=== PATIENT | female | born 1975 | race Caucasian/White ===

== ENCOUNTER 2023-05-07 19:16 | Emergency (ER) | payer OTHER, SELFPAY ==
[2023-05-07 19:20] VITALS: BP 177/94; PULSE 94; RESP 18; TEMP 38.1; O2SAT 97; BMI 39.5
--- NOTE | 2023-05-07 19:29 | ED_ITS ---
HPI - URI/Sore Throat General Chief Complaint: Upper Respiratory Infection Stated Complaint: COUGH, SNEEZING, WEAK Time Seen by Provider: 05/07/23 19:18 Source: patient History of Present Illness HPI Narrative: 47-year-old male presents for a 24-hour history of sneezing and cough and congestion. She was also noted to have a fever at triage. She is worried because next week she is due for her once every 6 months infusion for MS. No vomiting or diarrhea or dysuria. Related Data Previous Rx's Medication Instructions Recorded oseltamivir 75 mg capsule (Tamiflu) 75 mg PO BID 5 days #10 caps 05/07/23 Allergies Allergy/AdvReac Type Severity Reaction Status Date / Time naproxen [From Naprosyn] Allergy Severe Verified 05/07/23 19:24 prednisone Allergy Severe Verified 05/07/23 19:24 Sulfa (Sulfonamide Allergy Severe Verified 05/07/23 19:24 Antibiotics) Review of Systems ROS Narrative A ten point review of systems is negative except as noted above. Exam Narrative Exam Narrative: Nurses note and vital signs reviewed and patient is not hypoxic. General: The patient appears well and in no apparent distress. Patient is re sting comfortably on cart. Skin: Warm, dry, no pallor noted. There is no rash noted. Head: Normocephalic, atraumatic Eye: Normal conjunctiva, no drainage Ears, Nose, Mouth, and Throat: oral mucosa is moist. Nares patent. No pharyngeal erythema or exudate Cardiovascular: Regular Rate and Rhythm Respiratory: Patient is in no distress, no accessory muscle use, lungs are clear to auscultation, no wheezing, rales or rhonchi Back: non-tender GI: Soft and nontender Musculoskeletal: The patient has no evidence of calf tenderness, no pitting edema, symmetrical pulses noted bilaterally Neurological: A&O, normal speech Psychiatric: Cooperative Constitutional Vital Signs, click to edit/add: Last Vital Signs Temp 100.6 F H 05/07/23 19:20 Pulse 94 H 05/07/23 19:20 Resp 18 05/07/23 19:53 BP 177/94 H 05/07/23 19:20 Pulse Ox 97 05/07/23 19:20 O2 Del Method Room Air 05/07/23 19:20 Course Vital Signs Vital signs: Vital Signs Temperature 100.6 F H 05/07/23 19:20 Pulse Rate 94 H 05/07/23 19:20 Respiratory Rate 18 05/07/23 19:20 Blood Pressure 177/94 H 05/07/23 19:20 Pulse Oximetry 97 05/07/23 19:20 Oxygen Delivery Method Room Air 05/07/23 19:20 Temperature 100.6 F H 05/07/23 19:20 Pulse Rate 94 H 05/07/23 19:20 Respiratory Rate 18 05/07/23 19:53 Blood Pressure 177/94 H 05/07/23 19:20 Pulse Oximetry 97 05/07/23 19:20 Oxygen Delivery Method Room Air 05/07/23 19:20 MDM - URI/Sore Throat MDM Narrative Medical decision making narrative: COVID is negative and influenza is positive. No further workup is indicated. She was given Tylenol for her fever. The patient has MS and is scheduled for her treatment infusion next week so I will prescribe her Tamiflu. Treatment diagnosis and follow-up were discussed with the patient. Differential Diagnosis Differential diagnosis: Likely upper respiratory infection, viral infection, influenza and other (COVID) Lab Data Attestation: I reviewed the patient's lab results. Labs: Lab Results 05/07/23 Range/Units 19:30 Influenza Type A Ag Positive A Influenza Type B Ag Negative SARS-CoV-2 Ag (CV2AG) Negative (NEGATIVE) Discharge Plan Discharge Chief Complaint: Upper Respiratory Infection Clinical Impression: Influenza Patient Disposition: Home, Self-Care Time of Disposition Decision: 20:17 Condition: Good Mode of Transportation: Private Vehicle Prescriptions / Home Meds: New oseltamivir [Tamiflu] 75 mg capsule 75 mg PO BID 5 Days Qty: 10 0RF Instructions: Influenza (ED) Stand Alone Forms: Portal Instructions Referrals: CELESTINA MARK [Primary Care Provider] - 1 week
[2023-05-07] MEDS: ACETAMINOPHEN 325 MG TABLET 650 MG PO (19:42)
[2023-05-07 19:49] LABS: Influenza Virus A Antigen Positive; Influenza Virus B Antigen Negative; Internal Control Within Normal Limits; SARS-CoV-2 Ag NEGATIVE (NEGATIVE)
[2023-05-07 19:53] VITALS: RESP 18
[2023-05-07] MEDS: OSELTAMIVIR PHOSPHATE 75 MG CAPSULE PO (20:29)
== END 2023-05-07 20:35 | disposition home or self-care (01) ==
PROVIDERS: Emergency Provider Emergency Medicine; PCP Nurse Practitioner Family
DX: J10.1 Influenza due to other identified influenza virus with other respiratory manifestations (principal); Z20.822 Contact with and (suspected) exposure to COVID-19; R50.9 Fever, unspecified
CPT/HCPCS: 87804; 87811; 99283

== ENCOUNTER 2023-05-25 10:26 | Outpatient (OUT) | payer OTHER, SELFPAY ==
--- OUTSIDE RECORDS SUMMARY | 2023-05-25 10:34 | XMS_ITS ---
Author Name Auto Generated Organization OHIP Care Team Providers Care Diversity Intern Name Role Phone DR JASIEL MONTES Consulting Unavailable JAS, MILA Attending Unavailable JAS, MILA Primary Care Unavailable JAS, MILA Admitting Unavailable JAS, MILA Consulting Unavailable GOGO EMMANUEL Attending Unavailable GOGO EMMANUEL Consulting Unavailable GOGO EMMAUNEL Admitting Unavailable JAS, MILA Primary Care Unavailable JAS, MILA Primary Care Unavailable SANIA HOWE Referring Unavailable JAS, MILA Primary Care Unavailable SANIA HOWE Referring Unavailable JAS, MILA Primary Care Unavailable WALESKA VO Attending Unavailable SANIA HOWE Referring Unavailable JAS, MILA Primary Care Unavailable REBECCA SMITH Referring Unavailable JAS, MILA Primary Care Unavailable REBECCA SMITH Attending Unavailable REBECCA SMITH Referring Unavailable JAS, MILA Primary Care Unavailable REBECCA SMITH Referring Unavailable JAS, MILA Primary Care Unavailable SANIA HOWE Attending Unavailable SANIA HOWE Referring Unavailable Jose G Santiago Attending Unavailab Jose G Mendenhall Admitting Unavailab le Jas, Mila Primary Care Unavailable PROBLEMS DATE TYPE CONDITION / CODE ATTENDING STATUS [facility] 10/02/2022 Active Multiple scleros is (HCC) / G35(ICD-10) NA Active [facility] 10/02/2022 Active Urinary incontinence, unspecified type / R32(ICD-10) NA Active [facility] 10/02/2022 Active Imbalance / R26.89(ICD-10) NA Active [facility] 10/02/2022 Active Abnormality of gait / R26.9(ICD-10) NA Active [facility] 08/20/2022 Working Diagnosis ABNORMAL LEVEL S OTHER SERUM ENZYMES / R74.8(ICD-10) MILA MARK Active [facility] 08/20/2022 Admitting Diagnosis ABNORMAL LEVELS OTHER SERUM ENZYMES / R74.8(ICD-10) MILA MARK Active [facility] 08/20/2022 Principal Diagnosis ABNORMAL LEVELS OTHER SERUM ENZYMES / R74.8(ICD-10) MILA MARK Active [facility] 08/20/2022 Secondary Diagnosis CALCU GB W/O CHOLECYST W/O OBST / K80.20(ICD-10) MILA MARK Active [facility] 08/08/2022 Working Diagnosis BIPOLAR DISORD ER UNSPECIFIED / F31.9(ICD-10) GOGO EMMANUEL Active [facility] 08/08/2022 Admitting Diagnosis BIPOLAR DISORDER UNSPECIFIED / F31.9(ICD-10) GOGO EMMANUEL Active [facility] 08/08/2022 Principal Diagnosis BIPOLAR DISORDER UNSPECIFIED / F31.9(ICD-10) GOGO EMMANUEL Active [facility] 08/08/2022 Secondary Diagnosis OTH CUSTODIAL CURRENT DRUG THERAPY / Z79.899(ICD-10) GOGO EMMANUEL Active [facility] PROCEDURES No Procedure Records Found RESULTS PROGRESS Observed: 05/20/2023 12:15 PM Status: COMPLETED Source: [facility] REPOSITORY HNO ID: [id number] Author: CIERA HART RN Service: ? Author Type: Registered Nurse Type: Progress Notes Filed: 05/20/2023 15:12 Note Text: Pt receiving Ocrelixumab infusion, increasing as directed per protocol. Pt infusion at max infusion rate of 300ml/hr at 1133. At 1215 pt reports a red blotchy spot with 2 small less than 1cm large spots around that initial spot. She was petting the therapy dog when she noticed this appear, however reports she is not allergic to dogs and has not had this happen before. Infusion stopped. Message sent to Dr. Smith. Orders for Solumedol and Pepcid IV. Medications given as ordered and will restart in 20minutes if spot is improved and no worsening of symptoms 1320: Spot on arm appears improved, no further issues, restarted infusion. 1356. No further issues with skin issues at this time. Educated pt of s/s of reaction such as scratchy throat or tightening of throat, SOB, or rash to please go to ER for further evaluation. Verbalizes understanding. Ciera Hart RN IGG SERPL-MCNC Collected: 4 9:53 AM Status: F Source: [facility] REPOSITORY Order Comment: Specimen Type : BLOOD SPECIMEN Ordering Facility: [facility] Address: [address] [place] [address] TYPE CODE TESTS RESULT OUT OF RANGE REFERENCE UNITS LAB 2465-3(LOINC) IgG SerPl-mCnc 695 Low 700-1600 mg/dL Performed By: #### 2465-3, 2 472-9 #### [facility] CLIA [id number] [address] [place], [place] [id number] [place] IGM SERPL-MCNC Collected: 4 9:53 AM Status: F Source: [facility] REPOSITORY Order Comment: Specimen Type : BLOOD SPECIMEN Ordering Facility: [facility] Address: [address] [place] [address] TYPE CODE TESTS RESULT OUT OF RANGE REFERENCE UNITS LAB 2472-9(LOINC) IgM SerPl-mCnc 17 Low 40-230 mg/dL Performed By: #### 2465-3, 2 472-9 #### [facility] CLIA [id number] [address] [place], [place] [id number] [place] CBC W AUTO DIFF BLD Collected: 05/20/2023 9:[address] atus: F Source: [facility] REPOSITORY Order Comment: Specimen Type : BLOOD SPECIMEN Ordering Facility: [facility] Address: [address] [place] [address] TYPE CODE TESTS RESULT OUT OF RANGE REFERENCE UNITS LAB 6690-2([facility]) WBC # Bld Auto 7.98 3.70-11.00 k/uL LAB 789-8([facility]) RBC # Bld Auto 5.18 3.90-5.20 m/ uL LAB 718-7([facility]) Hgb Bld-mCnc 14.5 11.5-15.5 g/dL LAB 4544-3([facility]) Hct VFr Bld Auto 44.0 36.0-46.0 % LAB 787-2([facility]) MCV RBC Auto 84.9 80.0-100.0 fL LAB 785-6([facility]) MCH RBC Qn Auto 28.0 26.0-34.0 p g LAB 786-4([facility]) MCHC RBC Auto-mCnc 33.0 30.5-36.0 g/dL LAB 37387-2([facility]) RDW RBC-Rto 12.8 11.5-15.0 % LAB 777-3([facility]) Platelet # Bld Auto 192 150-400 k/uL LAB 96782-0([facility]) PMV Bld Auto 10.8 9.0-12.7 fL LAB 770-8([facility]) Neutrophils/leuk NFr Bld Auto 71.9 % LAB 751-8([facility]) Neutrophils # Bld Auto 5.74 1.45-7.50 k/uL LAB 736-9([facility]) Lymphocytes/leuk NFr Bld Auto 17.5 % LAB 731-0([facility]) Lymphocytes # Bld Auto 1.40 1.00-4.00 k/uL LAB 5905-5([facility]) Monocytes/leuk NFr Bld Auto 8.3 % LAB 742-7([facility]) Monocytes # Bld Auto 0.66 <0.87 k/uL LAB 713-8([facility]) Eosinophil/leuk NFr Bld Auto 1.4 % LAB 711-2([facility]) Eosinophil # Bld Auto 0.11 <0.46 k/uL LAB 706-2([facility]) Basophils/leuk NFr Bld Auto 0.3 % LAB 704-7([facility]) Basophils # Bld Auto <0.03 <0.11 k/uL LAB 96065-6(LOINC) Imm Granulocytes/isra k NFr Bld Auto 0.6 % LAB 54960-5([facility]) Imm Granulocytes # Bld Auto 0.05 <0.10 k/uL LAB 72996-3([facility]) nRBC/100 WBC Bld-Rto 0.0 /100 WBC LAB 771-6([facility]) nRBC # Bld Auto <0.01 <0.01 k/u L LAB 66117-8([facility]) Differential method Bld Auto Performed By: #### 16024-4 # ### [facility] CLIA [id number] [address] [place] [address] COMP METAB 2000 PNL SERPL Collected: 9:32 AM Status: F Source: [facility] REPOSITORY Order Comment: Specimen Type : BLOOD SPECIMEN Ordering Facility: [facility] Address: [address] [place] [address] TYPE CODE TESTS RESULT OUT OF RANGE REFERENCE UNITS LAB 2885-2([facility]) Prot SerPl-mCnc 6.2 Low 6.3-8.0 g/dL LAB 1751-7(INC) Albumin SerPl-mCnc 4.0 3.9-4.9 g/dL LAB 44272-3(LOINC) Calcium SerPl-mCnc 9.6 8.5-10.2 mg/dL LAB 1975-2([facility]) Bilirub SerPl-mCnc 0.9 0.2-1.3 mg/dL LAB 6768-6([facility]) ALP SerPl-cCnc 93 34-123 U/L LAB 1920-8(INC) AST SerPl-cCnc 28 13-35 U/L LAB 1742-6(LOINC) ALT SerPl-cCnc 25 7-38 U/L LAB 2345-7([facility]) Glucose SerPl-mCnc 147 High 74-99 mg/dL Result Comment: The [place] [employer] Association (ADA) provides guidance for cutoff values for fasting glucose and random glucose. The ADA defines fasting as no caloric intake for at least 8 hours. Fasting plasma glucose results between 100 to 125 mg/dL indicate increased risk for diabetes (prediabetes). Fasting plasma glucose results greater than or equal to 126 mg/dL meet the criteria for diagnosis of diabetes. In the absence of unequivocal hyperglycemia, results should be confirmed by repeat testing. In a patient with classic symptoms of hyperglycemia or hyperglycemic crisis, random plasma glucose results greater than or equal to 200 mg/dL meet the criteria for diagnosis of diabetes. Reference: Standards of Medical Care in Diabetes 2016, [place] [employer] Association. Diabetes Care. 2016.39(Suppl 1). LAB 3094-0(LOINC) BUN SerPl-mCnc 11 7-21 mg/ dL LAB 2160-0(LOINC) Creat SerPl-mCnc 1.18 High 0.58-0.96 mg/dL LAB 2951-2(LOINC) Sodium SerPl-sCnc 139 136-144 mmol/L LAB 2823-3(LOINC) Potassium SerPl-sCnc 3.8 3.7-5.1 mmol/L LAB 2075-0(LOINC) Chloride SerPl-sCnc 103 97-105 mmol/L LAB 2028-9(LOINC) CO2 SerPl-sCnc 25 22-30 mmo l/L LAB 72302-4(LOINC) Anion Gap SerPl-sCnc 11 9-18 mmol/L LAB 89081-4(LOINC) Creatinine + eGFR Pnl SerPlBld 58 Low >=60 mL/min/1 .73m??? Result Comment: Estimated Gl omerular Filtration Rate (eGFR) is calculated using the 2020 CKD-EPI creatinine equation. This equation utilizes serum creatinine, sex, and age as parameters. The creatinine assay has traceable calibration to isotope dilution-mass spectrometry. Refer to KDIGO guidelines for clinical interpretation. In patients with unstable renal function, e.g. those with acute kidney injury, the eGFR may not accurately reflect actual GFR. Performed By: #### 07690-5 # ### [facility] CLIA [id number] [address] [place], [place] [id number] IMMUNOGLOBULINS UMESH Collected: 05/20/19 24 9:32 AM Status: F Source: [facility] REPOSITORY Order Comment: Specimen Type : BLOOD SPECIMEN Ordering Facility: [facility] Address: [address] [place] [address] TYPE CODE TESTS RESULT OUT OF RANGE REFERENCE UNITS LAB 2465-3(LOINC) IgG SerPl-mCnc 858 119-8169 mg/dL LAB 2458-8(LOINC) IgA SerPl-mCnc 149 70-400 mg/dL LAB 2472-9(LOINC) IgM SerPl-mCnc 19 Low 40-230 mg/dL Performed By: #### LOBO ## ## [facility] CLIA [id number] [address] [place] [address] [place] CN[place] Observed: 05/07/2023 10:00 AM Status: COMPLETED Source: [facility] REPOSITORY Office Visit ([facility]EM[facility]) MACKENZIE CONCEPCION ([id number]) 1975 F Date Time Provider Department 05/07/23 10:00 AM REBECCA SMITH During your visit today, we recorded the following information about you: Pulse Blood pressure Weight Height 93/minute 105/53 110.6 kg 1.676 m Rebecca Smith DO 05/07/2023 12:43 PM [facility], [place], operated by [facility] FOLLOWUP/ESTABLISHED PATIENT VISIT [facility] DIAGNOSIS: Multiple Sclerosis MS DISEASE HISTORY: Date of onset: 1998 Date of diagnosis: 2002 Disease course from Onset: Exacerbating/Remitting Disease course last year: Exacerbating/Remitting Current Medications for MS: Ocrevus 04/2017 Medications for MS Used in the Past: IV Steroids, Rebif and avonex, Tysabri, Tecfidera,Aubagio (03/2016) ETHAN positive 2011 (was negative in 2010) JCV Ab status: Positive, 10/10/2014, index=0.46 Most recent brain MRI: 10/02/2022 Most recent cervical MRI: 10/02/2022 Most recent thoracic MRI: 10/06/2021 CHIEF COMPLAINT: Follow-up on MS disease modifying therapy INTERVAL HISTORY: Usual treating team: No specialty comments available. The patient is accompanied by sister. The patient was last seen 10/02/22, currently taking Ocrevus. Since the patient's last visit the patient reports overall feeling stable. Issues with current therapy: Tolerating medication without side effects. She had 2 falls. Once in her bedroom and one up the stairs. She does feel her walking is slowing down slowly over time. She walks typically with no assistive device. She does have a cane that she uses occasionally, but not often. In the summer she will go to [place] to walk, but needs to sit frequently. Neuro-QoL Functions (higher=better functioning) Flowsheet Row Office Visit from 05/07/[address] [facility] from 04/02/2022 in [facility] Social Work from 10/30/2021 in [facility] Upper Extremity Domain T Score 35 34 35 Lower Extremity Domain T Score 38 27 32 Cognitive Function Domain T Score 44 36 39 Positive Affect Well Being T Score -- -- -- Ability To Participate In Social Roles T Score 38 38 46 Satisfaction With Social Roles T Score 39 36 41 Neuro-QoL Symptoms (higher=worse symptoms) Flowsheet Row Office Visit from 05/07/[address] 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 She has no past medical history of Atrial fibrillation ([facility]), Cancer ([facility]), Chronic obstructive pulmonary disease (COPD) ([facility]), Chronic renal insufficiency, Congestive heart failure ([facility]), Coronary artery disease, Diabetes ([facility]), Epilepsy ([facility]), Hypertension, Obstructive sleep apnea, Steroid long-term use, Stroke ([facility]), or Substance abuse ([facility]). has a current medication list which includes the following prescription(s): baclofen, albuterol hfa, vraylar, docusate sodium, cholecalciferol (vitamin d3), gabapentin, divalproex er, bupropion xl, lactase, oxybutynin, citalopram hydrobromide, ocrelizumab, acetaminophen, and iv contrast. EXAM: BP 105/53 Pulse 93 Ht 167.6 cm (5' 6 ) Wt 110.6 kg (243 lb 14.4 oz) LMP 08/31/2011 BMI 39.37 kg/m? Multiple Sclerosis Performance Test Flowsheet Row Office Visit from 05/07/2023 in [facility] Office Visit from 02/20/2019 in [facility] Processing Speed Total Number Correct 29 55 Low-contrast letter acuity test-2.5 percent opacity -- 21 Low-contrast letter acuity test-100 percent opacity -- 59 Dominant hand -- -- MDT Left Hand Time 44.09 24.96 MDT Right Hand Time 39.13 28.28 Walking Speed Test (25 feet) 9.57 7.92 General Appearance: well appearing, in no acute distress Mental status evaluation during the interview and examination showed normal level of consciousness, orientation, language, does rely on sister and significant other for recallling events. Affect: Normal Extraocular movements: full, without CAMPBELL Facial sensation: Intact bilaterally Facial movements: Intact bilaterally Speech: normal Muscle tone: Right arm spasticity: None Right leg spasticity: None Left arm spasticity: None Left leg spasticity: None Muscle strength (#/5): Right Left Upper Extremity: Deltoids 5 5 Biceps 5 5 Triceps 5 5 Thermostat Repairer 5 5 Dorsal interossei 5 5 Lower extremity: Iliopsoas 5 5 Quadriceps 5 5 Hamstrings 5 5 Tibialis anterior 5 5 Gastrocnemius 5 5 Standard gait: wide-based. Assistive device: independent RESULTS: CBC + Diff Component Value Date WBC 6.19 11/11/2022 HB 14.1 11/11/2022 HCT 41.9 11/11/2022 PLT 197 11/11/2022 ABSLYMPH 1.62 11/11/2022 Vitamin D Component Value Date VITD25 73.1 05/13/2021 CMP Component Value Date AST 26 11/11/2022 GLUC 111 (H) 11/11/2022 BUN 11 11/11/2022 CREAT 1.04 (H) 11/11/2022 NA 140 11/11/2022 K 3.6 (L) 11/11/2022 CHLOR 105 11/11/2022 ALT 32 11/11/2022 No results found for: JCTIMBOD JCHALIB MRI Results: Discrete MRI Results Component Value Date Brain New T2 Lesions None Site 10/02/2022 Brain New T2 Lesions None Site 10/02/2022 Brain Enhancing Lesions None 10/02/2022 Brain Enhancing Lesions None 10/02/2022 Cervical Spine New T2 Lesions None 10/02/2022 Cervical Spine New T2 Lesions None 10/02/2022 Cervical spine enhancing lesions None 10/02/2022 Cervical spine enhancing lesions None 10/02/2022 ASSESSMENT/PLAN: Mackenzie Concepcion is a 46 year old female with 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 No new neurological symptoms. Balance fluctuates, L>R hemiparesis and occasional falls. She has a slowing of her walking, which is also evident on T2FW testing. She would benefit from PT assessment for exercise and assistive device recommendations. PLAN: -Continue Ocrevus -CBC, CMP, Immunoglobulins -PT -Brain MRI in 6 months -Follow up in 6 months with [facility] via virtual or in person visit No orders found for this visit on 05/07/23. The chart was reviewed for possible participation in the following studies:None Patient Health Education Discussed at Visit: Aerobic exercise and Stretching Follow-up: In 6 months at [facility] I spent a total of 30 minutes on the date of the service which included preparing to see the patient, [id number] patient care, completing clinical documentation, obtaining and/or reviewing separately obtained history, performing a medically appropriate examination, counseling and educating the patient/family/caregiver, ordering medications, tests, or procedures, communicating with other HCPs (not separately reported), independently interpreting results (not separately reported), communicating results to the patient/family/caregiver, and care coordination (not separately reported). Rebecca Smith DO [facility] Referring Provider: REBECCA SMITH [[id number]] Allergies As of Date: 05/07/2023 Noted Allergy Reaction NAPROSYN (NAPROXEN) 01/21/2005 11 - Vomiting PREDNISONE 10/04/2012 14 - Other: See Comments Comments: Became bradycardic with shortness of breath SULFA (SULFONAMIDE ANTIBIOTICS) 01/21/2005 11 - Vomiting Comments: hair loss MOTRIN (IBUPROFEN) 05/20/2009 14 - Other: See Comments Comments: Pt states she has UTI's when on Motrin. Date Reviewed: 05/07/2023 Reviewed by: Carrington Loaiza OCCA - Fully Assessed Primary Visit Diagnosis:Multiple sclerosis (HCC) [G35] Order(s):MRI BRAIN WO/W IVCON [[id number]] Order #: [id number] FUTURE iv contrast (will be provided with radiology test)MRI Brain Inject, intravenously, once for 1 dose.No IV access, insert saline lock prior to beginning of sedation, infusion, injection of imaging exam.Discontinue saline lock post exam. If Pt. has a central line or IVAD, may access for administration according to line specific nursing protocol.Once exam is complete flush line and de-access according to line specific nursing protocol in the MR contrast administration guidelines linkDisp: 1 EachRfl: 0 CONSULT TO PHYSICAL THERAPY [9032] Order #: [id number]: 1 FUTURE CBC + DIFF [SQCBCDIF] Order #: [id number] FUTURE COMP METABOLIC PANEL [SQCMP] Order #: [id number] FUTURE IMMUNOGLOBULINS UMESH [SQSERIMM] Order #: [id number] FUTURE Prescriptions as of 05/07/2023 - iv contrast (will be provided with radiology test) MRI Brain Inject, intravenously, once for 1 dose.No IV access, insert saline lock prior to beginning of sedation, infusion, injection of imaging exam.Discontinue saline lock post exam. If Pt. has a central line or IVAD, may access for administration according to line specific nursing protocol.Once exam is complete flush line and de-access according to line specific nursing protocol in the MR contrast administration guidelines link - baclofen 10 mg tablet TAKE ONE TABLET BY MOUTH 3 TIMES DAILY DIRECTED - albuterol HFA (PROVENTIL HFA, VENTOLIN HFA) 90 mcg/actuation inhaler Inhale as instructed q 4 HR. - VRAYLAR 6 mg capsule Take 10 mg by mouth once daily. - docusate sodium (COLACE) 100 mg capsule TAKE ONE CAPSULE BY MOUTH ONCE DAILY NEEDED - Cholecalciferol, Vitamin D3, 125 mcg (5,000 unit) cap TAKE ONE CAPSULE BY MOUTH ONCE DAILY - gabapentin (NEURONTIN) 300 mg capsule TAKE ONE CAPSULE 3 TIMES DAILY (BREAKFAST, LUNCH AND DINNER) AND TAKE 2 CAPSULES AT BEDTIME - iv contrast (will be provided with radiology test) MRI Brain Inject, intravenously, once for 1 dose.No IV access, insert saline lock prior to beginning of sedation, infusion, injection of imaging exam.Discontinue saline lock post exam. If Pt. has a central line or IVAD, may access for administration according to line specific nursing protocol.Once exam is complete flush line and de-access according to line specific nursing protocol in the MR contrast administration guidelines link - divalproex ER (DEPAKOTE ER) 250 mg 24 hr tablet TAKE FOUR TABLETS BY MOUTH IN THE EVENING - buPROPion XL (WELLBUTRIN XL) 300 mg 24 hr tablet Take 300 mg by mouth once daily. - lactase (LACTAID) 3,000 unit tablet Take by mouth q 24 HR. - oxybutynin (DITROPAN) 5 mg tablet TAKE ONE TABLET BY MOUTH IN THE MORNING, AFTERNOON, AND AT BEDTIME - citalopram hydrobromide (CELEXA) 10 mg tablet Take 10 mg by mouth once daily. - ocrelizumab (OCREVUS) 30 mg/mL soln injection Inject intravenously once every 6 months. - TYLENOL ARTHRITIS ORAL Take 1 Dose by mouth as needed. 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 If Pt. has a central line or IVAD, may access for administration according to line specific nursing protocol.Once exam is complete flush line and de-access according to line specific nursing protocol in the MR contrast administration guidelines link Follow-up and Disposition History for Encounter Date Provider Department Center 05/07/2023 [id number] SMITH [facility] Encounter Status:Closed by REBECCA SMITH on 05/07/23 PROGRESS Observed: 05/07/2023 9:23 AM Status: COMPLETED Source: [facility] REPOSITORY O ID: [id number] Author: REBECCA SMITH DO Service: ? Author Type: Physician Type: Progress Notes Filed: 05/07/2023 12:43 Note Text: [facility] FOLLOWUP/ESTABLISHED PATIENT VISIT [facility] DIAGNOSIS: Multiple Sclerosis MS DISEASE HISTORY: Date of onset: 1998 Date of diagnosis: 2002 Disease course from Onset: Exacerbating/Remitting Disease course last year: Exacerbating/Remitting Current Medications for MS: Ocrevus 04/2017 Medications for MS Used in the Past: IV Steroids, Rebif and avonex, Tysabri, Tecfidera,Aubagio (03/2016) ETHAN positive 2011 (was negative in 2010) JCV Ab status: Positive, 10/10/2014, index=0.46 Most recent brain MRI: 10/02/2022 Most recent cervical MRI: 10/02/2022 Most recent thoracic MRI: 10/06/2021 CHIEF COMPLAINT: Follow-up on MS disease modifying therapy INTERVAL HISTORY: Usual treating team: No specialty comments available. The patient is accompanied by sister. The patient was last seen 10/02/22, currently taking Ocrevus. Since the patient's last visit the patient reports overall feeling stable. Issues with current therapy: Tolerating medication without side effects. She had 2 falls. Once in her bedroom and one up the stairs. She does feel her walking is slowing down slowly over time. She walks typically with no assistive device. She does have a cane that she uses occasionally, but not often. In the summer she will go to [place] to walk, but needs to sit frequently. Neuro-QoL Functions (higher=better functioning) Flowsheet Row Office Visit from 05/07/[address] [facility] from 04/02/2022 in [facility] Social Work from 10/30/2021 in [facility] Upper Extremity Domain T Score 35 34 35 Lower Extremity Domain T Score 38 27 32 Cognitive Function Domain T Score 44 36 39 Positive Affect Well Being T Score -- -- -- Ability To Participate In Social Roles T Score 38 38 46 Satisfaction With Social Roles T Score 39 36 41 Neuro-QoL Symptoms (higher=worse symptoms) Flowsheet Row Office Visit from 05/07/[address] 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 She has no past medical history of Atrial fibrillation ([facility]), Cancer ([facility]), Chronic obstructive pulmonary disease (COPD) ([facility]), Chronic renal insufficiency, Congestive heart failure ([facility]), Coronary artery disease, Diabetes ([facility]), Epilepsy ([facility]), Hypertension, Obstructive sleep apnea, Steroid long-term use, Stroke ([facility]), or Substance abuse ([facility]). has a current medication list which includes the following prescription(s): baclofen, albuterol hfa, vraylar, docusate sodium, cholecalciferol (vitamin d3), gabapentin, divalproex er, bupropion xl, lactase, oxybutynin, citalopram hydrobromide, ocrelizumab, acetaminophen, and iv contrast. EXAM: BP 105/53 Pulse 93 Ht 167.6 cm (5' 6 ) Wt 110.6 kg (243 lb 14.4 oz) LMP 08/31/2011 BMI 39.37 kg/m? Multiple Sclerosis Performance Test Flowsheet Row Office Visit from 05/07/2023 in [facility] Office Visit from 02/20/2019 in [facility] Processing Speed Total Number Correct 29 55 Low-contrast letter acuity test-2.5 percent opacity -- 21 Low-contrast letter acuity test-100 percent opacity -- 59 Dominant hand -- -- MDT Left Hand Time 44.09 24.96 MDT Right Hand Time 39.13 28.28 Walking Speed Test (25 feet) 9.57 7.92 General Appearance: well appearing, in no acute distress Mental status evaluation during the interview and examination showed normal level of consciousness, orientation, language, does rely on sister and significant other for recallling events. Affect: Normal Extraocular movements: full, without CAMPBELL Facial sensation: Intact bilaterally Facial movements: Intact bilaterally Speech: normal Muscle tone: Right arm spasticity: None Right leg spasticity: None Left arm spasticity: None Left leg spasticity: None Muscle strength (#/5): Right Left Upper Extremity: Deltoids 5 5 Biceps 5 5 Triceps 5 5 Thermostat Repairer 5 5 Dorsal interossei 5 5 Lower extremity: Iliopsoas 5 5 Quadriceps 5 5 Hamstrings 5 5 Tibialis anterior 5 5 Gastrocnemius 5 5 Standard gait: wide-based. Assistive device: independent RESULTS: CBC + Diff Component Value Date WBC 6.19 11/11/2022 HB 14.1 11/11/2022 HCT 41.9 11/11/2022 PLT 197 11/11/2022 ABSLYMPH 1.62 11/11/2022 Vitamin D Component Value Date VITD25 73.1 05/13/2021 CMP Component Value Date AST 26 11/11/2022 GLUC 111 (H) 11/11/2022 BUN 11 11/11/2022 CREAT 1.04 (H) 11/11/2022 NA 140 11/11/2022 K 3.6 (L) 11/11/2022 CHLOR 105 11/11/2022 ALT 32 11/11/2022 No results found for: JCVIND , JCVAB MRI Results: Discrete MRI Results Component Value Date Brain New T2 Lesions None Site 10/02/2022 Brain New T2 Lesions None Site 10/02/2022 Brain Enhancing Lesions None 10/02/2022 Brain Enhancing Lesions None 10/02/2022 Cervical Spine New T2 Lesions None 10/02/2022 Cervical Spine New T2 Lesions None 10/02/2022 Cervical spine enhancing lesions None 10/02/2022 Cervical spine enhancing lesions None 10/02/2022 ASSESSMENT/PLAN: Mackenzie Concepcion is a 46 year old female with 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 No new neurological symptoms. Balance fluctuates, L>R hemiparesis and occasional falls. She has a slowing of her walking, which is also evident on T2FW testing. She would benefit from PT assessment for exercise and assistive device recommendations. PLAN: -Continue Ocrevus -CBC, CMP, Immunoglobulins -PT -Brain MRI in 6 months -Follow up in 6 months with [facility] via virtual or in person visit No orders found for this visit on 05/07/23. The chart was reviewed for possible participation in the following studies:None Patient Health Education Discussed at Visit: Aerobic exercise and Stretching Follow-up: In 6 months at [facility] I spent a total of 30 minutes on the date of the service which included preparing to see the patient, [id number] patient care, completing clinical documentation, obtaining and/or reviewing separately obtained history, performing a medically appropriate examination, counseling and educating the patient/family/caregiver, ordering medications, tests, or procedures, communicating with other HCPs (not separately reported), independently interpreting results (not separately reported), communicating results to the patient/family/caregiver, and care coordination (not separately reported). Rebecca Smith DO [facility] Multiple Sclerosis CBC W AUTO DIFF BLD Collected: 11/11/2022 9:[address] atus: F Source: [facility] REPOSITORY Order Comment: Specimen Type : BLOOD SPECIMEN Ordering Facility: [facility] Address: [address] [place] [id number] TYPE CODE TESTS RESULT OUT OF RANGE REFERENCE UNITS LAB 6690-2(LOINC) WBC # Bld Auto 6.19 3.70-11.00 k/uL LAB 789-8(LOINC) RBC # Bld Auto 4.79 3.90-5.20 m/ uL LAB 718-7(LOINC) Hgb Bld-mCnc 14.1 11.5-15.5 g/dL LAB 4544-3([facility]) Hct VFr Bld Auto 41.9 36.0-46.0 % LAB 787-2([facility]) MCV RBC Auto 87.5 80.0-100.0 fL LAB 785-6([facility]) MCH RBC Qn Auto 29.4 26.0-34.0 p g LAB 786-4([facility]) MCHC RBC Auto-mCnc 33.7 30.5-36.0 g/dL LAB 64925-1([facility]) RDW RBC-Rto 12.2 11.5-15.0 % LAB 777-3([facility]) Platelet # Bld Auto 197 150-400 k/uL LAB 50139-9([facility]) PMV Bld Auto 10.2 9.0-12.7 fL LAB 770-8([facility]) Neutrophils/leuk NFr Bld Auto 62.6 % LAB 751-8([facility]) Neutrophils # Bld Auto 3.87 1.45-7.50 k/uL LAB 736-9([facility]) Lymphocytes/leuk NFr Bld Auto 26.2 % LAB 731-0([facility]) Lymphocytes # Bld Auto 1.62 1.00-4.00 k/uL LAB 5905-5([facility]) Monocytes/leuk NFr Bld Auto 7.6 % LAB 742-7([facility]) Monocytes # Bld Auto 0.47 <0.87 k/uL LAB 713-8([facility]) Eosinophil/leuk NFr Bld Auto 2.4 % LAB 711-2([facility]) Eosinophil # Bld Auto 0.15 <0.46 k/uL LAB 706-2([facility]) Basophils/leuk NFr Bld Auto 0.6 % LAB 704-7([facility]) Basophils # Bld Auto 0.04 <0.11 k/uL LAB 51432-9([facility]) Imm Granulocytes/isra k NFr Bld Auto 0.6 % LAB 50787-5([facility]) Imm Granulocytes # Bld Auto 0.04 <0.10 k/uL LAB 94374-5([facility]) nRBC/100 WBC Bld-Rto 0.0 /100 WBC LAB 771-6([facility]) nRBC # Bld Auto <0.01 <0.01 k/u L LAB 75415-7(LOINC) Differential method Bld Auto Performed By: #### 92453-5 # ### [facility] CLIA [id number] [address] [place] [address] COMP METAB 2000 PNL SERPL Collected: 9:26 AM Status: F Source: [facility] REPOSITORY Order Comment: Specimen Type : BLOOD SPECIMEN Ordering Facility: [facility] Address: [address] [place] [address] [place] [address] TYPE CODE TESTS RESULT OUT OF RANGE REFERENCE UNITS LAB 2885-2(LOINC) Prot SerPl-mCnc 6.1 Low 6.3-8.0 g/dL LAB 1751-7(LOINC) Albumin SerPl-mCnc 4.1 3.9-4.9 g/dL LAB 98749-8(LOINC) Calcium SerPl-mCnc 8.9 8.5-10.2 mg/dL LAB 1975-2(LOINC) Bilirub SerPl-mCnc 0.4 0.2-1.3 mg/dL LAB 6768-6(LOINC) ALP SerPl-cCnc 86 34-123 U/L LAB 1920-8(LOINC) AST SerPl-cCnc 26 13-35 U/L LAB 1742-6(LOINC) ALT SerPl-cCnc 32 7-38 U/L LAB 2345-7(LOINC) Glucose SerPl-mCnc 111 High 74-99 mg/dL Result Comment: The [place] Diabetes Association (ADA) provides guidance for cutoff values for fasting glucose and random glucose. The ADA defines fasting as no caloric intake for at least 8 hours. Fasting plasma glucose results between 100 to 125 mg/dL indicate increased risk for diabetes (prediabetes). Fasting plasma glucose results greater than or equal to 126 mg/dL meet the criteria for diagnosis of diabetes. In the absence of unequivocal hyperglycemia, results should be confirmed by repeat testing. In a patient with classic symptoms of hyperglycemia or hyperglycemic crisis, random plasma glucose results greater than or equal to 200 mg/dL meet the criteria for diagnosis of diabetes. Reference: Standards of Medical Care in Diabetes 2016, [place] [employer] Association. Diabetes Care. 2016.39(Suppl 1). LAB 3094-0(LOINC) BUN SerPl-mCnc 11 7-21 mg/ dL LAB 2160-0(LOINC) Creat SerPl-mCnc 1.04 High 0.58-0.96 mg/dL LAB 2951-2(LOINC) Sodium SerPl-sCnc 140 136-144 mmol/L LAB 2823-3(LOINC) Potassium SerPl-sCnc 3.6 Low 3.7-5.1 mmol/L LAB 2075-0(LOINC) Chloride SerPl-sCnc 105 97-105 mmol/L LAB 2028-9(LOINC) CO2 SerPl-sCnc 24 22-30 mmo l/L LAB 36125-5(LOINC) Anion Gap SerPl-sCnc 11 9-18 mmol/L LAB GFRALL ESTIMATED GLOMERULAR FILTRATION RATE 67 >=60 mL/min/1 .73m??? Result Comment: Estimated Gl omerular Filtration Rate (eGFR) is calculated using the 2020 CKD-EPI creatinine equation. This equation utilizes serum creatinine, sex, and age as parameters. The creatinine assay has traceable calibration to isotope dilution-mass spectrometry. Refer to KDIGO guidelines for clinical interpretation. In patients with unstable renal function, e.g. those with acute kidney injury, the eGFR may not accurately reflect actual GFR. Performed By: #### 97661-3 # ### [facility] CLIA [id number] [address] [place] [address] IGG SERPL-MCNC Collected: 3 9:26 AM Status: F Source: [facility] REPOSITORY Order Comment: Specimen Type : BLOOD SPECIMEN Ordering Facility: [facility] Address: [address] [place], [place] [id number] TYPE CODE TESTS RESULT OUT OF RANGE REFERENCE UNITS LAB 2465-3([facility]) IgG SerPl-mCnc 550 157-6784 mg/dL Performed By: #### 2465-3, 2 472-9 #### [facility] CLIA [id number] [address] [facility] [address] [place] IGM SERPL-MCNC Collected: 3 9:26 AM Status: F Source: [facility] REPOSITORY Order Comment: Specimen Type : BLOOD SPECIMEN Ordering Facility: [facility] Address: [address] [place] [address] TYPE CODE TESTS RESULT OUT OF RANGE REFERENCE UNITS LAB 2472-9(LOINC) IgM SerPl-mCnc 19 Low 40-230 mg/dL Performed By: #### 2465-3, 2 472-9 #### [facility] CLIA [id number] [address] [facility] [id number] [id number] [place] IMMUNODEFICIENCY PNL BLD FC Collected: 11/11/2022 9:26 AM Status: F Source: [facility] REPOSITORY Order Comment: Specimen Type : BLOOD SPECIMEN Ordering Facility: [facility] Address: [address] [place] [address] TYPE CODE TESTS RESULT OUT OF RANGE REFERENCE UNITS LAB 8124-0(LOINC) CD3 Cells NFr Bld 87 60-89 % LAB 8122-4(LOINC) CD3 Cells # Bld 0738 154-8779 cells/uL LAB 8123-2(LOINC) CD3+CD4+ Cells NFr Bld 73 High 34-61 % LAB 99553-2(LOINC) CD3+CD4+ Cells # Bld 6235 099-9584 cells/uL LAB 8101-8(LOINC) CD3+CD8+ Cells NFr Bld 14 10-41 % LAB 05128-9(LOINC) CD3+CD8+ Cells # Bld 211 175-958 cells/uL LAB 05150-9(LOINC) CD3-CD19+ Cells NFr Bld 0 Low 5-22 % LAB 05720-7(LOINC) CD3-CD19+ Cells # Bld 0 Low 75-660 cells/uL LAB 8112-5(LOINC) CD3-CD16+CD 56+ Cells NFr Bld 13 5-25 % LAB 9728-7(LOINC) CD3-CD16+CD 56+ Cells # Bld 200 102-565 cells/uL LAB 48751-7(LOINC) CD3+CD4+ Cells/CD3+C D8+ Cells Bld 5.34 High 1.10-3.25 Performed By: #### 98458-8 # ### [facility] CLIA [id number] [address] [address] [place] CNPN Observed: 11/11/2022 12:00 AM Status: COMPLETED Source: [facility] REPOSITORY Telephone (NEMSMN) CONCEPCIONMACKENZIE A ([id number]) 1975 F Date Time Provider Department 11/11/22 SANIA HOWE During your visit today, we recorded the following information about you: Mila Borrego 11/11/2022 10:34 AM Signed [place] Call Name of caller : Mackenzie Relationship to patient: Self Return call phone number : [phone] Reason for call : Pt is getting her infusion done today and wants to know how long does she have to wait to have her tooth pulled, appt is next week Ara Ocampo APRN.POLO 11/11/2022 4:28 PM Signed OK for tooth extraction from our perspective. She should check with her dentist/oral surgeon about timing as well. Ara Ocampo APRN.Agatha Irvin RN 11/12/2022 9:29 AM Signed Called patient Identified by name and date of Reviewed recommendations Patient verbalized understanding and agrees with plan No further concerns Allergies As of Date: 11/11/2022 Noted Allergy Reaction NAPROSYN (NAPROXEN) 01/21/2005 11 - Vomiting PREDNISONE 10/04/2012 14 - Other: See Comments Comments: Became bradycardic with shortness of breath SULFA (SULFONAMIDE ANTIBIOTICS) 01/21/2005 11 - Vomiting Comments: hair loss MOTRIN (IBUPROFEN) 05/20/2009 14 - Other: See Comments Comments: Pt states she has UTI's when on Motrin. Date Reviewed: 11/11/2022 Reviewed by: Ciera Hart RN - Fully Assessed Reason for Visit: Patient Question [7392] Cmt: Pt is getting her infusion done today and wants to know how long does she have to wait to have her tooth pulled, appt is next week Prescriptions as of 11/12/2022 - albuterol HFA (PROVENTIL HFA, VENTOLIN HFA) 90 mcg/actuation inhaler Inhale as instructed q 4 HR. - VRAYLAR 6 mg capsule TAKE ONE CAPSULE BY MOUTH AROUND THE SAME TIME DAILY - docusate sodium (COLACE) 100 mg capsule TAKE ONE CAPSULE BY MOUTH ONCE DAILY NEEDED - Cholecalciferol, Vitamin D3, 125 mcg (5,000 unit) cap TAKE ONE CAPSULE BY MOUTH ONCE DAILY - gabapentin (NEURONTIN) 300 mg capsule TAKE ONE CAPSULE 3 TIMES DAILY (BREAKFAST, LUNCH AND DINNER) AND TAKE 2 CAPSULES AT BEDTIME - iv contrast (will be provided with radiology test) MRI Brain Inject, intravenously, once for 1 dose.No IV access, insert saline lock prior to beginning of sedation, infusion, injection of imaging exam.Discontinue saline lock post exam. If Pt. has a central line or IVAD, may access for administration according to line specific nursing protocol.Once exam is complete flush line and de-access according to line specific nursing protocol in the MR contrast administration guidelines link - baclofen (LIORESAL) 10 mg tablet TAKE ONE TABLET BY MOUTH 3 TIMES DAILY DIRECTED - divalproex ER (DEPAKOTE ER) 250 mg 24 hr tablet TAKE FOUR TABLETS BY MOUTH IN THE EVENING - buPROPion XL (WELLBUTRIN XL) 300 mg 24 hr tablet Take 300 mg by mouth once daily. - lactase (LACTAID) 3,000 unit tablet Take by mouth q 24 HR. - oxybutynin (DITROPAN) 5 mg tablet TAKE ONE TABLET BY MOUTH IN THE MORNING, AFTERNOON, AND AT BEDTIME - citalopram hydrobromide (CELEXA) 10 mg tablet Take 10 mg by mouth once daily. - ocrelizumab (OCREVUS) 30 mg/mL soln injection Inject intravenously once every 6 months. - TYLENOL ARTHRITIS ORAL Take 1 Dose by mouth as needed. 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 Author Type: Physician [place]ling [employer] Manager Type: Progress Notes Filed: 10/02/2022 2:24 PM Note Text: [facility] FOLLOWUP/ESTABLISHED PATIENT VISIT PRINCIPAL NEUROLOGIC DIAGNOSIS: Multiple Sclerosis MS DISEASE HISTORY: Date of onset: 1998 Date of diagnosis: 2002 Disease course from Onset: Exacerbating/Remitting Disease course last year: Exacerbating/Remitting Current Medications for MS: Ocrevus 04/2017 Medications for MS Used in the Past: IV Steroids, Rebif and avonex, Tysabri, Tecfidera,Aubagio (03/2016) ETHAN positive 2011 (was negative in 2010) JCV Ab status: Positive, 10/10/2014, index=0.46 Most recent brain MRI: 10/06/2021 Most recent cervical MRI: 10/06/2021 Most recent thoracic MRI: 10/06/2021 CHIEF COMPLAINT: Follow-up on MS disease modifying therapy INTERVAL HISTORY: Usual treating team: Rolf/Shyam The patient is accompanied by sister and significant other. The patient was last seen 04/02/2022, currently taking Ocrevus. Most recent infusion received 05/13/22. Since the patient's last visit the patient reports overall feeling stable. Issues with current therapy: Tolerating medication without side effects. Receives infusions at [facility]. No new neurological symptoms. Ambulates with a cane occasionally. Completes ADLs independently. Did have 1 fall walking up the stairs. No injury, did scuff R knee and went to urgent care who obtained xrays. She did see ortho for arthritic knee pain, injections did help, she never tried the pill they gave her. PT was helpful minimally. Recently found to have gallstones, plan is to have gallbladder removed. ROS: Mood: Good/bright Follows with psychiatry, on celexa, wellbutrin and vraylar Bladder: no recent UTIs, on oxybutynin, following with urology locally Bowel: See HPI Fatigue: Moderate, Worse, takes naps Sleep: interrupted Neuro-QoL Functions (higher=better functioning) Flowsheet Row [facility] from 04/02/2022 in [facility] [employer] Work from 10/30/2021 in [facility] [employer] Work from 09/30/2021 in [facility] Upper Extremity Domain T Score 34 35 31 Lower Extremity Domain T Score 27 32 34 Cognitive Function Domain T Score 36 39 29 Positive Affect Well Being T Score -- -- -- Ability To Participate In Social Roles T Score 38 46 40 Satisfaction With Social Roles T Score 36 41 41 Neuro-QoL Symptoms (higher=worse symptoms) Flowsheet Row [facility] from 04/02/2022 in [facility] Social Work from 10/30/2021 in [facility] Social Work from 09/30/2021 in [facility] Sleep Domain T Score 59 53 60 Fatigue Domain T Score 58 48 52 Anxiety Domain T Score 63 62 59 Depression Domain T Score 57 50 57 Stigma Domain T Score 64 60 62 Emotional Behavior Dyscontrol T Score -- -- -- has a past medical history of Anxiety, Cataract, Depression, 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 She has no past medical history of Atrial fibrillation ([facility]), Cancer ([facility]), Chronic obstructive pulmonary disease (COPD) ([facility]), Chronic renal insufficiency, Congestive heart failure ([facility]), Coronary artery disease, Diabetes ([facility]), Epilepsy ([facility]), Hypertension, Obstructive sleep apnea, Steroid long-term use, Stroke ([facility]), or Substance abuse ([facility]). has a current medication list which includes the following prescription(s): albuterol hfa, vraylar, docusate sodium, cholecalciferol (vitamin d3), gabapentin, iv contrast, baclofen, divalproex er, bupropion xl, lactase, oxybutynin, citalopram hydrobromide, ocrelizumab, and acetaminophen, and the following Facility-Administered Medications: tropicamide, phenylephrine, fluorescein-benoxinate, and proparacaine. EXAM: [facility] 08/31/2011 Multiple Sclerosis Performance Test Flowsheet Row Office Visit from 02/20/2019 in [facility] Office Visit from 08/25/2018 in [facility] Processing Speed Total Number Correct 55 50 Low-contrast letter acuity test-2.5 percent opacity 21 36 Low-contrast letter acuity test-100 percent opacity 59 59 Dominant hand -- -- MDT Left Hand Time 24.96 25.78 MDT Right Hand Time 28.28 25.67 Walking Speed Test (25 feet) 7.92 6.96 General Appearance: well appearing, in no acute distress Mental status evaluation during the interview and examination showed poor historian Reported difficulties: memory word finding concentration / attention Affect: Normal Facial movements: Intact bilaterally Speech: normal Standing balance: Impaired Standard gait: paretic, unsteady. Assistive device: independent RESULTS: CBC + Diff Component Value Date WBC 5.79 05/13/2022 HB 13.7 05/13/2022 HCT 40.9 05/13/2022 PLT 160 05/13/2022 ABSLYMPH 1.39 05/13/2022 CMP Component Value Date AST 48 (H) 05/13/2021 GLUC 138 (H) 11/08/2020 BUN 9 11/08/2020 CREAT 0.91 11/08/2020 NA 142 11/08/2020 K 3.5 (L) 11/08/2020 CHLOR 103 11/08/2020 ALT 48 (H) 05/13/2021 MRI Results: Discrete MRI Results Component Value Date Brain New T2 Lesions None 10/06/2021 Brain New T2 Lesions None 10/06/2021 Brain Enhancing Lesions None 10/06/2021 Brain Enhancing Lesions None 10/06/2021 Cervical Spine New T2 Lesions None 10/06/2021 Cervical Spine New T2 Lesions None 10/06/2021 Cervical spine enhancing lesions None 10/06/2021 Cervical spine enhancing lesions None 10/06/2021 ASSESSMENT: Mackenzie Concepcion is a 46 year old female with 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 No new neurological symptoms. Balance fluctuates, L>R hemiparesis and occasional falls. Today's brain AND CS MRIs reviewed and appear stable, formal reports still pending. Recent labs reviewed, IGG AND IGM within acceptable range, denies increased infections. Rx for cooling vest provided. PLAN: -Continue Ocrevus -Brain MRI annually -Rx for cooling vest provided -Follow up in 6 months with [facility] via virtual or in person visit I spent a total of 40 minutes on the date of the service which included preparing to see the patient, [id number] patient care, completing clinical documentation, counseling and educating the patient/family/caregiver, ordering medications, tests, or procedures, and communicating results to the patient/family/caregiver. Sania Howe PA-C [facility] MRI CERVICAL SPINE WO/W IVCON Observed: 10/02/2022 11:22 AM Status: F Source: [facility] REPOSITORY * * *Final Report* * * DATE OF EXAM: Oct 02 2022 11:22AM [facility] 0298 - MRI CERVICAL SPINE WO/W IVCON / PROCEDURE REASON: multiple diagnoses * * * * Physician Interpretation * * * * EXAMINATION: MRI BRAIN WO/W IVCON, MRI CERVICAL SPINE WO/W IVCON HISTORY: Multiple sclerosis. Routine follow-up TECHNIQUE: Brain MRI with demyelinating disease protocol with and without gadolinium. Routine cervical and thoracic spine protocol with and without gadolinium. MQ: [id number]_3 Contrast: 20 mL Dotarem IV COMPARISON: MRI brain and cervical spine 10/06/2021 RESULT: MR BRAIN: Parenchymal Findings: There are multiple foci of hyperintensity on FLAIR and T2 within the white matter, compatible with the clinical diagnosis of multiple sclerosis. New T2 Lesions: None Site(s) of New/Larger T2 Lesion(s): Not applicable Interval Improvement: None. New Enhancing Lesions: None T2 [place] of Disease: Moderate. Parenchymal Volume Loss: Moderate. Other Significant Findings: None. MR CERVICAL: Counting reference: Craniocervical junction. Anatomic Variants: None. Alignment: Alignment is anatomic Craniocervical Junction: Craniocervical junction is normal. Cord Findings: The visualized cord is within normal limits of signal intensity and morphology within the constraints of motion degraded images. Cord T2 Plaque [place]: None New T2 Lesions: None Interval Cord Improvement: None New Cord Enhancing Lesions: None Cord Volume Loss: Normal morphology for age Bone marrow signal/fracture: No evidence of pathologic marrow infiltration. No evidence of prior fracture. Soft tissues: The paraspinal soft tissues are within normal limits. Canal and foramina: No significant canal or foraminal stenosis in the visualized spine. IMPRESSION: Multiple intracranial white matter lesions compatible with multiple sclerosis. No new T2 lesions and no new enhancing lesions. Moderate parenchymal volume loss. Other Significant Intracranial Findings: None No evidence of demyelinating disease in the spinal cord. No new T2 intramedullary lesions and no new enhancing intramedullary lesions. No significant volume loss in the spinal cord for age. Other Significant Spine Findings: No significant spinal canal or foraminal stenosis. Cervical Anatomic Variant: None. Assume 7 cervical vertebrae with counting from the craniocervical junction. *Note: The definition of new T2 Lesions includes both new and enlarging plaques on T2-weighted FLAIR images (new lesions greater than or equal to 5mm3 or an increase in diameter of an existing lesion by greater than or equal to 2mm). Netbackup Admin: PSCB Transcribe Date/Time: Oct 02 2022 11:31A Dictated by : LUKE KHAN MD This examination was interpreted and the report reviewed and electronically signed by: GEOVANNA YEBOAH MD on Oct 02 2022 12:17PM EST [id number] MRI BRAIN WO/W IVCON Observed: 3 11:22 AM Status: F Source: [facility] REPOSITORY * * *Final Report* * * DATE OF EXAM: Oct 02 2022 11:22AM [facility] 0295 - MRI BRAIN WO/W IVCON / PROCEDURE REASON: Multiple sclerosis (HCC) * * * * Physician Interpretation * * * * EXAMINATION: MRI BRAIN WO/W IVCON, MRI CERVICAL SPINE WO/W IVCON HISTORY: Multiple sclerosis. Routine follow-up TECHNIQUE: Brain MRI with demyelinating disease protocol with and without gadolinium. Routine cervical and thoracic spine protocol with and without gadolinium. MQ: [id number]_3 Contrast: 20 mL Dotarem IV COMPARISON: MRI brain and cervical spine 10/06/2021 RESULT: MR BRAIN: Parenchymal Findings: There are multiple foci of hyperintensity on FLAIR and T2 within the white matter, compatible with the clinical diagnosis of multiple sclerosis. New T2 Lesions: None Site(s) of New/Larger T2 Lesion(s): Not applicable Interval Improvement: None. New Enhancing Lesions: None T2 [place] of Disease: Moderate. Parenchymal Volume Loss: Moderate. Other Significant Findings: None. MR CERVICAL: Counting reference: Craniocervical junction. Anatomic Variants: None. Alignment: Alignment is anatomic Craniocervical Junction: Craniocervical junction is normal. Cord Findings: The visualized cord is within normal limits of signal intensity and morphology within the constraints of motion degraded images. Cord T2 Plaque [place]: None New T2 Lesions: None Interval Cord Improvement: None New Cord Enhancing Lesions: None Cord Volume Loss: Normal morphology for age Bone marrow signal/fracture: No evidence of pathologic marrow infiltration. No evidence of prior fracture. Soft tissues: The paraspinal soft tissues are within normal limits. Canal and foramina: No significant canal or foraminal stenosis in the visualized spine. IMPRESSION: Multiple intracranial white matter lesions compatible with multiple sclerosis. No new T2 lesions and no new enhancing lesions. Moderate parenchymal volume loss. Other Significant Intracranial Findings: None No evidence of demyelinating disease in the spinal cord. No new T2 intramedullary lesions and no new enhancing intramedullary lesions. No significant volume loss in the spinal cord for age. Other Significant Spine Findings: No significant spinal canal or foraminal stenosis. Cervical Anatomic Variant: None. Assume 7 cervical vertebrae with counting from the craniocervical junction. *Note: The definition of new T2 Lesions includes both new and enlarging plaques on T2-weighted FLAIR images (new lesions greater than or equal to 5mm3 or an increase in diameter of an existing lesion by greater than or equal to 2mm). Netbackup Admin: PSCB Transcribe Date/Time: Oct 02 2022 11:31A Dictated by : LUKE KHAN MD This examination was interpreted and the report reviewed and electronically signed by: GEOVANNA YEBOAH MD on Oct 02 2022 12:17PM EST [id number] Observed: 10/02/2022 11:15 AM Status: COMPLETED Source: [facility] REPOSITORY [facility] MACKENZIE CONCEPCION ([id number]) 1975 F Date Time Provider Department 10/02/22 11:15 AM SANIA HOWE During your visit today, we recorded the following information about you: Sania Howe PA-C 10/02/2022 2:24 PM [facility], [place], operated by [facility] FOLLOWUP/ESTABLISHED PATIENT VISIT PRINCIPAL NEUROLOGIC DIAGNOSIS: Multiple Sclerosis MS DISEASE HISTORY: Date of onset: 1998 Date of diagnosis: 2002 Disease course from Onset: Exacerbating/Remitting Disease course last year: Exacerbating/Remitting Current Medications for MS: Ocrevus 04/2017 Medications for MS Used in the Past: IV Steroids, Rebif and avonex, Tysabri, Tecfidera,Aubagio (03/2016) ETHAN positive 2011 (was negative in 2010) JCV Ab status: Positive, 10/10/2014, index=0.46 Most recent brain MRI: 10/06/2021 Most recent cervical MRI: 10/06/2021 Most recent thoracic MRI: 10/06/2021 CHIEF COMPLAINT: Follow-up on MS disease modifying therapy INTERVAL HISTORY: Usual treating team: Rolf/Shyam The patient is accompanied by sister and significant other. The patient was last seen 04/02/2022, currently taking Ocrevus. Most recent infusion received 05/13/22. Since the patient's last visit the patient reports overall feeling stable. Issues with current therapy: Tolerating medication without side effects. Receives infusions at [facility]. No new neurological symptoms. Ambulates with a cane occasionally. Completes ADLs independently. Did have 1 fall walking up the stairs. No injury, did scuff R knee and went to urgent care who obtained xrays. She did see ortho for arthritic knee pain, injections did help, she never tried the pill they gave her. PT was helpful minimally. Recently found to have gallstones, plan is to have gallbladder removed. ROS: Mood: Good/bright Follows with psychiatry, on celexa, wellbutrin and vraylar Bladder: no recent UTIs, on oxybutynin, following with urology locally Bowel: See HPI Fatigue: Moderate, Worse, takes naps Sleep: interrupted Neuro-QoL Functions (higher=better functioning) Flowsheet Row [facility] from 04/02/2022 in [facility] Social Work from 10/30/2021 in [facility] Social Work from 09/30/2021 in [facility] Upper Extremity Domain T Score 34 35 31 Lower Extremity Domain T Score 27 32 34 Cognitive Function Domain T Score 36 39 29 Positive Affect Well Being T Score -- -- -- Ability To Participate In Social Roles T Score 38 46 40 Satisfaction With Social Roles T Score 36 41 41 Neuro-QoL Symptoms (higher=worse symptoms) Flowsheet Row [facility] from 04/02/2022 in [facility] Social Work from 10/30/2021 in [facility] Social Work from 09/30/2021 in [facility] Sleep Domain T Score 59 53 60 Fatigue Domain T Score 58 48 52 Anxiety Domain T Score 63 62 59 Depression Domain T Score 57 50 57 Stigma Domain T Score 64 60 62 Emotional Behavior Dyscontrol T Score -- -- -- has a past medical history of Anxiety, Cataract, Depression, 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 She has no past medical history of Atrial fibrillation ([facility]), Cancer ([facility]), Chronic obstructive pulmonary disease (COPD) ([facility]), Chronic renal insufficiency, Congestive heart failure ([facility]), Coronary artery disease, Diabetes ([facility]), Epilepsy ([facility]), Hypertension, Obstructive sleep apnea, Steroid long-term use, Stroke ([facility]), or Substance abuse ([facility]). has a current medication list which includes the following prescription(s): albuterol hfa, vraylar, docusate sodium, cholecalciferol (vitamin d3), gabapentin, iv contrast, baclofen, divalproex er, bupropion xl, lactase, oxybutynin, citalopram hydrobromide, ocrelizumab, and acetaminophen, and the following Facility-Administered Medications: tropicamide, phenylephrine, fluorescein-benoxinate, and proparacaine. EXAM: [facility] 08/31/2011 Multiple Sclerosis Performance Test Flowsheet Row Office Visit from 02/20/2019 in [facility] Office Visit from 08/25/2018 in [facility] Processing Speed Total Number Correct 55 50 Low-contrast letter acuity test-2.5 percent opacity 21 36 Low-contrast letter acuity test-100 percent opacity 59 59 Dominant hand -- -- MDT Left Hand Time 24.96 25.78 MDT Right Hand Time 28.28 25.67 Walking Speed Test (25 feet) 7.92 6.96 General Appearance: well appearing, in no acute distress Mental status evaluation during the interview and examination showed poor historian Reported difficulties: memory word finding concentration / attention Affect: Normal Facial movements: Intact bilaterally Speech: normal Standing balance: Impaired Standard gait: paretic, unsteady. Assistive device: independent RESULTS: CBC + Diff Component Value Date WBC 5.79 05/13/2022 HB 13.7 05/13/2022 HCT 40.9 05/13/2022 PLT 160 05/13/2022 ABSLYMPH 1.39 05/13/2022 CMP Component Value Date AST 48 (H) 05/13/2021 GLUC 138 (H) 11/08/2020 BUN 9 11/08/2020 CREAT 0.91 11/08/2020 NA 142 11/08/2020 K 3.5 (L) 11/08/2020 CHLOR 103 11/08/2020 ALT 48 (H) 05/13/2021 MRI Results: Discrete MRI Results Component Value Date Brain New T2 Lesions None 10/06/2021 Brain New T2 Lesions None 10/06/2021 Brain Enhancing Lesions None 10/06/2021 Brain Enhancing Lesions None 10/06/2021 Cervical Spine New T2 Lesions None 10/06/2021 Cervical Spine New T2 Lesions None 10/06/2021 Cervical spine enhancing lesions None 10/06/2021 Cervical spine enhancing lesions None 10/06/2021 ASSESSMENT: Mackenzie Concepcion is a 46 year old female with 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 No new neurological symptoms. Balance fluctuates, L>R hemiparesis and occasional falls. Today's brain AND CS MRIs reviewed and appear stable, formal reports still pending. Recent labs reviewed, IGG AND IGM within acceptable range, denies increased infections. Rx for cooling vest provided. PLAN: -Continue Ocrevus -Brain MRI annually -Rx for cooling vest provided -Follow up in 6 months with Sra[facility] via virtual or in person visit I spent a total of 40 minutes on the date of the service which included preparing to see the patient, [id number] patient care, completing clinical documentation, counseling and educating the patient/family/caregiver, ordering medications, tests, or procedures, and communicating results to the patient/family/caregiver. Sania Howe PA-C [facility] Multiple Sclerosis Referring Provider: SANIA HOWE [[id number]] Allergies As of Date: 10/02/2022 Noted Allergy Reaction NAPROSYN (NAPROXEN) 01/21/2005 11 - Vomiting PREDNISONE 10/04/2012 14 - Other: See Comments Comments: Became bradycardic with shortness of breath SULFA (SULFONAMIDE ANTIBIOTICS) 01/21/2005 11 - Vomiting Comments: hair loss MOTRIN (IBUPROFEN) 05/20/2009 14 - Other: See Comments Comments: Pt states she has UTI's when on Motrin. Date Reviewed: 10/02/2022 Reviewed by: Sania Howe PA-C - Fully Assessed Primary Visit Diagnosis:Multiple sclerosis (HCC) [G35] Prescriptions as of 10/02/2022 - albuterol HFA (PROVENTIL HFA, VENTOLIN HFA) 90 mcg/actuation inhaler Inhale as instructed q 4 HR. - VRAYLAR 6 mg capsule TAKE ONE CAPSULE BY MOUTH AROUND THE SAME TIME DAILY - docusate sodium (COLACE) 100 mg capsule TAKE ONE CAPSULE BY MOUTH ONCE DAILY NEEDED - Cholecalciferol, Vitamin D3, 125 mcg (5,000 unit) cap TAKE ONE CAPSULE BY MOUTH ONCE DAILY - gabapentin (NEURONTIN) 300 mg capsule TAKE ONE CAPSULE 3 TIMES DAILY (BREAKFAST, LUNCH AND DINNER) AND TAKE 2 CAPSULES AT BEDTIME - iv contrast (will be provided with radiology test) MRI Brain Inject, intravenously, once for 1 dose.No IV access, insert saline lock prior to beginning of sedation, infusion, injection of imaging exam.Discontinue saline lock post exam. If Pt. has a central line or IVAD, may access for administration according to line specific nursing protocol.Once exam is complete flush line and de-access according to line specific nursing protocol in the MR contrast administration guidelines link - baclofen (LIORESAL) 10 mg tablet TAKE ONE TABLET BY MOUTH 3 TIMES DAILY DIRECTED - divalproex ER (DEPAKOTE ER) 250 mg 24 hr tablet TAKE FOUR TABLETS BY MOUTH IN THE EVENING - buPROPion XL (WELLBUTRIN XL) 300 mg 24 hr tablet Take 300 mg by mouth once daily. - lactase (LACTAID) 3,000 unit tablet Take by mouth q 24 HR. - oxybutynin (DITROPAN) 5 mg tablet TAKE ONE TABLET BY MOUTH IN THE MORNING, AFTERNOON, AND AT BEDTIME - citalopram hydrobromide (CELEXA) 10 mg tablet Take 10 mg by mouth once daily. - ocrelizumab (OCREVUS) 30 mg/mL soln injection Inject intravenously once every 6 months. - TYLENOL ARTHRITIS ORAL Take 1 Dose by mouth as needed. 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 Follow-up and Disposition History for Encounter Date Provider Department Center 10/02/2022 [id number]-YBTRASANIA HOWE [facility] Encounter Status:Closed by SANIA HOWE on 10/02/22 PROGRESS Observed: 10/02/2022 8:34 AM Status: COMPLETED Source: [facility] REPOSITORY HNO ID: [id number] Author: Waleska Vo MD Service: ? Author Type: Physician Type: Progress Notes Filed: 10/02/2022 9:20 AM Note Text: Reviewed Epic, chart, labs, imaging studies. 1. 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 No evidence of ocular inflammation on exam today Ocrevus (q6 month dosing, infusions in [place]) MRI scheduled later today 2. Dry eye. Continue PFAT 3. Dislocated sulcal IOL Right eye stable. 4. Refractive error. Rx given today. First bifocal I have confirmed and edited as necessary the relevant ophthalmic history, ROS, and the neuro exam findings as obtained by others. I have seen and examined Mackenzie Concepcion. I have discussed the case and the management of this patient's care with the Resident/Fellow, if applicable. I also have reviewed and agree with the assessment and plan as stated above and agree with all of its relevant components.The nature of the patient's eye disease, its relationship to systemic health, and its prognosis have been explained to the patient/family. The treatment options/risks/benefits have been discussed. Questions answered. Waleska Vo MD SINGLE QUAD RT UPPER Observed: 2022 11:04 AM Status: F Source: [facility] REPOSITORY EXAMINATION: US SINGLE QUAD RT UPPER HISTORY: High enzyme level in serum ; abnormal lab values COMPARISON: CT abdomen pelvis 07/01/2021, 07/21/2017 TECHNIQUE: Transabdominal evaluation of the right upper quadrant. FINDINGS: LIVER: Normal size and echotexture. Color Doppler demonstrates patent hepatic veins. PORTAL VEIN: Duplex Doppler demonstrates normal hepatopetal flow pattern with flow velocity averaging 29 cm/s. GALLBLADDER: Small amount of fine granular stones layering within the gallbladder versus sludge. No gallbladder wall thickening or free fluid. Negative sonographic Zuniga's sign. BILIARY: No abnormal dilation or stones. Common bile duct diameter is within normal limits. PANCREASE: No visible mass, abnormal atrophy, or duct dilation. KIDNEY: No hydronephrosis. Stable mild cortical tissue prominence within lateral mid body of kidney. No visible mass or stones. Size: 9.3 x 5.2 x 4.3 cm IMPRESSION: 1. No significant abnormalities of the liver; at most there is mild fatty infiltration. 2. Cholelithiasis; suspect finding granular stones layering within the gallbladder. No acute findings. Electronically authenticated by: JASIEL MONTES Date: 2022-08-19 12:29 PROGRESS Observed: 08/17/2022 5:07 PM Status: COMPLETED Source: [facility] REPOSITORY HNO ID: [id number] Author: Duran De Jesus Service: ? Author Type: ? Type: Progress Notes Filed: 08/17/2022 5:13 PM Note Text: Retroactive MS SmartForm Completion -Duran De Jesus CBC AUTO DIFF Collected: 10:19 AM Status: F Source: [facility] REPOSITORY TYPE CODE TESTS RESULT OUT OF RANGE REFERENCE UNITS LAB WBC(LOINC) WBC 6.6 4.0-11.0 103/ul LAB RBC(LOINC) RBC 4.53 4.20-5.40 106/ul LAB HGB(LOINC) HGB 13.7 12.0-16.0 g/dl LAB HCT(LOINC) HCT 40.1 36.0-48.0 % LAB MCV(LOINC) MCV 88.5 81.0-99.0 fL LAB MCH(LOINC) MCH 30.2 26.7-34.0 pg LAB MCHC(LOINC) MCHC 34.2 29.9-35.2 g/dl LAB RDW(LOINC) RDW 11.6 11.0-15.0 % LAB PLT(LOINC) PLT 165 150-450 103/ul LAB MPV(LOINC) MPV 10.3 9.5-13.5 fL LAB NEUT%(LOINC) NEUT % 68.4 43.0-75.0 % LAB LYMPH%(LOINC) LYMPH % 20.1 Low Alert 20.5-60.0 % LAB MONO%(LOINC) MONO % 8.5 1.7-12.0 % LAB EO%(LOINC) EO % 2.0 0.9-7.0 % LAB BASO%(LOINC) BASO % 0.5 0.2-2.0 % LAB IG%(LOINC) IG % 0.5 0.0-0.5 % LAB NEUT#(LOINC) NEUT # 4.5 1.4-6.5 103/ul LAB LYMPH#(LOINC) LYMPH # 1.3 1.2-3.8 103/ul LAB MONO#(LOINC) MONO # 0.6 0.3-0.8 103/ul LAB EO#(LOINC) EO # 0.1 0.0-0.7 103/ul LAB BASO#(LOINC) BASO # 0.0 0.0-0.1 103/ul LAB IG#(LOINC) IG # 0.03 0.00-0.03 10e3/ul LAB MDR([facility]) MANUAL DIFF REQ NO Performed By: #### CBC #### [facility] [address] [place] [address] Dr. Eduardo Bonilla LIPID PROFILE Collected: 3 10:19 AM Status: F Source: [facility] REPOSITORY TYPE CODE TESTS RESULT OUT OF RANGE REFERENCE UNITS LAB 305(INC) CHOL 167 <=200 mg/dL LAB 304(INC) TRIG 75 <=150 mg/dL LAB 356(INC) HDL 41 40-60 mg/dL LAB HDLH([facility]) HDL NORMAL > or = 60 mg/dl - LOW CARDIOVASCULAR RISK <40 mg/dl - HIGH CARDIOVASCULAR RISK LAB 916(INC) LDL CALC 111.0 mg/dL LAB LDLCH([facility]) LDL CALC NORMAL SEE BELOW Result Comment: <100 mg/dl O PTIMAL 100 - 129 mg/dl NEAR OR ABOVE OPTIMAL 130 - 159 mg/dl BORDERLINE HIGH 160 - 189 mg/dl HIGH >190 mg/dl VERY HIGH LAB 917(LOINC) CHOL/HDL RATIO 4.1 LAB CH_HDL_H(INC) CHOL-HDL RATIO NORM SEE BELOW Result Comment: 3.3 - 4.4 LO W RISK 4.4 - 7.1 AVERAGE RISK 7.1 - 11.0 MODERATE RISK >11.0 HIGH RISK LAB 912(LOINC) VLDL CALC 15.0 mg/dL Performed By: #### LIPID, VA LP, LIVER, GLUC #### [facility] [address] [place] [address] Dr. Eduardo Bonilla DEPAKENE/ VALPROIC ACID Collected: 11/2022 10:19 AM Status: F Source: [facility] REPOSITORY TYPE CODE TESTS RESULT OUT OF RANGE REFERENCE UNITS LAB 511(LOINC) DEPAKENE 78.2 50.0-100.0 ug/ml Performed By: #### LIPID, VA LP, LIVER, GLUC #### [facility] [address] [address] [address] Eduardo Bonilla LIVER PROFILE Collected: 08/04/2022 10:19 AM Status: F Source: [facility] TYPE CODE TESTS RESULT OUT OF RANGE REFERENCE UNITS LAB 320(LOINC) AST 55 High Alert 15-37 U/L LAB 322(LOINC) ALT 74 High Alert 14-59 U/L LAB 321(LOINC) ALP 78 46-116 U/L LAB 319(LOINC) TBIL 0.4 0.2-1.0 mg/dL LAB 327(LOINC) BILI, CONJUGATED 0.2 0.0-0.2 mg/dL LAB 301(LOINC) TP 6.1 Low Alert 6.4-8.2 g/dL LAB 303(LOINC) ALB 3.0 Low Alert 3.4-5.0 g/dL LAB 910(LOINC) GLOBULIN 3.1 g/dL LAB 903(LOINC) A/G RATIO 1.0 Performed By: #### LIPID, VA LP, LIVER, GLUC #### [facility] [address] [address] [address] Eduardo Bonilla GLUCOSE BLOOD Collected: 10:19 AM Status: F Source: [facility] TYPE CODE TESTS RESULT OUT OF RANGE REFERENCE UNITS LAB 300(LOINC) GLUC 91 74-106 mg/dL Performed By: #### LIPID, VA LP, LIVER, GLUC #### [facility] [address] [place] [address] Dr. Eduardo Bonilla ALLERGIES DATE TYPE / CODE NAME / CODE REACTION SEVERITY SOURCE 05/01/2022 Drug Allergy/4160 74037(SNOMED CT) sulfur/[id number]( RXNORM) hives/hair loss/vomiting Unknown [facility] 05/01/2022 Drug Allergy/4160 66576(SNOMED CT) sulfacetamide/F006 554233(RXNORM) hives/hair loss/vomiting Unknown [facility] 05/13/2013 Drug Allergy/4160 69136(SNOMED CT) Sulfa(Sulfonamide Antibiotics)/491(R XNORM) Itching Mild [facility] 05/13/2013 Drug Allergy/4160 07224(SNOMED CT) Naprosyn/1689(RXNO RM) Side Effect - Nausea / Upset Stomach Mild [facility] 05/13/2013 Drug Allergy/4160 23453(SNOMED CT) Motrin/4293(RXNORM ) Side Effect - Intolerance Mild [facility] 05/13/2013 Drug Allergy/4160 68615(SNOMED CT) prednisone/2164(RX NORM) Side Effect - Intolerance Mild [facility] 10/04/2012 DRUG INGREDI/4195 34685(SNOMED CT) PREDNISONE OTHER: SEE C [facility] 05/20/2009 DRUG INGREDI/4195 34625(SNOMED CT) IBUPROFEN OTHER: SEE C [facility] 01/21/2005 DRUG INGREDI/4195 97410(SNOMED CT) NAPROXEN [facility] 01/21/2005 Drug Class/027501 003(SNOMED CT) SULFA (SULFONAMIDE ANTIBIOTICS) [facility] ENCOUNTERS ADMIT/DISCHARGE ACCOUNT NUMBER ADMITTING ENCOUNTER CLASS LOCATION SOURCE 05/20/2023/05/20/19 [facility] [id number] [facility] 05/07/2023/05/07/19 24 [id number] [facility] 02/23/2023 [id number] [facility] G Santiago [facility] 11/11/2022/11/13/19 23 [id number] [facility] [facility] 10/02/2022/10/03/19 23 [id number] [facility] HospitalBuil ding:NEMS [facility] 10/02/2022/10/03/19 23 [id number] Ambulatory [facility] HospitalBuil ding:MMRU [facility] 10/02/2022/10/03/19 23 [id number] Ambulatory [facility] HospitalBuil ding:MMRU [facility] 10/02/2022/10/03/19 23 [id number] Ambulatory [facility] HospitalBuil ding:OPHT [facility] 08/19/2022/08/20/19 23 [id number] MILA MARK Ambulatory [id number]:Jane KEITA [facility] 08/04/2022/08/05/19 [id number] GOGO EMMANUEL Ambulatory [id number]:Jane [facility] PAYERS ENCOUNTER GUARANTOR PAYER SUBSCRIBER SOURCE 05/20/2023 [facility] MEDICA[facility]Policy Number: [id number] Date:8347-53-60Nfsx Name:Erica Garcia NURY: [id number] [facility] [place] [address] [facility] 05/07/2023 Primary Insurance:[facility] MEDICAIDPolicy Number: [id number] Date:8076-21-75Lzzt Name:Erica Garcia NURY: [id number] [facility] [place] [address] [facility] 02/23/2023 Mackenzie Mcclain [facility] [place] [address]Qmg: () Primary Insurance:Self PayPolicy Number: Effective Date:2022-07-14 [facility] MEDICAIDPolicy Number: [id number] Date:8945-79-10Lyqt Name:Erica Garcia NURY: [id number] [facility] [place] [address] [facility] 10/02/2022 Primary Insurance:[employer] MEDICAIDPolicy Number: [id number] Date:1711-15-86Cnau Name:Erica ARRINGTON: [id number] Oly [facility] [place] [id number] [facility] 10/02/2022 Primary Insurance:[facility] MEDICAIDPolicy Number: [id number] Date:4379-15-82Slhl Name:Erica ZENDEJASB: [id number] Oly [facility] [place] [id number] [facility] 10/02/2022 Primary [facility] MEDICAIDPolicy Number: [id number] Date:6315-63-38Iavm Name:Erica ARRINGTON: [id number] Oly [facility] [address] [facility] 10/02/2022 Primary Insurance:[facility] MEDICAIDPolicy Number: [id number] Date:8059-70-73Zokc Name:Erica ZENDEJASB: [id number] [place] [id number] [facility] 08/19/2022 MACKENZIE ZENDEJASB: [place], [place] [address]Ofl: (HP) Primary Insurance:CARESOURCEPo licy Number: [id number] Date:[id number] [place] [id number]: MACKENZIE CONCEPCIONDOB: [id number] [place], [place] [id number] [place] [address] 08/04/2022 MACKENZIE ZENDEJASB: [place], [place] [address]Jio: (HP) Primary Insurance:CARESOURCEPo licy Number: [id number] Date:[id number] [place] [address] [place] [id number]: MACKENZIE ARRINGTON: [id number] [place] [address] [facility]
[2023-05-25 10:53] LABS: Basophils Percent Auto 0.5 % (0.2-2.0); Eosinophils Absolute Auto 0.1 10^3/uL (0.0-0.7); Eosinophils Percent Auto 1.2 % (0.9-7.0); Immature Granulocytes Abs Auto 0.05 10^3/uL (0.00-0.03); Immature Granulocytes Pct Auto 0.8 % (0.0-0.5); Lymphocytes Absolute Auto 2.1 10^3/uL (1.2-3.8); Lymphocytes Percent Auto 31.5 % (20.5-60.0); Mean Corpuscular HGB Conc 31.7 g/dL (29.9-35.2); Mean Corpuscular Volume 88.2 fL (81.0-99.0); Mean Platelet Volume 10.1 fL (9.5-13.5); Monocytes Absolute Auto 0.4 10^3/uL (0.3-0.8); Monocytes Percent Auto 6.1 % (1.7-12.0); Neutrophils Absolute Auto 3.9 10^3/uL (1.4-6.5); Neutrophils Percent Auto 59.9 % (43.0-75.0); Platelet Count 163 10^3/uL (150-450); Red Blood Count 4.65 10^6/uL (4.20-5.40); Red Cell Distribution Width 12.6 % (11.0-15.0); White Blood Count 6.5 10^3/uL (4.0-11.0)
[2023-05-25 11:17] LABS: Alanine Aminotransferase 46 U/L (14-59); Alkaline Phosphatase 77 U/L (46-116); Aspartate Amino Transferase 34 U/L (15-37); Bilirubin Direct 0.3 mg/dL (0.0-0.2); Bilirubin Total 0.6 mg/dL (0.2-1.0); Chol HDL Ratio 2.8; Cholesterol 141 mg/dL (<=200); Globulin 3.1 g/dL; Glucose 81 mg/dL (74-106); HDL Cholesterol 51 mg/dL (40-60); LDL Cholesterol Calculated 72.4 mg/dL; Total Protein 6.1 g/dL (6.4-8.2); Triglycerides 88 mg/dL (<=150); VLDL CHOLESTEROL 17.6 mg/dL
[2023-05-25 11:28] LABS: Valproic Acid 99.4 ug/mL (50.0-100.0)
== END 2023-05-25 10:27 | disposition home or self-care (01) ==
LOC: LAB 10:27
PROVIDERS: PCP Nurse Practitioner Family; Visit Provider Psychiatry & Neurology Psychiatry
DX: Z79.899 Other long term (current) drug therapy (principal); F31.9 Bipolar disorder, unspecified
CPT/HCPCS: 36415; 80061; 80076; 80164; 82947; 85025

== ENCOUNTER 2023-12-14 09:58 | Outpatient (RCR) | payer OTHER, SELFPAY | END 2024-01-26 15:51 | disposition home or self-care (01) | LOC: PT 09:58 | PROVIDERS: PCP Nurse Practitioner Family | DX: G35 Multiple sclerosis (principal); M62.81 Muscle weakness (generalized) | CPT/HCPCS: 97113; 97161 ==

== ENCOUNTER 2024-01-11 10:15 | Outpatient (OUT) | payer OTHER, SELFPAY ==
--- OUTSIDE RECORDS SUMMARY | 2024-01-11 10:27 | XMS_ITS | CCD ---
Author Organization [facility] Care Team Providers Care Emission Technician Name Role Phone ISIS ANDERSEN Unavailable Unavailable JASPER PINZON Unavailable Unavailable HAILEY GIMENEZ Unavailable Unavailable Mila Gomez CNP Primary Care Provider Kait Kwon Unavailable Mila Gomez Unavailable Mila Gomze CNP Primary Care Provider SKYLER Gomez Primary Care Provider SKYLER Gomez Attending Provider [phone] Mila Gomez CNP Primary Care Provider Mila Gomez CNP Primary Care Provider MILA GOMEZ Primary Care Unavailable GOGO RASCON Consulting Unavailable GOGO RASCON Attending Unavailable GOGO RASCON Admitting Unavailable LIEN, GOGO Admitting Unavailable LIEN, GOGO Consulting Unavailable GOGO RASCON Attending Unavailable MILA GOMEZ Primary Care Unavailable SKYLER Gomez Primary Care Provider U MD Jose G Valle Attending Provider Elen PLASCENCIA Primary Care Physician Mila Gomez CNP Primary Care Provider MILA GOMEZ Primary Care Unavailable SANIA NICHOLAS Attending Unavailable ROLF, REBECCA Referring Unavailable MILA GOMEZ Primary Care Unavailable REBECCA BANSAL Referring Unavailable REBECCA BANSAL Attending Unavailable MILA GOMEZ Primary Care Unavailable DAMEON BANSALSA Referring Unavailable PATRICIA, MILA Primary Care Unavailable ROLF, REBECCA Referring Unavailable PATRICIA, MILA Primary Care Unavailable ROLF, REBECCA Referring Unavailable ROLF, REBECCA Attending Unavailable PATRICIA, MILA Primary Care Unavailable PATRICIA, MILA Attending Unavailable PATRICIA, MILA Admitting Unavailable PATRICIA, MILA Attending Unavailable PATRICIA, MILA Admitting Unavailable KERRIE CASTRO JR Attending Unavailable PATRICIA, MILA Referring Unavailable PATRICIA, MILA Primary Care Unavailable PATRICIA, MILA Attending Unavailable PATRICIA, MILA Admitting Unavailable Jose G Santiago Attending Unavailab le Pamela, Jose G Admitting Unavailab le Patricia, Mila Primary Care Unavailable Allergies Allergy Classification Reported Allergen(s) Allergy Type Date of Onset Reaction(s) Facility (20 sources) ibuprofen; Translations: [IBUPROFEN] Drug Allergy 05-20-19 10 Other: See Comments [facility] (20 sources) naproxen; Translations: [NAPROXEN] Drug Allergy 01-22-20 05 Vomiting [facility] (20 sources) predniSONE; Translations: [PREDNISONE] Drug Allergy 10-05-19 13 Other: See Comments [facility] (20 sources) Sulfonamides (Antibiotic); Translations: [SULFA (SULFONAMIDE ANTIBIOTICS)] Propensity to adverse reactions to drug (disorder) 01-22-20 05 Vomiting [facility] (12 sources) Sulfacetamide / Sulfur Drug Allergy hives/hair loss/vomiting [employer] Other (1 source) Ibuprofen Drug Allergy 05-13-19 14 [facility] Rep[facility] (1 source) Naproxen Drug Allergy 05-13-19 14 [facility] (1 source) Sulfonamides (Antibiotic) Drug allergy (disorder) 05-13-19 14 [facility] (2 sources) Sulfacetamide; Translations: [sulfacetamide] Drug Allergy 08-13-19 24 hives/hair loss/vomiting [facility] (2 sources) Sulfur; Translations: [sulfur] Drug Allergy 08-13-19 24 hives/hair loss/vomiting [facility] Medications Current Medications Medication Drug Class(es) Dates Sig (Normalized) Sig (Original) [id number] 200 actuat albuterol 0.09 mg/actuat metered dose inhaler (20 sources) beta2-Adrenergic Agonist Start: 07-08-2021 albuterol HFA (PROVENTIL HFA, VENTOLIN HFA) 90 mcg/actuation inhaler Inhale as instructed q 4 HR. 07/08/2021 Active Start: 07-08-2021 take 2 puff(s) by in halation every four hours as needed Albuterol Sulfate HFA 108 (90 Base) MCG/ACT 2 puffs as needed Inhalation every 4 hrs Mar, Active Start: 07-08-2021 take 2 puff(s) by in halation every four hours as needed Albuterol Sulfate HFA 108 (90 Base) MCG/ACT 2 puffs as needed Inhalation every 4 hrs Jun, Active Comment on above: Inhale as instructed q 4 HR. amitriptyline hydrochloride 10 mg oral tablet (6 sources) Tricyclic Antidepressant Start: 11-19-19 24 End: 02-17-20 24 take 1 tablet by mouth once daily at bedtime amitriptyline (ELAVIL) 10 mg tablet take one tablet by mouth once daily at bedtime 30 tablet 5 12/29/2023 Active amoxicillin 875 mg oral tablet (4 sources) Penicillin-class Antibacterial Start: 10-31-19 take 1 tablet by mouth every eight hours Amoxicillin 875 MG 1 tablet Orally every 8 hrs for 10 day(s) Oct, Active azithromycin 250 mg oral tablet (1 source) Macrolide Antimicrobial Start: 08-13-19 24 take 250 mg by mouth once daily Azithromycin Active 250 MG PO Daily August 13, 2023 12:00am baclofen 10 mg oral tablet (20 sources) gamma-Aminobutyric Acid-ergic Agonist Start: 01-02-20 End: 12-03-19 24 take 1 tablet by mouth three times daily baclofen 10 mg tablet TAKE ONE TABLET BY MOUTH THREE TIMES A DAY DIRECTED 84 tablet 11 12/03/2023 Active Start: 03-04-2021 End: 01-30-2022 take 1 tablet by mouth three times daily baclofen (LIORESAL) 10 mg tablet TAKE ONE TABLET BY MOUTH 3 TIMES DAILY DIRECTED 84 tablet 11 01/30/2022 Active take 1 tablet by sharon th twice daily at mealtime Baclofen 10 MG 1 tablet with food or milk Oral twice daily for 90 days Active Comment on above: TAKE ONE TABLET BY M OUT 3 TIMES DAILY DIRECTED benoxinate hydrochloride 4 mg/ml / fluorescein sodium 2.5 mg/ml ophthalmic solution (1 source) Diagnostic Dye Start: 3 End: 3 fluorescein-benoxi abdi 0.25-0.4 % 1 Drop (FLURESS) Benzocaine (9 sources) Standardized Chemical Allergen Start: 2 Cepacol 15-2.3 MG use 1 lozenge orally qid for 5 day(s) Jun, Active benzocaine 15 mg / menthol 2.3 mg oral lozenge (1 source) Standardized Chemical Allergen Start: 2 Cepacol 15-2.3 MG use 1 lozenge orally qid for 5 day(s) Jun, Active 24 hr buPROPion hydrochloride 300 mg extended release oral tablet (20 sources) Aminoketone Start: 2 take 1 tablet by mouth once daily buPROPion XL (WELLBUTRIN XL) 300 mg 24 hr tablet Take 300 mg by mouth once daily. 09/16/2021 Active take 1 tablet by sharon th every twenty-four hours buPROPion HCl ER (SR) 100 MG 1 tablet in the morning Oral Once a day for 30 day(s) Not-Taking End: 10-06-2021 take 1 tablet by mouth once daily bupropion HCl (WELLB UTRIN ORAL) Take 1 tablet by mouth once daily. 0 10/06/2021 Discontinued take 1 tablet by mouth once deborah y bupropion HCl (WELLBUTRIN ORAL) Take 1 tablet by mouth once daily. 0 Active take 1 tablet by sharon th once daily in the morning buPROPion HCl ER (SR) 100 MG 1 tablet in the morning Oral Once a day for 30 day(s) Not-Taking Comment on above: Take 1 tablet by sharon th once daily. Take 300 mg by mouth once daily. cariprazine 6 mg oral capsule (20 sources) Atypical Antipsychotic Start: 4 take 1 capsule by mouth once daily Cariprazine (Vraylar) 6 mg capsule Active 6 MG PO Daily August 13, 2023 12:00am Start: 09-14-2022 take 10 mg by mouth once daily VRAYLAR 6 mg capsule Take 10 mg by mouth once daily. 09/14/2022 Active Start: 09-14-2022 take 1 capsule by mo uth once daily VRAYLAR 6 mg capsule TAKE ONE CAPSULE BY MOUTH AROUND THE SAME TIME DAILY 0 09/14/2022 Active Vraylar Active Comment on above: TAKE ONE CAPSULE BY MOUTH AROUND THE SAME TIME DAILY Take 10 mg by mouth once daily. cetirizine hydrochloride 10 mg oral tablet (8 sources) Histamine-1 Receptor Antagonist Start: take 10 mg by mouth once daily Cetirizine Active 10 MG PO Daily August 13, 2023 12:00am Start: 09-16-2021 take 1 tablet by sharon th every twenty-four hours Cetirizine HCl 10 MG 1 tablet Orally Once a day for 30 day(s) Aug, Active cholecalciferol 0.125 mg oral capsule (20 sources) Vitamin D Start: 08-13-2023 take 125 ug by mouth once daily Cholecalciferol (Vitamin D3) Active 125 MCG PO Daily August 13, 2023 12:00am Start: 08-15-2021 End: 06-16-2023 take 1 capsule by mouth once daily Cholecalciferol, Vitamin D3, 125 mcg (5,000 unit) cap take one capsule by mouth once daily 28 capsule 11 06/16/2023 Active Start: 03-13-2021 End: 08-15-2021 take 5 capsules by mouth once daily Cholecalciferol, Vitamin D3, (VITAMIN D) 25 mcg (1,000 unit) cap Take 5 capsules by mouth once daily. 150 capsule 5 03/13/2021 08/15/2021 Discontinued Comment on above: TAKE ONE CAPSULE BY MOUTH ONCE DAILY Take 5 capsules by m out once daily. citalopram 20 mg oral tablet (20 sources) Serotonin Reuptake Inhibitor Start: 08-13-2023 take 20 mg by mouth once daily Citalopram Active 20 MG PO Daily August 13, 2023 12:00am Start: 01-25-2019 take 1 tablet by sharon th once daily CeleXA 10 mg Tab 10 mg = 1 tab(s), Oral, Daily, # 30 tab(s), Refills(s) 0, Pharmacy: [facility]/pharmacy #[id number] Start Date: 01/25/19 Status: Ordered Comment on above: Take 10 mg by mouth once daily. codeine phosphate 2 mg/ml / guaiFENesin 20 mg/ml oral solution (1 source) Opioid Agonist Start: 024 take 1 mL by mouth every six hours Codeine-Guaifenesin Active 5 ML PO Every 6 hours August 13, 2023 12:00am cyclobenzaprine hydrochloride 10 mg oral tablet (12 sources) Muscle Relaxant Start: 021 take 1 tablet by mouth every eight hours Cyclobenzaprine HCl 10 MG 1 tablet as needed Orally Three times a day for 10 days July, Active dexamethasone 4 mg oral tablet (5 sources) Corticosteroid Start: 023 take 1 tablet by mouth every twenty-four hours Dexamethasone 4 MG 1 tablet Orally Once a day for 5 day(s) Mar, Active Start: 01-12-2022 take 1 tablet by sharon th every twenty-four hours Dexamethasone 6 MG 1 tablet Orally Once a day for 5 day(s) Dec, Active Start: 07-08-2021 take 1 tablet by sharon th every twenty-four hours Dexamethasone 6 MG 1 tablet Orally Once a day for 5 day(s) Jun, Active dicyclomine hydrochloride 20 mg oral tablet (15 sources) Anticholinergic Start: 07-21-2019 take 1 tablet by mouth every eight hours Dicyclomine HCl 20 MG 1 tablet Orally Three times a day for 90 days Jun, Active End: 10-06-2021 take 1 capsule by mouth at bedtime dicyclomine (BENTYL) 10 mg capsule Take 10 mg by mouth before meals and at bedtime. 0 10/06/2021 Discontinued (Patient chooses alternative therapy) Comment on above: Take 10 mg by mouth before meals and at bedtime. Docusate (20 sources) Start: 08-13-2023 Docusate Sodium Active MG PO August 13, 2023 12:00am Start: 06-08-2022 take 1 capsule by mo ut once daily as needed docusate sodium (COLACE) 100 mg capsule TAKE ONE CAPSULE BY MOUTH ONCE DAILY NEEDED 06/08/2022 Active Start: 03-12-2022 take 1 capsule by mo [facility] every twenty-four hours Colace 100 MG 1 capsule as needed Orally Once a day for 30 day(s) Feb, Active Comment on above: TAKE ONE CAPSULE BY MOUTH ONCE DAILY NEEDED fluticasone propionate 0.05 mg/actuat metered dose nasal spray (20 sources) Corticosteroid Start: take 1 spray(s) nasal route once daily Fluticasone Propionate 50 MCG/ACT 1 spray in each nostril Nasally Once a day for 30 day(s) Jun, Active Flonase Active gabapentin 300 mg oral capsule (20 sources) Anti-epileptic Agent Start: 06-25-2022 End: 05-21-2024 gabapentin (NEURONTIN) 300 mg capsule TAKE ONE CAPSULE 3 TIMES DAILY (BREAKFAST, LUNCH AND DINNER) AND TAKE 2 CAPSULES AT BEDTIME 150 capsule 11 05/21/2023 05/21/2024 Active Start: 08-19-2020 End: 03-23-2022 gabapentin (NEURONTIN) 300 m g capsule TAKE ONE CAPSULE 3 TIMES DAILY (BREAKFAST, LUNCH AND DINNER) AND TAKE 2 CAPSULES AT BEDTIME 140 capsule 11 07/22/2021 Active Comment on above: TAKE ONE CAPSULE 3 T IMES DAILY (BREAKFAST, LUNCH AND DINNER) AND TAKE 2 CAPSULES AT BEDTIME hydrOXYzine pamoate 50 mg oral capsule (1 source) Antihistamine Start: Vistaril 50 mg Cap See Instructions, 1 TID prn anxiety, Refills(s) 0 Start Date: 12/21/18 Status: Ordered iv contrast (will be provided with radiology test) (20 sources) Start: End: inject 1 dose intravenously once iv contrast (will be provided with radiology test) Indications: Multiple sclerosis (HCC) MRI Brain Inject, intravenously, once for 1 [...] in the MR contrast administration guidelines link 1 Each 0 05/07/2023 05/08/2023 Active Start: 04-02-2022 End: 11-19-2023 inject 1 dose intravenously once iv contrast (will be provided with radiology test) Indications: Multiple sclerosis (HCC) MRI Brain Inject, intravenously, once for 1 [...] in the MR contrast administration guidelines link 1 Each 04/02/2022 11/19/2023 Discontinued Start: 04-02-2022 End: 04-03-2022 iv contrast (will be provide d with radiology test) Indications: Multiple sclerosis (HCC) , Urinary incontinence, unspecified type , Imbalance , Abnormality of gait MRI CSP Inject, intravenously, once for 1 dose. No IV access, insert saline lock prior to the beginning of sedation, infusion, injection of imaging exam. Discontinue saline lock post exam. If Pt. has a central line or IVAD, may access for administration according to line specific nursing protocol. Once exam is complete flush line and de-access according to line specific nursing protocol in the MR contrast administration guidelines link. 1 Each 0 04/02/2022 04/03/2022 Active Start: 04-02-2022 inject 1 dose intravenously on ce iv contrast (will be provided with radiology test) Indications: Multiple sclerosis (HCC) MRI Brain Inject, intravenously, once for 1 [...] in the MR contrast administration guidelines link 1 Each 0 04/02/2022 Active Comment on above: MRI CSP Inject, intr avenously, once for 1 dose. No IV access, insert saline lock prior to the beginning of sedation, infusion, injection of imaging exam. Discontinue saline lock post exam. If Pt. has a central line or IVAD, may access for administration according to line specific nursing protocol. Once exam is complete flush line and de-access according to line specific nursing protocol in the MR contrast administration guidelines link. MRI Brain Inject, in travenously, once for 1 dose.No IV access, insert saline lock prior to beginning of sedation, infusion, injection of imaging exam.Discontinue saline lock post exam. If Pt. has a central line or IVAD, may access for administration according to line specific nursing protocol.Once exam is complete flush line and de-access according to line specific nursing protocol in the MR contrast administration guidelines link lactase 3000 unt oral tablet (20 sources) Start: 07-14-2021 take 1 tablet by mouth every twenty-four hours lactase (LACTAID) 3,000 unit tablet Take by mouth q 24 HR. 07/14/2021 Active Start: 07-14-2021 take 1 tablet by sharon th once daily Lactaid 3000 UNIT 1 tablet with first bite of dairy - containing food Orally Once a day for 30 day(s) Jun, Active Comment on above: Take by mouth q 24 H R. levocetirizine dihydrochloride 5 mg oral tablet (8 sources) Histamine-1 Receptor Antagonist Start: take 1 tablet by mouth every twenty-four hours Levocetirizine Dihydrochloride 5 MG 1 tablet in the evening Orally Once a day for 30 day(s) Aug, Active lurasidone hydrochloride 20 mg oral tablet (1 source) Atypical Antipsychotic Start: take 1 tablet by mouth once daily Latuda 20 mg oral tablet 20 mg = 1 tab(s), Oral, Daily, # 30 tab(s), Refills(s) 0 Start Date: 12/21/18 Status: Ordered meloxicam 7.5 mg oral tablet (12 sources) Nonsteroidal Anti-inflammatory Drug Start: take 1 tablet by mouth every twenty-four hours Meloxicam 7.5 MG 1 tablet Orally Once a day for 30 day(s) Jan, Active 24 hr metFORMIN hydrochloride 750 mg extended release oral tablet (1 source) Biguanide Start: take 750 mg by mouth once daily Metformin Active 750 MG PO Daily August 13, 2023 12:00am mupirocin 0.02 mg/mg topical ointment (20 sources) RNA Synthetase Inhibitor Antibacterial Start: Mupirocin 2 % 1 application to affected area Externally once per day for 7 days Jan, Active Start: 02-23-2020 Mupirocin 2 % 1 application to affected area Externally 2 times a day for 7 days Jan, Not-Taking Start: 02-23-2020 End: 10-06-2021 mupirocin (BACTROBAN) 2 % oi ntment nystatin [id number] unt/ml oral suspension (7 sources) Polyene Antifungal Start: 07-21-2021 take 5 mL by mouth four times daily Nystatin [id number] UNIT/ML 5 ml Mouth/Throat Four times a day for 10 day(s) Jun, Active 10 ml ocrelizumab 30 mg/ml injection (20 sources) ocrelizumab (OCREVUS) 30 mg/mL soln injection Inject intravenously once every 6 months. Active Comment on above: Inject intravenously once every 6 months. Ocrevus (12 sources) Ocrevus Active oxybutynin chloride 5 mg oral tablet (20 sources) Cholinergic Muscarinic Antagonist Start: 08-13-2023 take 10 mg by mouth three times daily Oxybutynin Chloride Active 10 MG PO Three times daily August 13, 2023 12:00am Start: 03-04-2021 End: 11-09-2023 take 1 tablet by mouth at bedtime oxybutynin (DITROPAN) 5 mg tablet TAKE ONE TABLET BY MOUTH IN THE MORNING, AFTERNOON, AND AT BEDTIME 90 tablet 5 11/10/2023 Active Ditropan Active Comment on above: TAKE ONE TABLET BY M OUTH IN THE MORNING, AFTERNOON, AND AT BEDTIME phenylephrine hydrochloride 25 mg/ml ophthalmic solution (1 source) alpha-1 Adrenergic Agonist Start: End: PHENYLephrine 2.5 % 1 Drop (AK-DILATE, COMFORT-SYNEPHRINE) polyethylene glycol 3350 68331 mg powder for oral solution (1 source) Osmotic Laxative Start: take 17 g by mouth once daily Polyethylene Glycol 3350 Active 17 GM PO Daily August 13, 2023 12:00am proparacaine hydrochloride 5 mg/ml ophthalmic solution (1 source) Local Anesthetic Start: End: proparacaine 0.5 % 1 Drop (ALCAINE) traZODone hydrochloride 50 mg oral tablet (1 source) Serotonin Reuptake Inhibitor Start: take 50 mg by mouth once daily at bedtime Trazodone Active 50 MG PO Daily at bedtime August 13, 2023 12:00am tropicamide 10 mg/ml ophthalmic solution (1 source) Anticholinergic Start: End: tropicamide 1 % 1 Drop (MYDRIACYL) TYLENOL ARTHRITIS ORAL (20 sources) Start: TYLENOL ARTHRITIS ORAL Take 1 Dose by mouth as needed. 07/28/2019 Active Start: 07-28-2019 TYLENOL ARTHRI TIS ORAL Take 1 Dose by mouth as needed. 0 07/28/2019 Active Comment on above: Take 1 Dose by mouth as needed. 24 hr divalproex sodium 250 mg extended release oral tablet (20 sources) Mood Stabilizer, Anti-epileptic Agent Start: 08-13-2023 Divalproex Active MG PO August 13, 2023 12:00am Start: 09-16-2021 take 4 tablets by mo uth every twenty-four hours in the evening divalproex ER (DEPAKOTE ER) 250 mg 24 hr tablet TAKE FOUR TABLETS BY MOUTH IN THE EVENING 09/16/2021 Active Start: 02-17-2019 Depakote ER 25 0 MG tablet Orally 1 in the morning and 4 at bedtime for 30 day(s) Jan, Active Start: 01-16-[address] 25 0 mg Tab-EC See Instructions, 1 tab daily am and 4 daily hs, # 150 tab(s), Refills(s) 0, Pharmacy: [facility]/pharmacy #[id number] Start Date: 01/16/19 Status: Ordered Start: 08-24-2017 End: 10-06-2021 take 2 tablets by mouth once daily at bedtime divalproex ER (DEPAKOTE ER) 500 mg 24 hr tablet Take 2 tablets by mouth daily at bedtime. 60 tablet 1 08/24/2017 10/06/2021 Discontinued Comment on above: Take 2 tablets by mo uth daily at bedtime. TAKE FOUR TABLETS BY MOUTH IN THE EVENING Vitamin D 50 MCG (1999 UT) (12 sources) take 1 capsule by mouth once daily Vitamin D 50 MCG (1999 UT) 1 capsule Orally Once a day Active Completed/Discontinued Medications Medication Drug Class(es) Dates Sig (Normalized) Sig (Original) acetaminophen 500 mg oral tablet (1 source) Start: 11-18-2023 End: 11-18-2023 take 1 dose by mouth once, then take 4000 mg by mouth once daily 1,000 mg, ORAL, ONCE, 1 dose, On [facility] 11/18/23 at 1000, No more than 4000 mg of acetaminophen should be given per day (FROM ALL SOURCES) Start: 11-18-2023 End: 11-18-2023 take 1 dose by mouth once, then take 4000 mg by mouth once daily 1,000 mg, ORAL, ONCE, 1 dose, On [facility] 11/18/23 at 1000, No more than 4000 mg of acetaminophen should be given per day (FROM ALL SOURCES) diclofenac sodium 0.01 mg/mg topical gel (12 sources) Nonsteroidal Anti-inflammatory Drug Start: 12-24-2019 Diclofenac Sodium 1 % as directed Transdermal Twice a day for 30 day(s) Nov, Not-Taking diphenhydrAMINE hydrochloride 25 mg oral capsule (1 source) Histamine-1 Receptor Antagonist Start: 11-18-2023 End: 11-18-2023 take 1 dose by mouth once 50 mg, ORAL, ONCE, 1 dose, On [facility] 11/18/23 at 1000 Start: 11-18-2023 End: 11-18-2023 take 1 dose by mouth once 50 mg, ORAL, ONCE, 1 dose, O n [facility] 11/18/23 at 1000 famotidine 40 mg oral tablet (15 sources) Histamine-2 Receptor Antagonist Start: 01-23-2020 End: 10-06-2021 take 1 tablet by mouth once daily famotidine (PEPCID) 40 mg tablet Take 1 tablet by mouth once daily. 0 01/23/2020 10/06/2021 Discontinued Start: 02-27-2019 take 1 tablet by [facility] every twenty-four hours Famotidine 20 MG 1 tablet at bedtime as needed Orally Once a day for 90 days Feb, Active Comment on above: Take 1 tablet by sharon once daily. hydrocortisone 10 mg/ml / neomycin 3.5 mg/ml / polymyxin b [id number] unt/ml otic solution (12 sources) Aminoglycoside Antibacterial, Polymyxin-class Antibacterial, Corticosteroid Start: 10-10-2020 Neomycin-Polymyxin -HC [id number] 4 drops into affected ear Otic Three times a day for 7 days Sep, Not-Taking Ketorolac (11 sources) Nonsteroidal Anti-inflammatory Drug, Cyclooxygenase Inhibitor Start: 11-25-2020 Toradol per 15 mg 30 Oct, 2020 30 mg methylPREDNISolone 125 mg injection (1 source) Corticosteroid Start: 11-18-2023 End: 11-18-2023 100 mg, INTRAVENOUS, ONCE, 1 dose, On Wed11/18/23 at 1000 Start: 11-18-2023 End: 11-18-2023 100 mg, INTRAVENOUS, ONCE, 1 dose, On Wed11/18/23 at 1000 ocrelizumab 600 mg in NaCl 0.9% 500 mL (OCREVUS) (1 source) Start: 11-18-2023 End: 11-18-2023 600 mg, INTRAVENOUS, ONCE, 1 dose, On Wed11/18/23 at 1000, APPROX TOTAL VOLUME: 560 mL -Subsequent infusion: Subsequent infusion. Start infusion at 100 mL/hour for 15 minutes, then increase to 200 mL/hour for 15 minutes, then increase to 250 mL/hour for 30 minutes, then increase to 300 mL/hour for remainder of infusion. Maximum rate = 300mL/hour. EXP: 11/18/2023 1735 RT Administer with 0.2 micron filter. Refrigerate - EXP: (24 HR) ondansetron 8 mg oral tablet (13 sources) Serotonin-3 Receptor Antagonist Start: 11-18-2023 End: 11-18-2023 8 mg, ORAL, NOW, 1 dose, On Wed11/18/23 at 1000 Start: 07-11-2019 take 1 tablet by [facility] every eight hours as needed Zofran ODT 4 MG 1 tablet on the tongue and allow to dissolve Orally every 8 hrs as needed for 4 days Jun, Active microencapsulated potassium chloride 20 meq extended release oral tablet (1 source) Start: 11-18-2023 End: 11-18-2023 take 1 tablet by mouth once 20 mEq, ORAL, ONCE, 1 dose, On Wed11/18/23 at 1000, Swallow whole; DO NOT crush or chew. If patient unable to swallow whole tablet; dissolve whole tablet (do not crush) in 120 mL of water prior to administration (may take up to 2 minutes to dissolve). Start: 11-18-2023 End: 11-18-2023 take 1 tablet by mouth once 20 mEq, ORAL, ONCE, 1 dose , On [facility] 11/18/23 at 1000, Swallow whole; DO NOT crush or chew. If patient unable to swallow whole tablet; dissolve whole tablet (do not crush) in 120 mL of water prior to administration (may take up to 2 minutes to dissolve). Toradol 30 mg/ml (11 sources) Start: 02-03-2021 Toradol 30 mg/ ml Jan, 60 mg triamcinolone acetonide 5 mg/ml topical cream (12 sources) Corticosteroid Start: 12-24-2019 Triamcinolone Acetonide 0.5 % 1 application to affected area Externally Twice a day for 7 days Nov, Not-Taking Wrist Brace - (12 sources) Start: 12-24-2019 Wrist Brace - as directed Nov, Not-Taking Problems Active Problems Problem Classification Problem Date Documented Date Episodic/Chronic Anxiety disorders (20 sources) Anxiety; Translations: [Anxiety disorder, unspecified] 08-13-2023 Chronic Blindness and vision defects (1 source) Disorder of refraction; Translations: [Unspecified disorder of refraction] Episodic Cataract (20 sources) Posterior subcapsular polar senile cataract of left eye; Translations: [Posterior subcapsular polar age-related cataract, left eye] Onset: 08-15-2010 Resolved: 12-23-2023 02-20-2019 Chronic Esophageal disorders (14 sources) Gastroesophageal reflux disease; Translations: [Gastro-esophageal reflux disease without esophagitis] Onset: 07-14-2021 Resolved: 07-14-2021 Chronic Genitourinary symptoms and ill-defined conditions (3 sources) Urinary incontinence; Translations: [Unspecified urinary incontinence] Onset: 08-08-2021 Chronic Headache; including migraine (14 sources) Migraine without aura, not refractory ; Translations: [Migraine without aura, not intractable, without status migrainosus] 08-13-2023 Chronic Inflammation; infection of eye (except that caused by tuberculosis or sexually transmitteddisease) (20 sources) Bilateral panuveitis of eyes; 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, bilateral] Onset: 10-16-2009 Resolved: 08-18-2017 02-20-2019 Chronic Mood disorders (20 sources) Bipolar disorder, current episode manic without psychotic features, severe; Translations: [Bipolar disorder] Onset: 08-18-2017 08-18-2017 Chronic Multiple sclerosis (20 sources) Multiple sclerosis; Translations: [Multiple sclerosis] Onset: 10-16-2009 10-16-2009 Chronic Nutritional deficiencies (20 sources) Moderate protein-calorie malnutrition; Translations: [Malnutrition (calorie)] Onset: 08-18-2017 08-18-2017 Chronic Other aftercare (1 source) Patient encounter status; Translations: [Encounter for therapeutic drug level monitoring] Episodic Other aftercare (1 source) Encounter for follow-up examination after completed treatment for conditions other than malignant neoplasm Episodic Other aftercare (5 sources) Other halfway (current) drug therapy; Translations: [OTH [facility] CURRENT DRUG THERAPY] Onset: 12-15-2021 Episodic Other connective tissue disease (1 source) Weakness of left leg; Translations: [Other symptoms and signs involving the musculoskeletal system] Episodic Other connective tissue disease (1 source) Weakness of hand; Translations: [Other symptoms and signs involving the musculoskeletal system] Episodic Other connective tissue disease (1 source) Bilateral hand weakness; Translations: [Other symptoms and signs involving the musculoskeletal system] Episodic Other diseases of bladder and urethra (20 sources) Disorder of bladder; Translations: [Overactive bladder] Onset: 02-14-2010 02-14-2010 Chronic Other diseases of bladder and urethra (1 source) Overactive bladder; Translations: [Overactive bladder] 08-13-2023 Chronic Other ear and sense organ disorders (7 sources) Hearing problem; Translations: [Unspecified hearing loss, bilateral] 08-13-2023 Chronic Other ear and sense organ disorders (1 source) Unspecified hearing loss, bilateral Onset: 10-30-2021 Resolved: 10-30-2021 Chronic Other eye disorders (20 sources) Postinflammatory optic atrophy; 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, unspecified eye] Onset: 08-15-2010 08-15-2010 Chronic Other eye disorders (1 source) Disorder of optic nerve; Translations: [Other disorders of optic nerve, not elsewhere classified, bilateral] 12-23-2023 Chronic Other eye disorders (1 source) Tear film insufficiency of bilateral eyes; Translations: [Dry eye syndrome of bilateral lacrimal glands] 12-23-2023 Episodic Other injuries and conditions due to external causes (2 sources) Closed injury of head; Translations: [Unspecified injury of head, initial encounter] 03-19-2020 Episodic Other injuries and conditions due to external causes (1 source) Unspecified injury of left shoulder and upper arm, initial encounter Episodic Other lower respiratory disease (1 source) Wheezing Episodic Other nervous system disorders (2 sources) Impairment of balance; Translations: [Other abnormalities of gait and mobility] Episodic Other nervous system disorders (2 sources) Abnormal gait; Translations: [Unspecified abnormalities of gait and mobility] Episodic Other non-traumatic joint disorders (1 source) Pain in right knee Episodic Other non-traumatic joint disorders (2 sources) Pain in left knee Episodic Other screening for suspected conditions (not mental disorders or infectious disease) (1 source) Abnormal findings on diagnostic imaging of other specified body structures Onset: 09-15-2021 Resolved: 09-15-2021 Chronic Other upper respiratory disease (5 sources) Seasonal allergic rhinitis; Translations: [Other seasonal allergic rhinitis] 08-13-2023 Chronic Other upper respiratory disease (1 source) Other seasonal allergic rhinitis Chronic Other upper respiratory infections (9 sources) Sore throat symptom; Translations: [Acute pharyngitis, unspecified] Episodic Spondylosis; intervertebral disc disorders; other back problems (14 sources) Sciatica; Translations: [Sciatica, left side] Episodic Superficial injury; contusion (2 sources) Abrasion, right knee, initial encounter; Translations: [Abrasion, left knee, initial encounter] Episodic Past or Other Problems Problem Classification Problem Date Documented Da te Episodic/Chronic Calculus of urinary tract (1 source) Calculus of kidney; Translations: [Calculus of kidney] Onset: 10-03-2021 Episodic Chronic obstructive pulmonary disease and bronchiectasis (1 source) Bronchitis, not specified as acute or chronic Onset: 07-08-2021 Resolved: 07-08-2021 Episodic Genitourinary symptoms and ill-defined conditions (1 source) Disorder of urinary system, unspecified; Translations: [Disorder of urinary system, unspecified] Onset: 03-06-2022 Episodic Immunizations and screening for infectious disease (1 source) Contact with and (suspected) exposure to other viral communicable diseases Onset: 04-11-2021 Resolved: 04-11-2021 Episodic Other eye disorders (20 sources) Posterior synechiae; Translations: [Posterior synechiae (iris), unspecified eye] Onset: 08-15-2010 08-15-2010 Episodic Otitis media and related conditions (1 source) Otitis media, unspecified, bilateral Onset: 10-30-2021 Resolved: 10-30-2021 Episodic Viral infection (1 source) COVID-19 Onset: 04-11-2021 Resolved: 04-11-2021 Results Test Name Value Interpretation Reference Range Facility OCT OPTIC NERVE CIRRUS OU (B OTH EYES)on 12-23-2023 [facility] Radiology Study observation (narrative) [facility] PACHYMETRY USING OCT DEVICE OU (BOTH EYES)on 12-23-2023 [facility] Radiology Study observation (narrative) [facility] CBC w/ Auto Diffon 4 Basophils/100 WBC (Bld) 0.7 % Normal 0.0-2.0 [facility] Comment on above: Performed By: #### 2 [id number] #### [facility] [address] [place] [address] Basophils/Leukocyt es Auto (Bld) [Pure # fraction] 0.0 E9/L Normal 0.0-0.2 [facility] Comment on above: Performed By: #### 2 [id number] #### [facility] [address] [place] [address] Eosinophils (Bld) [#/Vol] 0.1 E9/L Normal 0.0-0.5 [facility] Comment on above: Performed By: #### 2 [id number] #### [facility] [address] [place] [address] Eosinophils/100 WBC (Bld) 2.3 % Normal 0.0-8.0 [facility] Comment on above: Performed By: #### 2 909106 #### [facility] [address] [place] [address] Erythrocyte distribution width (RBC) [Ratio] 13.7 % Normal 10.9-14.2 [facility] Comment on above: Performed By: #### 2 526329 #### [facility] [address] [place] [address] Hematocrit (Bld) [Volume fraction] 40.2 % Normal 34.0-46.0 [facility] Comment on above: Performed By: #### 2 804694 #### [facility] [address] [place] [address] Hemoglobin (Bld) [Mass/Vol] 13.9 g/dL Normal 12.0-16.0 [facility] Comment on above: Performed By: #### 2 331122 #### [facility] [address] [place] [address] Lymphocytes (Bld) [#/Vol] 1.4 E9/L Normal 1.0-4.0 [facility] Comment on above: Performed By: #### 2 346510 #### [facility] [address] [place] [address] Lymphocytes/100 WBC (Bld) 22.8 % Normal 14.0-50.0 [facility] Comment on above: Performed By: #### 2 251741 #### [facility] [address] [place] [address] MCH (RBC) [Entitic mass] 30.1 pg Normal 27.0-34.0 [facility] Comment on above: Performed By: #### 2 497517 #### [facility] [address] [place] [address] MCHC (RBC) [Mass/Vol] 34.5 g/dL Normal 31.4-36.0 [facility] Comment on above: Performed By: #### 2 637945 #### [facility] [address] [place] [address] MCV (RBC) [Entitic vol] 87.3 fL Normal 80.0-100.0 [facility] Comment on above: Performed By: #### 2 836163 #### [facility] [address] [place] [address] Monocytes (Bld) [#/Vol] 0.5 E9/L Normal 0.2-1.0 [facility] Comment on above: Performed By: #### 2 365025 #### [facility] [address] [place] [address] Neutrophils (Bld) [#/Vol] 4.1 E9/L Normal 2.0-7.5 [facility] Comment on above: Performed By: #### 2 030891 #### [facility] [address] [place] [address] Neutrophils/100 WBC (Bld) 65.5 % Normal 36.0-75.0 [facility] Comment on above: Performed By: #### 2 908351 #### [facility] [address] [place] [address] Platelet 196.0 E9/L Normal 150.0-500. 0 [facility] Comment on above: Performed By: #### 2 732252 #### [facility] [address] [place] [address] Platelet mean volume (Bld) [Entitic vol] 8.8 fL Normal 6.4-10.8 [facility] Comment on above: Performed By: #### 2 057091 #### [facility] [address] [place] [address] RBC (Bld) [#/Vol] 4.6 E12/L Normal 4.3-5.9 [facility] Comment on above: Performed By: #### 2 033596 #### [facility] [address] [place] [address] WBC corrected for nucl RBC Auto (Bld) [#/Vol] 6.3 E9/L Normal 4.0-11.0 [facility] Comment on above: Result Comment: Shea pheral smear review performed. Performed By: #### 2 513994 #### [facility] [address] [place] [address] CMPon 12-08-2023 Albumin [Mass/Vol] 3.9 g/dL Normal 3.3-5.0 [facility] Comment on above: Performed By: #### 2 547553 #### [facility] [address] [place] [address] Albumin/Globulin (S) [Mass conc ratio] 1.9 Normal 1.1-2.2 [facility] Comment on above: Performed By: #### 2 335267 #### [facility] [address] [place] [address] ALP [Catalytic activity/Vol] 77 Int._Unit/L Normal 21-98 [facility] Comment on above: Performed By: #### 2 848528 #### [facility] [address] [place] [address] ALT No additional P-5'-P [Catalytic activity/Vol] 21 Int._Unit/L Normal 6-46 [facility] Comment on above: Performed By: #### 2 610802 #### [facility] [address] [place] [address] Anion gap [Moles/Vol] 12 mmol/L Normal 6-16 [facility] Comment on above: Performed By: #### 2 403608 #### [facility] [address] [place] [address] AST [Catalytic activity/Vol] 22 Int._Unit/L Normal 5-43 [facility] Comment on above: Performed By: #### 2 352901 #### [facility] [address] [place] [address] Bilirubin [Mass/Vol] 0.7 mg/dL Normal 0.0-1.1 [facility] Comment on above: Performed By: #### 2 442599 #### [facility] [address] [place] [address] Calcium [Mass/Vol] 8.7 mg/dL Low 8.9-11.1 [facility] Comment on above: Performed By: #### 2 487814 #### [facility] [address] [place] [address] Chloride [Moles/Vol] 105 mmol/L Normal 101-111 [facility] Comment on above: Performed By: #### 2 755089 #### [facility] [address] [place] [address] CO2 [Moles/Vol] 27 mmol/L Normal 21-31 [facility] Comment on above: Performed By: #### 2 419400 #### [facility] [address] [place] [address] Creatinine [Mass/Vol] 1.1 mg/dL Normal 0.5-1.3 [facility] Comment on above: Performed By: #### 2 897579 #### [facility] [address] [place] [address] Globulin (S) [Mass/Vol] 2.1 g/dL Normal 1.4-4.0 [facility] Comment on above: Performed By: #### 2 866419 #### [facility] [address] [place] [address] Glucose [Mass/Vol] 106 mg/dL Normal 55-199 [facility] Comment on above: Performed By: #### 2 691919 #### [facility] [address] [place] [address] Potassium [Moles/Vol] 3.7 mmol/L Normal 3.5-5.3 [facility] Comment on above: Performed By: #### 2 926789 #### [facility] [address] [place] [address] Protein [Mass/Vol] 6.0 g/dL Normal 6.0-7.8 [facility] Comment on above: Performed By: #### 2 550305 #### [facility] [address] [place] [address] Sodium [Moles/Vol] 140 mmol/L Normal 135-145 [facility] Comment on above: Performed By: #### 2 701075 #### [facility] [address] [place] [address] Urea nitrogen [Mass/Vol] 10 mg/dL Normal 5-21 [facility] Comment on above: Performed By: #### 2 503898 #### [facility] [address] [place] [address] Urea nitrogen/Creatinin e [Mass ratio] 9 No Units Low 10-20 [facility] Comment on above: Performed By: #### 2 024967 #### [facility] [address] [place] [address] BcpA4pme 12-08-2023 HbA1c (Bld) [Mass fraction] 5.5 % Normal <=5.9 [facility] Comment on above: Performed By: #### 7 [id number] #### [facility] [address] [place] [address] eGFRon 12-08-2023 eGFR 62 mL/min/1.73 m2 Normal >=59 [facility] Comment on above: Order Comment: Order added by Discern Expert. Performed By: #### 1 [id number] #### [facility] [address] [place] [address] CMV IgM Qnon 11-19-2023 CMV IgM, Qual Negative Negative [facility] Comment on above: No serological evide nce of recent exposure to Cytomegalovirus. Interpretation and review of laboratory results Normal [facility] IMMUNOGLOBULIN [place] IgG [Mass/Vol] 745 mg/dL 700 - 1600 mg/dL [facility] IgG [Mass/Vol]on 11-19-2023 Interpretation and review of laboratory results Normal [facility] Immunodeficiency panel FC (B ld)on 11-19-2023 CD3 cells (Bld) [#/Vol] 1775 /uL [facility] CD3 cells/100 cells (Bld) 86 % 60 - 89 % [facility] CD3+CD4+ (T4 helper) cells (Bld) [#/Vol] 1500 [facility] CD3+CD4+ (T4 helper) cells/100 cells (Bld) 73 % High 34 - 61 % [facility] CD3+CD4+ (T4 helper) cells/CD3+CD8+ (T8 suppressor cells) cells (Bld) [# ratio] 5.48 % High 1.10 - 3.25 [facility] CD3+CD8+ (T8 suppressor cells) cells (Bld) [#/Vol] 274 /uL [facility] CD3+CD8+ (T8 suppressor cells) cells/100 cells (Bld) 13 % 10 - 41 % [facility] CD3-CD16+CD56+ (Natural killer) cells (Bld) [#/Vol] 279 [facility] CD3-CD16+CD56+ (Natural killer) cells/100 cells (Bld) 14 % 5 - 25 % [facility] CD3-CD19+ cells (Bld) [#/Vol] 0 Low [facility] CD3-CD19+ cells/100 cells (Bld) 0 % Low 5 - 22 % [facility] Interpretation and review of laboratory results Abnormal [facility] Clinical interpretat ion of lymphocyte subsets must be made with caution. Relative and absolute values may be profoundly affected by immunosuppressive or cytotoxic therapy, and be abnormal in a wide variety of infectious, inflammatory, autoimmune and neoplastic disorders. The following number of cluster designated antibodies were used for the definition of the above reported populations: CD3, CD4, CD8, CD19, and CD16&56 (CD45 used for gating.) This test was developed and its performance characteristics determined by [facility]'s [facility] Pathology [facility] [place] [facility] It has not been cleared or approved by the FDA. [facility] is regulated under CLIA as qualified to perform high-complexity testing. This test is used for clinical purposes. It should not be regarded as investigational or for research. [facility] CBC W Auto Differential pane l (Bld)on 11-18-2023 Basophils (Bld) [#/Vol] 0.03 10*3/uL [facility] Basophils/100 WBC (Bld) 0.5 % [facility] Differential cell count method Nom (Bld) Auto [facility] Eosinophils (Bld) [#/Vol] 0.11 10*3/uL [facility] Eosinophils/100 WBC (Bld) 1.7 % [facility] Erythrocyte distribution width (RBC) [Ratio] 12.6 % 11.5 - 15.0 % [facility] Hematocrit (Bld) [Volume fraction] 40.2 % 36.0 - 46.0 % [facility] Hemoglobin (Bld) [Mass/Vol] 13.5 g/dL 11.5 - 15.5 g/dL [facility] Immature granulocytes (Bld) [#/Vol] 0.03 10*3/uL [facility] Immature granulocytes/100 WBC (Bld) 0.5 % [facility] Lymphocytes (Bld) [#/Vol] 1.72 10*3/uL [facility] Lymphocytes/100 WBC (Bld) 27.3 % [facility] MCH (RBC) [Entitic mass] 29.3 pg 26.0 - 34.0 pg [facility] MCHC (RBC) [Mass/Vol] 33.6 g/dL 30.5 - 36.0 g/dL [facility] MCV (RBC) [Entitic vol] 87.2 fL 80.0 - 100.0 fL [facility] Monocytes (Bld) [#/Vol] 0.38 10*3/uL [facility] Monocytes/100 WBC (Bld) 6.0 % [facility] Neutrophils (Bld) [#/Vol] 4.02 10*3/uL [facility] Neutrophils/100 WBC (Bld) 64.0 % [facility] Nucleated RBC (Bld) [#/Vol] NINF [facility] Nucleated RBC/100 WBC (Bld) [Ratio] 0.0 % /100 WBC [facility] Platelet mean volume (Bld) [Entitic vol] 10.8 fL 9.0 - 12.7 fL [facility] Platelets (Bld) [#/Vol] 151 10*3/uL [facility] RBC (Bld) [#/Vol] 4.61 10*6/uL 3.90 - 5.20 m/uL [facility] WBC (Bld) [#/Vol] 6.29 10*3/uL [facility] Basophils (Bld) [#/Vol] 0.03 10*3/uL Normal <0.11 [facility] Comment on above: Order Comment: Speci men Type: BLOOD SPECIMENOrdering Facility: [facility] Address: [address] [place] [address] Performed By: #### 5 7021-8 ####[facility] [id number] [place] [address] Basophils/100 WBC (Bld) 0.5 % Normal [facility] Comment on above: Order Comment: Speci men Type: BLOOD SPECIMENOrdering Facility: [facility] Address: [address] [place] [address] Performed By: #### 5 7021-8 ####[facility] [id number] [place] [address] Differential cell count method Nom (Bld) Auto Normal [facility] Comment on above: Order Comment: Speci men Type: BLOOD SPECIMENOrdering Facility: [facility] Address: [address] [place] [address] Performed By: #### 5 7021-8 ####[facility] [id number] [place] [address] Eosinophils (Bld) [#/Vol] 0.11 10*3/uL Normal <0.46 [facility] Comment on above: Order Comment: Speci men Type: BLOOD SPECIMENOrdering Facility: [facility] Address: [address] [place] [address] Performed By: #### 5 7021-8 ####[facility] [id number] [place] [address] Eosinophils/100 WBC (Bld) 1.7 % Normal [facility] Comment on above: Order Comment: Speci men Type: BLOOD SPECIMENOrdering Facility: [facility] Address: [address] [place] [address] Performed By: #### 5 7021-8 ####[facility] [id number] [place] [address] Erythrocyte distribution width (RBC) [Ratio] 12.6 % Normal 11.5-15.0 [facility] Comment on above: Order Comment: Speci men Type: BLOOD SPECIMENOrdering Facility: [facility] Address: [address] [place] [address] Performed By: #### 5 7021-8 ####[facility] [id number] [place] [address] Hematocrit (Bld) [Volume fraction] 40.2 % Normal 36.0-46.0 [facility] Comment on above: Order Comment: Speci men Type: BLOOD SPECIMENOrdering Facility: [facility] Address: [address] [place] [address] Performed By: #### 5 7021-8 ####[facility] [id number] [place] [address] Hemoglobin (Bld) [Mass/Vol] 13.5 g/dL Normal 11.5-15.5 [facility] Comment on above: Order Comment: Speci men Type: BLOOD SPECIMENOrdering Facility: [facility] Address: [address] [place] [address] Performed By: #### 5 7021-8 ####[facility] [id number] [place] [address] Immature granulocytes (Bld) [#/Vol] 0.03 10*3/uL Normal <0.10 [facility] Comment on above: Order Comment: Speci men Type: BLOOD SPECIMENOrdering Facility: [facility] Address: [address] [place] [address] Performed By: #### 5 7021-8 ####[facility] [id number] [place] [address] Immature granulocytes/100 WBC (Bld) 0.5 % Normal [facility] Comment on above: Order Comment: Speci men Type: BLOOD SPECIMENOrdering Facility: [facility] Address: [address] [place] [address] Performed By: #### 5 7021-8 ####[facility] [id number] [place] [address] Lymphocytes (Bld) [#/Vol] 1.72 10*3/uL Normal 1.00-4.00 [facility] Comment on above: Order Comment: Speci men Type: BLOOD SPECIMENOrdering Facility: [facility] Address: [address] [place] [address] Performed By: #### 5 7021-8 ####[facility] [id number] [place] [address] Lymphocytes/100 WBC (Bld) 27.3 % Normal [facility] Comment on above: Order Comment: Speci men Type: BLOOD SPECIMENOrdering Facility: [facility] Address: [address] [place] [address] Performed By: #### 5 7021-8 ####[facility] [id number] [place] [address] MCH (RBC) [Entitic mass] 29.3 pg Normal 26.0-34.0 [facility] Comment on above: Order Comment: Speci men Type: BLOOD SPECIMENOrdering Facility: [facility] Address: [address] [place] [address] Performed By: #### 5 7021-8 ####[facility] [id number] [place] [address] MCHC (RBC) [Mass/Vol] 33.6 g/dL Normal 30.5-36.0 [facility] Comment on above: Order Comment: Speci men Type: BLOOD SPECIMENOrdering Facility: [facility] Address: [address] [place] [address] Performed By: #### 5 7021-8 ####[facility] [id number] [place] [address] MCV (RBC) [Entitic vol] 87.2 fL Normal 80.0-100.0 [facility] Comment on above: Order Comment: Speci men Type: BLOOD SPECIMENOrdering Facility: [facility] Address: [address] [place] [address] Performed By: #### 5 7021-8 ####[facility] [id number] [place] [address] Monocytes (Bld) [#/Vol] 0.38 10*3/uL Normal <0.87 [facility] Comment on above: Order Comment: Speci men Type: BLOOD SPECIMENOrdering Facility: [facility] Address: [address] [place] [address] Performed By: #### 5 7021-8 ####[facility]CL[facility] [id number] [place] [address] Monocytes/100 WBC (Bld) 6.0 % Normal [facility] Comment on above: Order Comment: Speci men Type: BLOOD SPECIMENOrdering Facility: [facility] Address: [address] [place] [address] Performed By: #### 5 7021-8 ####[facility] [id number] [place] [address] Neutrophils (Bld) [#/Vol] 4.02 10*3/uL Normal 1.45-7.50 [facility] Comment on above: Order Comment: Speci men Type: BLOOD SPECIMENOrdering Facility: [facility] Address: [address] [place] [address] Performed By: #### 5 7021-8 ####[facility] [id number] [place] [address] Neutrophils/100 WBC (Bld) 64.0 % Normal [facility] System Comment on above: Order Comment: Speci men Type: BLOOD SPECIMENOrdering Facility: [facility] Address: [address] [place] [address] Performed By: #### 5 7021-8 ####[facility] LABCLIA [id number] [place] [address] Nucleated RBC (Bld) [#/Vol] 10*3/uL Normal <0.01 [facility] Comment on above: Order Comment: Speci men Type: BLOOD SPECIMENOrdering Facility: [facility] Address: [address] [place] [address] Performed By: #### 5 7021-8 ####[facility] LABCLIA [id number] [place] [address] Nucleated RBC/100 WBC (Bld) [Ratio] 0.0 /100 WBC Normal [facility] Comment on above: Order Comment: Speci men Type: BLOOD SPECIMENOrdering Facility: [facility] Address: [address] [place] [address] Performed By: #### 5 7021-8 ####[facility] LABCLIA [id number] [place] [address] Platelet mean volume (Bld) [Entitic vol] 10.8 fL Normal 9.0-12.7 [facility] Comment on above: Order Comment: Speci men Type: BLOOD SPECIMENOrdering Facility: [facility] Address: [address] [place] [address] Performed By: #### 5 7021-8 ####[facility]CLIA [id number] [place] [address] Platelets (Bld) [#/Vol] 151 10*3/uL Normal 150-400 [facility] Comment on above: Order Comment: Speci men Type: BLOOD SPECIMENOrdering Facility: [facility] Address: [address] [place] [address] Performed By: #### 5 7021-8 ####[facility] LABIA [id number] [place] [address] RBC (Bld) [#/Vol] 4.61 10*6/uL Normal 3.90-5.20 [facility] Comment on above: Order Comment: Speci men Type: BLOOD SPECIMENOrdering Facility: [facility] Address: [address] [place] [address] Performed By: #### 5 7021-8 ####[facility]CLIA [id number] [place] [address] WBC (Bld) [#/Vol] 6.29 10*3/uL Normal 3.70-11.00 [facility] Comment on above: Order Comment: Speci men Type: BLOOD SPECIMENOrdering Facility: [facility] Address: [address] [place] [address] Performed By: #### 5 7021-8 ####[facility]CLIA [id number] [place] [address] CMV IgM Qnon 08-22-2024 CMV IGM, QUAL Negative Normal Negative [facility] Comment on above: Order Comment: Speci men Type: BLOOD SPECIMEN [facility] Address: [address] [place] [address] Result Comment: No s erological evidence of recent exposure to Cytomegalovirus. Performed By: #### 7 853-5 #### [facility] CLIA [id number] [address] [place] [address] [id number] [place] [address] [place] Comprehensive metabolic 2000 panelOrdered By: Millie Long on 11-18-2023 Albumin [Mass/Vol] 4.0 g/dL 3.9 - 4.9 g/dL [facility] ALP [Catalytic activity/Vol] 87 U/L 34 - 123 U/L [facility] ALT [Catalytic activity/Vol] 26 U/L 7 - 38 U/L [facility] Anion gap [Moles/Vol] 8 mmol/L 8 - 15 mmol/L [facility] AST [Catalytic activity/Vol] 26 U/L 13 - 35 U/L [facility] Bilirubin [Mass/Vol] 0.4 mg/dL 0.2 - 1.3 mg/dL [facility] Calcium [Mass/Vol] 9.0 mg/dL 8.5 - 10. 2 mg/dL [facility] Chloride [Moles/Vol] 105 mmol/L 98 - 107 mmol/L [facility] CO2 [Moles/Vol] 24 mmol/L 22 - 30 mmol/L [facility] Creatinine [Mass/Vol] 1.11 mg/dL High 0.58 - 0.96 mg/dL [facility] GFR/1.73 sq M.predicted among non-blacks MDRD (S/P/Bld) [Vol rate/Area] 62 mL/min/{1.73_m2} - PINF [facility] Comment on above: Estimated Glomerular Filtration Rate (eGFR) is calculated using the 2020 CKD-EPI creatinine equation. This equation utilizes serum creatinine, sex, and age as parameters. The creatinine assay has traceable calibration to isotope dilution-mass spectrometry. Refer to KDIGO guidelines for clinical interpretation. In patients with unstable renal function, e.g. those with acute kidney injury, the eGFR may not accurately reflect actual GFR. Glucose [Mass/Vol] 142 mg/dL High 74 - 99 mg/dL [facility] Comment on above: The [place] Diab[employer] Association (ADA) provides guidance for cutoff values [...] Standards of Medical Care in Diabetes 2016, [place] [employer]. Diabetes Care. 2016.39(Suppl 1). Interpretation and review of laboratory results Abnormal [facility] Potassium [Moles/Vol] 4.3 mmol/L 3.7 - 5.1 mmol/L [facility] Protein [Mass/Vol] 5.9 g/dL Low 6.3 - 8.0 g/dL [facility] Sodium [Moles/Vol] 137 mmol/L 136 - 144 mmol/L [facility] Urea nitrogen [Mass/Vol] 12 mg/dL 7 - 21 mg/dL [facility] Comprehensive metabolic 2000 panelon 11-18-2023 Albumin [Mass/Vol] 4.0 g/dL Normal 3.9-4.9 [facility] Comment on above: Order Comment: Speci men Type: BLOOD SPECIMENOrdering Facility: [facility] Address: [address] [place] [address] Performed By: #### 2 4323-8 ####[facility]CLIA [id number] [place] [address] ALP [Catalytic activity/Vol] 87 U/L Normal 34-123 [facility] Comment on above: Order Comment: Speci men Type: BLOOD SPECIMENOrdering Facility: [facility] Address: [address] [place] [address] Performed By: #### 2 4323-8 ####[facility]CLIA [id number] [place] [address] ALT [Catalytic activity/Vol] 26 U/L Normal 7-38 [facility] Comment on above: Order Comment: Speci men Type: BLOOD SPECIMENOrdering Facility: [facility] Address: [address] [place] [address] Performed By: #### 2 4323-8 ####[facility]CLIA [id number] [place] [address] Anion gap [Moles/Vol] 8 mmol/L Normal 8-15 [facility] Comment on above: Order Comment: Speci men Type: BLOOD SPECIMENOrdering Facility: [facility] Address: [address] [place] [address] Performed By: #### 2 4323-8 ####[facility]CLIA [id number] [place] [address] AST [Catalytic activity/Vol] 26 U/L Normal 13-35 [facility] Comment on above: Order Comment: Speci men Type: BLOOD SPECIMENOrdering Facility: [facility] Address: [address] [place] [address] Performed By: #### 2 4323-8 ####[facility]CLIA [id number] [place] [address] Bilirubin [Mass/Vol] 0.4 mg/dL Normal 0.2-1.3 [facility] Comment on above: Order Comment: Speci men Type: BLOOD SPECIMENOrdering Facility: [facility] Address: [address] [place] [address] Performed By: #### 2 4323-8 ####[facility]CLIA [id number] [place] [address] Calcium [Mass/Vol] 9.0 mg/dL Normal 8.5-10.2 [facility] Comment on above: Order Comment: Speci men Type: BLOOD SPECIMENOrdering Facility: [facility] Address: [address] [place] [address] Performed By: #### 2 4323-8 ####[facility]CLIA [id number] [place] [address] Chloride [Moles/Vol] 105 mmol/L Normal 98-107 [facility] Comment on above: Order Comment: Speci men Type: BLOOD SPECIMENOrdering Facility: [facility] Address: [address] [place] [address] Performed By: #### 2 4323-8 ####[facility]CLIA [id number] [place] [address] CO2 [Moles/Vol] 24 mmol/L Normal 22-30 [facility] Comment on above: Order Comment: Speci men Type: BLOOD SPECIMENOrdering Facility: [facility] Address: [address] [place] [address] Performed By: #### 2 4323-8 ####[facility] LABCLIA [id number] [place] [address] Creatinine [Mass/Vol] 1.11 mg/dL High 0.58-0.96 [facility] Comment on above: Order Comment: Speci men Type: BLOOD SPECIMENOrdering Facility: [facility] Address: [address] [place] [address] Performed By: #### 2 4323-8 ####[facility] LABCLIA [id number] [place] [address] Creatinine and Glomerular filtration rate.predicted panel (S/P/Bld) 62 mL/min/1.73m??? Normal >=60 [facility] Comment on above: Order Comment: Speci men Type: BLOOD SPECIMENOrdering Facility: [facility] Address: [address] [place] [address] Result Comment: Sommer mated Glomerular Filtration Rate (eGFR) is calculated using the 2020 CKD-EPI creatinine equation. This equation utilizes serum creatinine, sex, and age as parameters. The creatinine assay has traceable calibration to isotope dilution-mass spectrometry. Refer to KDIGO guidelines for clinical interpretation. In patients with unstable renal function, e.g. those with acute kidney injury, the eGFR may not accurately reflect actual GFR. Performed By: #### 2 4323-8 ####[facility] LABCLIA [id number] [place] [address] Glucose [Mass/Vol] 142 mg/dL High 74-99 [facility] Comment on above: Order Comment: Speci men Type: BLOOD SPECIMENOrdering Facility: [facility] Address: [address] [place] [address] Result Comment: The [place] Diabetes Association (ADA) provides guidance for cutoff [...] Standards of Medical Care in Diabetes 2016, [place] [employer]. Diabetes Care. 2016.39(Suppl 1). Performed By: #### 2 4323-8 ####[facility] LABCLIA [id number] [place] [address] Potassium [Moles/Vol] 4.3 mmol/L Normal 3.7-5.1 [facility] Comment on above: Order Comment: Speci men Type: BLOOD SPECIMENOrdering Facility: [facility] Address: [address] [place] [address] Performed By: #### 2 4323-8 ####[facility]CLIA [id number] [place] [address] Protein [Mass/Vol] 5.9 g/dL Low 6.3-8.0 [facility] Comment on above: Order Comment: Speci men Type: BLOOD SPECIMENOrdering Facility: [facility] Address: [address] [place], [place] [address] Performed By: #### 2 4323-8 ####[facility] LABCLIA [id number] [place] [address] Sodium [Moles/Vol] 137 mmol/L Normal 136-144 [facility] Comment on above: Order Comment: Speci men Type: BLOOD SPECIMENOrdering Facility: [facility] Address: [address] [place] [address] Performed By: #### 2 4323-8 ####[facility] LABCLIA [id number] [place] [address] Urea nitrogen [Mass/Vol] 12 mg/dL Normal 7-21 [facility] Comment on above: Order Comment: Speci men Type: BLOOD SPECIMENOrdering Facility: [facility] Address: [address] [place] [address] Performed By: #### 2 4323-8 ####[facility] LABCLIA [id number] [place] [address] IgG SerPl-mCncon 11-18-2023 IgG [Mass/Vol] 745 mg/dL Normal 700-1600 [facility] Comment on above: Order Comment: Speci men Type: BLOOD SPECIMENOrdering Facility: [facility] Address: [address] [place] [address] Performed By: #### 2 465-3 ####[facility] LABCLIA [id number] [place] [address] [place] Immunodeficiency panel FC (B ld)on 11-18-2023 CD3 cells (Bld) [#/Vol] 1775 cells/uL Normal 958-2388 [facility] Comment on above: Order Comment: Speci men Type: BLOOD SPECIMENOrdering Facility: [facility] Address: [address] [place] [address] Performed By: #### 4 5268-0 ####[facility] LABCLIA [id number] [place] [address] [place] CD3 cells/100 cells (Bld) 86 % Normal 60-89 [facility] Comment on above: Order Comment: Speci men Type: BLOOD SPECIMENOrdering Facility: [facility] Address: [address] [place] [address] Performed By: #### 4 5268-0 ####[facility] LABIA [id number] [place] [address] [place] CD3+CD4+ (T4 helper) cells (Bld) [#/Vol] 1500 cells/uL Normal 533-1674 [facility] Comment on above: Order Comment: Speci men Type: BLOOD SPECIMENOrdering Facility: [facility] Address: [address] [place] [address] Performed By: #### 4 5268-0 ####[facility] [id number] [place] [address] [place] CD3+CD4+ (T4 helper) cells/100 cells (Bld) 73 % High 34-61 [facility] Comment on above: Order Comment: Speci men Type: BLOOD SPECIMENOrdering Facility: [facility] Address: [address] [place] [address] Performed By: #### 4 5268-0 ####[facility] [id number] [place] [address] [place] CD3+CD4+ (T4 helper) cells/CD3+CD8+ (T8 suppressor cells) cells (Bld) [# ratio] 5.48 % High 1.10-3.25 [facility] Comment on above: Order Comment: Speci men Type: BLOOD SPECIMENOrdering Facility: [facility] Address: [address] [place] [address] Performed By: #### 4 5268-0 ####[facility] [id number] [place] [address] [place] CD3+CD8+ (T8 suppressor cells) cells (Bld) [#/Vol] 274 cells/uL Normal 175-958 [facility] Comment on above: Order Comment: Speci men Type: BLOOD SPECIMENOrdering Facility: [facility] Address: [address] [place] [address] Performed By: #### 4 5268-0 ####[facility]CLIA [id number] [place] [address] [place] CD3+CD8+ (T8 suppressor cells) cells/100 cells (Bld) 13 % Normal 10-41 [facility] Comment on above: Order Comment: Speci men Type: BLOOD SPECIMENOrdering Facility: [facility] Address: [address] [place] [address] Performed By: #### 4 5268-0 ####[facility]CLIA [id number] [place] [address] [place] CD3-CD16+CD56+ (Natural killer) cells (Bld) [#/Vol] 279 cells/uL Normal 102-565 [facility] Comment on above: Order Comment: Speci men Type: BLOOD SPECIMENOrdering Facility: [facility] Address: [address] [place] [address] Performed By: #### 4 5268-0 ####[facility] LABIA [id number] [place] [address] [place] CD3-CD16+CD56+ (Natural killer) cells/100 cells (Bld) 14 % Normal 5-25 [facility] Comment on above: Order Comment: Speci men Type: BLOOD SPECIMENOrdering Facility: [facility] Address: [address] [place] [address] Performed By: #### 4 5268-0 ####[facility]CL[facility] [id number] [place] [address] [place] CD3-CD19+ cells (Bld) [#/Vol] 0 cells/uL Low 75-660 [facility] Comment on above: Order Comment: Speci men Type: BLOOD SPECIMENOrdering Facility: [facility] Address: [address] [place] [address] Performed By: #### 4 5268-0 ####[facility]CL[facility] [id number] [address] [place] CD3-CD19+ cells/100 cells (Bld) 0 % Low 5- [facility] Comment on above: Order Comment: Speci men Type: BLOOD SPECIMENOrdering Facility: [facility] Address: [address] [place] [address] Performed By: #### 4 5268-0 ####[facility]CLIA [id number] [address] [place] CNPNon 10-18-2023 CNPN Telephone (OPHTMN) MACKENZIE CONCEPCION ([id number]) 1975 F Date Time Provider Department 10/18/23 TERRI CARTAGENA OPHOly During your visit today, we recorded the following information about you: Ferdinand Redmond 10/18/2023 9:11 AM Signed Called patient and it went to voicemail. Called to explain that her appointment with Dr. Cartagena is cancelled and per Dr. Vo's last office visit her neuro-ophthalmic concern was stable and can establish care with marine radio installer and servicer. They will be able to give her routine eye care to manage and follow her ophthalmic eye concerns, which are dislocated lens, cataract in other eye, obtaining prescriptions for glasses from her etc. Allergies As of Date: 10/18/2023 Noted Allergy Reaction NAPROSYN (NAPROXEN) 01/21/2005 11 - Vomiting PREDNISONE 10/04/2012 14 - Other: See Comments Comments: Became bradycardic with shortness of breath SULFA (SULFONAMIDE ANTIBIOTICS) 01/21/2005 11 - Vomiting Comments: hair loss MOTRIN (IBUPROFEN) 05/20/2009 14 - Other: See Comments Comments: Pt states she has UTI's when on Motrin. Date Reviewed: 10/15/2023 Reviewed by: Zuhair, Chanavya, OCCA - Fully Assessed Prescriptions as of 10/18/2023 - Cholecalciferol, Vitamin D3, 125 mcg (5,000 unit) cap take one capsule by mouth once daily - gabapentin (NEURONTIN) 300 mg capsule TAKE ONE CAPSULE 3 TIMES DAILY (BREAKFAST, LUNCH AND DINNER) AND TAKE 2 CAPSULES AT BEDTIME - baclofen 10 mg tablet TAKE ONE TABLET BY MOUTH 3 TIMES DAILY DIRECTED - albuterol HFA (PROVENTIL HFA, VENTOLIN HFA) 90 mcg/actuation inhaler Inhale as instructed q 4 HR. - VRAYLAR 6 mg capsule Take 10 mg by mouth once daily. - docusate sodium (COLACE) 100 mg capsule TAKE ONE CAPSULE BY MOUTH ONCE DAILY NEEDED - iv contrast (will be provided with [...] as needed. 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/15/2010 Bipolar affective (HCC) [F31.9] 08/18/2017 Malnutrition of moderate degree (HCC) [E44.0] 08/18/2017 Encounter Status:Closed by FERDINAND REDMOND on 10/18/23 [facility] CNOVon 10-15-2023 CNOV Office Visit (NEMSMN ) MACKENZIE CONCEPCION ([id number]) 1975 F Date Time Provider Department 10/15/23 10:00 AM REBECCA BANSAL During your visit today, we recorded the following information about you: Pulse Blood pressure Weight Height 71/minute 115/77 106.6 kg 1.707 m Rebecca Bansal DO 10/19/2023 8:58 PM [facility] FOLLOWUP/ESTABLISHED PATIENT VISIT PRINCIPAL NEUROLOGIC DIAGNOSIS: Multiple [...] Usual treating team: No specialty comments available. She has had falls in the past. Her last fall was last weekend. She fell into her sister's house. Foot got stuck under something because she can't lift her leg up too much. Got a bruise and cut on on her arm. Fell when at [place] in July. She has never done PT because she is looking for a MS-specialist physical therapist closer to home. Today she asks if aquatic therapy would be helpful for her mobility. Walks with a cane sometimes. Does not use her cane in the house. She has had to use her cane more. Left side is always weak but it has been acting up recently. Twitches and cramping/spasms in the left > right legs. Left hand is a little numb. Maybe a small difference in her leg cramping with baclofen. She does feel a little sleepy sometimes. No new neurological symptoms. No side effects. Got a rash (hives on one arm) during her last ocrevus infusion, but this has never happened to her before. No other symptoms. Infusion was paused and then restarted without any further issues. The patient is accompanied by sister. The patient was last seen 05/07/23, currently taking Ocrevus. Since the patient's last visit the patient reports overall feeling stable. Issues with current therapy: Tolerating medication without side effects. Neuro-QoL Functions (higher=better functioning) Flowsheet Row Office Visit from 05/07/2023 in [facility] from 04/02/2022 in [facility] Social Work from 10/30/2021 in [facility] Upper Extremity Domain T Score 35 [...] Flowsheet Row Office Visit from 05/07/2023 in [facility] from 04/02/2022 in [facility] Social Work from 10/30/2021 in [facility] Sleep Domain T Score 65 59 53 Fatigue Domain T Score 58 58 48 Anxiety Domain T Score 61 63 62 Depression Domain T Score 52 57 50 Stigma Domain T Score 55 64 60 Emotional Behavior Dyscontrol T Score -- -- -- has a past medical history of Anxiety, Cataract, Depression, 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 She has no past medical history of Atrial fibrillation ([facility]), Cancer (HCC), Chronic obstructive pulmonary disease (COPD) ([facility]), Chronic renal insufficiency, Congestive heart failure (HCC), Coronary artery disease, Diabetes (HCC), Epilepsy (HCC), Hypertension, Obstructive sleep apnea, Steroid long-term use, Stroke (HCC), or Substance abuse ([facility]). has a current medication list which includes the following prescription(s): cholecalciferol (vitamin d3), gabapentin, baclofen, albuterol hfa, vraylar, docusate sodium, iv contrast, divalproex er, bupropion xl, lactase, oxybutynin, citalopram hydrobromide, ocrelizumab, and acetaminophen. EXAM: BP 115/77 Pulse 71 Ht 170.7 cm (5' 7.2 ) Wt 106.6 kg (235 lb) LMP 08/31/2011 BMI 36.59 kg/m? MSPT Results Flowsheet [facility] Office Visit from 05/07/2023 in [facility] Office Visit from 02/20/2019 in [facility] Office Visit from 08/25/2018 in [facility] Processing Speed Total Number Correct 29 55 50 Processing Speed Z score -- -- -- Dominant hand -- -- -- MDT Left Hand Time 44.09 24.96 25.78 MDT Right Hand Time 39.13 28.28 25.67 Walking Speed Test (25 feet) 9.57 7.92 6.96 General Appearance: well appe (more content not included)... Normal [facility] MR Brain WO and W contrast I Von 10-15-2023 IMPRESSION: Multiple intracranial white matter lesions compatible with multiple sclerosis. No new T2 lesions and no new enhancing lesions. Moderate parenchymal volume loss. Other Significant Intracranial Findings: None Food Counter Attendant: CHRISTIANO Transcribe Date/Time: Oct 15 2023 8:44A Dictated by : MANAS DELUNA MD This examination was interpreted and the report reviewed and electronically signed by: MANAS DELUNA MD on Oct 15 2023 8:49AM [facility] DIVISION OF RADIOLOGY * * *Final Report* * * DATE OF EXAM: Oct 15 2023 8:34AM [facility] 0295 - MRI BRAIN WO/W IVCON / PROCEDURE REASON: Multiple sclerosis (HCC) * * * * Physician Interpretation * * * * EXAMINATION: MRI BRAIN WO/W IVCON HISTORY: Multiple sclerosis. Routine follow-up TECHNIQUE: Brain MRI with demyelinating disease protocol with and without IV gadolinium. MQ: [id number] Contrast: 20 mL Dotarem IV COMPARISON: MRI brain 10/02/2022 RESULT: Limitations: Evaluation limited secondary to motion artifact. Parenchymal Findings: There are multiple foci of hyperintensity on FLAIR and T2 within the white matter, compatible with the clinical diagnosis of multiple sclerosis. New T2 Lesions: None Interval Improvement: None. New Enhancing Lesions: None T2 [place] of Disease: Moderate. Parenchymal Volume Loss: Moderate. Other Significant Findings/Site(s) of New T2 Lesion(s): None. *Note: New T2 Lesions includes both new and enlarging plaques on T2-weighted FLAIR images (new lesions greater than or equal to 5mm3 or an increase in diameter of an existing lesion by greater than or equal to 2mm). DIVISION OF RADIOLOGY Provider, [facility] - 10/15/2023 * * *Final Report* * * DATE OF EXAM: Oct 15 2023 8:34AM [facility] 0295 - MRI BRAIN WO/W IVCON / PROCEDURE REASON: Multiple sclerosis (HCC) * * * * Physician Interpretation * * * * EXAMINATION: MRI BRAIN WO/W IVCON HISTORY: Multiple sclerosis. Routine follow-up TECHNIQUE: Brain MRI with demyelinating disease protocol with and without IV gadolinium. MQ: MRBMSWOW_2 Contrast: 20 mL Dotarem IV COMPARISON: MRI brain 10/02/2022 RESULT: Limitations: Evaluation limited secondary to motion artifact. Parenchymal Findings: There are multiple foci of hyperintensity on FLAIR and T2 within the white matter, compatible with the clinical diagnosis of multiple sclerosis. New T2 Lesions: None Interval Improvement: None. New Enhancing Lesions: None T2 [place] of Disease: Moderate. Parenchymal Volume Loss: Moderate. Other Significant Findings/Site(s) of New T2 Lesion(s): None. *Note: New T2 Lesions includes both new and enlarging plaques on T2-weighted FLAIR images (new lesions greater than or equal to 5mm3 or an increase in diameter of an existing lesion by greater than or equal to 2mm). IMPRESSION IMPRESSION: Multiple intracranial white matter lesions compatible with multiple sclerosis. No new T2 lesions and no new enhancing lesions. Moderate parenchymal volume loss. Other Significant Intracranial Findings: None Food Counter Attendant: CHRISTIANO Transcribe Date/Time: Oct 15 2023 8:44A Dictated by : MANAS DELUNA MD This examination was interpreted and the report reviewed and electronically signed by: MANAS DELUNA MD on Oct 15 2023 8:49AM EST [facility] Radiology Study observation (narrative) [facility] MR Brain WO and W contrast I VOrdered By: Ccf Provider on 10-15-2023 [facility] MRI BRAIN WO/W IVCONon 10-14 MRI BRAIN WO/W IVCON * * *Final Report* * * DATE OF EXAM: Oct 15 2023 8:34AM [facility] 0295 - MRI BRAIN WO/W IVCON / PROCEDURE REASON: Multiple sclerosis (HCC) * * * * Physician Interpretation * * * * EXAMINATION: MRI BRAIN WO/W IVCON HISTORY: Multiple sclerosis. Routine follow-up TECHNIQUE: Brain MRI with demyelinating disease protocol with and without IV gadolinium. MQ: MRBMSWOW_2 Contrast: 20 mL Dotarem IV COMPARISON: MRI brain 10/02/2022 RESULT: Limitations: Evaluation limited secondary to motion artifact. Parenchymal Findings: There are multiple foci of hyperintensity on FLAIR and T2 within the white matter, compatible with the clinical diagnosis of multiple sclerosis. New T2 Lesions: None Interval Improvement: None. New Enhancing Lesions: None T2 [place] of Disease: Moderate. Parenchymal Volume Loss: Moderate. Other Significant Findings/Site(s) of New T2 Lesion(s): None. *Note: New T2 Lesions includes both new and enlarging plaques on T2-weighted FLAIR images (new lesions greater than or equal to 5mm3 or an increase in diameter of an existing lesion by greater than or equal to 2mm). IMPRESSION: Multiple intracranial white matter lesions compatible with multiple sclerosis. No new T2 lesions and no new enhancing lesions. Moderate parenchymal volume loss. Other Significant Intracranial Findings: None Food Counter Attendant: CHRISTIANO Transcribe Date/Time: Oct 15 2023 8:44A Dictated by : MANAS DELUNA MD This examination was interpreted and the report reviewed and electronically signed by: MANAS DELUNA MD on Oct 15 2023 8:49AM EST [id number] Normal [facility] CHEMISTRYOrdered By: SYSTEM SYSTEM on 09-06-2023 25-hydroxyvitamin D3 [Mass/Vol] ng/mL High 30.0 - 100.0 ng/mL Rem[facility] Chem Albumin [Mass/Vol] 4.0 g/dL Normal 3.3 - 5.0 gm/dL [facility] Albumin/Globulin [Mass ratio] 1.8 {ratio} Normal 1.1 - 2.2 [facility] ALP [Catalytic activity/Vol] 70 [iU]/d Normal 21 - 98 Int._Unit/ L [facility] ALT No additional P-5'-P [Catalytic activity/Vol] 19 [iU]/d Normal 6 - 46 Int._Unit/ L [facility] Anion gap [Moles/Vol] 13 mmol/L Normal 6 - 16 mEq/L [facility] AST [Catalytic activity/Vol] 24 [iU]/d Normal 5 - 43 Int._Unit/ L [facility] Bilirubin [Mass/Vol] 0.7 mg/dL Normal 0.0 - 1.1 mg/dL [facility] Calcium [Mass/Vol] 9.2 mg/dL Normal 8.9 - 11. 1 mg/dL [facility] Chloride [Moles/Vol] 101 mmol/L Normal 101 - 111 mmol/L [facility] Cholesterol [Mass/Vol] 183 mg/dL Normal 120 - 200 mg/dL [facility] Cholesterol in HDL [Mass/Vol] 44 mg/dL Invalid Interpretation Code Remisol Chem Comment on above: Result Comment: '>= 60 LOW RISK' '<= 40 HIGH RISK' Cholesterol in LDL [Mass/Vol] 121 mg/dL Normal <=129mg/dL [facility] Cholesterol in VLDL [Mass/Vol] 25 mg/dL Normal 7 - 40 mg/dL [facility] CO2 [Moles/Vol] 28 mmol/L Normal 21 - 31 mmol/L [facility] Cobalamin (Vitamin B12) [Mass/Vol] 518 pg/mL Normal 50 - 1500 pg/mL [facility] Creatinine [Mass/Vol] 1.2 mg/dL Normal 0.5 - 1.3 mg/dL [facility] eGFR 56 mL/min/1.73 m2 Low >=59mL/min /1.73 m2 [facility] Globulin (S) [Mass/Vol] 2.2 g/dL Normal 1.4 - 4.0 gm/dL [facility] Glucose [Mass/Vol] 98 mg/dL Normal 55 - 199 mg/dL [facility] Potassium [Moles/Vol] 4.0 mmol/L Normal 3.5 - 5.3 mmol/L [facility] Chem Protein [Mass/Vol] 6.2 g/dL Normal 6.0 - 7.8 gm/dL [facility] Sodium [Moles/Vol] 138 mmol/L Normal 135 - 145 mmol/L [facility] Triglyceride [Mass/Vol] 123 mg/dL Normal <=149mg/dL [facility] Urea nitrogen [Mass/Vol] 17 mg/dL Normal 5 - 21 mg/dL [facility] Urea nitrogen/Creatinin e [Mass ratio] 14 mg/mg Normal 10 - 20 [facility] CHEMISTRYOrdered By: Leander ortiz on 09-06-2023 HbA1c (Bld) [Mass fraction] 5.0 % Normal <=5.9% [facility] ChemAutoSS HEMATOLOGYOrdered By: SYSTEM SYSTEM on 09-06-2023 Basophils/100 WBC (Bld) 0.6 % Normal 0.0 - 2.0 % Rem[facility] Heme Basophils/Leukocyt es Auto (Bld) [Pure # fraction] 0.0 E9/L Normal 0.0 - 0.2 E9/L [facility]e Eosinophils (Bld) [#/Vol] 0.1 E9/L Normal 0.0 - 0.5 E9/L [facility]e Eosinophils/100 WBC (Bld) 2.0 % Normal 0.0 - 8.0 % [facility]e Erythrocyte distribution width (RBC) [Ratio] 14.5 % High 10.9 - 14.2 % [facility] Hematocrit (Bld) [Volume fraction] 43.3 % Normal 34.0 - 46.0 % [facility]e Hemoglobin (Bld) [Mass/Vol] 14.2 g/dL Normal 12.0 - 16.0 gm/dL [facility]e Lymphocytes (Bld) [#/Vol] 2.1 E9/L Normal 1.0 - 4.0 E9/L [facility]e Lymphocytes/100 WBC (Bld) 32.4 % Normal 14.0 - 50.0 % [facility]e MCH (RBC) [Entitic mass] 29.1 pg Normal 27.0 - 34.0 pg [facility]e MCHC (RBC) [Mass/Vol] 32.9 g/dL Normal 31.4 - 36.0 gm/dL [facility]e MCV (RBC) [Entitic vol] 88.3 fL Normal 80.0 - 100.0 fL [facility]e Monocytes (Bld) [#/Vol] 0.6 E9/L Normal 0.2 - 1.0 E9/L [facility]e Monocytes/100 WBC (Bld) 9.1 % Normal 4.0 - 14.0 % [facility] Neutrophils (Bld) [#/Vol] 3.6 E9/L Normal 2.0 - 7.5 E9/L [facility]e Neutrophils/100 WBC (Bld) 55.9 % Normal 36.0 - 75.0 % [facility] Platelet mean volume (Bld) [Entitic vol] 8.8 fL Normal 6.4 - 10.8 fL [facility] Platelets (Bld) [#/Vol] 162.0 E9/L Normal 150.0 - 500.0 E9/L [facility]e RBC (Bld) [#/Vol] 4.9 E12/L Normal 4.3 - 5.9 E12/L [facility] WBC corrected for nucl RBC Auto (Bld) [#/Vol] 6.5 E9/L Normal 4.0 - 11.0 E9/L [facility]e IibY1sms 09-06-2023 HbA1c (Bld) [Mass fraction] 5.0 % Normal <=5.9 [facility] Comment on above: Performed By: #### [id number] #### [facility] [address] [place] [address] CBC W Auto Differential pane l (Bld)on 05-20-2023 Basophils (Bld) [#/Vol] <0.11 k/uL [facility] Basophils/100 WBC (Bld) 0.3 % [facility] Differential cell count method Nom (Bld) Auto [facility] Eosinophils (Bld) [#/Vol] 0.11 10*3/uL <0.46 k/uL [facility] Eosinophils/100 WBC (Bld) 1.4 % [facility] Erythrocyte distribution width (RBC) [Ratio] 12.8 % 11.5 - 15.0 % [facility] Hematocrit (Bld) [Volume fraction] 44.0 % 36.0 - 46.0 % [facility] Hemoglobin (Bld) [Mass/Vol] 14.5 g/dL 11.5 - 15.5 g/dL [facility] Immature granulocytes (Bld) [#/Vol] 0.05 10*3/uL <0.10 k/uL [facility] Immature granulocytes/100 WBC (Bld) 0.6 % [facility] Lymphocytes (Bld) [#/Vol] 1.40 10*3/uL 1.00 - 4.00 k/uL [facility] Lymphocytes/100 WBC (Bld) 17.5 % [facility] MCH (RBC) [Entitic mass] 28.0 pg 26.0 - 34.0 pg [facility] MCHC (RBC) [Mass/Vol] 33.0 g/dL 30.5 - 36.0 g/dL [facility] MCV (RBC) [Entitic vol] 84.9 fL 80.0 - 100.0 fL [facility] Monocytes (Bld) [#/Vol] 0.66 10*3/uL <0.87 k/uL [facility] Monocytes/100 WBC (Bld) 8.3 % [facility] Neutrophils (Bld) [#/Vol] 5.74 10*3/uL 1.45 - 7.50 k/uL [facility] Neutrophils/100 WBC (Bld) 71.9 % [facility] Nucleated RBC (Bld) [#/Vol] <0.01 k/uL [facility] Nucleated RBC/100 WBC (Bld) [Ratio] 0.0 /100 WBC [facility] Platelet mean volume (Bld) [Entitic vol] 10.8 fL 9.0 - 12.7 fL [facility] Platelets (Bld) [#/Vol] 192 10*3/uL 150 - 400 k/uL [facility] RBC (Bld) [#/Vol] 5.18 10*6/uL 3.90 - 5.20 m/uL [facility] WBC (Bld) [#/Vol] 7.98 10*3/uL 3.70 - 11.00 k/uL [facility] Basophils (Bld) [#/Vol] 10*3/uL Normal <0.11 [facility] Comment on above: Order Comment: Speci men Type: BLOOD SPECIMENOrdering Facility: [facility] Address: [address] [place] [address] Performed By: #### 5 7021-8 ####[facility] LABCL[facility] [id number] [place] [address] Basophils/100 WBC (Bld) 0.3 % Normal [facility] Comment on above: Order Comment: Speci men Type: BLOOD SPECIMENOrdering Facility: [facility] Address: [address] [place] [address] Performed By: #### 5 7021-8 ####[facility]CL[facility] [id number] [place] [address] Differential cell count method Nom (Bld) Auto Normal [facility] Comment on above: Order Comment: Speci men Type: BLOOD SPECIMENOrdering Facility: [facility] Address: [address] [place] [address] Performed By: #### 5 7021-8 ####[facility]CL[facility] [id number] [place] [address] Eosinophils (Bld) [#/Vol] 0.11 10*3/uL Normal <0.46 [facility] Comment on above: Order Comment: Speci men Type: BLOOD SPECIMENOrdering Facility: [facility] Address: [address] [place] [address] Performed By: #### 5 7021-8 ####[facility]CL[facility] [id number] [place] [address] Eosinophils/100 WBC (Bld) 1.4 % Normal [facility] Comment on above: Order Comment: Speci men Type: BLOOD SPECIMENOrdering Facility: [facility] Address: [address] [place] [address] Performed By: #### 5 7021-8 ####[facility]CL[facility] [id number] [place] [address] Erythrocyte distribution width (RBC) [Ratio] 12.8 % Normal 11.5-15.0 [facility] Comment on above: Order Comment: Speci men Type: BLOOD SPECIMENOrdering Facility: [facility] Address: [address] [place] [address] Performed By: #### 5 7021-8 ####[facility]CL[facility] [id number] [place] [address] Hematocrit (Bld) [Volume fraction] 44.0 % Normal 36.0-46.0 [facility] Comment on above: Order Comment: Speci men Type: BLOOD SPECIMENOrdering Facility: [facility] Address: [address] [place] [address] Performed By: #### 5 7021-8 ####[facility] LABIA [id number] [place] [address] Hemoglobin (Bld) [Mass/Vol] 14.5 g/dL Normal 11.5-15.5 [facility] Comment on above: Order Comment: Speci men Type: BLOOD SPECIMENOrdering Facility: [facility] Address: [address] [place] [address] Performed By: #### 5 7021-8 ####[facility]CLIA [id number] [place] [address] Immature granulocytes (Bld) [#/Vol] 0.05 10*3/uL Normal <0.10 [facility] Comment on above: Order Comment: Speci men Type: BLOOD SPECIMENOrdering Facility: [facility] Address: [address] [place] [address] Performed By: #### 5 7021-8 ####[facility]CL[facility] [id number] [place] [address] Immature granulocytes/100 WBC (Bld) 0.6 % Normal [facility] Comment on above: Order Comment: Speci men Type: BLOOD SPECIMENOrdering Facility: [facility] Address: [address] [place] [address] Performed By: #### 5 7021-8 ####[facility] LABCLIA [id number] [place] [address] Lymphocytes (Bld) [#/Vol] 1.40 10*3/uL Normal 1.00-4.00 [facility] Comment on above: Order Comment: Speci men Type: BLOOD SPECIMENOrdering Facility: [facility] Address: [address] [place] [address] Performed By: #### 5 7021-8 ####[facility]CL[facility] [id number] [place] [address] Lymphocytes/100 WBC (Bld) 17.5 % Normal [facility] Comment on above: Order Comment: Speci men Type: BLOOD SPECIMENOrdering Facility: [facility] Address: [address] [place] [address] Performed By: #### 5 7021-8 ####[facility]CL[facility] [id number] [place] [address] MCH (RBC) [Entitic mass] 28.0 pg Normal 26.0-34.0 [facility] Comment on above: Order Comment: Speci men Type: BLOOD SPECIMENOrdering Facility: [facility] Address: [address] [place] [address] Performed By: #### 5 7021-8 ####[facility]CLIA [id number] [place] [address] MCHC (RBC) [Mass/Vol] 33.0 g/dL Normal 30.5-36.0 [facility] Comment on above: Order Comment: Speci men Type: BLOOD SPECIMENOrdering Facility: [facility] Address: [address] [place] [address] Performed By: #### 5 7021-8 ####[facility] LABCLIA [id number] [place] [address] MCV (RBC) [Entitic vol] 84.9 fL Normal 80.0-100.0 [facility] Comment on above: Order Comment: Speci men Type: BLOOD SPECIMENOrdering Facility: [facility] Address: [address] [place] [address] Performed By: #### 5 7021-8 ####[facility] LABCLIA [id number] [place] [address] Monocytes (Bld) [#/Vol] 0.66 10*3/uL Normal <0.87 [facility] Comment on above: Order Comment: Speci men Type: BLOOD SPECIMENOrdering Facility: [facility] Address: [address] [place] [address] Performed By: #### 5 7021-8 ####[facility]CL[facility] [id number] [place] [address] Monocytes/100 WBC (Bld) 8.3 % Normal [facility] Comment on above: Order Comment: Speci men Type: BLOOD SPECIMENOrdering Facility: [facility] Address: [address] [place] [address] Performed By: #### 5 7021-8 ####[facility]CLIA [id number] [place] [address] Neutrophils (Bld) [#/Vol] 5.74 10*3/uL Normal 1.45-7.50 [facility] Comment on above: Order Comment: Speci men Type: BLOOD SPECIMENOrdering Facility: [facility] Address: [address] [place] [address] Performed By: #### 5 7021-8 ####[facility]CL[facility] [id number] [place] [address] Neutrophils/100 WBC (Bld) 71.9 % Normal [facility] Comment on above: Order Comment: Speci men Type: BLOOD SPECIMENOrdering Facility: [facility] Address: [address] [place] [address] Performed By: #### 5 7021-8 ####[facility] LABCLIA [id number] [place] [address] Nucleated RBC (Bld) [#/Vol] 10*3/uL Normal <0.01 [facility] Comment on above: Order Comment: Speci men Type: BLOOD SPECIMENOrdering Facility: [facility] Address: [address] [place] [address] Performed By: #### 5 7021-8 ####[facility]CLIA [id number] [place] [address] Nucleated RBC/100 WBC (Bld) [Ratio] 0.0 /100 WBC Normal [facility] Comment on above: Order Comment: Speci men Type: BLOOD SPECIMENOrdering Facility: [facility] Address: [address] [place] [address] Performed By: #### 5 7021-8 ####[facility]CLIA [id number] [place] [address] Platelet mean volume (Bld) [Entitic vol] 10.8 fL Normal 9.0-12.7 [facility] Comment on above: Order Comment: Speci men Type: BLOOD SPECIMENOrdering Facility: [facility] Address: [address] [place] [address] Performed By: #### 5 7021-8 ####[facility] LABCLIA [id number] [place] [address] Platelets (Bld) [#/Vol] 192 10*3/uL Normal 150-400 [facility] Comment on above: Order Comment: Speci men Type: BLOOD SPECIMENOrdering Facility: [facility] Address: [address] [place] [address] Performed By: #### 5 7021-8 ####[facility]CLIA [id number] [place] [address] RBC (Bld) [#/Vol] 5.18 10*6/uL Normal 3.90-5.20 [facility] Comment on above: Order Comment: Speci men Type: BLOOD SPECIMENOrdering Facility: [facility] Address: [address] [place] [address] Performed By: #### 5 7021-8 ####[facility] LABCLIA [id number] [place] [address] WBC (Bld) [#/Vol] 7.98 10*3/uL Normal 3.70-11.00 [facility] Comment on above: Order Comment: Speci men Type: BLOOD SPECIMENOrdering Facility: [facility] Address: [address] [place] [address] Performed By: #### 5 7021-8 ####[facility] LABCLIA [id number] [place] [address] Comprehensive metabolic 2000 panelon 05-20-2023 Albumin [Mass/Vol] 4.0 g/dL 3.9 - 4.9 g/dL [facility] ALP [Catalytic activity/Vol] 93 U/L 34 - 123 U/L [facility] ALT [Catalytic activity/Vol] 25 U/L 7 - 38 U/L [facility] Anion gap [Moles/Vol] 11 mmol/L 9 - 18 mmol/L [facility] AST [Catalytic activity/Vol] 28 U/L 13 - 35 U/L [facility] Bilirubin [Mass/Vol] 0.9 mg/dL 0.2 - 1.3 mg/dL [facility] Calcium [Mass/Vol] 9.6 mg/dL 8.5 - 10. 2 mg/dL [facility] Chloride [Moles/Vol] 103 mmol/L 97 - 105 mmol/L [facility] CO2 [Moles/Vol] 25 mmol/L 22 - 30 mmol/L [facility] Creatinine [Mass/Vol] 1.18 mg/dL High 0.58 - 0.96 mg/dL [facility] Estimated Glomerular Filtration Rate 58 mL/min/1.73m Low >=60 mL/min/1.7 3m [facility] Glucose [Mass/Vol] 147 mg/dL High 74 - 99 mg/dL [facility] Potassium [Moles/Vol] 3.8 mmol/L 3.7 - 5.1 mmol/L [facility] Protein [Mass/Vol] 6.2 g/dL Low 6.3 - 8.0 g/dL [facility] Sodium [Moles/Vol] 139 mmol/L 136 - 144 mmol/L [facility] Urea nitrogen [Mass/Vol] 11 mg/dL 7 - 21 mg/dL [facility] Albumin [Mass/Vol] 4.0 g/dL Normal 3.9-4.9 [facility] Comment on above: Order Comment: Speci men Type: BLOOD SPECIMENOrdering Facility: [facility] Address: [address] [place] [address] Performed By: #### 2 4323-8 ####[facility] LABCLIA [id number] [place] [address] ALP [Catalytic activity/Vol] 93 U/L Normal 34-123 [facility] Comment on above: Order Comment: Speci men Type: BLOOD SPECIMENOrdering Facility: [facility] Address: [address] [place] [address] Performed By: #### 2 4323-8 ####[facility] LABCLIA [id number] [place] [address] ALT [Catalytic activity/Vol] 25 U/L Normal 7-38 [facility] Comment on above: Order Comment: Speci men Type: BLOOD SPECIMENOrdering Facility: [facility] Address: [address] [place] [address] Performed By: #### 2 4323-8 ####[facility]CL[facility] [id number] [place] [address] Anion gap [Moles/Vol] 11 mmol/L Normal 9-18 [facility] Comment on above: Order Comment: Speci men Type: BLOOD SPECIMENOrdering Facility: [facility] Address: [address] [place] [address] Performed By: #### 2 4323-8 ####[facility] LABCLIA [id number] [place] [address] AST [Catalytic activity/Vol] 28 U/L Normal 13-35 [facility] Comment on above: Order Comment: Speci men Type: BLOOD SPECIMENOrdering Facility: [facility] Address: [address] [place] [address] Performed By: #### 2 4323-8 ####[facility]CL[facility] [id number] [place] [address] Bilirubin [Mass/Vol] 0.9 mg/dL Normal 0.2-1.3 [facility] Comment on above: Order Comment: Speci men Type: BLOOD SPECIMENOrdering Facility: [facility] Address: [address] [place] [address] Performed By: #### 2 4323-8 ####[facility] LABCLIA [id number] [place] [address] Calcium [Mass/Vol] 9.6 mg/dL Normal 8.5-10.2 [facility] Comment on above: Order Comment: Speci men Type: BLOOD SPECIMENOrdering Facility: [facility] Address: [address] [place] [address] Performed By: #### 2 4323-8 ####[facility]CLIA [id number] [place] [address] Chloride [Moles/Vol] 103 mmol/L Normal 97-105 [facility] Comment on above: Order Comment: Speci men Type: BLOOD SPECIMENOrdering Facility: [facility] Address: [address] [place] [address] Performed By: #### 2 4323-8 ####[facility] LABCLIA [id number] [place] [address] CO2 [Moles/Vol] 25 mmol/L Normal 22-30 [facility] Comment on above: Order Comment: Speci men Type: BLOOD SPECIMENOrdering Facility: [facility] Address: [address] [place] [address] [place] [address] Performed By: #### 2 4323-8 ####[facility] LABCLIA [id number] [place] [address] Creatinine [Mass/Vol] 1.18 mg/dL High 0.58-0.96 [facility] Comment on above: Order Comment: Speci men Type: BLOOD SPECIMENOrdering Facility: [facility] Address: [address] [place] [address] Performed By: #### 2 4323-8 ####[facility] LABCLIA [id number] [place] [address] Creatinine and Glomerular filtration rate.predicted panel (S/P/Bld) 58 mL/min/1.73m??? Low >=60 [facility] Comment on above: Order Comment: Speci men Type: BLOOD SPECIMENOrdering Facility: [facility] Address: [address] [place] [address] Result Comment: Sommer mated Glomerular Filtration Rate (eGFR) is calculated using the 2020 CKD-EPI creatinine equation. This equation utilizes serum creatinine, sex, and age as parameters. The creatinine assay has traceable calibration to isotope dilution-mass spectrometry. Refer to KDIGO guidelines for clinical interpretation. In patients with unstable renal function, e.g. those with acute kidney injury, the eGFR may not accurately reflect actual GFR. Performed By: #### 2 4323-8 ####[facility] LABCLIA [id number] [place] [address] Glucose [Mass/Vol] 147 mg/dL High 74-99 [facility] Comment on above: Order Comment: Speci men Type: BLOOD SPECIMENOrdering Facility: [facility] Address: [address] [id number] Result Comment: The [place] [employer] (ADA) provides guidance for cutoff [...] Standards of Medical Care in Diabetes 2016, [place] [employer]. Diabetes Care. 2016.39(Suppl 1). Performed By: #### 2 4323-8 ####[facility] LABCLIA [id number] [place] [address] Potassium [Moles/Vol] 3.8 mmol/L Normal 3.7-5.1 [facility] Comment on above: Order Comment: Speci men Type: BLOOD SPECIMENOrdering Facility: [facility] Address: [address] [place] [address] Performed By: #### 2 4323-8 ####[facility] LABCLIA [id number] [place] [address] Protein [Mass/Vol] 6.2 g/dL Low 6.3-8.0 [facility] Comment on above: Order Comment: Speci men Type: BLOOD SPECIMENOrdering Facility: [facility] Address: [address] [place] [address] Performed By: #### 2 4323-8 ####[facility] LABCLIA [id number] [place] [address] Sodium [Moles/Vol] 139 mmol/L Normal 136-144 [facility] Comment on above: Order Comment: Speci men Type: BLOOD SPECIMENOrdering Facility: [facility] Address: [address] [place] [address] Performed By: #### 2 4323-8 ####[facility] LABCLIA [id number] [place] [address] Urea nitrogen [Mass/Vol] 11 mg/dL Normal 7-21 [facility] Comment on above: Order Comment: Speci men Type: BLOOD SPECIMENOrdering Facility: [facility] Address: [address] [place] [address] Performed By: #### 2 4323-8 ####[facility] LABCLIA [id number] [place] [address] IGGon 05-20-2023 IgG [Mass/Vol] 695 mg/dL Low 700 - 1,600 mg/dL [facility] IGMon 05-20-2023 IgM [Mass/Vol] 17 mg/dL Low 40 - 230 mg/dL [facility] IMMUNOGLOBULINS GAMon 2023 IgA [Mass/Vol] 149 mg/dL 70 - 400 mg/dL [facility] IgG [Mass/Vol] 717 mg/dL 700 - 1,600 mg/dL [facility] IgM [Mass/Vol] 19 mg/dL Low 40 - 230 mg/dL [facility] IgA [Mass/Vol] 149 mg/dL Normal 70-400 [facility] Comment on above: Order Comment: Speci men Type: BLOOD SPECIMENOrdering Facility: [facility] Address: [address] [place] [address] Performed By: #### S ERIMM ####[facility] LABCLIA [id number] [place] [address] [place] IgG [Mass/Vol] 717 mg/dL Normal 700-1600 [facility] Comment on above: Order Comment: Speci men Type: BLOOD SPECIMENOrdering Facility: [facility] Address: [address] [place] [address] Performed By: #### S ERIMM ####[facility] LABCLIA [id number] [place] [address] [place] IgM [Mass/Vol] 19 mg/dL Low 40-230 [facility] Comment on above: Order Comment: Speci men Type: BLOOD SPECIMENOrdering Facility: [facility] Address: [address] [place] [address] Performed By: #### S ERIMM ####[facility] LABCLIA [id number] [place] [address] [place] IgG SerPl-mCncon 05-20-2023 IgG [Mass/Vol] 695 mg/dL Low 700-1600 [facility] Comment on above: Order Comment: Speci men Type: BLOOD SPECIMENOrdering Facility: [facility] Address: [address] [place] [address] Performed By: #### 2 465-3, 2471-11 ####[facility] LABCLIA [id number] [place] [address] [place] IgM SerPl-mCncon 05-20-2023 IgM [Mass/Vol] 17 mg/dL Low 40-230 [facility] Comment on above: Order Comment: Speci men Type: BLOOD SPECIMENOrdering Facility: [facility] Address: [address] [place] [address] Performed By: #### 2 465-3, 2471-11 ####[facility] LABCLIA [id number] [address] [place] CNOVon 05-07-2023 CNOV Office Visit (NEMN ) MACKENZIE CONCEPCION ([id number]) 1975 F Date Time Provider Department 05/07/23 10:00 AM REBECCA BANSAL During your visit today, we recorded the following information about you: Pulse Blood pressure Weight Height 93/minute 105/53 110.6 kg 1.676 m Rebecca Bansal DO 05/07/2023 12:43 PM [facility] FOLLOWUP/ESTABLISHED PATIENT VISIT PRINCIPAL NEUROLOGIC DIAGNOSIS: Multiple [...] In the summer she will go to [place] to walk, but needs to sit frequently. Neuro-QoL Functions (higher=better functioning) Flowsheet Row Office Visit from 05/07/2023 in [facility] from 04/02/2022 in [facility] Social Work from 10/30/2021 in [facility] Upper Extremity Domain T Score 35 [...] Flowsheet Row Office Visit from 05/07/2023 in [facility] from 04/02/2022 in [facility] Social Work from 10/30/2021 in [facility] Sleep Domain T Score 65 59 53 Fatigue Domain T Score 58 58 48 Anxiety Domain T Score 61 63 62 Depression Domain T Score 52 57 50 Stigma Domain T Score 55 64 60 Emotional Behavior Dyscontrol T Score -- -- -- has a past medical history of Anxiety, Cataract, Depression, 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 She has no past medical history of Atrial fibrillation ([facility]), Cancer ([facility]), Chronic obstructive pulmonary disease (COPD) ([facility]), Chronic renal insufficiency, Congestive heart failure ([facility]), Coronary artery disease, Diabetes ([facility]), Epilepsy ([facility]), Hypertension, Obstructive sleep apnea, Steroid long-term use, Stroke ([facility]), or Substance abuse ([facility]). 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 Normal [facility] CBC W Auto Differential pane l (Bld)on 11-11-2022 Basophils (Bld) [#/Vol] 0.04 10*3/uL <0.11 k/uL [facility] Basophils/100 WBC (Bld) 0.6 % [facility] Differential cell count method Nom (Bld) Auto [facility] Eosinophils (Bld) [#/Vol] 0.15 10*3/uL <0.46 k/uL [facility] Eosinophils/100 WBC (Bld) 2.4 % [facility] Erythrocyte distribution width (RBC) [Ratio] 12.2 % 11.5 - 15.0 % [facility] Hematocrit (Bld) [Volume fraction] 41.9 % 36.0 - 46.0 % [facility] Hemoglobin (Bld) [Mass/Vol] 14.1 g/dL 11.5 - 15.5 g/dL [facility] Immature granulocytes (Bld) [#/Vol] 0.04 10*3/uL <0.10 k/uL [facility] Immature granulocytes/100 WBC (Bld) 0.6 % [facility] Lymphocytes (Bld) [#/Vol] 1.62 10*3/uL 1.00 - 4.00 k/uL [facility] Lymphocytes/100 WBC (Bld) 26.2 % [facility] MCH (RBC) [Entitic mass] 29.4 pg 26.0 - 34.0 pg [facility] MCHC (RBC) [Mass/Vol] 33.7 g/dL 30.5 - 36.0 g/dL [facility] MCV (RBC) [Entitic vol] 87.5 fL 80.0 - 100.0 fL [facility] Monocytes (Bld) [#/Vol] 0.47 10*3/uL <0.87 k/uL [facility] Monocytes/100 WBC (Bld) 7.6 % [facility] Neutrophils (Bld) [#/Vol] 3.87 10*3/uL 1.45 - 7.50 k/uL [facility] Neutrophils/100 WBC (Bld) 62.6 % [facility] Nucleated RBC (Bld) [#/Vol] <0.01 k/uL [facility] Nucleated RBC/100 WBC (Bld) [Ratio] 0.0 /100 WBC [facility] Platelet mean volume (Bld) [Entitic vol] 10.2 fL 9.0 - 12.7 fL [facility] Platelets (Bld) [#/Vol] 197 10*3/uL 150 - 400 k/uL [facility] RBC (Bld) [#/Vol] 4.79 10*6/uL 3.90 - 5.20 m/uL [facility] WBC (Bld) [#/Vol] 6.19 10*3/uL 3.70 - 11.00 k/uL [facility] Comprehensive metabolic 2000 panelon 11-11-2022 Albumin [Mass/Vol] 4.1 g/dL 3.9 - 4.9 g/dL [facility] ALP [Catalytic activity/Vol] 86 U/L 34 - 123 U/L [facility] ALT [Catalytic activity/Vol] 32 U/L 7 - 38 U/L [facility] Anion gap [Moles/Vol] 11 mmol/L 9 - 18 mmol/L [facility] AST [Catalytic activity/Vol] 26 U/L 13 - 35 U/L [facility] Bilirubin [Mass/Vol] 0.4 mg/dL 0.2 - 1.3 mg/dL [facility] Calcium [Mass/Vol] 8.9 mg/dL 8.5 - 10. 2 mg/dL [facility] Chloride [Moles/Vol] 105 mmol/L 97 - 105 mmol/L [facility] CO2 [Moles/Vol] 24 mmol/L 22 - 30 mmol/L [facility] Creatinine [Mass/Vol] 1.04 mg/dL High 0.58 - 0.96 mg/dL [facility] Estimated Glomerular Filtration Rate 67 mL/min/1.73m >=60 mL/min/1.7 3m [facility] Glucose [Mass/Vol] 111 mg/dL High 74 - 99 mg/dL [facility] Potassium [Moles/Vol] 3.6 mmol/L Low 3.7 - 5.1 mmol/L [facility] Protein [Mass/Vol] 6.1 g/dL Low 6.3 - 8.0 g/dL [facility] Sodium [Moles/Vol] 140 mmol/L 136 - 144 mmol/L [facility] Urea nitrogen [Mass/Vol] 11 mg/dL 7 - 21 mg/dL [facility] IGGon 11-11-2022 IgG [Mass/Vol] 707 mg/dL 700 - 1,600 mg/dL [facility] IGMon 11-11-2022 IgM [Mass/Vol] 19 mg/dL Low 40 - 230 mg/dL [facility] No Panel Informationon 10-02 [facility] CBC AUTO DIFFon 08-04-2022 BASO # 0.0 103/ul Normal 0.0-0.1 [facility] Comment on above: Performed By: #### C BC #### [facility] [address] [address] [address] Eduardo Bonilla Basophils/100 WBC (Bld) 0.5 % Normal 0.2-2.0 [facility] Comment on above: Performed By: #### C BC #### [facility] [address] [address] [address] Eduardo Bonilla EO # 0.1 103/ul Normal 0.0-0.7 [facility] Comment on above: Performed By: #### C BC #### [facility] [address] [address] [address] Eduardo Bonilla Eosinophils/100 WBC (Bld) 2.0 % Normal 0.9-7.0 [facility] Comment on above: Performed By: #### C BC #### [facility] [address] [address] [address] Eduardo Bonilla Erythrocyte distribution width (RBC) [Ratio] 11.6 % Normal 11.0-15.0 [facility] Comment on above: Performed By: #### C BC #### [facility] [address] [address] [address] Eduardo Bonilla Hematocrit (Bld) [Volume fraction] 40.1 % Normal 36.0-48.0 [facility] Comment on above: Performed By: #### C BC #### [facility] [address] [address] [address] Eduardo Bonilla Hemoglobin (Bld) [Mass/Vol] 13.7 g/dL Normal 12.0-16.0 [facility] Comment on above: Performed By: #### C BC #### [facility] [address] [place] [address] Dr. Eduardo Bonilla IG # 0.03 10e3/ul Normal 0.00-0.03 [facility] Comment on above: Performed By: #### C BC #### [facility] [address] [place] [address] Dr. Eduardo Bonilla IG % 0.5 % Normal 0.0-0.5 [facility] Comment on above: Performed By: #### C BC #### [facility] [address] [place] [address] Dr. Eduardo Bonilla LYMPH # 1.3 103/ul Normal 1.2-3.8 [facility] Comment on above: Performed By: #### C BC #### [facility] [address] [place] [address] Dr. Eduardo Bonilla Lymphocytes/100 WBC (Bld) 20.1 % Critically low 20.5-60.0 [facility] Comment on above: Performed By: #### C BC #### [facility] [address] [place] [address] Dr. Eduardo Bonilla MANUAL DIFF REQ NO Normal [facility] Comment on above: Performed By: #### C BC #### [facility] [address] [place] [address] Dr. Eduardo Bonilla MCH (RBC) [Entitic mass] 30.2 pg Normal 26.7-34.0 [facility] Comment on above: Performed By: #### C BC #### [facility] [address] [place] [address] Dr. Eduardo Bonilla MCHC (RBC) [Mass/Vol] 34.2 g/dL Normal 29.9-35.2 [facility] Comment on above: Performed By: #### C BC #### [facility] [address] [place] [address] Dr. Eduardo Bonilla MCV (RBC) [Entitic vol] 88.5 fL Normal 81.0-99.0 [facility] Comment on above: Performed By: #### C BC #### [facility] [address] [place] [address] Dr. Eduardo Bonilla MONO # 0.6 103/ul Normal 0.3-0.8 [facility] Comment on above: Performed By: #### C BC #### [facility] [address] [place] [address] Dr. Eduardo Bonilla Monocytes/100 WBC (Bld) 8.5 % Normal 1.7-12.0 [facility] Comment on above: Performed By: #### C BC #### [facility] [address] [place] [address] Dr. Eduardo Bonilla NEUT # 4.5 103/ul Normal 1.4-6.5 [facility] Comment on above: Performed By: #### C BC #### [facility] [address] [place] [address] Dr. Eduardo Bonilla Neutrophils/100 WBC (Bld) 68.4 % Normal 43.0-75.0 [facility] Comment on above: Performed By: #### C BC #### [facility] [address] [place] [address] Dr. Eduardo Bonilla Platelet mean volume (Bld) [Entitic vol] 10.3 fL Normal 9.5-13.5 [facility] Comment on above: Performed By: #### C BC #### [facility] [address] [place] [address] Dr. Eduardo Bonilla PLT 165 103/ul Normal 150-450 [facility] Comment on above: Performed By: #### C BC #### [facility] [address] [place] [address] Dr. Eduardo Bonilla RBC 4.53 106/ul Normal 4.20-5.40 [facility] Comment on above: Performed By: #### C BC #### [facility] [address] [place] [address] Dr. Eduardo Bonilla WBC 6.6 103/ul Normal 4.0-11.0 [facility] Comment on above: Performed By: #### C BC #### [facility] [address] [place] [address] Dr. Eduardo Bonilla DEPAKENE/ VALPROIC ACIDon DEPAKENE 78.2 ug/ml Normal 50.0-100.0 [facility] Comment on above: Performed By: #### L IPID, GLUC, VALP, LIVER #### [facility] [address] [address] [address] Eduardo Bonilla GLUCOSE BLOODon 08-04-2022 Glucose [Mass/Vol] 91 mg/dL Normal 74-106 [facility] Comment on above: Performed By: #### L IPID, GLUC, VALP, LIVER #### [facility] [address] [address] [address] Eduardo Bonilla LIPID PROFILEon 08-04-2022 CHOL-HDL RATIO NORM SEE BELOW Normal [facility] Comment on above: Result Comment: 3.3 - 4.4 LOW RISK 4.4 - 7.1 AVERAGE RISK 7.1 - 11.0 MODERATE RISK >11.0 HIGH RISK Performed By: #### L IPID, GLUC, VALP, LIVER #### [facility] [address] [address] [address] Eduardo Bonilla Cholesterol [Mass/Vol] 167 mg/dL Normal <=200 [facility] Comment on above: Performed By: #### L IPID, GLUC, VALP, LIVER #### [facility] [address] [address] [address] Eduardo Bonilla Cholesterol in HDL [Mass/Vol] 41 mg/dL Normal 40-60 [facility] Comment on above: Performed By: #### L IPID, GLUC, VALP, LIVER #### [facility] [address] [address] [address] Eduardo Bonilla Cholesterol in LDL [Mass/Vol] 111.0 mg/dL Normal [facility] Comment on above: Performed By: #### L IPID, GLUC, VALP, LIVER #### [facility] [address] [address] [address] Eduardo Bonilla Cholesterol.total/ Cholesterol in HDL [Mass ratio] 4.1 {ratio} Normal [facility] Comment on above: Performed By: #### L IPID, GLUC, VALP, LIVER #### [facility] [address] [address] [address] Eduardo Bonilla HDL NORMAL > or = 60 mg/dl - LO W CARDIOVASCULAR RISK <40 mg/dl - HIGH CARDIOVASCULAR RISK Normal [facility] Comment on above: Performed By: #### L IPID, GLUC, VALP, LIVER #### [facility] [address] [address] [address] Eduardo Bonilla LDL CALC NORMAL SEE BELOW Normal [facility] Comment on above: Result Comment: <100 mg/dl OPTIMAL 100 - 129 mg/dl NEAR OR ABOVE OPTIMAL 130 - 159 mg/dl BORDERLINE HIGH 160 - 189 mg/dl HIGH >190 mg/dl VERY HIGH Performed By: #### L IPID, GLUC, VALP, LIVER #### [facility] [address] [address] [address] Eduardo Bonilla Triglyceride [Mass/Vol] 75 mg/dL Normal <=150 [facility] Comment on above: Performed By: #### L IPID, GLUC, VALP, LIVER #### [facility] [address] [address] [address] Eduardo Bonilla VLDL CALC 15.0 mg/dL Normal [facility] Comment on above: Performed By: #### L IPID, GLUC, VALP, LIVER #### [facility] [address] [address] [address] Eduardo Bonilla LIVER PROFILEon 08-04-2022 Albumin [Mass/Vol] 3.0 g/dL Critically low 3.4-5.0 Th e [facility] Comment on above: Performed By: #### L IPID, GLUC, VALP, LIVER #### [facility] [address] [address] [address] Eduardo Bonilla Albumin/Globulin [Mass ratio] 1.0 {ratio} Normal [facility] Comment on above: Performed By: #### L IPID, GLUC, VALP, LIVER #### [facility] [address] [address] [address] Eduardo Bonilla ALP [Catalytic activity/Vol] 78 U/L Normal 46-116 [facility] Comment on above: Performed By: #### L IPID, GLUC, VALP, LIVER #### [facility] [address] [address] [address] Eduardo Bonilla ALT [Catalytic activity/Vol] 74 U/L Critically high 14-59 [facility] Comment on above: Performed By: #### L IPID, GLUC, VALP, LIVER #### [facility] [address] [place] [address] Dr. Eduardo Bonilla AST [Catalytic activity/Vol] 55 U/L Critically high 15-37 [facility] Comment on above: Performed By: #### L IPID, GLUC, VALP, LIVER #### [facility] [address] [place] [address] Dr. Eduardo Bonilla BILI, CONJUGATED 0.2 mg/dL Normal 0.0-0.2 [facility] Comment on above: Performed By: #### L IPID, GLUC, VALP, LIVER #### [facility] [address] [place] [address] Dr. Eduardo Bonilla Bilirubin [Mass/Vol] 0.4 mg/dL Normal 0.2-1.0 [facility] Comment on above: Performed By: #### L IPID, GLUC, VALP, LIVER #### [facility] [address] [place] [address] Dr. Eduardo Bonilla Globulin (S) [Mass/Vol] 3.1 g/dL Normal [facility] Comment on above: Performed By: #### L IPID, GLUC, VALP, LIVER #### [facility] [address] [place] [address] Dr. Eduardo Bonilla Protein [Mass/Vol] 6.1 g/dL Critically low 6.4-8.2 Th [facility] Comment on above: Performed By: #### L IPID, GLUC, VALP, LIVER #### [facility] [address] [place] [address] Dr. Eduardo Bonilla CBC W Auto Differential pane l (Bld)on 05-13-2022 Basophils (Bld) [#/Vol] <0.11 k/uL [facility] Basophils/100 WBC (Bld) 0.3 % [facility] Differential cell count method Nom (Bld) Auto [facility] Eosinophils (Bld) [#/Vol] 0.14 10*3/uL <0.46 k/uL [facility] Eosinophils/100 WBC (Bld) 2.4 % [facility] Erythrocyte distribution width (RBC) [Ratio] 12.4 % 11.5 - 15.0 % [facility] Hematocrit (Bld) [Volume fraction] 40.9 % 36.0 - 46.0 % [facility] Hemoglobin (Bld) [Mass/Vol] 13.7 g/dL 11.5 - 15.5 g/dL [facility] Immature granulocytes (Bld) [#/Vol] 0.03 10*3/uL <0.10 k/uL [facility] Immature granulocytes/100 WBC (Bld) 0.5 % [facility] Lymphocytes (Bld) [#/Vol] 1.39 10*3/uL 1.00 - 4.00 k/uL [facility] Lymphocytes/100 WBC (Bld) 24.0 % [facility] MCH (RBC) [Entitic mass] 30.1 pg 26.0 - 34.0 pg [facility] MCHC (RBC) [Mass/Vol] 33.5 g/dL 30.5 - 36.0 g/dL [facility] MCV (RBC) [Entitic vol] 89.9 fL 80.0 - 100.0 fL [facility] Monocytes (Bld) [#/Vol] 0.47 10*3/uL <0.87 k/uL [facility] Monocytes/100 WBC (Bld) 8.1 % [facility] Neutrophils (Bld) [#/Vol] 3.74 10*3/uL 1.45 - 7.50 k/uL [facility] Neutrophils/100 WBC (Bld) 64.7 % [facility] Nucleated RBC (Bld) [#/Vol] <0.01 k/uL [facility] Nucleated RBC/100 WBC (Bld) [Ratio] 0.0 /100 WBC [facility] Platelet mean volume (Bld) [Entitic vol] 10.3 fL 9.0 - 12.7 fL [facility] Platelets (Bld) [#/Vol] 160 10*3/uL 150 - 400 k/uL [facility] RBC (Bld) [#/Vol] 4.55 10*6/uL 3.90 - 5.20 m/uL [facility] WBC (Bld) [#/Vol] 5.79 10*3/uL 3.70 - 11.00 k/uL [facility] IGGon 05-13-2022 IgG [Mass/Vol] 634 mg/dL Low 700 - 1,600 mg/dL [facility] IGMon 05-13-2022 IgM [Mass/Vol] 17 mg/dL Low 40 - 230 mg/dL [facility] XR shoulder LT min 2V*on XR shoulder LT min 2V* [facility] [employer] Other XR shoulder LT min 2V* [facility] [employer]. Other XR shoulder LT min 2V* [address] [place] [address] [employer]. Other XR shoulder LT min 2V* [place] [address] [employer] Other XR shoulder LT min 2V* XRay Report [employer] Other XR shoulder LT min 2V* Signed [employer] Other XR shoulder LT min 2V* Patient: Mackenzie Concepcion MR#: [id number] [employer] Other XR shoulder LT min 2V* 653 [employer] Other XR shoulder LT min 2V* : 1975 Acct:[id number] [employer] Other XR shoulder LT min 2V* Age/Sex: 46 / F ADM Date: 04/24/22 [employer] Other XR shoulder LT min 2V* Loc: XDUCLY Room: Type: [facility] [employer] Other XR shoulder LT min 2V* Attending Dr: Mila Gomez [employer] Other XR shoulder LT min 2V* Copies to: MILA [employer] LA[employer] INSERTERSnappCloudNita [employer] Other XR shoulder LT min 2V* Ordering Provider: MILA [facility]OMEZ [facility] [employer] [employer] Other XR shoulder LT min 2V* Date of Service: 04/24/22 [employer] Other XR shoulder LT min 2V* XR/XR shoulder LT min 2V*: Injury of left shoulder, initial encounter [employer] Other XR shoulder LT min 2V* LEFT SHOULDER - - 4 views [employer] Other XR shoulder LT min 2V* CLINICAL HISTORY: Left shoulder pain for one week. [employer] Other XR shoulder LT min 2V* COMPARISON: None [employer] Other XR shoulder LT min 2V* FINDINGS: [employer] Other XR shoulder LT min 2V* No acute bony process. No significant degenerative change. [employer] Other XR shoulder LT min 2V* XR/XR shoulder LT min 2V* [employer] Other XR shoulder LT min 2V* IMPRESSION: [employer] Other XR shoulder LT min 2V* No acute bony process. [employer] Other XR shoulder LT min 2V* Impression dictated by: Jasper Pina Jr., D.O.04/24/2022 11:55 AM [employer] Other XR shoulder LT min 2V* Dictation Location: [place] [address] [employer] Other XR shoulder LT min 2V* Transcribed By: ALEX 04/24/22 [facility] [employer] Other XR shoulder LT min 2V* Dictated By: Jasper Pina Jr, DO 04/24/22 [facility] [employer] Other XR shoulder LT min 2V* Signed By: [employer] Other XR shoulder LT min 2V* 04/24/22 1155 [employer] Other XR knee BI 4Von 01-27-2022 XR knee BI 4V [facility] [employer] Other XR knee BI 4V [facility] [employer] Other XR knee BI 4V [address] [place] [address] [employer] Other XR knee BI 4V [address] [employer] Other XR knee BI 4V XRay Report [facility] [employer] Other XR knee BI 4V Signed [employer] Other XR knee BI 4V Patient: Samir Concepcion MR#: [id number] [place] [employer] Other XR knee BI 4V 653 [employer] Other XR knee BI 4V : 1975 Acct:[id number] [employer] Other XR knee BI 4V Age/Sex: 46 / F ADM Date: 01/27/22 [employer] Other XR knee BI 4V Loc: XDUCLY Room: pe: REG CLI [employer] Other XR knee BI 4V Attending Dr: Quan Gomez [facility] [employer]. Other XR knee BI 4V Copies to: Roc [employer]app[employer] Other XR knee BI 4V Ordering Provider: MILA GOMEZ [facility] [employer] Other XR knee BI 4V Date of Service: 01/27/22 [employer] Other XR knee BI 4V [id number]) XR/XR knee BI 4V: Pain in right knee;Pain in left knee [employer] Other XR knee BI 4V BILATERAL KNEES - 4 views each [employer] Other XR knee BI 4V CLINICAL HISTORY: Bi lateral knee pain status post fall 3 days ago. [employer] Other XR knee BI 4V COMPARISON: None [employer] Other XR knee BI 4V FINDINGS: No acute b manolo process. No knee joint effusion. Joint spaces of the knees appear [employer] Other XR knee BI 4V maintained. [employer] Other XR knee BI 4V X R/XR knee BI 4V [employer] Other XR knee BI 4V IMPRESSION: [employer] Other XR knee BI 4V NO ACUTE BONY FINDINGS. [employer] Other XR knee BI 4V Impression dictated by: Jasper Pina Jr., D.O.01/27/2022 2:26 PM [employer] Other XR knee BI 4V Dictation Location: [place] [address] [employer] Other XR knee BI 4V Transcribed By: PWS 01/27/22 [facility] [employer] Other XR knee BI 4V Dictated By: Jasper Pina Jr, DO 01/27/22 [facility] [employer] Other XR knee BI 4V Signed By: [employer] Other XR knee BI 4V 01/27/22 [facility] [employer] Other CBC AUTO DIFFon 12-15-2021 BASO # 0.0 103/ul Normal 0.0-0.1 [facility] Comment on above: Performed By: #### C #### [facility] [address] [place] [address] [address] Eduardo Bonilal Basophils/100 WBC (Bld) 0.7 % Normal 0.2-2.0 [facility] Comment on above: Performed By: #### C BC #### [facility] [address] [address] [address] Eduardo Bonilla EO # 0.1 103/ul Normal 0.0-0.7 [facility] Comment on above: Performed By: #### C BC #### [facility] [address] [address] [address] Eduardo Bonilla Eosinophils/100 WBC (Bld) 2.4 % Normal 0.9-7.0 [facility] Comment on above: Performed By: #### C BC #### [facility] [address] [place] [address] Dr. Eduardo Bonilla Erythrocyte distribution width (RBC) [Ratio] 11.9 % Normal 11.0-15.0 [facility] Comment on above: Performed By: #### C BC #### [facility] [address] [place] [address] Dr. Eduardo Bonilla Hematocrit (Bld) [Volume fraction] 39.2 % Normal 36.0-48.0 [facility] Comment on above: Performed By: #### C BC #### [facility] [address] [place] [address] Dr. Eduardo Bonilla Hemoglobin (Bld) [Mass/Vol] 12.9 g/dL Normal 12.0-16.0 [facility] Comment on above: Performed By: #### C BC #### [facility] [address] [place] [address] Dr. Eduardo Bonilla IG # 0.03 10e3/ul Normal 0.00-0.03 [facility] Comment on above: Performed By: #### C BC #### [facility] [address] [place] [address] Dr. Eduardo Bonilla IG % 0.6 % Critically high 0.0-0.5 [facility] Comment on above: Performed By: #### C BC #### [facility] [address] [place] [address] [address] Eduardo Bonilla LYMPH # 1.6 103/ul Normal 1.2-3.8 [facility] Comment on above: Performed By: #### C BC #### [facility] [address] [place] [address] Dr. Eduardo Bonilla Lymphocytes/100 WBC (Bld) 29.0 % Normal 20.5-60.0 [facility] Comment on above: Performed By: #### C BC #### [facility] [address] [place] [address] Dr. Eduardo Bonilla MANUAL DIFF REQ NO Normal [facility] Comment on above: Performed By: #### C BC #### [facility] [address] [place] [address] Dr. Eduardo Bonilla MCH (RBC) [Entitic mass] 29.7 pg Normal 26.7-34.0 [facility] Comment on above: Performed By: #### C BC #### [facility] [address] [place] [address] Dr. Eduardo Bonilla MCHC (RBC) [Mass/Vol] 32.9 g/dL Normal 29.9-35.2 [facility] Comment on above: Performed By: #### C BC #### [facility] [address] [place] [address] Dr. Eduardo Bonilla MCV (RBC) [Entitic vol] 90.1 fL Normal 81.0-99.0 [facility] Comment on above: Performed By: #### C BC #### [facility] [address] [place] [address] Dr. Eduardo Bonilla MONO # 0.6 103/ul Normal 0.3-0.8 [facility] Comment on above: Performed By: #### C BC #### [facility] [address] [place] [address] Dr. Eduardo Bonilla Monocytes/100 WBC (Bld) 10.6 % Normal 1.7-12.0 [facility] Comment on above: Performed By: #### C BC #### [facility] [address] [place], [place] [id number] Dr. Eduardo Bonilla NEUT # 3.1 103/ul Normal 1.4-6.5 [facility] Comment on above: Performed By: #### C BC #### [facility] [address] [place] [address] Dr. Eduardo Bonilla Neutrophils/100 WBC (Bld) 56.7 % Normal 43.0-75.0 [facility] Comment on above: Performed By: #### C BC #### [facility] [address] [place] [address] Dr. Eduardo Bonilla Platelet mean volume (Bld) [Entitic vol] 10.0 fL Normal 9.5-13.5 [facility] Comment on above: Performed By: #### C BC #### [facility] [address] [place] [address] Dr. Eduardo Bonilla PLT 175 103/ul Normal 150-450 [facility] Comment on above: Performed By: #### C BC #### [facility] [address] [place] [address] Dr. Eduardo Bonilla RBC 4.35 106/ul Normal 4.20-5.40 [facility] Comment on above: Performed By: #### C BC #### [facility] [address] [place] [address] Dr. Eduardo Bonilla WBC 5.4 103/ul Normal 4.0-11.0 [facility] Comment on above: Performed By: #### C BC #### [facility] [address] [place] [address] Dr. Eduardo Bonilla DEPAKENE/VALPROICon 12-16-19 DEPAKENE 96.8 ug/ml Normal 50.0-100.0 [facility] Comment on above: Performed By: #### V ALP, LIVER, GLUC, LIPID #### [facility] [address] [place] [address] Dr. Eduardo oBnilla GLUCOSE BLOODon 12-15-2021 Glucose [Mass/Vol] 90 mg/dL Normal 74-106 [facility] Comment on above: Performed By: #### V ALP, LIVER, GLUC, LIPID #### [facility] [address] [place] [address] [address] Eduardo Bonilla LIPID PROFILEon 12-15-2021 CHOL-HDL RATIO NORM SEE BELOW Normal [facility] Comment on above: Result Comment: 3.3 - 4.4 LOW RISK 4.4 - 7.1 AVERAGE RISK 7.1 - 11.0 MODERATE RISK >11.0 HIGH RISK Performed By: #### V ALP, LIVER, GLUC, LIPID #### [facility] [address] [place] [address] [address] Eduardo Bonilla Cholesterol [Mass/Vol] 182 mg/dL Normal <=200 [facility] Comment on above: Performed By: #### V ALP, LIVER, GLUC, LIPID #### [facility] [address] [place] [address] [address] Eduardo Bonilla Cholesterol in HDL [Mass/Vol] 44 mg/dL Normal 40-60 [facility] Comment on above: Performed By: #### V ALP, LIVER, GLUC, LIPID #### [facility] [address] [address] [address] Eduardo Bonilla Cholesterol in LDL [Mass/Vol] 118.6 mg/dL Normal [facility] Comment on above: Performed By: #### V ALP, LIVER, GLUC, LIPID #### [facility] [address] [address] [address] Eduardo Bonilla Cholesterol.total/ Cholesterol in HDL [Mass ratio] 4.1 {ratio} Normal [facility] Comment on above: Performed By: #### V ALP, LIVER, GLUC, LIPID #### [facility] [address] [place] [address] [address] Eduardo Bonilla HDL NORMAL > or = 60 mg/dl - LO W CARDIOVASCULAR RISK <40 mg/dl - HIGH CARDIOVASCULAR RISK Normal [facility] Comment on above: Performed By: #### V ALP, LIVER, GLUC, LIPID #### [facility] [address] [place] [address] Dr. Eduardo Bonilla LDL CALC NORMAL SEE BELOW Normal [facility] Comment on above: Result Comment: <100 mg/dl OPTIMAL 100 - 129 mg/dl NEAR OR ABOVE OPTIMAL 130 - 159 mg/dl BORDERLINE HIGH 160 - 189 mg/dl HIGH >190 mg/dl VERY HIGH Performed By: #### V ALP, LIVER, GLUC, LIPID #### [facility] [address] [place] [address] [address] Eduardo Bonilla Triglyceride [Mass/Vol] 97 mg/dL Normal <=150 [facility] Comment on above: Performed By: #### V ALP, LIVER, GLUC, LIPID #### [facility] [address] [place] [address] [address] Eduardo Bonilla VLDL CALC 19.4 mg/dL Normal [facility] Comment on above: Performed By: #### V ALP, LIVER, GLUC, LIPID #### [facility] [address] [address] [address] Eduardo Bonilla LIVER PROFILEon 12-15-2021 Albumin [Mass/Vol] 3.2 g/dL Critically low 3.4-5.0 [facility] Comment on above: Performed By: #### V ALP, LIVER, GLUC, LIPID #### [facility] [address] [address] [address] Eduardo Bonilla Albumin/Globulin [Mass ratio] 1.1 {ratio} Normal [facility] Comment on above: Performed By: #### V ALP, LIVER, GLUC, LIPID #### [facility] [address] [address] [address] Eduardo Bonilla ALP [Catalytic activity/Vol] 71 U/L Normal 46-116 [facility] Comment on above: Performed By: #### V ALP, LIVER, GLUC, LIPID #### [facility] [address] [address] [address] Eduardo Bonilla ALT [Catalytic activity/Vol] 50 U/L Normal 14-59 [facility] Comment on above: Performed By: #### V ALP, LIVER, GLUC, LIPID #### [facility] [address] [address] [address] Eduardo Bonilla AST [Catalytic activity/Vol] 37 U/L Normal 15-37 [facility] Comment on above: Performed By: #### V ALP, LIVER, GLUC, LIPID #### [facility] [address] [address] [address] Eduardo Bonilla BILI, CONJUGATED 0.2 mg/dL Normal 0.0-0.2 [facility] Comment on above: Performed By: #### V ALP, LIVER, GLUC, LIPID #### [facility] [address] [address] [address] Eduardo Bonilla Bilirubin [Mass/Vol] 0.5 mg/dL Normal 0.2-1.0 [facility] Comment on above: Performed By: #### V ALP, LIVER, GLUC, LIPID #### [facility] [address] [place] [address] [address] Eduardo Bonilla Globulin (S) [Mass/Vol] 3.0 g/dL Normal [facility] Comment on above: Performed By: #### V ALP, LIVER, GLUC, LIPID #### [facility] [address] [address] [address] Eduardo Bonilla Protein [Mass/Vol] 6.2 g/dL Critically low 6.4-8.2 [facility] Comment on above: Performed By: #### V ALP, LIVER, GLUC, LIPID #### [facility] [address] [address] [address] Eduardo Bonilla No Panel Informationon 10-06 Brain Enhancing Lesions None [facility] Brain Interval Improvement None [facility] Brain New T2 Lesions None [facility] Brain Other Significant MRI Findings None. [facility] Brain Parenchymal Volume Loss Moderate [facility] Brain T2 [place] of Disease Moderate [facility] Cervical spine enhancing lesions None [facility] Cervical Spine New T2 Lesions None [facility] Cervical Spine T2 [place] of Disease None [facility] XR chest 2V*on 09-15-2021 XR chest 2V* [facility] [employer] Other XR chest 2V* [facility] [employer] Other XR chest 2V* [address] [facility] [employer] Other XR chest 2V* [place] [address] [facility] [employer] Other XR chest 2V* XRay [facility] [employer] Other XR chest 2V* Signed [employer] Other XR chest 2V* Patient: Samir Concepcion MR#: [id number] [employer] Other XR chest 2V* 653 [employer] Other XR chest 2V* : 1975 Acct:[id number] [employer] Other XR chest 2V* Age/Sex: 45 / F ADM Date: 09/15/21 [employer] Other XR chest 2V* [facility] e: [facility] [employer] Other XR chest 2V* Attending Dr: Quan Gomez [facility] [employer] Other XR chest 2V* Copies to: Roc GOMEZ [facility] [employer] Other XR chest 2V* Ordering Provider: MILA GOMEZ [facility] [employer] Other XR chest 2V* Date of Service: 09/15/21 [employer] Other XR chest 2V* [id number]) XR/XR chest 2V*: Opacity noted on imaging study [employer] Other XR chest 2V* PA AND LATERAL CHEST: N [facility] [employer] Other XR chest 2V* CLINICAL HISTORY: Hi story of the recent outside CT of the abdomen showing abnormality at the lower [employer] Other XR chest 2V* lungs [employer] Other XR chest 2V* COMPARISON: Chest x- ray 08/06/2017. The recent chest CT is not available [employer] Other XR chest 2V* A pericardial fat pa d is seen on the left. There is no focal parenchymal consolidation, effusion or [employer] Other XR chest 2V* pneumothorax. The ca rdiac, hilar and mediastinal silhouettes are within normal limits. There is [employer] Other XR chest 2V* no vascular congesti on. The visualized bony thorax is intact. Minor endplate spurring is noted. [employer] Other XR chest 2V* X R/XR chest 2V* [employer] Other XR chest 2V* IMPRESSION: [employer] Other XR chest 2V* NO ACUTE CARDIOPULMO NARY ABNORMALITY. [employer] Other XR chest 2V* Impression dictated by: Jessica Macias M.D.09/15/2021 2:20 PM [employer] Other XR chest 2V* Dictation Location: RADIO-PC-13 [employer] Other XR chest 2V* Transcribed By: ALEX 09/15/21 [facility] [employer] Other XR chest 2V* Dictated By: Jessica Macias MD 09/15/21 [facility] [employer] Other XR chest 2V* Signed By: [employer] Other XR chest 2V* 09/15/21 [facility] [employer] [facility] [employer] Other COVID Quick Testingon 2021 Result Positive [employer] 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) DanielatonService: Spiritual CareAuthor Type: ChaplainType: Allied HealthFiled: 08/24/2017 1:45 PMNote Text:GROUP PROGRESS NOTESERVICE DATE: 08/24/2017SERVICE TIME: 11:00 amLength (minutes): 60Attendance: Attended 3/4 to Full and Preparing for DischargeParticipation Level: ActiveParticipation Quality: Appropriate, Attentive and SharingGROUP PARTICIPATION:Group Topics:Spirituality: Finding meaning in lifePATIENT PRESENTATION AND RESPONSE:Affect: AppropriateMood: CalmCognition: DisorganizedProgress: Initial interaction with patientPt shared she receives peace form her kishor but has drifted away from God. Pt expressed a desire to reconnect. Pt shared that There are reasonsfor everything happening. Pt interacted well with her peers and wasactive in discussion.SIGNATURE: Chaplain Lenore PATIENT NAME: Mackenzie ConcepcionDATE: August 24, 2017 : 1:43 PM [facility] ALLIED HEALTH HNO ID: [id number] thor: Tomeka Lubin, TherapistService: Art TherapyAuthor Type: Art TherapistType: Allied HealthFiled: 08/24/2017 11:45 AMNote Text:GROUP PROGRESS NOTESERVICE DATE: 08/24/2017SERVICE TIME: 0930Length (minutes): 60Attendance: Full AttendanceParticipation Level: ActiveParticipation Quality: Disruptive or Behavioral, Impulsive, Intrusive,Spontaneous and SupportiveGROUP PARTICIPATION:Group Topics:Art Therapy: Directive - Body OutlineMedia - 2DPurpose - Emotional Expression, Regulation, and Identification and Insightand Awareness BuildingCommunity Meeting: Reflective Quotes and Treatment ProgressPATIENT PRESENTATION AND RESPONSE:Affect: Appropriate and AnimatedMood: Hypomanic and future oriented, hopefulCognition: distracted by peer sitting next to her, able to complete artdirective with intention.Progress: Improving and Appeared to successfully internalize the purposeof interventionSomewhat elevated, but group appropriate and redirectable. Hopeful forher future; verbalized good feelings towards her admission. Pt processedhow she hides her physical and emotional pain from living with MS to tryto appear strong. Pt shared that she is concerned for her peer who iscontinuing to struggle with ongoing life stressors after the group ended.SIGNATURE: Tomeka LubinCOMMONWEALTH [facility] PATIENT NAME: Mackenzie ConcepcionDATE: August 24, 2017 : 11:39 AM [facility] CASE MANAGEMon 08-24-2017 CASE MANAGEM HNO ID: [id number] thor: Racquel Handy (Sw)e: Social WorkAuthor Type: Social WorkerType: Care Mgt Progress NoteFiled: 08/24/2017 10:49 AMNote Text:BEHAVIORAL HEALTH SOCIAL WORK DISCHARGE NOTESERVICE DATE: 08/24/2017SERVICE TIME: 9:15amPATIENT'S DISCHARGE PLAN:Discharge Disposition Discharge Disposition: HomePsychiatry Follow-Up Appointment Psychiatrist Name: Dr. Gogo Mata Name: [facility] (Address: [address] [place] [address] )Apppointment Date: 09/23/17Appointment Time: 9:15amAdditonal Instructions: Nxecjcu Follow-Up AppointmentCounselor Referral Information Counselor Name: Intake appointment - Rossy Name: [facility] Address and Phone#: (Address: [address] [place] [address])Appointment Date: 09/01/17Appointment Time: 2:30pmAdditonal Instructions: Please bring ID, Insurance card and proof ofincome. Karssdwjkj Counselor Follow-Up Referral: YesCounselor Name: Dr. Danna CarpenterphAddress: [address], Zip: [place] [address]Phone Number: Fax: Appointment Date: 08/31/17Appointment Time: 10:00amAdditional Discharge Information Additional Discharge Resources: In caseof a mental health emergency please contact the crisis line [phone].Patient/Repres entative Agreeable With Discharge Plan: YesFREEDOM OF CHOICE EXPLAINED?Yes. A list of appropriate referrals presented to/discussed with Patienton 08/24/2017 at 9:15am[facility]-owned/affiliated facilities and agencies have been identifiedPatient/Representat shi Given/Explained Medicare Discharge Notice (IMletter):Not ApplicableTRANSPORTATION ARRANGEMENTS:Car w/ sisterPRESCRIPTIONS FILLED PRIOR TO DISCHARGE:Yes, faxed to outside pharmacy: trazodone sent to [facility] [place] and No,patient/ict sales representative given paper scripts. Pt reports she uses anotherpharmacy that utilizes pill organizers, but couldn't remember the name ofthe pharmacy. She will forward her paper scripts to them when she getshome.ADDITIONAL NOTES: Pt to be d/c'd home today with sister. Continues toappear somewhat elevated, but remains appropriate and re-directable. Ptreports she feels ready to go home today and is looking forward to see hernew counselor. Pt requested copies of her STD tests to take home with her.I advised her to discuss this with her RN. Pt was agreeable. Pt agreeablewith plan as outlined above. She denied any additional needs at time ofd/c.SIGNATURE: SHARONA Sy PATIENT NAME: Mackenzie ConcepcionDATE: August 24, 2017 : 10:26 AM [facility] 08-24-2017 [facility] HNO ID: [id number] thor: Jasper Sarkarervice: PsychiatryAuthor Type: PhysicianType: Discharge SummariesFiled: 08/24/2017 8:07 AMNote Text:DISCHARGE SUMMARY BEHAVIORAL HEALTHPATIENT NAME: Mackenzie Concepcion ADMISSION DATE: 08/18/2017MRN: [id number] DISCHARGE DATE: 08/24/2017ATTENDING PHYSICIAN: Jasper Cheney FOR HOSPITALIZATION: Acute psychosis and Behavior that created agrave and imminent risk to the rights of others or the personDISCHARGE DIAGNOSIS:1. PRIMARY: Bipolar ManicGAF: 55 -60-51 Moderate symptoms or moderate difficulty in social,occupational or school functioning.OPERATIONS DURING HOSPITALIZATION: NonePROCEDURES DURING HOSPITALIZATION: No procedures performedHOSPITAL COURSE:Active Problems: Bipolar affective (HCC) POA: Yes Assessment AND Plan: Hospitalized in a manic state. We reviewed r/b/richard valproic acid. 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 No untoward events while here.To transition to [facility].LABS AND PROCEDURES PENDING AT DISCHARGE: No pending results.CONSULTING TEAMS DURING HOSPITALIZATION: Internal Medicine: RoutinePATIENT CONDITION AT DISCHARGE: StableDISCHARGE DISPOSITION: Home/Self CareCOMPLICATIONS: NoneAt this time the patient has maximized her benefit from hospitalization.The patient denies suicidal or homicidal ideation, intent or plan and issafe for discharge.The patient voices a readiness to transition back to her home setting andhas agreed to our follow-up recommendations including medicationcompliance. Family is protective.SUBJECTIVE:Feeling good. Had a good weekend. Future oriented. In good behavioralcontrol. Much improved in her insight and judgment since admission.OBJECTIVE:Any PRN's required for agitation or anxiety since last encounter: NoNew problems on the unit since the last encounter: NoAny new medication reactions since the last encounter: NoBP 121/67 Pulse 69 Temp (Src) 97.2 (Temporal Artery) Resp 18 Ht 5'4 (1.63m) Wt 198 lb 6.4 oz (90.0kg) SpO2 94% LMP 08/31/2011 BMI34.04 kg/(m2). No tremors/asterixisMENTAL STATUS EXAM AT DISCHARGE:Appearance: Well dressed, well groomedBehavior: AppropriateOrientation: Person, Place, Time and SituationSpeech/Language: The patient demonstrates appropriate tone, prosody,catherine, phonetics, and syntaxMood/Affect: Appropriate, Bright and HopefulThought/Form: CoherentThought Content: CoherentSuicidal Ideations: No suicidal ideation, intent or plan.Homicidal Ideations: No homicidal ideation, intent or plan.Insight: AppropriateJudgment: AppropriateMemory/Cognition: IntactPsychomotor: Psychomotor activity was normalGENERAL: Alert, no distress, cooperative.NEUROLOGIC: No gross abnormal findings including cranial nerves 2-12.MUSCULOSKELETAL: Normal muscle strength, Normal muscle tone and Noinvoluntary movements.GAIT: Normal.LABORATORY DATA:The laboratory/imaging results have been reviewed.Pertinent findings since the last assessment: NoTREATMENT PLAN:1. Biological Management: Continue medications as outpatient2. Psychological Management Recommendations: Max3. Social Intervention Recommendations: NAMIINFORMED CONSENT: Yes, completed with the Patient. Discussed the risks,benefits and alternatives to the medication(s) recommended. Consent wasgiven.DISCHARGE MEDICATION: Current Discharge Medication ListSTART taking these medicationsdivalproex ER (DEPAKOTE ER) 1,000 mgTake 1,000 mg by mouth daily at bedtime.Qty: 60 tablet Refills: 1traZODone (DESYREL) 50 mgTake 50 mg by mouth at bedtime as needed.Qty: 30 tablet Refills: 1CONTINUE these medications which have CHANGEDcitalopram (CeleXA) 20 mgTake 20 mg by mouth once daily.CONTINUE these medications which have NOT CHANGEDclonazePAM (KlonoPIN) 0.5 mgTake 0.5 mg by mouth twice daily as needed for Anxiety.Qty: 60 tablet Refills: 1Associated Diagnoses:Autoimmune disorder (HCC); Vitamin deficiency;Malaise and fatigue; Multiple sclerosis (HCC)LEVOCETIRIZINE DIHYDROCHLORIDE (XYZAL ORAL)Take by mouth daily at bedtime.baclofen (LIORESAL) 10 mg tabletTAKE 1 TABLET 3 TIMES A DAY DIRECTEDQty: 270 tablet Refills: 3gabapentin (NEURONTIN) 300 mg capsuleTAKE 1 CAPSULE EVERY MORNING AND BEDTIMEQty: 180 capsule Refills: 3buPROPion SR (WELLBUTRIN SR) 100 mg 12 hr tabletTAKE (1) TABLET EVERY MORNINGQty: 90 tablet Refills: 3oxybutynin (DITROPAN) 5 mg tabletTAKE 1 TABLET IN THE MORNING, AFTERNOOON, AND AT BEDTIMEQty: 270 tablet Refills: 3TYLENOL ARTHRITIS ORAL2 times a daymethylPREDNISolone sodium succinate (SOLU-MEDROL) 1,000 mg [id number] MG IV IN 100 CC 0.9% NACL DAILY OVER 30-60 MINUTES x 3 daysQty: 1000 mg Refills: 2famotidine (PEPCID) 20 mgTake 20 mg by mouth daily at bedtime. While on IV steroidsQty: 15 tablet Refills: 0potassium chloride (KLOR-CON) 20 mEqTake 20 mEq by mouth twice daily. While on IV steroidsQty: 10 Packet Refills: 0teriflunomide 14 tabletsTake 14 tablets by mouth once daily.Qty: 30 tablet Refills: 11STOP taking these medicationsocrelizumab (OCREVUS INTRAVENOUS)Comments:Reason for Stopping:Is Patient Discharged on Two Active Antipsychotics? NoDischarge Information Row Name Admission (Current) from 08/18/2017 in [facility] 3C Psychiatry Follow-Up Appointment Psychiatrist Name Dr. Gogo Rascon Agency ? Agency Name [facility] ServicesAddress: [place] [address] Apppointment Date 09/23/17 Appointment Time 9:15am Additonal Instructions Counselor Follow-Up Appointment Counselor Name Intake appointment - [facility] ? Agency Name [facility] Address and Phone# ?Address: [place] [address] Appointment Date 09/01/17 Appointment Time 2:30pm Additonal Instructions Please bring ID, Insurance card and proof ofincome. Additional Counselor Follow-Up Referral Yes Counselor Follow-Up Appointment Counselor Name Dr. Danna Ramachandran Address [address] [place] [phone] Fax: Appointment Date 08/31/17 Appointment Time 10:00am Discharge Disposition Discharge Disposition Home Additional Discharge Information Additional Discharge Resources In case of a mental health emergencyplease contact the crisis line at [phone].TIME OF CARE: Discharge Management: I personally spent less than 30minutes involved in the discharge management of this patient.SIGNATURE: Jasper Pinzon MD PATIENT NAME: Mackenzie ConcepcionDATE: August 24, 2017 : 8:03 AM PAGER/CONTACT #: [facility] NURSING PROGon 08-24-2017 NURSING PROG HNO ID: [id number] thor: Manas (Rn) WOODY Payneervice: (none)Author Type: Registered NurseType: Nursing Progress NoteFiled: 08/24/2017 11:35 AMNote Text: Nursing Progress NotePatient Name: Mackenzie ConcepcionMRN: [id number] [id number]-01 Daily Note: Pt out for breakfast, ate well. Pt cooperative with meds.Attended groups and participated. Pt has had a bright affect throughoutthe shift, seen smiling and joking with peers. Pt states she is ready andsafe to be discharged today. Pt met with dr and is scheduled for dischargetoday.IDTP Pt states she has low depression and anxiety and denies suiideations. Pt participating in groups.This note was completed by: Manas Payne RN [facility] NURSING PROG HNO ID: [id number] thor: Jt (Rn) Chayo, WOODYervice: NursingAuthor Type: Registered NurseType: Nursing Progress NoteFiled: 08/24/2017 6:44 AMNote Text: Nursing Progress NotePatient Name: Mackenzie ConcepcionMRN: [id number] Location: [place] [address] Daily Note:2300-0730At beginning of shift: Pt was observed in day area watching TV and thenshortly after retired to bed, appears to be asleep, respirations eupneicand no s/s distress. Continue Q15 minute safety rounding and monitoringfor high fall risk safety precautions.At 0600: Pt has slept 7 hours and continues to sleep. Safety monitoringmaintained.This note was completed by: Jt Domingo RN [facility] ALLIED HEALTHon 08-23-2017 ALLIED HEALTH HNO ID: [id number] thor: Lissa (Therapist) Kvnge: Art TherapyAuthor Type: TherapistType: Allied HealthFiled: 08/23/2017 1:29 PMNote Text:GROUP PROGRESS NOTESERVICE DATE: 08/23/2017SERVICE TIME: 10:45Length (minutes): 60Attendance: Full AttendanceParticipation Level: ActiveParticipation Quality: Appropriate, Attentive and SpontaneousGROUP PARTICIPATION:Group Topics:Art Therapy: Media - MixedPurpose - MindfulnessAlcohol InksPATIENT PRESENTATION AND RESPONSE:Affect: FullMood: EuthymicCognition: AlertDistractedProgress: ImprovingPt was more in control and appropriate, did require minimal redirection attimes. Pt shared that she sometimes gets sad that she cannot make art likeshe used to due to MS. 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 design and color and missed those aspects of her old life.SIGNATURE: Lissa Eugene LPC PATIENT NAME: Mackenzie BundyTE: August 23, 2017 : 1:28 PM [facility] ALLIED HEALTH HNO ID: [id number] thor: Lissa (Therapist) JabierService: Art TherapyAuthor Type: TherapistType: Allied HealthFiled: 08/23/2017 1:00 PMNote Text:GROUP PROGRESS NOTESERVICE DATE: 08/23/2017SERVICE TIME: 9:00Length (minutes): 75Attendance: Full AttendanceParticipation Level: ActiveParticipation Quality: Restless, Sharing and SpontaneousGROUP PARTICIPATION:Group Topics:Community Meeting: Symptom AND Mood Check-In and Treatment ProgressRelaxation: MindfulnessDBT House and 5 Senses GroundingPATIENT PRESENTATION AND RESPONSE:Affect: FullMood: Anxious and ElevatedCognition: AlertDistractedPoor ConcentrationProgress: Initial interaction with patientPt was hyperverbal at times in the group, required frequent redirectionfrom therapist. Pt reported having difficulty focusing on prompts due toher headache, did state she asked nurse for tylenol. Pt was inappropriateat times, mentioned drug and alcohol use when out of context and was notalways open to redirection from therapist. Pt did share she is a sexaddict, lamented that she does see it as a coping skill although thedoctors and others in her life diversional therapist's assistant and do not think it is good forher. Pt made statements such as today is a good day to but whenasked directly stated she does not have SI. Pt had poor concentrationthroughout, with encouragement was able to identify that routine andstaying active are good coping strategies.SIGNATURE: Lissa Eugene LPC PATIENT NAME: Mackenzie Tovar: August 23, 2017 : 12:48 PM [facility] NURSING PROGon 08-23-2017 NURSING PROG HNO ID: [id number] thor: Quinton BustosRn) Luis William: (none)Author Type: Registered NurseType: Nursing Progress NoteFiled: 08/23/2017 9:55 PMNote Text: Nursing Progress NotePatient Name: Mackenzie ConcepcionMRN: [id number] Location: [address] Daily Note:Pt seen in the day area at the start of shift. Pt seen interacting withpeers, laughing, watching television. Pt reports 5/10 pain after previousshift RN gave Tylenol, reports anxiety as being low, but depression 7/10.Pt denies auditory/visual hallucinations, denies suicidal/homicidalideations. After talking to RN, pt returned to talking to peers. Ptremained in the day area most of the evening interacting with peers,watching television.This note was completed by: Quinton William RN [facility] NURSING PROG HNO ID: [id number] thor: Manas BustosRn) Luis Payne: (none)Author Type: Registered NurseType: Nursing Progress NoteFiled: 08/23/2017 2:47 PMNote Text: Nursing Progress NotePatient Name: Mackenzie ConcepcionMRN: [id number] Location: [address] Daily Note: Pt out for breakfast and lunch, ate well. Pt cooperative withmeds. Pt asked for and received tylenol for generalized pain and reportedsome relief. Attended groups and participated. Occasionally inappropriateboth in groups and in the milieu, stating comments about drinking,mariajuana and sex. Affect remains hypomanic, but less so today. Pt askedabout enid and was given some education. Pleasant and social in themilieu.IDTP Pt states she has 7/10 depression, denies sheila ideations. Pt claims5/10 anxiety. Participating in groups.This note was completed by: Manas Payne RN [facility] NURSING PROG HNO ID: [id number] thor: Porsche BustosRn) Kenisha Magallanesice: NursingAuthor Type: Registered NurseType: Nursing Progress NoteFiled: 08/23/2017 6:53 AMNote Text: Nursing Progress NotePatient Name: Mackenzie ConcepcionMRN: [id number] Location: [address] Daily Note:Patient was seen watching TV with a peer at the start of shift. Nocomplaints voiced. She was seen sleeping in her bed at 0000. Breathingeven and unlabored. Will continue to monitor for safety.0600 Patient slept 6 hours.This note was completed by: Porsche Magallanes RN [facility] Ammoniaon 08-22-2017 Ammonia 36 umol/L Normal [facility] Comment on above: Performed By: #### N H3, VPA ####[facility] [phone] NURSING PROGon 08-22-2017 NURSING PROG HNO ID: [id number] thor: Deann BustosRn) Luis Braun: (none)Author Type: Registered NurseType: Nursing Progress NoteFiled: 08/22/2017 11:29 PMNote Text: Nursing Progress NotePatient Name: Mackenzie ConcepcionMRN: [id number] Location: [address]- Daily Note: Patient in group at the start of the shift. Patient appearswell groomed, has average eye contact, and is friendly upon approach.Patient rates her anxiety and depression both 6/10. She denies SI, HI,AVH. Patient has spent most of her time in the day area working on artprojects and interacting with peers. Patient requested and receivedTylenol at 2210 for complaints of a headache. Patient requested andreceived Trazodone at 2325.IDTP: Patient rates her depression and anxiety 6/10. She denies SI, HI,AVH.This note was completed by: Deann Braun RN [facility] NURSING PROG HNO ID: [id number] thor: Toño BustosRnKenisha Maldonadoice: NursingAuthor Type: Registered NurseType: Nursing Progress NoteFiled: 08/22/2017 3:24 PMNote Text: Nursing Progress NotePatient Name: Mackenzie ConcepcionMRN: [id number] Location: [place] [address] Daily Note:0700-1500Assumed care of patient and patient sleeping in her room at the start ofshiftOut in day area ate breakfast and lunch appetite good social with peersTylenol 650 mg given per request c/o generalized body ache all precautionsmaintainedIDTP denies s/I and h/I reports depression 6/0 and anxiety 6 is note was completed by: Toño Angulo RN [facility] NURSING PROG HNO ID: [id number] thor: Porsche BustosRnKenisha Hightowerice: NursingAuthor Type: Registered NurseType: Nursing Progress NoteFiled: 08/22/2017 7:04 AMNote Text: Nursing Progress NotePatient Name: Mackenzie ConcepcionMRN: [id number] Location[place] [facility]/FV-[id number]-131P- Daily Note:Patient was seen watching TV at the start of shift. No complaints voiced.She was seen sleeping in her bed at 2340. Breathing even and unlabored.Will continue to monitor for safety.0550 Patient requested and received tylenol for 10/05 aching generalizedpain. She was then seen sleeping in her bed.0600 Patient slept 6 hours.This note was completed by: Porsche Magallanes RN [facility] PROGRESSon 08-22-2017 PROGRESS HNO ID: [id number] thor: Kieran Martin) SHAILA Paceervice: PsychiatryAuthor Type: PhysicianType: Progress NotesFiled: 08/22/2017 12:51 PMNote Text:PROGRESS NOTE BEHAVIORAL HEALTHSERVICE DATE: 08/22/2017SERVICE TIME: 12:47 PMThe Interdisciplinary team met and reviewed treatment goals and dischargeplanning.SubjectiveP atient states I am okay, nobody seems to listen anything here . Patientspoke about family, minor kids who were supposed to visit, then jumped topatients and then spoke about her interest without prompts. States I feelemotional and can get upset quickly . States that she feels that herthoughts are going fast but better than before. Denies any AVH ordelusions. No acute issues expressed by nursing. Slept better. No PRNmedications needed.ObjectivePHYSICAL EXAM: BP 111/74 Pulse 68 Temp 36.2 ?C (97.2 ?F) (TemporalArtery) Resp 18 Ht 162.6 cm (5' 4 ) Wt 90 kg (198 lb 6.4 oz) LMP 08/31/2011 SpO2 96% BMI 34.06 kg/m?MENTAL STATUS EXAMINATION:Appearance:?Well dressed, well groomedBehavior: Appropriate and cooperativeOrientation: Person, Place, Time and SituationSpeech/Language: Mildly pressured, can be interruptedMood/Affect: Mildly euphoricThought Form: Derailment in thinking appreciatedThought Content: ??CoherentSuicidal Ideations: No suicidal ideation, intent or plan.Homicidal Ideations: No homicidal ideation, intent or plan.Insight: FairJudgment: FairMemory/Cognition: IntactPsychomotor: Psychomotor activity was normal??NEW PROBLEMS ON UNIT SINCE LAST ENCOUNTER: NoneCurrent hospital medications:divalproex ER 1,000 mg tab(s) (DEPAKOTE ER) 1,000 mg ORAL AT BEDTIMEnicotine polacrilex 2 mg gum (NICORETTE) 2 mg ORAL q 2 H PRNLORazepam 2 mg (ATIVAN) 2 mg ORAL q 4 H PRNLORazepam 2 mg injection (ATIVAN) 2 mg INTRAMUSCULAR q 4 H PRNhaloperidol 5 mg tab(s) (HALDOL) 5 mg ORAL q 4 H PRNhaloperidol lactate 5 mg injection (HALDOL) 5 mg INTRAMUSCULAR q 4 H PRNhydrOXYzine HCl 50 mg tab(s) (ATARAX) 50 mg ORAL q 4 H PRNtraZODone 50 mg tab(s) (DESYREL) 50 mg ORAL HS PRNacetaminophen 650 mg tab(s) (TYLENOL) 650 mg ORAL q 6 H PRNaluminum-magnesium hydroxide-simethicone 200-200-20 mg/5 mL 30 mL(MAALOX,MYLANTA,MAG-AL PLUS) 30 mL ORAL q 4 H PRNbenztropine 2 mg injection (COGENTIN) 2 mg INTRAMUSCULAR q 30 MIN PRNdiphenhydrAMINE 50 mg injection (BENADRYL) 50 mg INTRAMUSCULAR q 30 MINPRNbaclofen 10 mg tab(s) (LIORESAL) 10 mg ORAL TIDgabapentin 300 mg cap(s) (NEURONTIN) 300 mg ORAL q 12 Hoxybutynin XL 5 mg tab(s) (DITROPAN XL) 5 mg ORAL AT BEDTIMEcitalopram 40 mg tab(s) (CeleXA) 40 mg ORAL DAILYbuPROPion SR 100 mg tab(s) (WELLBUTRIN SR) 100 mg ORAL DAILYDATA:Diagnostic tests reviewed for today's visit:Most recent labsComponent Latest Ref Rng AND Units 08/22/2017Valproic Acid 50 - 100 ug/mL 58.9Ammonia 11 - 51 umol/L 36Assessment/PlanDIAGNOSIS:1. PRIMARY: Bipolar disorder, current episode manic without psychoticfeatures?RISK ASSESSMENT:Suicide: lowHomicide:?lowDeliberate Self-Harm:?lowAggression:?low Imminent Physical Self Impairment: moderate?INFORMED CONSENT:?Yes, completed with the Patient. ?Discussed the risks,benefits and alternatives to the medication(s) recommended. Consent wasgiven.?INTERVENTION:?Biolo gical:??- Continue Depakote ER 1000 mg at bedtime. VPA and ammonia levels WNL- Chlamydia and GC negative- Celexa 40 mg once daily with bupropion SR 100 mg daily. Considerlowering Celexa if enid is protracted?Psychological:??-E ncouraged Group Participation-Supportive Therapy-Psychoeducation?Socia l:??-Encouraged to engage support structure-Milieu Therapy?DISCHARGE PLANNING: As per primary treatment teamSIGNATURE: Kieran Pace MD PATIENT NAME: Mackenzie ConcepcionDATE: August 22, 2017 : 12:47 PM PAGER/CONTACT#: [facility] Valproic Acidon 08-22-2017 Valproic Acid 58.9 ug/mL Normal 50-100 [facility] Comment on above: Result Comment: Refe rence ranges and high/low indicator flags are provided as general guidelines only. The treating physician must determine appropriate target levels/dosing based on the specific clinical situation. Performed By: #### N H3, VPA ####[facility] [phone] NURSING PROGon 08-21-2017 NURSING PROG HNO ID: [id number] thor: Deann (Rn) Kade, RNService: (none)Author Type: Registered NurseType: Nursing Progress NoteFiled: 08/21/2017 10:25 PMNote Text: Nursing Progress NotePatient Name: Mackenzie ConcepcionMRN: [id number] Location: [address]/[place] [address] Daily Note: Patient awake in day area at the start of the shift. Patient'sson and sister came for a visit, the visit appeared to go well. Patienthas spent most of the shift in the day area watching TV and interactingwith peers. Patient appears disheveled, has average eye contact, rapidspeech and is friendly upon approach. Patient complaining of generalizedbody aches, requested and received 650mg of Tylenol at 1540 with somerelief. Patient upset that her has not come to visit her. Patientrequested and received Tylenol at 2203 for generalized body aches. Patientate well for dinner.IDTP: Patient rates her depression 10/05 and anxiety 10/05. She denies SI,HI, and AVH.This note was completed by: Deann Braun RN [facility] NURSING PROG HNO ID: [id number] thor: Toño (Rn) Kev, RNService: NursingAuthor Type: Registered NurseType: Nursing Progress NoteFiled: 08/21/2017 2:37 PMNote Text: Nursing Progress NotePatient Name: Mackenzie ConcepcionMRN: [id number] Location: [address]- Daily Note:0700-1500Assumed care of patient ans patient awake at the start of shiftPatient very needy seeking nurse frequently patient out in day areaappetite good, med compliantTylenol 650 mg given per request for c/o generalized body ache allprecautions maintainedIDTP denies s/I and h/I a/v command hallucinations anxiety 10/05 depressionis note was completed by: Toño Angulo RN [facility] NURSING PROG HNO ID: [id number] thor: Jt Galvez) Kenisha Domingoice: NursingAuthor Type: Registered NurseType: Nursing Progress NoteFiled: 08/21/2017 7:04 AMNote Text: Nursing Progress NotePatient Name: Mackenzie ConcepcionMRN: [id number] Location: [address]- Daily Note:2300-0730At beginning of shift: Pt was observed in bed, appears to be asleep,respirations eupneic and no s/s distress. Continue Q15 minute safetyrounding and monitoring for high fall risk safety precautions.At 0600: Pt has slept 7 hours and continues to sleep. Safety monitoringmaintained.This note was completed by: Jt Domingo RN [facility] NURSING PROG HNO ID: [id number] thor: Quinton Galvez) Kenisha Williamice: (none)Author Type: Registered NurseType: Nursing Progress NoteFiled: 08/20/2017 10:20 PMNote Text: Nursing Progress NotePatient Name: Mackenzie ConcepcionMRN: [id number] Location: [address]- Daily Note:1930-0Pt seen interacting with peers, affect bright, seen laughing. Pt reportedhaving a headache, was given Tylenol with her evening medication. Pt thenseen playing Janga with peers followed by doing a puzzle. Pt complained ofredness on the sides of her mouth, was seen touching the corners, wasadvised to reduce her touching of the mouth.This note was completed by: Quinton William RN [facility] PROGRESSon 08-21-2017 PROGRESS HNO ID: [id number] thor: Kieran Martin) SHAILA Paceervice: PsychiatryAuthor Type: PhysicianType: Progress NotesFiled: 08/21/2017 3:00 PMNote Text:PROGRESS NOTE BEHAVIORAL HEALTHSERVICE DATE: 08/21/2017SERVICE TIME: 2:01 PMThe Interdisciplinary team met and reviewed treatment goals and dischargeplanning.SubjectiveP atient states that nothing seems to be happening here and no one listens.Patient states that she has been feeling well. Could not tell why she critical access hospital, states that her mother thinks she is a sex addict. Answerssimple questions in coherent fashion but when asked to elaborate thoughtsstart to tumble with diminished reasoning.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 Mila Petersault Other [employer] Other 03-05-2022 15:00-0500 Body height 165.1 cm Mila Petersault Other [employer] Other 03-05-2022 15:00-0500 Body mass index (BMI) [Ratio] 36.77 kg/m2 Mila Petersault Other [employer] Other 03-05-2022 15:00-0500 Body temperature 96.9 [degF] Mila Petersault Other [employer] Other 03-05-2022 15:00-0500 Body weight 100.25 kg Mila Petersault Other [employer] Other 03-05-2022 15:00-0500 Diastolic blood pressure 69 mm[Hg] Mila Petersault Other [employer] Other 03-05-2022 15:00-0500 Respiratory rate 18 /min Mila Gomez Other [employer] Other 03-05-2022 15:00-0500 SaO2% (BldA) [Mass fraction] 97 % Mila Gomez Other [employer] Other 03-05-2022 15:00-0500 Systolic blood pressure 108 mm[Hg] Mila Gomez Other [employer] Other 01-27-2022 13:45-0400 Body height 165.1 cm Mila Gomez Other [employer] Other 01-27-2022 13:45-0400 Body mass index (BMI) [Ratio] 36.77 kg/m2 Mila Gomez Other [employer] Other 01-27-2022 13:45-0400 Body temperature 97.8 [degF] Mila Gomez Other [employer] Other 01-27-2022 13:45-0400 Body weight 100.25 kg Mila Gomez Other [employer] Other 01-27-2022 13:45-0400 Diastolic blood pressure 62 mm[Hg] Mila Gomez Other [employer] Other 01-27-2022 13:45-0400 Respiratory rate 18 /min Mila Gomez Other [employer] Other 01-27-2022 13:45-0400 SaO2% (BldA) [Mass fraction] 97 % Mila Gomez Other [employer] Other 01-27-2022 13:45-0400 Systolic blood pressure 114 mm[Hg] Mila Gomez Other [employer] Other 01-12-2022 12:30-0400 Body height 165.1 cm Mila Gomez Other [employer] Other 01-12-2022 12:30-0400 Body mass index (BMI) [Ratio] 36.11 kg/m2 Mila Gomez Other [employer] Other 01-12-2022 12:30-0400 Body temperature 98 [degF] Mila Petersault Other [employer] Other 01-12-2022 12:30-0400 Body weight 98.43 kg Mila Gomez Other [employer] Other 01-12-2022 12:30-0400 Diastolic blood pressure 59 mm[Hg] Mila Gomez Other [employer] Other 01-12-2022 12:30-0400 Respiratory rate 18 /min Mila Gomez Other [employer] Other 01-12-2022 12:30-0400 SaO2% (BldA) [Mass fraction] 97 % Mila Gomez Other [employer] Other 01-12-2022 12:30-0400 Systolic blood pressure 106 mm[Hg] Mila Petersault Other [employer] Other 11-11-2021 11:31-0400 Body temperature 97.7 [degF] Chair [employer] Work Phone: [facility] 11-11-2021 11:31-0400 Diastolic blood pressure 62 mm[Hg] Chair Samir Work Phone: [facility] 11-11-2021 11:31-0400 Heart rate 66 /min Chair [place] Work Phone: [facility] 11-11-2021 11:31-0400 Respiratory rate 18 /min Chair [place] Work Phone: [facility] 11-11-2021 11:31-0400 SaO2% (BldA) [Mass fraction] 95 % Chair [place] Work Phone: [facility] 11-11-2021 11:31-0400 Systolic blood pressure 118 mm[Hg] Chair Samir Work Phone: [facility] 10-30-2021 12:30-0400 Body height 165.1 cm Mila Gomez Other [employer] Other 10-30-2021 12:30-0400 Body mass index (BMI) [Ratio] 36.44 kg/m2 Mila Patricia Other [employer] Other 10-30-2021 12:30-0400 Body temperature 98.4 [degF] Mila Patricia Other [employer] Other 10-30-2021 12:30-0400 Body weight 99.34 kg Mila Patricia Other [employer] Other 10-30-2021 12:30-0400 Diastolic blood pressure 68 mm[Hg] Mila Gomez Other [employer] Other 10-30-2021 12:30-0400 Respiratory rate 18 /min Mila Gomez Other [employer] Other 10-30-2021 12:30-0400 SaO2% (BldA) [Mass fraction] 100 % Mila Gomez Other [employer] Other 10-30-2021 12:30-0400 Systolic blood pressure 90 mm[Hg] Mila Gomez Other [employer] Other 09-15-2021 14:30-0400 Body height 165.1 cm Mila Gomez Other [employer] Other 09-15-2021 14:30-0400 Body mass index (BMI) [Ratio] 35.94 kg/m2 Mila Gomez Other [employer] Other 09-15-2021 14:30-0400 Body temperature 98.6 [degF] Mila Gomez Other [employer] Other 09-15-2021 14:30-0400 Body weight 97.98 kg Mila Gomez Other [employer] Other 09-15-2021 14:30-0400 Diastolic blood pressure 69 mm[Hg] Mila Petersault Other [employer] Other 09-15-2021 14:30-0400 Respiratory rate 18 /min Mila Gomez Other [employer] Other 09-15-2021 14:30-0400 SaO2% (BldA) [Mass fraction] 97 % Mila Petersault Other [employer] Other 09-15-2021 14:30-0400 Systolic blood pressure 113 mm[Hg] Mila Gomez Other [employer] Other 07-08-2021 12:30-0400 Body height 165.1 cm Mila Gomez Other [employer] Other 07-08-2021 12:30-0400 Body mass index (BMI) [Ratio] 36.44 kg/m2 Mila Gomez Other [employer] Other 07-08-2021 12:30-0400 Body temperature 96.8 [degF] Mila Gomez Other [employer] Other 07-08-2021 12:30-0400 Body weight 99.34 kg Mila Gomez Other [employer] Other 07-08-2021 12:30-0400 Diastolic blood pressure 74 mm[Hg] Mila Gomez Other [employer] Other 07-08-2021 12:30-0400 Respiratory rate 18 /min Mila Gomez Other [employer] Other 07-08-2021 12:30-0400 SaO2% (BldA) [Mass fraction] 98 % Mila Gomez Other [employer] Other 07-08-2021 12:30-0400 Systolic blood pressure 116 mm[Hg] Mila Gomez Other [employer] Other 04-11-2021 16:15-0500 Body height 165.1 cm Kait Kwon Other [employer] Other 04-11-2021 16:15-0500 Body mass index (BMI) [Ratio] 39.27 kg/m2 Kait Ginty Other [employer] Other 04-11-2021 16:15-0500 Body temperature 96.3 [degF] Kait Ginty Other [employer] Other 04-11-2021 16:15-0500 Body weight 107.05 kg Kait Ginty Other [employer] Other 04-11-2021 16:15-0500 SaO2% (BldA) [Mass fraction] 96 % Kait Ginty Other [employer] Other Encounters Encounter Date Encounter Type Care Provider Facility Start: 12-28-2023 End: 12-29-2023 Refill Sania Nicholas PA-C Work Phone: [facility] Comment on above: Refill Request Start: 12-27-2023 ambulatory Jose G Andersen acility:[facility] Start: 12-23-2023 End: 12-23-2023 Patient encounter procedure Sergio Luong OD Work Phone: Ophthalmology Comment on above: Tear film insufficie ncy, bilateral (Primary Dx); 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; Optic nerve asymmetry, bilateral; MS (multiple sclerosis) ([facility]) Start: 12-10-2023 End: 12-10-2023 ambulatory KERRIE CASTRO [facility] Start: 12-07-2023 End: 12-07-2023 Chart abstracting Sania Nicholas PA-C Work Phone: [facility] Comment on above: Order (PT-Aquatic Th erapy-mailed) Start: 12-07-2023 End: 12-07-2023 ambulatory MILA GOMEZ Facility:[facility] Start: 12-03-2023 End: 12-03-2023 Refill Sania Nicholas PA-C Work Phone: [facility] Comment on above: Refill Request Start: 11-19-2023 End: 11-19-2023 ambulatory Sania Lara Shyam SCHRADER Work Phone: [facility] Comment on above: Multiple sclerosis ( HCC) (Primary Dx); Tension headache Start: 11-19-2023 End: 11-19-2023 Telemedicine consultation with patient Sania M Shyam SCHRADER Work Phone: [facility] Start: 11-18-2023 End: 11-19-2023 ambulatory Chair 2 Samir Work Phone: Hematology/Oncology Comment on above: Multiple sclerosis ( HCC) (Primary Dx); MS (multiple sclerosis) (HCC) Start: 11-09-2023 Refill Sania Nicholas PA-C Work Phone: [facility] Comment on above: Refill Request Start: 10-18-2023 Telephone encounter Terri rojo MD Work Phone: Ophthalmology Start: 10-15-2023 End: 10-15-2023 Patient encounter procedure Rebecca Bansal DO Work Phone: [facility] Comment on above: Multiple sclerosis ( HCC) (Primary Dx) Start: 10-15-2023 End: 10-15-2023 ambulatory REBECCA BANSAL Facility:[facility] Start: 10-15-2023 End: 10-15-2023 Subsequent hospital visit by physician Isamar Will (I-Stat/3t) Work Phone: Radiology Comment on above: Multiple sclerosis ( HCC) [G35] Start: 09-06-2023 End: 09-06-2023 Lab Drop off MILA GOMEZ [facility] Start: 09-06-2023 End: 09-06-2023 ambulatory MILA GOMEZ Facility:[facility] Start: 08-13-2023 End: 08-13-2023 ambulatory LAST INSERTER-C Mila Gomez [facility] Work Phone: Start: 08-13-2023 End: 08-13-2023 Patient encounter procedure LAST INSERTER-C Mila Gomez [facility] Work Phone: Start: 06-22-2023 Registered Recurring LAST INSERTER-C Sergio hill Patricia [facility] Start: 06-14-2023 Refill Sania Nicholas PA-C Work Phone: [facility] Comment on above: Refill Request Start: 05-20-2023 Refill Sania Nicholas PA-C Work Phone: [facility] Comment on above: Refill Request Start: 05-20-2023 End: 05-20-2023 ambulatory Chair 2 Samir Work Phone: Hematology/Oncology Comment on above: Multiple sclerosis ( HCC) (Primary Dx); MS (multiple sclerosis) (HCC) Start: 05-07-2023 End: 05-07-2023 ambulatory REBECCA ROLF Facility:[facility] Start: 05-07-2023 End: 05-07-2023 Patient encounter procedure Rebecca Rolf DO Work Phone: [facility] Comment on above: Multiple sclerosis ( HCC) (Primary Dx) Start: 11-11-2022 End: 11-11-2022 ambulatory Chair 2 Samir Work Phone: Hematology/Oncology Comment on above: MS (multiple scleros is) (HCC) (Primary Dx) Start: 10-02-2022 End: 10-02-2022 Subsequent hospital visit by physician Mri Skyra (I-Stat/3t) Work Phone: Radiology Comment on above: No Show Start: 10-02-2022 End: 10-02-2022 Patient encounter procedure Sania Nicholas PA-C Work Phone: [facility] Comment on above: Multiple sclerosis ( HCC) (Primary Dx) Start: 10-02-2022 End: 10-02-2022 Subsequent hospital visit by physician Mri Skyra (I-Stat/3t) Work Phone: Radiology Comment on above: Multiple sclerosis ( HCC) [G35] Start: 10-02-2022 End: 10-02-2022 Patient encounter procedure Waleska Vo MD Work Phone: Ophthalmology Comment on above: Posterior subcapsula r polar age-related cataract of left eye (Primary Dx); Postinflammatory optic atrophy of right eye; MS (multiple sclerosis) (HCC); Refraction error Start: 08-04-2022 End: 08-05-2022 ambulatory MILA GOMEZ Facility:[facility] Start: 07-16-2022 Refill Sania ANNE-C Work Phone: [facility] Comment on above: Refill Request Start: 05-13-2022 Telephone encounter Amy Mohan RN Hematology/Oncology Comment on above: hemolyzed labs Start: 05-13-2022 End: 05-13-2022 ambulatory Chair 2 Samir Work Phone: Hematology/Oncology Comment on above: MS (multiple scleros is) (HCC) (Primary Dx) Start: 04-24-2022 End: 04-24-2022 ambulatory Mila Patricia Other [employer] Other Start: 04-24-2022 Office outpatient vi sit 15 minutes Mila Gomez [facility] Start: 04-03-2022 Chart abstracting Sania ANNE-C Work Phone: [facility] Comment on above: Orders (PT and Image orders) Start: 04-02-2022 End: 04-02-2022 ambulatory Sania Nicholas PA-C Work Phone: [facility] Comment on above: Multiple sclerosis ( HCC) (Primary Dx); Urinary incontinence, unspecified type; Imbalance; Abnormality of gait Start: 04-02-2022 End: 04-02-2022 Telemedicine consultation with patient Sania Nicholas PA-C Work Phone: [facility] Start: 03-05-2022 End: 03-05-2022 ambulatory Mila Gomez Other [employer] Other Start: 03-05-2022 Office outpatient vi sit 15 minutes Mila Patricia [facility] Start: 01-29-2022 Refill Sania Nicholas PA-C Work Phone: [facility] Comment on above: Refill Request Start: 01-27-2022 Office outpatient vi sit 15 minutes Mila Patricia [facility] Start: 01-27-2022 End: 01-27-2022 ambulatory LAST INSERTER-C Mila Patricia Work Phone: [facility] Work Phone: Start: 01-27-2022 End: 01-27-2022 Patient encounter procedure LAST INSERTER-C Mila Petersault Work Phone: [facility] Start: 01-12-2022 End: 01-12-2022 ambulatory Mila Petersault Other [employer] Other Start: 01-12-2022 Office outpatient vi sit 25 minutes Mila Patricia [facility] Start: 01-07-2022 End: 01-07-2022 ambulatory Mila Petersault Other [employer] Other Start: 01-07-2022 Telephone encounter Mila Osborne t [facility] Start: 12-15-2021 End: 12-16-2021 ambulatory GOGO PEREZJorge Facility: Start: 11-11-2021 End: 11-11-2021 Infusion Center Chair 2 Samir Work Phone: Hematology/Oncology Comment on above: Bipolar 1 disorder, mixed, severe (HCC) (Primary Dx); MS (multiple sclerosis) (HCC) Start: 10-30-2021 Office outpatient vi sit 15 minutes Mila Patricia [facility] Start: 10-30-2021 End: 10-30-2021 ambulatory Ashia Moralez [employer] Other Phone: [employer] Other Comment on above: Multiple sclerosis ( HCC) (Primary Dx) Start: 10-07-2021 End: 10-07-2021 ambulatory Sania Nicholas PA-C Work Phone: [facility] Comment on above: Multiple sclerosis ( HCC) (Primary Dx); Weakness of both hands Start: 10-07-2021 End: 10-07-2021 Telemedicine consultation with patient Sania Nicholas PA-C Work Phone: [facility] Start: 10-06-2021 End: 10-06-2021 Subsequent hospital visit by physician Isamar Will (I-Stat/3t) Work Phone: Radiology Comment on above: Multiple sclerosis ( HCC) [G35] Start: 09-30-2021 End: 09-30-2021 Social Work Ashia Moralez [employer] Other Phone: [facility] Comment on above: Multiple sclerosis ( HCC) (Primary Dx) Start: 09-15-2021 End: 09-15-2021 ambulatory Milareji Gomez Other [employer] Other Start: 09-15-2021 Office outpatient vi sit 15 minutes Mila Gomez [facility] Start: 09-15-2021 Telephone encounter Milareji Osborne t [facility] Start: 08-22-2021 End: 08-22-2021 ambulatory Milareji Gomez Other [employer] Other Start: 08-22-2021 Telephone encounter Milareji Osborne t [facility] Start: 08-15-2021 Refill Sania Nicholas PA-C Work Phone: [facility] Comment on above: Refill Request Start: 07-21-2021 Refill Sania Nicholas PA-C Work Phone: [facility] Comment on above: Refill Request Start: 07-14-2021 End: 07-14-2021 ambulatory Mila Gomez Other [employer] Other Start: 07-14-2021 Telephone encounter Mila Peterssavannah rich [facility] Start: 07-08-2021 End: 07-08-2021 ambulatory Mila Gomez Other [employer] Other Start: 07-08-2021 Office outpatient vi sit 15 minutes Mila Gomez [facility] Start: 04-11-2021 End: 04-11-2021 ambulatory Kait Ginty Other [employer] Other Start: 04-11-2021 Office outpatient vi sit 15 minutes Kait Ginty [facility] Start: 08-18-2017 End: 08-24-2017 Evaluation and management of inpatient [facility] Procedures Date Procedure Procedure Detail Performing Clinician Start: 12-23-2023 Ophthalmic us dx cor piedad pachymetry uni/bi Sergio Luong OD Work Phone: Start: 12-23-2023 Computerized ophthal caroline imaging optic nerve Sergio Luong OD Work Phone: Start: 12-10-2023 Follow-up visit Follow-up EKRRIE CASTRO JR Start: 11-18-2023 Antibody cytomegalov irus cmv igm Rebecca Bansal DO Work Phone: Start: 11-18-2023 Blood count complete auto&auto difrntl wbc Rebecca Bansal DO Work Phone: Start: 10-15-2023 Mri brain brain stem w/o w/contrast material Rebecca Bansal DO Work Phone: Start: 05-20-2023 End: 05-20-2023 Blood count complete auto&auto difrntl wbc Rebecca Bansal DO Work Phone: Start: 11-11-2022 End: 11-11-2022 Blood count complete auto&auto difrntl wbc Sania Nicholas PA-C Work Phone: Start: 10-02-2022 Mri spinal canal cer vical w/o & w/contr matrl Sania Nicholas PA-C Work Phone: Start: 05-13-2022 Blood count complete auto&auto difrntl wbc Sania Nicholas PA-C Work Phone: Start: 01-27-2022 X-ray of both knees LAST INSERTER -C Mila Gomez Work Phone: Start: 10-29-2021 Adult depression scr eening assessment Chair [place] Work Phone: Start: 10-06-2021 BRAIN & CERVICAL SPI NE MRI DISCRETE DATA [facility] Provider Start: 10-06-2021 Mri brain brain stem w/o w/contrast material Sania Nicholas PA-C Work Phone: Start: 09-29-2021 Adult depression scr eening assessment Mri (I-Stat/3t) Work Phone: Start: 02-20-2019 Adult depression scr eening assessment Sania Nicholas PA-C Work Phone: Plan of Treatment Date Care Activity Detail Author Start: 11-17-2026 Diabetes Screening Diabetes Screening [facility] Start: 09-20-2026 Screening for malignant neoplasm of colon [facility] Start: 05-20-2026 Diabetes Screening Diabetes Screening [facility] Start: 05-18-2024 End: 05-18-2024 ambulatory 05/18/2024 9:00 AM [facility] Hematology/Oncology [address] [place] [address] [facility] Comment on above: [facility] Start: 04-21-2024 End: 04-21-2024 Follow-up encounter 04/21/2024 3:00 PM [facility] [address] [address] Rebecca Bansal DO [address] [place] [address] follow up [facility] Comment on above: follow up Start: 04-19-2024 End: 04-19-2024 Patient encounter procedure 04/19/2024 1:30 PM EST Office Visit [facility] [address] [address] Rebecca Bansal DO [address] [place] [address] follow up [facility] Comment on above: follow up Start: 04-03-2024 End: 04-03-2024 Patient encounter procedure 04/03/2024 9:00 AM EST Office Visit [facility] [address] [address] Brandon Baeza MD [address] [place] [address] 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 Start: 12-23-2023 End: 12-23-2023 Patient encounter procedure 12/23/2023 1:15 PM EDT Office Visit [facility] [address] [place], [place] [id number] Sergio Luong, OD [address] [place], [place] [id number] bilateral eye pain Ophthalmology Comment on above: bilateral eye pain Start: 12-23-2023 End: 12-23-2023 Patient encounter procedure 12/23/2023 8:30 AM EDT Office Visit [facility] [address] [place], [place] [id number] Sergio Luong, OD [address] [place], [place] [id number] bilateral eye pain Ophthalmology Comment on above: bilateral eye pain Start: 11-28-2023 Covid-19 Vaccine () Covid-19 Vaccine () [facility] Start: 11-28-2023 Covid-19 Vaccine ( season) Covid-19 Vaccine ( season) [facility] Start: 11-28-2023 Influenza vaccination Influenza Vaccine (#1) [facility] Start: 11-18-2023 End: 11-18-2023 ambulatory 11/18/2023 9:00 AM EDT [facility] Hematology/Oncology [address] [place] [address] [place] [address] [facility] Comment on above: [facility] Start: 10-20-2023 End: 10-20-2023 Patient encounter procedure 10/20/2023 10:00 AM EDT Office Visit [facility] [address] [id number] Terri Cartagena MD [address] [place], [place] [id number] follow up for MS/ headaches. Patient would like to be contacted if Dr Vo has a cancellation for earlier today (former Dr. Vo Patient) Ophthalmology Comment on above: follow up for MS/ headaches. Patient wou ld like to be contacted if Dr Vo has a cancellation for earlier today (former Dr. Vo Patient) Start: 10-03-2023 Glaucoma screening Dilated Retinal Exam [facility] Start: 10-03-2023 Hepatitis C antibody, confirmatory test DILATED RETINAL EXAM [facility] Start: 05-20-2023 End: 08-19-2023 Immunodeficiency panel - Blood by Flow cytometry (FC) [facility] Work Phone: Comment on above: Expected: 05/20/2023, Expires: Start: 05-07-2023 End: 08-06-2023 CBC W Auto Differential panel - Blood CBC + DIFF Lab Routine Multiple sclerosis (HCC) Expected: 05/07/2023, Expires: 08/06/2023 [facility] Work Phone: Comment on above: Expected: 05/07/2023, Expires: Start: 05-07-2023 End: 08-06-2023 Comprehensive metabolic 2000 panel - Serum or Plasma COMP METABOLIC PANEL Lab Routine Multiple sclerosis (HCC) Expected: 05/07/2023, Expires: 08/06/2023 [facility] Work Phone: Comment on above: Expected: 05/07/2023, Expires: 4 Start: 05-07-2023 End: 08-06-2023 IMMUNOGLOBULINS UMESH IMMUNOGLOBULINS UMESH Lab Routine Multiple sclerosis (HCC) Expected: 05/07/2023, Expires: 08/06/2023 [facility] Work Phone: Comment on above: Expected: 05/07/2023, Expires: 4 Start: 03-29-2023 Behavioral Health Screening Behavioral Health Screening [facility] Start: 03-29-2023 Depression Assessment Depression Assessment [facility] Start: 11-27-2022 Covid-19 Vaccine () Covid-19 Vaccine () [facility] Start: 11-27-2022 Influenza vaccination [facility] Start: 11-11-2022 End: 01-11-2023 Immunodeficiency panel - Blood by Flow cytometry (FC) [facility] Work Phone: Comment on above: Expected: 11/11/2022, Expires: 3 Start: 10-29-2022 Adult depression screening assessment DEPRESSION SCREENING [facility] Start: 10-06-2022 Hepatitis C antibody, confirmatory test DILATED RETINAL EXAM [facility] Start: 09-29-2022 Adult depression screening assessment DEPRESSION SCREENING [facility] Start: 05-13-2022 End: 07-13-2022 Immunodeficiency panel - Blood by Flow cytometry (FC) [facility] Work Phone: Comment on above: Expected: 05/13/2022, Expires: 3 Start: 03-29-2022 DEPRESSION ASSESSMENT DEPRESSION ASSESSMENT [facility] Start: 11-27-2021 Influenza vaccination [facility] Start: 11-11-2021 End: 01-11-2022 CBC W Auto Differential panel - Blood CBC + DIFF Lab Routine MS (multiple sclerosis) (HCC) Bipolar 1 disorder, mixed, severe (HCC) Expected: 11/11/2021, Expires: 01/11/2022 [facility] Work Phone: Comment on above: Expected: 11/11/2021, Expires: 2 Start: 11-11-2021 End: 01-11-2022 Fasting glucose [Mass/volume] in Serum or Plasma GLUCOSE FASTING BLD Lab Routine MS (multiple sclerosis) (HCC) Bipolar 1 disorder, mixed, severe (HCC) Expected: 11/11/2021, Expires: 01/11/2022 [facility] Work Phone: Comment on above: Expected: 11/11/2021, Expires: 2 Start: 11-11-2021 End: 01-11-2022 Hepatic function 2000 panel - Serum or Plasma HEPATIC FUNCTION PNL Lab Routine MS (multiple sclerosis) (HCC) Bipolar 1 disorder, mixed, severe (HCC) Expected: 11/11/2021, Expires: 01/11/2022 [facility] Work Phone: Comment on above: Expected: 11/11/2021, Expires: 2 Start: 11-11-2021 End: 01-11-2022 Lipid 1996 panel - Serum or Plasma LIPID PANEL BASIC Lab Routine MS (multiple sclerosis) (HCC) Bipolar 1 disorder, mixed, severe (HCC) Expected: 11/11/2021, Expires: 01/11/2022 [facility] Work Phone: Comment on above: Expected: 11/11/2021, Expires: 2 Start: 11-11-2021 End: 01-11-2022 Valproate [Mass/volume] in Serum or Plasma VALPROIC A/DEPAKENE Lab Routine MS (multiple sclerosis) (HCC) Bipolar 1 disorder, mixed, severe (HCC) Expected: 11/11/2021, Expires: 01/11/2022 [facility] Work Phone: Comment on above: Expected: 11/11/2021, Expires: 2 Start: 2021 COLOGUARD (FIT-DNA) COLOGUARD (FIT-DNA) [facility] Start: 2021 Colonoscopy COLONOSCOPY [facility] Start: 2021 COLORECTAL CANCER SCREENING COLORECTAL CANCER SCREENING [facility] Start: [address] COLONOGRAPHY [facility] Start: 2021 FECAL OCCULT BLOOD FECAL OCCULT BLOOD [facility] Start: 2021 Lipid panel Lipid Screening [facility] Start: 2021 Screening for malignant neoplasm of colon [facility] Start: 2021 SIGMOIDOSCOPY SIGMOIDOSCOPY [facility] Start: 05-13-2021 COVID-19 VACCINE (4 - Booster for Pfizer series) COVID-19 VACCINE (4 - Booster for Pfizer series) [facility] Start: 05-13-2021 COVID-19 VACCINE (4 - Pfizer series) COVID-19 VACCINE (4 - Pfizer series) [facility] Start: 03-29-2021 DEPRESSION ASSESSMENT DEPRESSION ASSESSMENT [facility] Start: 03-01-2021 Hepatitis C antibody, confirmatory test DILATED RETINAL EXAM [facility] Start: 02-21-2020 Adult depression screening assessment DEPRESSION SCREENING [facility] Start: 2018 PAP TESTING PAP TESTING [facility] Start: 2016 Mammography MAMMOGRAM [facility] Start: 2016 Screening for malignant neoplasm of breast Mammogram Screening [facility] Start: 2006 HPV TESTING HPV TESTING [facility] Start: 2006 Screening for malignant neoplasm of cervix HPV Testing [facility] Start: 1997 PAP TESTING PAP TESTING [facility] Start: 1997 Screening for malignant neoplasm of cervix [facility] Start: 11-02-1995 HEPATITIS B (1 of 3 - Risk 3-dose series) HEPATITIS B (1 of 3 - Risk 3-dose series) [facility] Start: 11-02-1995 Hepatitis B Vaccine (1 of 3 - 19+ 3-dose series) Hepatitis B Vaccine (1 of 3 - 19+ 3-dose series) [facility] Start: 11-02-1995 Urine microalbumin profile [facility] Start: 1994 ANNUAL PCP TEAM CHRONIC DISEASE VISIT ANNUAL PCP TEAM CHRONIC DISEASE VISIT [facility] Start: 1994 Anxiety Screening Anxiety Screening [facility] Start: 1994 Depression Screening Depression Screening [facility] Start: 1994 Hepatitis B surface antibody level LDL CHOLESTEROL [facility] Start: 1994 HIV SCREENING HIV SCREENING [facility] Start: 1994 HIV screening HIV Screening [facility] Start: 1992 ONE PNEUMOVAX PRIOR TO AGE 65 ONE PNEUMOVAX PRIOR TO AGE 66 [facility] Start: 1986 3 comp foot exam completed DIABETIC FOOT EXAM [facility] Start: 1986 Diabetic foot examination Diabetic Foot Exam [facility] Start: 1986 Hepatitis B screening URINE ALBUMIN:CREATININE RATIO [facility] Start: 1982 PNEUMOCOCCAL (1 - PCV) PNEUMOCOCCAL (1 - PCV) [facility] Start: 1981 Hemoglobin A1c measurement HbA1C [facility] Start: 1981 Hemoglobin A1c/Hemoglobin.total in Blood HBA1C [facility] Start: 1976 HEPATITIS B (1 of 3 - 3-dose series) HEPATITIS B (1 of 3 - 3-dose series) [facility] Start: 1976 Hepatitis B Vaccine (1 of 3 - 3-dose series) Hepatitis B Vaccine (1 of 3 - 3-dose series) [facility] Immunodeficiency lennon el - Blood by Flow cytometry (FC) IMMUNODEFICIENCY CDC Lab Routine MS (multiple sclerosis) ([facility]) 11/11/2021 1:32 PM EDT [facility] Work Phone: End: 06-05-2024 MR Brain WO and W contrast IV MRI BRAIN WO/W IVCON Radiology Routine Multiple sclerosis (HCC) 1 Occurrences starting 05/07/2023 until 06/05/2024 [facility] Work Phone: Comment on above: 1 Occurrences starting 05/07/2023 until 06/05/2024 End: 05-02-2023 Mri brain brain stem w/o w/contrast material MRI BRAIN WO/W IVCON Radiology Routine Multiple sclerosis ([facility]) 1 Occurrences starting 04/02/2022 until 05/02/2023 [facility] Work Phone: Comment on above: 1 Occurrences starting 04/02/2022 until 05/02/2023 End: 05-02-2023 Mri spinal canal cervical w/o & w/contr matrl MRI CERVICAL SPINE WO/W IVCON Radiology Routine Multiple sclerosis ([facility]) Urinary incontinence, unspecified type Imbalance Abnormality of gait 1 Occurrences starting 04/02/2022 until 05/02/2023 [facility] Work Phone: Comment on above: 1 Occurrences starting 04/02/2022 until 05/02/2023 [facility] Immunizations Immunization Date Immunization Notes Care Provider Fa cility 03-18-2021 COVID-19 vaccine, ag e 12+ yr (PFIZER-BIONTECH - PURPLE TOP) Mri (I-Stat/3t) Work Phone: [facility] Work Phone: 08-30-2020 COVID-19 Vaccine Pfi zer - Documentation Purposes Only Kait Ekaterinanty Other [facility] Work Phone: 08-10-2020 COVID-19 Vaccine Pfi zer - Documentation Purposes Only Kait Ginty Other [facility] 08-09-2020 COVID-19 vaccine, ag e 12+ yr (PFIZER-BIONTECH - PURPLE TOP) Mri (I-Stat/3t) Work Phone: [facility] Work Phone: Payers Date Payer Category Payer Self-pay [id number] 2016 Medicaid [employer] [place] [employer] [id number] 2016-Present [phone] [address] [place] [address] Medicaid [id number] 2016 Medicaid [id number] 1976 Unknown [id number] 1976 Unknown [id number] 1976 Unknown [id number] 1976 Unknown [id number] 1959 Medicaid [id number] 1959 Unknown [id number] Unknown [id number] Unknown [id number] Social History Date Type Detail Facility Start: 07-10-2011 End: 10-02-2022 Tobacco smoking status NHIS Never smoked tobacco [facility] Start: 09-18-2020 End: 12-23-2023 Alcohol intake Current drinker of alcohol (finding) [facility] Start: 1975 Sex Assigned At Not on file C [facility] Start: 10-02-2022 End: 11-18-2023 Sex Assigned At [facility] Start: 09-26-2021 End: 11-11-2021 Exposure to SARS-CoV-2 (event) Not sure [facility] Start: 07-10-2011 End: 10-02-2022 Tobacco use and exposure Smokeless tobacco non-user [facility] Start: 1975 Sex Assigned At Female F [facility] Start: 10-02-2022 End: 11-18-2023 History of Social function [facility] Adult Depression Screening Assessment 5 [facility] Tobacco smoking status No Smokin g Status Entered [facility] Medical Equipment Procedure Code Equipment Code Equipment Origin al Text Equipment Identifier Dates Lens Iol +17.5 D iop - [id number] Start: 11-06-2010 Clinical Notes 10-16-2009 to 12-28-2023 Telephone Encounter - Yissel Whitney - 12/28/2023 4:40 PM EDTTelephone Encounter - Yissel Whitney - 12/28/2023 4:40 PM EDTPatient InstructionsSergio Luong, OD - 12/23/2023 2:21 PM EDT Note Date & Type Note Facility 12-28-2023 Telephone encounter Note Source : electronic from pharmacy requesting refill. Delivery : e-script Requested Prescriptions Pending Prescriptions Disp Refills amitriptyline (ELAVIL) 10 mg tablet [Pharmacy Med Name: AMITRIPTYLINE HYDROCHLORIDE 10MG TABLET] 30 tablet 5 Sig: take one tablet by mouth once daily at bedtime DX : Patient last seen 11/19/2023 Next Appointment : 04/21/2024 Yissel Whitney [facility] 12-28-2023 Miscellaneous Notes Source : electronic from pharmacy requesting refill. Delivery : e-script Requested Prescriptions Pending Prescriptions Disp Refills amitriptyline (ELAVIL) 10 mg tablet [Pharmacy Med Name: AMITRIPTYLINE HYDROCHLORIDE 10MG TABLET] 30 tablet 5 Sig: take one tablet by mouth once daily at bedtime DX : Patient last seen 11/19/2023 Next Appointment : 04/21/2024 Yissel Whitney documented in this encounter [facility] 12-23-2023 Note Date of Procedure 12/23/2023. 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 Quality Right Eye Good. Left Eye Good. NFL Interpretation Right Eye Superior loss. Left Eye Superior loss. Ganglion Cell Layer Thickness Right Eye Diffuse loss. Left Eye Diffuse loss. Interval Change Right Eye Initial. Left Eye Initial. ZEISS 12-23-2023 Note Table formatting fro m the original result was not included. Date of Procedure 12/23/2023. Pachymetry Interpretation Right Eye Normal - Corneal thickness within normal range. Glaucoma risk assessment not influenced by corneal thickness. Left Eye Normal - Corneal thickness within normal range. Glaucoma risk assessment not influenced by corneal thickness. Notes Ophthalmology Exam Pachymetry (12/23/2023) Right Left Thickness [id number] Edited by: Sergio Luong, OD [facility] 12-23-2023 Instructions Sergio Luong, OD - 12/23/2023 2:27 PM EDT Artificial Tears Use preserved artificial tears (bottles) 4-6 times/day and before bed in both eyes. If used more frequently, use the preservative-free form (single dose droperettes). Avoid drops that get the red out like visine, clear eyes, etc. Artificial Tears (in bottles or single-use droperettes): Systane Ultra, Systane Balance, Systane Complete, Systane Gel Drops* Refresh Optive, Refresh Digital, Refresh Optive Advanced, Refresh Liquigel or Celluvisc* Theratears Soothe, Soothe XP Genteal (mild, moderate, severe*) ? Ointments* (in tubes): Systane Nighttime Ointment Refresh PM Ointment Soothe Night Time Ointment Genteal PM Ointment ? *Thicker drops, ointments, and gels last longer but may blur vision more than thinner options Warm Compresses & Lid Scrubs Frequency: two times per day; warm compresses followed by lid scrubs Warm Compresses: Pour 1 cup of uncooked white rice into a clean tube sock; microwave for 30 seconds. Test heat on arm or back of hand to ensure it's not too hot. Apply to closed eyes for 5-10 minutes or until heat has dissipated. Therapearl Eye Mask ([employer]) and Charlotte Mask are also commercially available. Lid Scrubs: Dip the corner of a clean washcloth in a solution of diluted baby shampoo. Gently rub upper and lower eyelid margins, where the eyelashes meet the lid margin to remove debris and oil. Be careful not to apply too much pressure. Rinse eyes gently with warm water. Commercially prepared lid scrubs in the form of a moistened towelette or foam are also available as OcuSoft, Systane Lid Wipes, and SteriLid. Signs and symptoms of inflammation can include the following: - Increased pain - Increased redness - Increased light sensitivity - A sudden decrease in vision Please immediately call our office at if these symptoms occur. These are possible signs of infection or retinal detachment and may require immediate medical attention. Signs and symptoms of retinal detachment can include the following: - Increasing floaters (may be spider-web like) - Continuous or very bright flashes (like lightning in the distance, strobe lights, or camera flashes) - Curtain or veil across the vision - Decline in vision Please immediately call our office at if these symptoms occur. These are possible signs of retinal detachment and may require immediate medical attention. documented in this encounter [facility] 12-23-2023 History of Presen t illness Narrative ASSESSMENT/PLAN: (H04.123) Tear film insufficiency, bilateral (primary encounter diagnosis) (H25.042) 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 (H47.093) Optic nerve asymmetry, bilateral (G35) MS (multiple sclerosis) ([facility]) Educated patient on findings. Healthy anterior examination both eyes with mild dry eye syndrome both eyes. Recommended warm compresses/lid scrubs and artificial tears; no eye rubbing. Signs and symptoms reviewed; call/return promptly with changes. Monitor posterior subcapsular cataract left eye. Signs and symptoms reviewed; call/return promptly with changes. Optic nerve asymmetry with significant superior sloping right eye. Minimal pallor right eye. Baseline nerve fiber layer OCT captured today. Progressive ganglion cell layer analysis suggests thinning versus 2016 right eye > left eye. Given history of optic neuritis in right eye, recommended see Dr. Brandon Baeza to confirm no glaucoma component. Signs and symptoms of optic neuritis reviewed; call/return promptly with changes. Patient was instructed to return promptly for any change in floaters, new or additional flashes or any change in peripheral vision. Patient instructed to check each eye separately and daily. Recommended strict blood pressure, blood sugar, and cholesterol control. Recommended continue care with primary care physician as directed. I have confirmed and edited as necessary the relevant HPI, ophthalmic history, ROS, and the neuro exam findings as obtained by others. I have seen and examined Mackenzie Concepcion. I have discussed the case and the management of this patient's care with the Resident/Fellow, if applicable. I also have reviewed and agree with the assessment and plan as stated above and agree with all of its relevant components. documented in this encounter [facility] 12-07-2023 Note HNO ID: [id number] Author: ?, ?, ? Service: ? Author Type: ? Type: Progress Notes Filed: 12/07/2023 09:29 Note Text: Mailed order to patient; per patient's request MACKENZIE CONCEPCION [address] [facility] [id number] 12/07/2023 [facility] 12-07-2023 History of Presen t illness Narrative Mailed order to patient; per patient's request MACKENZIE CONCEPCION [address] [facility] [address] 12/07/2023 documented in this encounter [facility] 12-03-2023 Telephone encounter Note Source : electronic from pharmacy requesting refill. Delivery : e-script Requested Prescriptions Pending Prescriptions Disp Refills baclofen 10 mg tablet [Pharmacy Med Name: BACLOFEN 10MG TABLET] 84 tablet 11 Sig: TAKE ONE TABLET BY MOUTH THREE TIMES A DAY DIRECTED DX : Patient last seen 11/19/2023 Next Appointment : 04/21/2024 Yissel Whitney [facility] 12-03-2023 Miscellaneous Notes Source : electronic from pharmacy requesting refill. Delivery : e-script Requested Prescriptions Pending Prescriptions Disp Refills baclofen 10 mg tablet [Pharmacy Med Name: BACLOFEN 10MG TABLET] 84 tablet 11 Sig: TAKE ONE TABLET BY MOUTH THREE TIMES A DAY DIRECTED DX : Patient last seen 11/19/2023 Next Appointment : 04/21/2024 Yissel Whitney documented in this encounter [facility] 11-19-2023 Note HNO ID: [id number] Author: SANIA NICHOLAS PA-C Service: ? Author Type: Physician Scaling Machine Operator Type: Progress Notes Filed: 11/19/2023 08:38 Note Text: [facility] FO[facility]/ESTABLISHED PATIENT VIRTUAL VISIT PRINCIPAL NEUROLOGIC DIAGNOSIS: Multiple Sclerosis MS DISEASE HISTORY: Date of onset: 1998 Date of diagnosis: 2002 Disease course from Onset: Exacerbating/Remitting Disease course last year: Exacerbating/Remitting Current Medications for MS: Ocrevus (04/2017-current) Medications for MS Used in the Past: IV Steroids, Rebif and avonex, Tysabri, Tecfidera,Aubagio (03/2016) ETHAN positive 2011 (was negative in 2010) JCV Ab status: Positive, 10/10/2014, index=0.46 Most recent brain MRI: 10/02/2022 Most recent cervical MRI: 10/02/2022 Most recent thoracic MRI: 10/06/2021 Subjective INTERVAL HISTORY: CHIEF COMPLAINT: MS symptom management Usual treating team: Rolf/Shyam Patient accompanied by self. Last seen . Currently taking Ocrevus. Received infusion yesterday. She did have a AGUILLON with infusion, typically occurs when they try to give her infusion at faster infusion rate. They typically have to give her infusion between slow and fast rate. Currently having daily headaches for the past several 2-3 months. No associated vision changes, nausea or vomiting. AGUILLON usually occur front of head, feel tension type. She does often have to lay down and turn lights off due to photophobia. She tried ibuprofen and acetaminophen which help minimally. Currently takes depakote 1000mg once daily for mood as well as vraylar, celexa and wellbutrin. She is working with psychiatry REVIEW OF SYSTEMS: Mood: Good/bright, with current medication regimen, follows with therapist Bladder: no change Bowel: No change Fatigue: Moderate Neuro-QoL Functions (higher=better functioning) Flowsheet Row Appointment from 11/19/2023 in [facility] Office Visit from 05/07/2023 in [facility] from 04/02/2022 in [facility] Upper Extremity Domain T Score 33 35 34 Lower Extremity Domain T Score 38 38 27 Cognitive Function Domain T Score 40 44 36 Positive Affect Well Being T Score -- -- -- Ability To Participate In Social Roles T Score 42 38 38 Satisfaction With Social Roles T Score 42 39 36 Neuro-QoL Symptoms (higher=worse symptoms) Flowsheet Row Appointment from 11/19/2023 in [facility] Office Visit from 05/07/2023 in [facility] from 04/02/2022 in [facility] Sleep Domain T Score 55 65 59 Fatigue Domain T Score 54 58 58 Anxiety Domain T Score 57 61 63 Depression Domain T Score 52 52 57 Stigma Domain T Score 61 55 64 Emotional Behavior Dyscontrol T Score -- -- -- PAST HISTORY was reviewed and updated: PAST MEDICAL HISTORY No date: Anxiety No date: Cataract No date: Depression 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) No date: Kidney stones No date: Macular edema 2002 DX: MS (multiple sclerosis) (HCC) No date: Optic atrophy of right eye No date: 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 No date: Posterior subcapsular polar senile cataract of left eye 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 SOCIAL HISTORY was reviewed and updated: Current living situation: At home Current vocational status: On disabiltiy EXAM: General Appearance: well appearing, in no acute distress Mental status evaluation during the interview and examination showed Reported difficulties: memory word finding concentration / attention Affect: Normal Speech: normal RESULTS: Monitoring labs: CBC + Diff Component Value Date WBC 6.29 11/18/2023 HB 13.5 11/18/2023 HCT 40.2 11/18/2023 PLT 151 11/18/2023 ABSLYMPH 1.72 11/18/2023 CMP Component Value Date AST 26 11/18/2023 GLUC 142 (H) 11/18/2023 BUN 12 11/18/2023 CREAT 1.11 (H) 11/18/2023 NA 137 11/18/2023 K 4.3 11/18/2023 CHLOR 105 11/18/2023 ALT 26 11/18/2023 MRI brain: No new brain MRI to review Assessment AND Plan ASSESSMENT: Mackenzie Concepcion is a 48 year old RRMS stably disabled on Ocrevus which she tolerates with AGUILLON during infusion. She reports daily AGUILLON for the past 2-3 months. Inquires about amitriptyline which her sister recently started and has been very helpful. Will start amitriptyline, but monitor liam (more content not included)... [facility] 11-19-2023 History of Presen t illness Narrative Images from the original note were not included. [facility] MULTIPLE SCLEROSIS FOLLOWUP/ESTABLISHED PATIENT VIRTUAL VISIT PRINCIPAL NEUROLOGIC DIAGNOSIS: Multiple Sclerosis MS DISEASE HISTORY: Date of onset: 1998 Date of diagnosis: 2002 Disease course from Onset: Exacerbating/Remitting Disease course last year: Exacerbating/Remitting Current Medications for MS: Ocrevus (04/2017-current) Medications for MS Used in the Past: IV Steroids, Rebif and avonex, Tysabri, Tecfidera,Aubagio (03/2016) ETHAN positive 2011 (was negative in 2010) JCV Ab status: Positive, 10/10/2014, index=0.46 Most recent brain MRI: 10/02/2022 Most recent cervical MRI: 10/02/2022 Most recent thoracic MRI: 10/06/2021 Subjective INTERVAL HISTORY: CHIEF COMPLAINT: MS symptom management Usual treating team: Rolf/Shyam Patient accompanied by self. Last seen . Currently taking Ocrevus. Received infusion yesterday. She did have a AGUILLON with infusion, typically occurs when they try to give her infusion at faster infusion rate. They typically have to give her infusion between slow and fast rate. Currently having daily headaches for the past several 2-3 months. No associated vision changes, nausea or vomiting. AGUILLON usually occur front of head, feel tension type. She does often have to lay down and turn lights off due to photophobia. She tried ibuprofen and acetaminophen which help minimally. Currently takes depakote 1000mg once daily for mood as well as vraylar, celexa and wellbutrin. She is working with psychiatry REVIEW OF SYSTEMS: Mood: Good/bright, with current medication regimen, follows with therapist Bladder: no change Bowel: No change Fatigue: Moderate Neuro-QoL Functions (higher=better functioning) Flowsheet Row Appointment from 11/19/2023 in [facility] Office Visit from 05/07/2023 in [facility] from 04/02/2022 in [facility] Upper Extremity Domain T Score 33 35 34 Lower Extremity Domain T Score 38 38 27 Cognitive Function Domain T Score 40 44 36 Positive Affect Well Being T Score -- -- -- Ability To Participate In Social Roles T Score 42 38 38 Satisfaction With Social Roles T Score 42 39 36 Neuro-QoL Symptoms (higher=worse symptoms) Flowsheet Row Appointment from 11/19/2023 in [facility] [facility] from 04/02/2022 in [facility] Sleep Domain T Score 55 65 59 Fatigue Domain T Score 54 58 58 Anxiety Domain T Score 57 61 63 Depression Domain T Score 52 52 57 Stigma Domain T Score 61 55 64 Emotional Behavior Dyscontrol T Score -- -- -- PAST HISTORY was reviewed and updated: PAST MEDICAL HISTORY No date: Anxiety No date: Cataract No date: Depression 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 ([facility]) No date: Kidney stones No date: Macular edema 2002 DX: MS (multiple sclerosis) ([facility]) No date: Optic atrophy of right eye No date: 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 No date: Posterior subcapsular polar senile cataract of left eye 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 SOCIAL HISTORY was reviewed and updated: Current living situation: At home Current vocational status: On disabiltiy EXAM: General Appearance: well appearing, in no acute distress Mental status evaluation during the interview and examination showed Reported difficulties: memory word finding concentration / attention Affect: Normal Speech: normal RESULTS: Monitoring labs: CBC + Diff Component Value Date WBC 6.29 11/18/2023 HB 13.5 11/18/2023 HCT 40.2 11/18/2023 PLT 151 11/18/2023 ABSLYMPH 1.72 11/18/2023 CMP Component Value Date AST 26 11/18/2023 GLUC 142 (H) 11/18/2023 BUN 12 11/18/2023 CREAT 1.11 (H) 11/18/2023 NA 137 11/18/2023 K 4.3 11/18/2023 CHLOR 105 11/18/2023 ALT 26 11/18/2023 MRI brain: No new brain MRI to review Assessment & Plan ASSESSMENT: Mackenzie Concepcion is a 48 year old RRMS stably disabled on Ocrevus which she tolerates with AGUILLON during infusion. She reports daily AGUILLON for the past 2-3 months. Inquires about amitriptyline which her sister recently started and has been very helpful. Will start amitriptyline, but monitor closely as she is also on celexa and Wellbutrin for mood. Reviewed signs and symptoms of serotonin syndrome. She will also discuss with her psychiatrist at upcoming visit. PLAN: -Continue Ocrevus -Start amitriptyline 10mg PO QHS for tension AGUILLON -Follow up in 6 months I spent a total of 15 minutes on the date of the service which included preparing to see the patient, [id number] patient care, and completing clinical documentation. Today's visit is being completed virtually over Zoom. Patient consented to proceed with virtual visit. I have communicated my name and active licensure. The patient's identity and physical location were verified at the time of this visit. Either the patient or their legal ict sales representative has been informed of the risks and benefits of -- and alternatives to -- treatment through a remote evaluation and consents to proceed with the evaluation remotely. Sania Nicholas PA-C documented in this encounter [facility] 11-18-2023 Note HNO ID: [id number] Author: YODIT ROSADO RN Service: ? Author Type: Registered Nurse Type: Progress Notes Filed: 11/19/2023 10:40 Note Text: 1058 pt c/o increase in severity of headache she had prior to coming in and also ears burning . Headache is 8/10 on pain scale. Ocrevus infusion stopped and IVF NS wide open. VS stable. See doc flow. 1107 states her ears are about 80% improved. States she will have the headache all day. VSS. See doc flow. 1115. Pt comfortable with restarting Ocrevus as ear symptoms have completely resolved. Will restart at initial rate of 100ml/hr for 30 min. NS at KVO. [facility] 11-18-2023 History of Presen t illness Narrative 1058 pt c/o increase in severity of headache she had prior to coming in and also ears burning . Headache is 8/10 on pain scale. Ocrevus infusion stopped and IVF NS wide open. VS stable. See doc flow. 1107 states her ears are about 80% improved. States she will have the headache all day. VSS. See doc flow. 1115. Pt comfortable with restarting Ocrevus as ear symptoms have completely resolved. Will restart at initial rate of 100ml/hr for 30 min. NS at KVO. error documented in this encounter [facility] 11-18-2023 Note HNO ID: [id number] Author: ANGIE GRIJALVA LPN Service: ? Author Type: LICENSED NURSE Type: Progress Notes Filed: 11/19/2023 10:40 Note Text: error [facility] 11-09-2023 Telephone encounter Note Source : mychart from patient requesting refill. Delivery : e-script Requested Prescriptions Pending Prescriptions Disp Refills oxybutynin (DITROPAN) 5 mg tablet 84 tablet 11 Sig: TAKE ONE TABLET BY MOUTH IN THE MORNING, AFTERNOON, AND AT BEDTIME DX : Patient last seen 10/15/2023 Next Appointment : 04/19/2024 Yissel Whitney [facility] 11-09-2023 Miscellaneous Notes Source : mychart from patient requesting refill. Delivery : e-script Requested Prescriptions Pending Prescriptions Disp Refills oxybutynin (DITROPAN) 5 mg tablet 84 tablet 11 Sig: TAKE ONE TABLET BY MOUTH IN THE MORNING, AFTERNOON, AND AT BEDTIME DX : Patient last seen 10/15/2023 Next Appointment : 04/19/2024 Yissel Whitney documented in this encounter [facility] 10-18-2023 Telephone encounter Note Called patient and it went to voicemail. Called to explain that her appointment with Dr. Cartagena is cancelled and per Dr. Vo's last office visit her neuro-ophthalmic concern was stable and can establish care with marine radio installer and servicer. They will be able to give her routine eye care to manage and follow her ophthalmic eye concerns, which are dislocated lens, cataract in other eye, obtaining prescriptions for glasses from her etc. [facility] 10-18-2023 Miscellaneous Notes Called patient and it went to voicemail. Called to explain that her appointment with Dr. Cartagena is cancelled and per Dr. Vo's last office visit her neuro-ophthalmic concern was stable and can establish care with marine radio installer and servicer. They will be able to give her routine eye care to manage and follow her ophthalmic eye concerns, which are dislocated lens, cataract in other eye, obtaining prescriptions for glasses from her etc. documented in this encounter [facility] 10-15-2023 History of Presen t illness Narrative Images from the original note were not included. [facility] FOLLOW[facility]/ESTABLISHED PATIENT VISIT PRINCIPAL NEUROLOGIC DIAGNOSIS: Multiple [...] Usual treating team: No specialty comments available. She has had falls in the past. Her last fall was last weekend. She fell into her sister's house. Foot got stuck under something because she can't lift her leg up too much. Got a bruise and cut on on her arm. Fell when at [place] in July. She has never done PT because she is looking for a MS-specialist physical therapist closer to home. Today she asks if aquatic therapy would be helpful for her mobility. Walks with a cane sometimes. Does not use her cane in the house. She has had to use her cane more. Left side is always weak but it has been acting up recently. Twitches and cramping/spasms in the left > right legs. Left hand is a little numb. Maybe a small difference in her leg cramping with baclofen. She does feel a little sleepy sometimes. No new neurological symptoms. No side effects. Got a rash (hives on one arm) during her last ocrevus infusion, but this has never happened to her before. No other symptoms. Infusion was paused and then restarted without any further issues. The patient is accompanied by sister. The patient was last seen 05/07/23, currently taking Ocrevus. Since the patient's last visit the patient reports overall feeling stable. Issues with current therapy: Tolerating medication without side effects. Neuro-QoL Functions (higher=better functioning) Flowsheet Row Office Visit from 05/07/2023 in [facility] from 04/02/2022 in [facility] Social Work from 10/30/2021 in [facility] Upper Extremity Domain T Score 35 [...] Flowsheet Row Office Visit from 05/07/2023 in [facility] Health from 04/02/2022 in [facility] Social Work from 10/30/2021 in [facility] Sleep Domain T Score 65 59 53 Fatigue Domain T Score 58 58 48 Anxiety Domain T Score 61 63 62 Depression Domain T Score 52 57 50 Stigma Domain T Score 55 64 60 Emotional Behavior Dyscontrol T Score -- -- -- has a past medical history of Anxiety, Cataract, Depression, 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 She has no past medical history of Atrial fibrillation ([facility]), Cancer ([facility]), Chronic obstructive pulmonary disease (COPD) ([facility]), Chronic renal insufficiency, Congestive heart failure ([facility]), Coronary artery disease, Diabetes ([facility]), Epilepsy ([facility]), Hypertension, Obstructive sleep apnea, Steroid long-term use, Stroke ([facility]), or Substance abuse ([facility]). has a current medication list which includes the following prescription(s): cholecalciferol (vitamin d3), gabapentin, baclofen, albuterol hfa, vraylar, docusate sodium, iv contrast, divalproex er, bupropion xl, lactase, oxybutynin, citalopram hydrobromide, ocrelizumab, and acetaminophen. EXAM: BP 115/77 Pulse 71 Ht 170.7 cm (5' 7.2 ) Wt 106.6 kg (235 lb) LMP 08/31/2011 BMI 36.59 kg/m MSPT Results Flowsheet Row Office Visit from 05/07/2023 in [facility] Office Visit from 02/20/2019 in [facility] Office Visit from 08/25/2018 in [facility] Processing Speed Total Number Correct 29 55 50 Processing Speed Z score -- -- -- Dominant hand -- -- -- MDT Left Hand Time 44.09 24.96 25.78 MDT Right Hand Time 39.13 28.28 25.67 Walking Speed Test (25 feet) 9.57 7.92 6.96 General Appearance: well appearing, in no acute distress Mental status evaluation during the interview and examination showed normal level of consciousness, orientation, language, does rely on sister and significant other for recallling events. 20/30 OS, 20/100 OD Affect: Normal Extraocular movements: full, without CAMPBELL Facial sensation: Intact bilaterally Facial movements: Intact bilaterally Speech: normal Muscle tone: Right arm spasticity: None Right leg spasticity: None Left arm spasticity: Mild Left leg spasticity: None Muscle strength (#/5): Right Left Upper Extremity: Deltoids 5 4+ Biceps 5 5 Triceps 5 5 Web Applications Developer 5 5 Dorsal interossei 5 5 Lower extremity: Iliopsoas 5 4+ Quadriceps 5 5 Hamstrings 5 5 Tibialis anterior 5 5 Gastrocnemius 5 5 Slightly brisker reflexes L>R Standard gait: wide-based, slow. Assistive device: independent RESULTS: CBC + Diff Component Value Date WBC 7.98 05/20/2023 HB 14.5 05/20/2023 HCT 44.0 05/20/2023 PLT 192 05/20/2023 ABSLYMPH 1.40 05/20/2023 No results found for: VITD25 CMP Component Value Date AST 28 05/20/2023 GLUC 147 (H) 05/20/2023 BUN 11 05/20/2023 CREAT 1.18 (H) 05/20/2023 NA 139 05/20/2023 K 3.8 05/20/2023 CHLOR 103 05/20/2023 ALT 25 05/20/2023 No results found for: JCVIND , JCVAB [...] which is also evident on T2FW testing. MRI today with no new lesions. She has not been able to find a suitable PT close to home so will refer to aquatic therapy. PLAN: - Continue Ocrevus - CBC, CMP, Immunoglobulins prior to next infusion - PT, aquatic therapy - Brain MRI in 1 yr - Follow up in 6 months with [facility] via virtual or in person visit Office Visit on 10/15/23 CONSULT TO PHYSICAL THERAPY The chart was reviewed for possible participation in the following studies:None Patient Health Education Discussed at Visit: Aerobic exercise and Stretching Follow-up: In 6 months at [place] with [facility] APC I spent a total of 30 minutes on the date of the service which included preparing to see the patient, [id number] patient care, completing clinical documentation, obtaining and/or reviewing separately obtained history, performing a medically appropriate examination, counseling and educating the patient/family/caregiver, ordering medications, tests, or procedures, communicating with other HCPs (not separately reported), independently interpreting results (not separately reported), communicating results to the patient/family/caregiver, and care coordination (not separately reported). Lemuel Nunez MD Adult Neurology PGY-4 10/15/2023 12:54 PM [facility] STAFF PHYSICIAN NOTE OF PERSONAL INVOLVEMENT IN CARE I have reviewed the follow-up note obtained and documented by the neurology resident and I personally participated in the pride components and have answered all the patient's questions. Mackenzie Concepcion is overall stable with several chronic symptoms. MRI stable today. She will try to start aquatic PT locally. We will continue Ocrevus. Rebecca Bansal D.O. [facility] Staff documented in this encounter [facility] 10-15-2023 Note HNO ID: [id number] Author: REBECCA BANSAL DO Service: ? Author Type: Physician Type: Progress Notes Filed: 10/19/2023 20:58 Note Text: [facility] FOLLOWUP/ESTABLISHED PATIENT VISIT PRINCIPAL NEUROLOGIC DIAGNOSIS: Multiple [...] Usual treating team: No specialty comments available. She has had falls in the past. Her last fall was last weekend. She fell into her sister's house. Foot got stuck under something because she can't lift her leg up too much. Got a bruise and cut on on her arm. Fell when at [place] in July. She has never done PT because she is looking for a MS-specialist physical therapist closer to home. Today she asks if aquatic therapy would be helpful for her mobility. Walks with a cane sometimes. Does not use her cane in the house. She has had to use her cane more. Left side is always weak but it has been acting up recently. Twitches and cramping/spasms in the left > right legs. Left hand is a little numb. Maybe a small difference in her leg cramping with baclofen. She does feel a little sleepy sometimes. No new neurological symptoms. No side effects. Got a rash (hives on one arm) during her last ocrevus infusion, but this has never happened to her before. No other symptoms. Infusion was paused and then restarted without any further issues. The patient is accompanied by sister. The patient was last seen 05/07/23, currently taking Ocrevus. Since the patient's last visit the patient reports overall feeling stable. Issues with current therapy: Tolerating medication without side effects. Neuro-QoL Functions (higher=better functioning) Flowsheet Row Office Visit from 05/07/2023 in [facility] Distance Health from 04/02/2022 in [facility] Social Work from 10/30/2021 in [facility] Upper Extremity Domain T Score 35 [...] Flowsheet Row Office Visit from 05/07/2023 in [facility] Health from 04/02/2022 in [facility] Social Work from 10/30/2021 in [facility] Sleep Domain T Score 65 59 53 Fatigue Domain T Score 58 58 48 Anxiety Domain T Score 61 63 62 Depression Domain T Score 52 57 50 Stigma Domain T Score 55 64 60 Emotional Behavior Dyscontrol T Score -- -- -- has a past medical history of Anxiety, Cataract, Depression, 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 She has no past medical history of Atrial fibrillation ([facility]), Cancer ([facility]), Chronic obstructive pulmonary disease (COPD) ([facility]), Chronic renal insufficiency, Congestive heart failure ([facility]), Coronary artery disease, Diabetes ([facility]), Epilepsy ([facility]), Hypertension, Obstructive sleep apnea, Steroid long-term use, Stroke ([facility]), or Substance abuse ([facility]). has a current medication list which includes the following prescription(s): cholecalciferol (vitamin d3), gabapentin, baclofen, albuterol hfa, vraylar, docusate sodium, iv contrast, divalproex er, bupropion xl, lactase, oxybutynin, citalopram hydrobromide, ocrelizumab, and acetaminophen. EXAM: BP 115/77 Pulse 71 Ht 170.7 cm (5' 7.2 ) Wt 106.6 kg (235 lb) LMP 08/31/2011 BMI 36.59 kg/m? MSPT Results Flowsheet Row Office Visit from 05/07/2023 in [facility] Office Visit from 02/20/2019 in [facility] Office Visit from 08/25/2018 in [facility] Processing Speed Total Number Correct 29 55 50 Processing Speed Z score -- -- -- Dominant hand -- -- -- MDT Left Hand Time 44.09 24.96 25.78 MDT Right Hand Time 39.13 28.28 25.67 Walking Speed Test (25 feet) 9.57 7.92 6.96 General Appearance: well appearing, in no acute distress Mental status evaluation during the interview and examination showed normal level of consciousness, orientation, language, does rely on sister and significant other for recallling events. 20/30 OS, 20/100 OD Affect: Normal Extra (more content not included)... [facility] 10-15-2023 History of Presen t illness Narrative Radiology Service Progress Note DATE OF SERVICE: October 15, 2023 TIME: 8:32 AM PATIENT IDENTITY VERIFICATION COMPLETED USING TWO (2) STANDARD IDENTIFIERS: Name and Date of confirmed by patient verbally. FALL SCREENING: Has the patient had 2 falls in the last year or 1 fall with injury or currently using an Ambulatory Assistive Device (Walker, Cane, Wheelchair, Crutches, etc.)? No PATIENT GENDER DATA: Female. status: : No status: NO. PATIENT RELEVANT IMPLANT DATA REVIEWED: Yes PATIENT PRESENTS WITH AN IMPLANTABLE OR ATTACHED DATE NIGHT CAREGIVER: No ALLERGIES: Reviewed and unchanged CONTRAST ALLERGY: NO. EXAM: MRI - CONTRAST TYPE: GROUP II PERIPHERAL IV DATA: Ambulatory: A peripheral IV was started in the Left antecubital site with a Angio cath: 22 gauge. RADIOLOGY DEPARTMENT: MR; Exam(s) Completed: Head: Multiple Sclerosis SIGNATURE: LAZ [place]) PATIENT NAME: Mackenzie Concepcion DATE: October 15, 2023 TIME: 8:32 AM documented in this encounter [facility] 10-15-2023 Note HNO ID: [id number] Author: ANDERSON RIOS RT(R) Service: ? Author Type: Technologist Type: Progress Notes Filed: 10/15/2023 08:32 Note Text: Radiology Service Progress Note DATE OF SERVICE: October 15, 2023 TIME: 8:32 AM PATIENT IDENTITY VERIFICATION COMPLETED USING TWO (2) STANDARD IDENTIFIERS: Name and Date of confirmed by patient verbally. FALL SCREENING: Has the patient had 2 falls in the last year or 1 fall with injury or currently using an Ambulatory Assistive Device (Walker, Cane, Wheelchair, Crutches, etc.)? No PATIENT GENDER DATA: Female. status: : No status: NO. PATIENT RELEVANT IMPLANT DATA REVIEWED: Yes PATIENT PRESENTS WITH AN IMPLANTABLE OR ATTACHED DATE NIGHT CAREGIVER: No ALLERGIES: Reviewed and unchanged CONTRAST ALLERGY: NO. EXAM: MRI - CONTRAST TYPE: GROUP II PERIPHERAL IV DATA: Ambulatory: A peripheral IV was started in the Left antecubital site with a Angio cath: 22 gauge. RADIOLOGY DEPARTMENT: MR; Exam(s) Completed: Head: Multiple Sclerosis SIGNATURE: RT Miki(R) PATIENT NAME: Mackenzie Concepcion DATE: October 15, 2023 TIME: 8:32 AM [facility] 06-14-2023 Miscellaneous Notes Source : electronic from pharmacy requesting refill. Delivery : e-script Requested Prescriptions Pending Prescriptions Disp Refills Cholecalciferol, Vitamin D3, 125 mcg (5,000 unit) cap [Pharmacy Med Name: VITAMIN D3 5000UNIT CAPSULE] 28 capsule 11 Sig: take one capsule by mouth once daily DX : Patient last seen 05/07/2023 Next Appointment : 10/15/2023 Yissel Whitney documented in this encounter [facility] 05-21-2023 Miscellaneous Notes Source : electronic from pharmacy requesting refill. Delivery : e-script Requested Prescriptions Pending Prescriptions Disp Refills gabapentin (NEURONTIN) 300 mg capsule [Pharmacy Med Name: GABAPENTIN 300MG CAPSULE] 140 capsule 11 Sig: TAKE ONE CAPSULE 3 TIMES DAILY (BREAKFAST, LUNCH AND DINNER) AND TAKE 2 CAPSULES AT BEDTIME DX : Patient last seen 05/07/2023 Next Appointment : 10/15/2023 Yissel Whitney documented in this encounter [facility] 05-20-2023 Note HNO ID: [id number] Author: KWAME HART RN Service: ? Author Type: Registered [...] before. Infusion stopped. Message sent to Dr. Bansal. Orders for Solumedol and Pepcid IV. Medications [...] to ER for further evaluation. Verbalizes understanding. Kwame Hart RN [facility] 05-20-2023 History of Presen t illness Narrative Pt receiving Ocrelixumab infusion, increasing as directed [...] before. Infusion stopped. Message sent to Dr. Bansal. Orders for Solumedol and Pepcid IV. Medications [...] to ER for further evaluation. Verbalizes understanding. Kwame Hart RN documented in this encounter [facility] 05-07-2023 Note HNO ID: [id number] Author: REBECCA BANSAL, DO Service: ? Author Type: Physician Type: Progress Notes Filed: 05/07/2023 12:43 Note Text: [facility] FOLLOWUP/ESTABLISHED PATIENT VISIT PRINCIPAL NEUROLOGIC DIAGNOSIS: Multiple [...] In the summer she will go to [place] to walk, but needs to sit frequently. Neuro-QoL Functions (higher=better functioning) Flowsheet Row Office Visit from 05/07/2023 in [facility] from 04/02/2022 in [facility] Social Work from 10/30/2021 in [facility] Upper Extremity Domain T Score 35 [...] Flowsheet Row Office Visit from 05/07/2023 in [facility] from 04/02/2022 in [facility] Social Work from 10/30/2021 in [facility] Sleep Domain T Score 65 59 53 Fatigue Domain T Score 58 58 48 Anxiety Domain T Score 61 63 62 Depression Domain T Score 52 57 50 Stigma Domain T Score 55 64 60 Emotional Behavior Dyscontrol T Score -- -- -- has a past medical history of Anxiety, Cataract, Depression, 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 She has no past medical history of Atrial fibrillation ([facility]), Cancer ([facility]), Chronic obstructive pulmonary disease (COPD) ([facility]), Chronic renal insufficiency, Congestive heart failure ([facility]), Coronary artery disease, Diabetes ([facility]), Epilepsy ([facility]), Hypertension, Obstructive sleep apnea, Steroid long-term use, Stroke ([facility]), or Substance abuse ([facility]). has a current medication list [...] Flowsheet Row Office Visit from 05/07/2023 in [facility] Office Visit from 02/20/2019 in [facility] Processing Speed Total Number Correct 29 [...] 5 Biceps 5 5 Triceps 5 5 Web Applications Developer 5 5 Dorsal interossei 5 5 Lower extremity: Iliopsoas 5 5 Quadriceps 5 5 Hamstrings 5 5 Tibialis anterior 5 5 Gastrocnemius 5 5 Standard gait: wide-based. Assistive device: independent RESULTS: CBC + Diff Component Value Date WBC 6.19 11/11/2022 HB 14.1 11/11/2022 HCT 41.9 11/11/2022 PLT (more content not included)... [facility] 05-07-2023 History of Presen t illness Narrative Images from the original note were not included. [facility] FOLLOWUP/ESTABLISHED PATIENT VISIT PRINCIPAL NEUROLOGIC DIAGNOSIS: Multiple [...] In the summer she will go to [place] to walk, but needs to sit frequently. Neuro-QoL Functions (higher=better functioning) Flowsheet Row Office Visit from 05/07/2023 in [facility] from 04/02/2022 in [facility] Social Work from 10/30/2021 in [facility] Upper Extremity Domain T Score 35 [...] Flowsheet Row Office Visit from 05/07/2023 in [facility] from 04/02/2022 in [facility] NeuroInterventional Therapeutics Work from 10/30/2021 in [facility] Sleep Domain T Score 65 59 53 Fatigue Domain T Score 58 58 48 Anxiety Domain T Score 61 63 62 Depression Domain T Score 52 57 50 Stigma Domain T Score 55 64 60 Emotional Behavior Dyscontrol T Score -- -- -- has a past medical history of Anxiety, Cataract, Depression, 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 She has no past medical history of Atrial fibrillation ([facility]), Cancer ([facility]), Chronic obstructive pulmonary disease (COPD) ([facility]), Chronic renal insufficiency, Congestive heart failure ([facility]), Coronary artery disease, Diabetes ([facility]), Epilepsy ([facility]), Hypertension, Obstructive sleep apnea, Steroid long-term use, Stroke ([facility]), or Substance abuse ([facility]). has a current medication list which includes the following prescription(s): baclofen, albuterol hfa, vraylar, docusate sodium, cholecalciferol (vitamin d3), gabapentin, divalproex er, bupropion xl, lactase, oxybutynin, citalopram hydrobromide, ocrelizumab, acetaminophen, and iv contrast. EXAM: BP 105/53 Pulse 93 Ht 167.6 cm (5' 6 ) Wt 110.6 kg (243 lb 14.4 oz) LMP 08/31/2011 BMI 39.37 kg/m Multiple Sclerosis Performance Test Flowsheet Row Office Visit from 05/07/2023 in [facility] Office Visit from 02/20/2019 in [facility] Processing Speed Total Number Correct 29 [...] 5 Biceps 5 5 Triceps 5 5 Web Applications Developer 5 5 Dorsal interossei 5 5 Lower [...] and Stretching Follow-up: In 6 months at [place] with [facility] APC I spent a total of 30 minutes on the date of the service which included preparing to see the patient, [id number] patient care, completing clinical documentation, obtaining and/or reviewing separately obtained history, performing a medically appropriate examination, counseling and educating the patient/family/caregiver, ordering medications, tests, or procedures, communicating with other HCPs (not separately reported), independently interpreting results (not separately reported), communicating results to the patient/family/caregiver, and care coordination (not separately reported). Rebecca Bansal DO [facility] documented in this encounter [facility] 10-02-2022 History of Presen t illness Narrative Images from the original note were not included. [facility] FOLLOWUP/ESTABLISHED PATIENT VISIT PRINCIPAL NEUROLOGIC DIAGNOSIS: Multiple [...] medication without side effects. Receives infusions at [facility]. No new neurological symptoms. Ambulates with a [...] Flowsheet Row Distance Health from 04/02/2022 in [facility] Social Work from 10/30/2021 in [facility] Social Work from 09/30/2021 in [facility] Upper Extremity Domain T Score 34 [...] Flowsheet Row Distance Health from 04/02/2022 in [facility] Social Work from 10/30/2021 in [facility] Social Work from 09/30/2021 in [facility] Sleep Domain T Score 59 53 60 Fatigue Domain T Score 58 48 52 Anxiety Domain T Score 63 62 59 Depression Domain T Score 57 50 57 Stigma Domain T Score 64 60 62 Emotional Behavior Dyscontrol T Score -- -- -- has a past medical history of Anxiety, Cataract, Depression, 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 She has no past medical history of Atrial fibrillation ([facility]), Cancer ([facility]), Chronic obstructive pulmonary disease (COPD) ([facility]), Chronic renal insufficiency, Congestive heart failure ([facility]), Coronary artery disease, Diabetes ([facility]), Epilepsy ([facility]), Hypertension, Obstructive sleep apnea, Steroid long-term use, Stroke ([facility]), or Substance abuse ([facility]). has a current medication list which includes the following prescription(s): albuterol hfa, vraylar, docusate sodium, cholecalciferol (vitamin d3), gabapentin, iv contrast, baclofen, divalproex er, bupropion xl, lactase, oxybutynin, citalopram hydrobromide, ocrelizumab, and acetaminophen, and the following Facility-Administered Medications: tropicamide, phenylephrine, fluorescein-benoxinate, and proparacaine. EXAM: [facility] 08/31/2011 Multiple Sclerosis Performance Test Flowsheet Row Office Visit from 02/20/2019 in [facility] Office Visit from 08/25/2018 in [facility] Processing Speed Total Number Correct 55 [...] L>R hemiparesis and occasional falls. Today's brain & CS MRIs reviewed and appear stable, formal reports still pending. Recent labs reviewed, IGG & IGM within acceptable range, denies increased infections. Rx for cooling vest provided. PLAN: -Continue Ocrevus -Brain MRI annually -Rx for cooling vest provided -Follow up in 6 months with [facility] via virtual or in person visit I spent a total of 40 minutes on the date of the service which included preparing to see the patient, [id number] patient care, completing clinical documentation, counseling and educating the patient/family/caregiver, ordering medications, tests, or procedures, and communicating results to the patient/family/caregiver. Sania Nicholas PA-C [facility] documented in this encounter [facility] 10-02-2022 History of Presen t illness Narrative Reviewed Epic, chart, labs, imaging studies. 1. 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 No evidence of ocular inflammation on exam today Ocrevus (q6 month dosing, infusions in [place]) MRI scheduled later today 2. Dry eye. [...] been discussed. Questions answered. Waleska Vo MD documented in this encounter [facility] 07-17-2022 Miscellaneous Notes Source : electronic from pharmacy requesting refill. Delivery : e-script Requested Prescriptions Pending Prescriptions Disp Refills Cholecalciferol, Vitamin D3, 125 mcg (5,000 unit) cap [Pharmacy Med Name: VITAMIN D3 5000UNIT CAPSULE] 28 capsule 11 Sig: TAKE ONE CAPSULE BY MOUTH ONCE DAILY Patient last seen : 04/02/2022 Next Appointment : 10/02/2022 Joan Harrison documented in this encounter [facility] 05-13-2022 Miscellaneous Notes FYI Patient labs drawn today from her IV have hemolyzed. She will need redrawn Amy Mohan RN documented in this encounter [facility] 04-24-2022 Evaluation note Encounter Date Diagnosis Assessment Notes Mar, Injury of left shoulder, initial encounter (ICD-10 - S49.92XA) Use RICE therapy as discussed: Rest, Ice Compression, Elevate. Apply ice to affected area 3-4 times daily (Do not place ice source directly on skin, must cover with towel-like material). Take medication as directed. Rest and elevate sore extremity as much as possible. Do not take OTC medication pain relievers if prescription of medication given in office today. Contact office if no improvement of symptoms and we will help you get into a specialist. Mar, Wheezing (ICD-10 - R06.2) Take medication as directed. Follow up with primary care provider if symptoms persist as a therapy plan may need to be made. [employer] Other [id number] History of Present illness Narrative* RA Ware - 04/03/2022 9:17 AM EST Mailed PT and Image orders from 04/02/2022 visit to M[facility]ENZIE [facility]CE[facility] [address] [place] [id number] [facility] History of Present illness Narrative* Sania Nicholas PA-C - 04/02/2022 11:26 AM EST Images from the original note were not included. [facility] FOLLOWUP/ESTABLISHED PATIENT VIRTUAL VISIT PRINCIPAL NEUROLOGIC DIAGNOSIS: Multiple Sclerosis MS [...] on MS disease modifying therapy INTERVAL HISTORY: Today's visit is being completed virtually over Zoom. Patient consented to proceed with virtual visit. Usual treating team: Rolf/Shyam Patient accompanied by significant other. Last seen 10/07/2021. Currently taking Ocrevus. Most recent infusion received 11/11/2021. Tolerating medication without side effects. Worsening of imbalance. L>R leg twitching is worse. Had a recent fall in December, she was going up stairs and fell. She did go to urgent care the next day due to knee pain and scrapes. She is now seeing ortho for ongoing knee pain and has received injection into R knee which helped for 3 days. They told her she has arthritis. She has f/u with ortho next week. Currently ambulating without any assistance. She has a cane but rarely uses. Following with urology for incontinence, kidney stones and recurrent UTIs. She states she is getting about 2-3 UTIs a month. No hospitalizations for UTI. She has been wearing depends due to worseningincontinence. REVIEW OF SYSTEMS: Mood: Good/bright Bladder: frequency, incontinence, UTI's Bowel: No problem Fatigue: Moderate Sleep: interrupted Neuro-QoL Functions (higher=better functioning) Flowsheet Row Appointment from 04/02/2022 in [facility] Appointment [place] 10/30[place] [facility] [place] 09/30/2021 in [facility] Upper Extremity Domain T Score 34 35 31 Lower Extremity Domain T Score 27 32 34 Cognitive Function Domain T Score 36 39 29 Positive Affect Well Being T Score -- -- -- Ability To Participate In Social Roles T Score 38 46 40 Satisfaction With Social Roles T Score 36 41 41 Neuro-QoL Symptoms (higher=worse symptoms) Flowsheet Row Appointment from 04/02/2022 in [facility] Appointment from 10/30/[address] 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 She has no past medical history of Atrial fibrillation ([facility]), Cancer ([facility]), Chronic obstructive pulmonary disease (COPD) ([facility]), Chronic renal insufficiency, Congestive heart failure ([facility]), Coronary artery disease, Diabetes ([facility]), Epilepsy ([facility]), Hypertension, Obstructive sleep apnea, Steroid long-term use, Stroke ([facility]), or Substance abuse ([facility]). has a current medication list which includes the following prescription(s): baclofen, divalproex er, bupropion xl, lactase, cholecalciferol (vitamin d3), gabapentin, oxybutynin, citalopram hydrobromide, ocrelizumab, and acetaminophen. Current living situation: At home Current vocational status: On disabiltiy EXAM: Multiple Sclerosis Performance Test Flowsheet Row Office Visit from 02/20/2019 in [facility] Office Visit from 08/25/2018 in [facility] Processing Speed Total Number Correct 55 [...] evaluation during the interview and examination showed Reported difficulties: memory word finding concentration / attention Affect: Normal Speech: normal LAB RESULTS: CBC + Diff Component Value Date WBC 8.17 05/13/2021 HB 14.1 05/13/2021 HCT 46.7 (H) 05/13/2021 PLT 156 05/13/2021 ABSLYMPH 0.45 (L) 05/13/2021 CMP Component Value Date AST 48 (H) 05/13/2021 GLUC 138 (H) 11/08/2020 BUN 9 11/08/2020 CREAT 0.91 11/08/2020 NA 142 11/08/2020 K 3.5 (L) 11/08/2020 CHLOR 103 11/08/2020 ALT 48 (H) 05/13/2021 MRI RESULTS: Discrete MRI Results Component Value Date Brain New T2 Lesions None 10/06/2021 Brain New T2 Lesions None 10/06/2021 Brain Enhancing Lesions None 10/06/2021 Brain Enhancing Lesions None 10/06/2021 Cervical Spine New T2 Lesions None 10/06/2021 Cervical Spine New T2 Lesions None 10/06/2021 Cervical spine enhancing lesions None 10/06/2021 Cervical spine enhancing lesions None 10/06/2021 MRI brain: No new brain MRI to review ASSESSMENT: Mackenzie Concepcion is a 46 year old female with RRMS on Ocrevus, stably disabled. No new neurological symptoms, although does note increased imbalance as well as urinary incontinence, fatigue and leg jerking. She does note frequent UTIs, 1-2 per month, working with local urologist. Reviewed that MS symptoms will worsen with underlying infection so it is important she work with urology to get UTIs managed. May need to consider 2nd opinion with [facility] if needed. Will consult PT for gait, balance and strengthening. She is due for brain & CS MRI in 6 months and labs with upcoming infusion. PLAN: -Continue Ocrevus -Brain & CS MRI in 6 months -CBC, CMP, IGG & IGM labs in April -Consult PT for balance & gait -Follow urology closely; Consider 2nd opinion at [facility] -Follow up in 6 months at [place] with [facility] APC I spent a total of 20 minutes on the date of the service which included preparing to see the patient, [id number] patient care, completing clinical documentation, counseling and educating the patient/family/caregiver, and ordering medications, tests, or procedures. Sania Nicholas PA-C [facility] Evaluation note* Encounter Date Diagnosis Assessment Notes Treatment Notes Treatment Clinical Notes Feb, Acute pain of left knee (ICD-10 - M25.562) Patient has continued pain with conservative treatment. Recommend follow up with ortho is recommended due to patient history of MS with presentation and conservative treatment [employer] Other 11-04-2022 Miscellaneous Notes* Telephone Encounter - Patricia Cullen - 01/30/2022 9:55 AM EDT Source : mychart from pharmacy requesting refill. Delivery : e-script Requested Prescriptions Pending Prescriptions Disp Refills baclofen (LIORESAL) 10 mg tablet [Pharmacy Med Name: BACLOFEN 10MG TABLET] 84 tablet 11 Sig: TAKE ONE TABLET BY MOUTH 3 TIMES DAILY DIRECTED Patient last seen 10/07/21 Next Appointment : 04/02/22 Patricia Cullen [facility]* Encounter Date Diagnosis Assessment Notes Treatment Notes Treatment Clinical Notes Jan, Pain in right knee (ICD-10 - M25.561) Use RICE therapy as discussed: Rest, Ice Compression, Elevate. Apply ice to affected area 3-4 times daily (Do not place ice source directly on skin, must cover with towel-like material). Use OTC as directed for pain if needed. Contact office if symptoms are not improved within the next few days and we will help you get into specialist. Jan, Pain in left knee (ICD-10 - M25.562) Jan, Abrasion, right knee, initial encounter (ICD-10 - S80.211A) apply ointment to knee abrasions daily and cover as needed. Jan, Abrasion, left knee, initial encounter (ICD-10 - S80.212A) [employer] Other 10-17-2022 Evaluation note* Encounter Date Diagnosis Assessment Notes Treatment Notes Treatment Clinical Notes Dec, Follow-up exam (ICD-10 - Z09) Discussed all test results in office today and what further steps are needed. Patient states understanding. Dec, Seasonal allergic rhinitis, unspecified trigger (ICD-10 - J30.2) Take medication as directed. Use saline nasal spray may help with symptom relief. OTC medications such as Zyrtec, Brandie or Claritin can help with symptoms during the peak of allergy season. Follow up with primary care provider if symptoms persist as a therapy plan may need to be made. [employer] Other 08-16-2022 History of Present illness Narrative* Amy Mohan RN - 11/11/2021 1:48 PM EDT Patient had written lab orders from Dr Christine Rascon in [place]. Lab orders were placed in Epic for future appointment/lab draw as the patient has not been NPO (order states she was to be NPO after midnight) Patient took the printed orders home with her after treatment. Call out to Dr Rascon's office and spoke with Jossy who will fax over a copy Amy Mohan RN * Amy Mohan RN - 11/11/2021 1:33 PM EDT Patient has requested to leave early due to incontinence and she does not have a change of clothing. She explains that she has kidney stones and this causes the incontinence. Her post Ocrevus observation would have ended at 1347. She denies any other questions or concerns and was discharged with her significant other, Damian. Emergent S/S reviewed Amy Mohan RN documented [facility] Evaluation note* Encounter Date Diagnosis Assessment Notes Treatment Notes Treatment Clinical Notes Oct, Hearing problem of both ears (ICD-10 - H91.93) Oct, Bilateral acute otitis media (ICD-10 - H66.93) Ear infections are often a secondary infection caused from an URI, the flu or allergies. Take medication as directed. Complete all doses, even if you feel better. Tylenol or ibuprofen can help with pain. Warm pack to area for comfort helps as well. Follow up with primary care provider if no improvement of symptoms. [employer] Other [id number] History of Present illness Narrative* BLAISE Dillon - 10/30/2021 11:23 AM EDT FOLLOW UP: Mackenzie Concepcion is a 45 year old adult female following up with [employer] for the following reason: community services/resources PERSONS INTERVIEWED: patient & boyfriend, Visit was conducted via [employer] Zoom with limits to confidentiality agreed upon. PRINCIPAL NEUROLOGIC DIAGNOSIS: Date of diagnosis of MS: 2002 Recent symptom(s): Patient reported increased weakness. IDENTIFIED PROBLEMS/NEEDS: Equipment Financial Intervention/Referral to be Provided:Arrangements made for continuity of care PATIENT PROVIDED BACKGROUND LIVING SITUATION: Patient resides with her boyfriend in a home. She owns the home but there is no mortgage payment. FUNCTIONAL STATUS: Patient can ambulate via wheelchair.. She can transfer on her own but this has become more difficult. SOCIAL SUPPORTS:Patient has support from her boyfriend, sister and mother. BASIC NEEDS: Insurance: [employer] Source of Income:SSI : $838/mo PATIENT COPING STRATEGIES: Mackenzie Concepcion describes her coping strengths to include supportive relationships with immediate family EMOTIONAL/BEHAVIORAL/COGNITIVE ISSUES Alert: Yes Cognitive Status: Intact Affect/Mood: Mackenzie Concepcion is noted to appropriate. Mental Health History: Yes, depression & anxiety- managed with Celexa & Wellbutrin Current Symptoms of Anxiety: Yes Current Symptoms of Depression: Yes Suspected/Actual History of Substance Abuse: No Past History or Current Indications of Abuse/Neglect: No DPOA health: No DPOA finance: No Guardian: No Is patient a ?: No DISCUSSION/SUMMARY: Patient stated the [facility] has reached out to her about purchasing a ramp for her home. She was told to look for contractors in her area who can provide quotes. I assisted patient in finding contractorsin her area to put in a ramp. Access Solutions: [facility] Access: Enhancing Like Mobility: Patient also inquired about asking the [facility] navigator about modification to her bathroom- a walk-inbathtub d/t her limited mobility. I will message her navigator about the additional requests. She is aware to contact the contractors I provided. I encouraged her to reach out with any further social work concerns. IMPRESSION: Pleasant 45 year old patient. Pt requires assistance with ADL's and requires assistance with IADL's. Pt appeared able and motivated to follow up on recommendations as discussed. Social work interventions rendered under the supervision of Dr. Anju Clement, PhD, [facility]. Ashia Moralez, [facility] Social Work documented [facility] History of Present illness Narrative* Sania Nicholas PA-C - 10/07/2021 6:53 AM EDT [facility] FOLLOWUP/ESTABLISHED PATIENT VIRTUAL VISIT PRINCIPAL NEUROLOGIC DIAGNOSIS: Multiple Sclerosis MS [...] therapy INTERVAL HISTORY: Usual treating team: Rolf/Shyam Today's visit is being completed virtually; pt consented. Accompanied by self. Last seen 03/13/2021via virtual visit. Currently taking Ocrevus. Most recent infusion received 05/13/2021. . Tolerating medication without side effects. No new neurological symptoms. Increased stress. Has noticed increased leg twitching. Not painful. Has a cane, uses PRN. No recent falls. Tries to go on walks daily. Rests when needed. L>R leg weakness, not tripping. Worse when tired or overheated. Notices dropping things more with hands. No pain in hands or numbness. 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) Kidney stones Macular edema MS (multiple sclerosis) (HCC) 2003 DX 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 SOCIAL HISTORY was reviewed and updated: Current living situation: At home Current vocational status: On disabiltiy EXAM: General Appearance: well appearing, in no acute distress Mental status evaluation during the interview and examination showed Reported difficulties: memory word finding concentration / attention Affect: Normal Speech: normal RESULTS: Monitoring labs: CBC + Diff Component Value Date WBC 8.17 05/13/2021 HB 14.1 05/13/2021 HCT 46.7 (H) 05/13/2021 PLT 156 05/13/2021 ABSLYMPH 0.45 (L) 05/13/2021 CMP Component Value Date AST 48 (H) 05/13/2021 GLUC 138 (H) 11/08/2020 BUN 9 11/08/2020 CREAT 0.91 11/08/2020 NA 142 11/08/2020 K 3.5 (L) 11/08/2020 CHLOR 103 11/08/2020 ALT 48 (H) 05/13/2021 MRI brain, cervical & thoracic: IMPRESSION: Multiple intracranial white matter lesions compatible with multiple sclerosis. No new T2 lesions and no new enhancing lesions. Moderate parenchymal volume loss. Other Significant Intracranial Findings: None No evidence of demyelinating disease in the cervical spinal cord. No new T2 intramedullary lesions and no new enhancing intramedullary lesions. No significant volume loss of the upper spinal cord for age. Other Significant Cervical Spine Findings: No significant cervical canal or foraminal stenosis. No evidence of demyelinating disease in the thoracic spinal cord. No new T2 intramedullary lesions and no new enhancing intramedullary lesions. No significant volume loss of the thoracic spinal cord for age. Other Significant Thoracic Spine Findings: No significant thoracic canal or foraminal stenosis. ASSESSMENT: Mackenzie Concepcion is a 45 year old with RRMS stably disabled on ocrevus which she tolerates well. No new neurological symptoms. She continues to note BUE hand weakness, dropping things, as well as LLE,unchanged. Recent brain, CS & thoracic MRIs reviewed and stable with no new T2 or enhancing lesions noted. She does have mild DJD, will have Dr. Bansal review images to be sure no spine consult needed. Pt agrees to OT for hand. Continue baclofen and gabapentin. Pt notes increased twitching and jerking of legs, no pain or spasticity. Likely secondary to increased stress, will monitor. Followup in 6 months. PLAN: -Continue Ocrevus -Brain MRI in 1 year -Consider OT for hands -Continue baclofen -Continue gabapentin -Follow up in 6 months I spent a total of 20 minutes on the date of the service which included preparing to see the patient, [id number] patient care, completing clinical documentation, counseling and educating the patient/family/caregiver, ordering medications, tests, or procedures and communicating results to the patie nt/family/caregiver. Sania Nicholas PA-C documented [facility] History of Present illness Narrative* RT Polo(Tigre) - 10/06/2021 8:30 AM EDT Radiology Service Progress Note DATE OF SERVICE: October 06, 2021 TIME: 9:16 AM PATIENT IDENTITY VERIFICATION COMPLETED USING TWO (2) STANDARD IDENTIFIERS: Name and Date of confirmed by patient verbally. FALL SCREENING: Has the patient had 2 falls in the last year or 1 fall with injury or currently using an Ambulatory Assistive Device (Walker, Cane, Wheelchair, Crutches, etc.)? No PATIENT GENDER DATA: Female. status: : No status: NO. PATIENT RELEVANT IMPLANT DATA REVIEWED: Yes ALLERGIES: Reviewed and unchanged CONTRAST ALLERGY: NO. EXAM: MRI - CONTRAST TYPE: GROUP II PERIPHERAL IV DATA: Ambulatory: A peripheral IV was started in the Left antecubital site with a Butterfly: 23 gauge. RADIOLOGY DEPARTMENT: MR; Exam(s) Completed: Head: Multiple Sclerosis Spine: Cervical spine and Thoracic spine SIGNATURE: Sujata Reihl, RT(R) PATIENT NAME: Mackenzie Concepcion DATE: October 06, 2021 TIME: 9:16 AM documented in this encounterSelect [facility] History of Present illness Narrative* Ashia Moralez, THERMOMETER MAKER - 09/30/2021 9:58 AM EDT REFERRAL: Mackenzie Concepcion is a 45 year old adult female was referred to [facility] Work via Sania Nicholas PA-C for the following reason community services/resources and homecare services PERSONS INTERVIEWED: patient & boyfriend, Visit was conducted via [employer] with limits to confidentiality agreed upon. PRINCIPAL NEUROLOGIC DIAGNOSIS: Date of diagnosis of MS: 2002 Recent symptom(s): Patient reported increased weakness. IDENTIFIED PROBLEMS/NEEDS: Equipment Financial Intervention/Referral to be Provided:Arrangements made for continuity of care PATIENT PROVIDED BACKGROUND LIVING SITUATION: Patient resides with her boyfriend in a home. She owns the home but there is no mortgage payment. FUNCTIONAL STATUS: Patient can ambulate via wheelchair.. She can transfer on her own but this has become more difficult. SOCIAL SUPPORTS:Patient has support from her boyfriend, sister and mother. BASIC NEEDS: Insurance: [facility] Medicaid Source of Income:SSI : $838/mo PATIENT COPING STRATEGIES: Mackenzie Concepcion describes her coping strengths to include supportive relationships with immediate family EMOTIONAL/BEHAVIORAL/COGNITIVE ISSUES Alert: Yes Cognitive Status: Intact Affect/Mood: Mackenzie Concepcion is noted to appropriate. Mental Health History: Yes, depression & anxiety- managed with Celexa & Wellbutrin Current Symptoms of Anxiety: Yes Current Symptoms of Depression: Yes Suspected/Actual History of Substance Abuse: No Past History or Current Indications of Abuse/Neglect: No DPOA health: No DPOA finance: No Guardian: No Is patient a ?: No DISCUSSION/SUMMARY: Patient expressed concern regarding needing a ramp and extra assistance at home d/t her decline. Wediscussed speaking with the [employer] about financially assisting her with a ramp. National [place] Society: Navigator Program: Can assist with: Newly diagnosed support Advanced care needs Finance and resource issues Access to [place] health care Family support Symptom and treatment strategies Employment and insurance challenges She also inquired about home health assistance. She agreed for me to put in a referral with [address] [facility] for home healthcare and transportation resources. She is aware to contact me with further social work needs. IMPRESSION: Pleasant 45 year old patient. Pt requires assistance with ADL's and requires assistance with IADL's. Pt appeared able and motivated to follow up on recommendations as discussed. -Follow up in 2 months [employer] Observer Helper will remain available to address any questions/concerns. [employer] Observer Helper's contact information was provided. I spent a total of 35 minutes with the patient Social work assessment/interventions rendered under the supervision of Dr. Anju Clement, PhD, [facility]. Ashia Moralez [facility] Ancillary documented in this encounterSelect [facility] Evaluation note* Encounter Date Diagnosis Assessment Notes Treatment Notes Treatment Clinical Notes Aug, Opacity noted on imaging study (ICD-10 - R93.89) Chest Xray came back with no abnormalities. [employer] Other 05-20-2022 Miscellaneous Notes* Telephone Encounter - Renée Campoverde - 08/15/2021 2:18 PM EDT Source : electronic from pharmacy requesting refill. Delivery : e-script Pending Prescriptions Disp Refills CHOLECALCIFEROL (VITAMIN D3) 125 MCG (5,000 UNIT) CAPSULE 28 capsule 11 Sig: TAKE ONE CAPSULE BY MOUTH ONCE DAILY PATRICE: Yes DX : Patient last seen: 03/13/2021 Next Appointment : 10/06/2021 Renée Campoverde documented in this encounterSelect [facility] [place]-26-[facility] Miscellaneous Notes* Telephone Encounter - Jori Plasencia - 07/22/2021 9:01 AM EDT Source : electronic from pharmacy requesting refill. Delivery : e-script Pending Prescriptions Disp Refills GABAPENTIN 300 MG CAPSULE 140 capsule 11 Sig: TAKE ONE CAPSULE 3 TIMES DAILY (BREAKFAST, LUNCH AND DINNER) AND TAKE 2 CAPSULES AT BEDTIME PATRICE: Yes DX : Patient last seen 03/13/2021 Next Appointment : 10/06/2021 Jori Plasencia documented in this encounterSelect [facility]-18-2022 Evaluation note* Encounter Date Diagnosis Assessment Notes Treatment Notes Treatment Clinical Notes Jun, Gastroesophageal ref lux disease, esophagitis presence not specified (ICD-10 - K21.9) [employer] Other 04-12-2022 Evaluation note* Encounter Date Diagnosis Assessment Notes Treatment Notes Treatment Clinical Notes Jun, Bronchitis (ICD-10 - J40) Take medications as directed. Rest and increase fluid intake. Take meds with food to prevent stomach upset. Use inhaler as needed for coughing spells and SOB. It is better to use inhaler a few times a day over the next 2-3 days. Call the office and let me know how your feeling in a week, I am hoping your feeling a little better. [employer] Other 01-14-2022 Evaluation note* Encounter Date Diagnosis Assessment Notes Treatment Notes Treatment Clinical Notes Mar, Contact with and (suspected) exposure to other viral communicable diseases (ICD-10 - Z20.828) Mar, COVID-19 (ICD-10 - U07.1) Rapid COVID test performed in office today. Advised patient that test was positive. Instructed patient to isolate per CDC guidelines for 10 days from symptom onset. May return to work/activities outside home after isolation period as long as symptoms are improving and has been afebrile for 24 hours without use of antipyretic. Advised patient that health dept. will be in contact as results are reported to them. Advised patient that treatment of COVID is with viral supportive care, OTC cold medications as directed, Tylenol/Motrin as needed for body aches/fever. Increase fluids and rest. Encouraged use of cool mist humidifier. Follow-up with PCP to advise of positive result and further management. Immediate eval for SOB, difficulty, chest pain, fevers that do not break with antipyretic or any other concerning symptoms as reviewed on patient education handout. Patient verbalizes understanding and is agreeable to treatment plan. Patient left in stable condition 14 Mar, 2021 Other Additional time spent conducting pre-visit phone call, screening for symptoms, instructions on social distancing, application and removal of PPE, and cleaning of examination room, equipment and supplies was preformed. Patient education given for testing methodology and results. Patient care instructions given in writting by [facility] Home document [employer] 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 documented as of this encounter (statuses as of 10/07/2021) [address] History of Past illness Narrative* Problem Noted Date Resolved Date 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 documented as of this encounter (statuses as of 10/07/2021) [facility] History of Past illness Narrative* Problem Noted Date Resolved Date 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 documented as of this encounter (statuses as of 11/11/2021) [address] History of Past illness Narrative* Problem Noted Date Resolved Date 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 documented as of this encounter (statuses as of 01/30/2022) [address] History of Past illness Narrative* Problem Noted Date Resolved Date 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 documented as of this encounter (statuses as of 04/03/2022) [address] History of Past illness Narrative* Problem Noted Date Resolved Date 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 documented as of this encounter (statuses as of 04/03/2022) [place] [address] History of Past illness Narrative* Problem Noted Date Resolved Date 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 documented as of this encounter (statuses as of 04/03/2022) [address] History of Past illness Narrative* Problem Noted Date Resolved Date 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 documented as of this encounter (statuses as of 05/05/2022) [address] History of Past illness Narrative* Problem Noted Date Resolved Date 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 documented as of this encounter (statuses as of 05/05/2022) [address] History of Past illness Narrative* Problem Noted Date Resolved Date 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 documented as of this encounter (statuses as of 05/14/2022) [address] History of Past illness Narrative* Problem Noted Date Resolved Date 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 documented as of this encounter (statuses as of 07/17/2022) [address] History of Past illness Narrative* Problem Noted Date Resolved Date 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 documented as of this encounter (statuses as of 10/02/2022) [address] History of Past illness Narrative* Problem Noted Date Resolved Date 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 documented as of this encounter (statuses as of 10/02/2022) [address] History of Past illness Narrative* Problem Noted Date Diagnosed Date Resolved Date 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 documented as of this encounter (statuses as of 10/03/2022) [address] History of Past illness Narrative* Problem Noted Date Diagnosed Date Resolved Date 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 documented as of this encounter (statuses as of 10/03/2022) [address] History of Past illness Narrative* Problem Noted Date Diagnosed Date Resolved Date 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 documented as of this encounter (statuses as of 10/05/2022) [address] History of Past illness Narrative* Problem Noted Date Diagnosed Date Resolved Date 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 documented as of this encounter (statuses as of 11/12/2022) [address] History of Past illness Narrative* Problem Noted Date Diagnosed Date Resolved Date 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 documented as of this encounter (statuses as of 05/07/2023) [address] History of Past illness Narrative* Problem Noted Date Diagnosed Date Resolved Date 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 noteNo InformationNobarnes-[facility] [employer] Other Evaluation note* Diagnosis Multiple sclerosis (HCC) Multiple sclerosis Vitamin D deficiency Unspecified vitamin D deficiency Medication monitoring encounter Encounter for therapeutic drug monitoring Chronic bilateral low back pain, unspecified whether sciatica present Left leg weakness Other musculoskeletal symptoms referable to limbs Hand weakness Other musculoskeletal symptoms referable to limbs documented in this encounter [facility] note* Diagnosis Multiple sclerosis (HCC)- Primary Multiple sclerosis Weakness of both hands documented in this encounter [facility] note* Diagnosis Bipolar 1 disorder, mixed, severe (HCC)- Primary Bipolar I disorder, most recent episode (or current) mixed, severe, without mention of psychotic behavior MS (multiple sclerosis) (HCC) Multiple sclerosis documented in this encounter [facility] noteNo assessment information availableGeorgetown Behavioral [facility] Work Phone: Evaluation note* Diagnosis Multiple sclerosis (HCC)- Primary Multiple sclerosis Urinary incontinence, unspecified type Imbalance Abnormality of gait Abnormality of gait [facility] Diagnosis Multiple sclerosis (HCC)- Primary Multiple sclerosis [facility] this [facility]* Diagnosis Multiple sclerosis (HCC)- Primary Multiple sclerosis [facility]* Diagnosis MS (multiple sclerosis) (HCC)- Primary Multiple sclerosis [facility] in this encounter [facility]* Diagnosis 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- Primary Posterior subcapsular polar senile cataract Postinflammatory optic atrophy of right eye MS (multiple sclerosis) (HCC) Multiple sclerosis Refraction error Unspecified disorder of refraction and accommodation [facility] this encounter [facility]* Diagnosis Multiple sclerosis (HCC) Multiple sclerosis Urinary incontinence, unspecified type Imbalance Abnormality of gait Abnormality of gait documented in this encounter [facility]* Diagnosis MS (multiple sclerosis) (HCC)- Primary Multiple sclerosis [facility]* Diagnosis Multiple sclerosis (HCC)- Primary Multiple sclerosis [facility]* Diagnosis Multiple sclerosis (HCC)- Primary Multiple sclerosis MS (multiple sclerosis) (HCC) Multiple sclerosis documented in this encounter [facility]* Diagnosis Multiple sclerosis (HCC) Multiple sclerosis documented in this [facility]* Diagnosis Multiple sclerosis (HCC)- Primary Multiple sclerosis documented in this [facility]* Diagnosis Multiple sclerosis (HCC)- Primary Multiple sclerosis Tension headache [facility] this [facility]* Diagnosis Multiple sclerosis (HCC)- Primary Multiple sclerosis MS (multiple sclerosis) (HCC) Multiple sclerosis [facility]* Diagnosis Tear film insufficiency, bilateral- Primary 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 Posterior subcapsular polar senile cataract Optic nerve asymmetry, bilateral MS (multiple sclerosis) (HCC) Multiple sclerosis documented in this encounter [facility] general Narrative - Reported* Type Description Date Medical History reflux Medical History multiple sclerosis Medical History anxiety Medical History seasonal allergies Medical History overactive bladder Medical History Vitamin D deficiency Surgical History hand surgery Surgical History trigger finger release Surgical History eyes Surgical History cataract surgery Surgical History lens implant Surgical History ablasion Surgical History hysterectomy Surgical History wisdom teeth extract Hospitalization History blood transfusion [employer] Other Hospital Discharge instructions No data available for this section [facility] No data available for this section 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 Advance Directive(s) 08/17/2017 2:13 PM Advance Directive(s) 08/17/2017 11:23 PM Advance Directive Response Recorded Date/ Time Advance Directives No June 17, 2 018 6:48pm Reason for Referral Reason left knee pain with no improvement Diagnosis 1 Acute pain of left k nee (M25.562) Referral Organization [facility] Referring Provider First Name Mila Referring Provider Last Name Patricia Referring Provider Specialty Nurse Pract itioner Referred Organization [facility] Referred Provider Manas Garcia Referred Address ,[place], [place],[address] Referred Provider Specialty Orthopedic S urgery Referral Priority Routine Reason patient is having on going hearing issues Diagnosis 1 Hearing problem of b oth ears (H91.93) Referral Organization [facility] Referring Provider First Name Mila Referring Provider Last Name Patricia Referring Provider Specialty Nurse Pract itioner Referred Organization [facility] Referred Provider Marilu Pitt Referred Address ,[place], [place],[address] Referred Provider Specialty Ear, Nose an d Throat Referral Priority Routine Specialty Diagnoses / Procedures Referred By Shane rich Referred To Contact [facility] Diagnoses Multiple sclerosis (HCC) Weakness of both hands Procedures CONSULT TO WAREHOUSE SPECIALIST OCCUPATIONAL THERAPY EVAL HIGH COMPLEX 60 MINS Sania Nicholas PA-C [address] [place] [address] [facility] [place] [address] [place] [address] Referral ID Status Reason Start Date Expiration Date Visits Requested Visits Authorized [id number] Pending Review Auto-Generat ed Referral 10/07/2021 10/07/2022 1 1 Specialty Diagnoses / Procedures Referred By Contac t Referred To Contact [facility] Diagnoses Multiple sclerosis (HCC) Vitamin D deficiency Medication monitoring encounter Chronic bilateral low back pain, unspecified whether sciatica present Left leg weakness Hand weakness Procedures MRI THORACIC SPINE WO/W IVCON MRI, DORSAL SPINE COMBO Sania Nicholas PA-C [address] [place] [address] Mr Imaging Referral ID Status Reason Start Date Expiration Date V isits Requested Visits Authorized [id number] Closed Auto-Generate d Referral 09/17/2021 11/16/2021 1 1 Specialty Diagnoses / Procedures Referred By Contac t Referred To Contact MR IMAGING Diagnoses Multiple sclerosis (HCC) Vitamin D deficiency Medication monitoring encounter Chronic bilateral low back pain, unspecified whether sciatica present Left leg weakness Hand weakness Procedures MRI CERVICAL SPINE WO/W IVCON MRI, CERV SPINE COMBO MRI SPINAL CANAL CERVICAL W/O CONTRAST MATRL Sania Nicholas PA-C [address] [place] [address] Mr Imaging Referral ID Status Reason Start Date Expiration Date V isits Requested Visits Authorized [id number] Closed Auto-Generate d Referral 09/24/2021 11/23/2021 1 1 Specialty Diagnoses / Procedures Referred By Contac t Referred To Contact MR IMAGING Diagnoses Multiple sclerosis (HCC) Vitamin D deficiency Medication monitoring encounter Chronic bilateral low back pain, unspecified whether sciatica present Left leg weakness Hand weakness Procedures MRI BRAIN WO/W IVCON MRI BRAIN COMBO Sania Nicholas PA-C [address] [place] [address] Mr Imaging Referral ID Status Reason Start Date Expiration Date V isits Requested Visits Authorized [id number] Closed Auto-Generate d Referral 03/13/2021 11/23/2021 1 1 Medications Administered Section Inactive Administered Medications - up to 3 most recent administrations Medication Order MAR Action Action Date Dose Rate Site acetaminophen 1,000 mg tab(s) (TYLENOL) 1,000 mg, ORAL, ONCE, 1 dose, On Wed11/11/21 at 0930, No more than 4000 mg of acetaminophen should be given per day (FROM ALL SOURCES) Given 11/11/2021 9:45 AM EDT 1,000 mg diphenhydrAMINE 50 mg (BENADRYL) 50 mg, ORAL, ONCE, 1 dose, On Wed11/11/21 at 0930 Given 11/11/2021 9:45 AM EDT 50 mg methylPREDNISolone sod succinate(PF) 100 mg injection (SOLU-Medrol) 100 mg, INTRAVENOUS, ONCE, 1 dose, On Wed11/11/21 at 09 Given 11/11/2021 9:44 AM EDT 100 mg ocrelizumab 600 mg in NaCl 0.9% 500 mL (OCREVUS) 600 mg, INTRAVENOUS, ONCE, 1 dose, On Wed11/11/21 at 0930, APPROX TOTAL VOLUME: 560 mL -Subsequent infusion: Subsequent infusion. Start infusion at 100 mL/hour for 15 minutes, then increase to 200 mL/hour for 15 minutes, then increase to 250 mL/hour for 30 minutes, then increase to 300 mL/hour for remainder of infusion. Maximum rate = 300mL/hour. EXP: 11/11/21 1715 Room Temp Administer with 0.2 micron filter. Refrigerate - Protect From Light. Exp: (24 HR) Rate/Dose Change 11/11/2021 11:31 AM EDT 300 mL/hr Rate/Dose Change 11/11/2021 10:55 AM EDT 250 mL /hr Rate/Dose Change 11/11/2021 10:39 AM EDT 200 mL /hr ondansetron 8 mg tab(s) (ZOFRAN) 8 mg, ORAL, NOW, 1 dose, On Wed11/11/21 at 0930 Given 11/11/2021 9:44 AM EDT 8 mg potassium chloride ER 20 mEq tab(s) (K-DUR, KLOR-CON) 20 mEq, ORAL, ONCE, 1 dose, On Wed11/11/21 at 0930, Swallow whole; DO NOT crush or chew. If patient unable to swallow whole tablet; dissolve whole tablet (do not crush) in 120 mL of water prior to administration (may take up to 2 minutes to dissolve). Given 11/11/2021 9:44 AM EDT 20 mEq Inactive Administered Medications - up to 3 most recent administrations Medication Order MAR Action Action Date Dose Rate Site acetaminophen 1,000 mg tab(s) (TYLENOL) 1,000 mg, ORAL, ONCE, 1 dose, On Wed05/13/22 at 1000, No more than 4000 mg of acetaminophen should be given per day (FROM ALL SOURCES) Given 05/13/2022 10:04 AM EST 1,000 mg diphenhydrAMINE 50 mg (BENADRYL) 50 mg, ORAL, ONCE, 1 dose, On Wed05/13/22 at 1000 Given 05/13/2022 10:04 AM EST 50 mg methylPREDNISolone sod succinate(PF) 100 mg injection (SOLU-Medrol) 100 mg, INTRAVENOUS, ONCE, 1 dose, On Wed05/13/22 at 1000 Given 05/13/2022 10:04 AM EST 100 mg ocrelizumab 600 mg in NaCl 0.9% 500 mL (OCREVUS) 600 mg, INTRAVENOUS, ONCE, 1 dose, On Wed05/13/22 at 1000, APPROX TOTAL VOLUME: 560 mL -Subsequent infusion: Subsequent infusion. Start infusion at 100 mL/hour for 15 minutes, then increase to 200 mL/hour for 15 minutes, then increase to 250 mL/hour for 30 minutes, then increase to 300 mL/hour for remainder of infusion. Maximum rate = 300mL/hour. EXP: 05/14/2022@1000 Room Temp Administer with 0.2 micron filter. Refrigerate - Protect From Light. Exp: (24 HR) Rate/Dose Change 05/13/2022 11:50 AM EST Rate/Dose Change 05/13/2022 11:15 AM EST 250 mL /hr Rate/Dose Change 05/13/2022 11:00 AM EST 200 mL /hr ondansetron 8 mg tab(s) (ZOFRAN) 8 mg, ORAL, NOW, 1 dose, On Wed05/13/22 at 0930 Given 05/13/2022 10:04 AM EST 8 mg potassium chloride ER 20 mEq tab(s) (K-DUR, KLOR-CON) 20 mEq, ORAL, ONCE, 1 dose, On Wed05/13/22 at 0930, Swallow whole; DO NOT crush or chew. If patient unable to swallow whole tablet; dissolve whole tablet (do not crush) in 120 mL of water prior to administration (may take up to 2 minutes to dissolve). Given 05/13/2022 10:04 AM EST 20 mEq Active Administered Medications - up to 3 most recent administrations Medication Order MAR Action Action Date Dose Rate Site fluorescein-benoxinate 0.25-0.4 % 1 Drop (FLURESS) 1 Drop, BOTH EYES, DIRECTED, Starting on Wed10/02/22 at 0830, Until Wed10/02/22 at 2028, Administer for applanation tonometry. In the event of a Fluress shortage, administer 1 drop of [place]-Fluor into both eyes as directed for applanation tonometry. Given 10/02/2022 8:18 AM EDT 1 Drop PHENYLephrine 2.5 % 1 Drop (AK-DILATE, COMFORT-SYNEPHRINE) 1 Drop, BOTH EYES, DIRECTED, Starting on Wed10/02/22 at 0830, Until Wed10/02/22 at 2028, Administer for dilation PROTECT FROM LIGHT Given 10/02/2022 8:20 AM EDT 1 Drop tropicamide 1 % 1 Drop (MYDRIACYL) 1 Drop, BOTH EYES, DIRECTED, Starting on Wed10/02/22 at 0830, Until Wed10/02/22 at 2028, Administer for dilation Given 10/02/2022 8:20 AM EDT 1 Drop Inactive Administered Medications - up to 3 most recent administrations Medication Order MAR Action Action Date Dose Rate Site acetaminophen 1,000 mg tab(s) (TYLENOL) 1,000 mg, ORAL, ONCE, 1 dose, On Wed11/11/22 at 0930, No more than 4000 mg of acetaminophen should be given per day (FROM ALL SOURCES) Given 11/11/2022 9:34 AM EDT 1,000 mg diphenhydrAMINE 50 mg (BENADRYL) 50 mg, ORAL, ONCE, 1 dose, On Wed11/11/22 at 0930 Given 11/11/2022 9:34 AM EDT 50 mg methylPREDNISolone sod succinate(PF) 100 mg injection (SOLU-Medrol) 100 mg, INTRAVENOUS, ONCE, 1 dose, On Wed11/11/22 at 0930 Given 11/11/2022 9:34 AM EDT 100 mg ocrelizumab 600 mg in NaCl 0.9% 500 mL (OCREVUS) 600 mg, INTRAVENOUS, ONCE, 1 dose, On Wed11/11/22 at 0930, APPROX TOTAL VOLUME: 560 mL -Subsequent infusion: Subsequent infusion. Start infusion at 100 mL/hour for 15 minutes, then increase to 200 mL/hour for 15 minutes, then increase to 250 mL/hour for 30 minutes, then increase to 300 mL/hour for remainder of infusion. Maximum rate = 300mL/hour. EXP: 11/11/22 1715 RT Administer with 0.2 micron filter. Refrigerate - Protect From Light. Exp: (24 HR) Rate/Dose Change 11/11/2022 11:15 AM EDT 300 mL/hr Rate/Dose Change 11/11/2022 10:40 AM EDT 250 mL /hr Rate/Dose Change 11/11/2022 10:25 AM EDT 200 mL /hr ondansetron 8 mg tab(s) (ZOFRAN) 8 mg, ORAL, NOW, 1 dose, On Wed11/11/22 at 0930 Given 11/11/2022 9:34 AM EDT 8 mg potassium chloride ER 20 mEq tab(s) (KLOR-CON) 20 mEq, ORAL, ONCE, 1 dose, On Wed11/11/22 at 0930, Swallow whole; DO NOT crush or chew. If patient unable to swallow whole tablet; dissolve whole tablet (do not crush) in 120 mL of water prior to administration (may take up to 2 minutes to dissolve). Given 11/11/2022 9:34 AM EDT 20 mEq Chief Complaint and Reason for Visit Chief Complaint BH Cough Additional Source Comments INFORMATION SOURCE (unrecogn ized section and content) DATE CREATED AUTHOR 09/15/2017 [facility] DATE CREATED AUTHOR AUTHOR'S ORGANIZ ATION 08/10/2022 [facility] DATE CREATED AUTHOR AUTHOR'S ORGANIZ ATION 12/08/2023 [facility] DATE CREATED AUTHOR AUTHOR'S ORGANIZ ATION 12/10/2023 [facility] DATE CREATED AUTHOR AUTHOR'S ORGANIZ ATION 12/12/2023 [facility] DATE CREATED AUTHOR AUTHOR'S ORGANIZ ATION 12/13/2023 [facility] DATE CREATED AUTHOR AUTHOR'S ORGANIZ ATION 01/05/2024 [facility] Source Comments (unrecognize d section and content) In the event this informatio n is protected by the Federal Confidentiality of Alcohol and Drug Abuse Patient Records regulations: The Federal rules restrict any use of the information to criminally investigate or prosecute any alcohol or drug abuse patient.[facility] the event this information is protected by the Federal Confidentiality of Alcohol and Drug Abuse Patient Records regulations: The Federal rules restrict any use of the information to criminally investigate or prosecute any alcohol or drug abuse patient.[facility] the event this information is protected by the Federal Confidentiality of Alcohol and Drug Abuse Patient Records regulations: The Federal rules restrict any use of the information to criminally investigate or prosecute any alcohol or drug abuse patient.[facility]on[facility] the event this information is protected by the Federal Confidentiality of Alcohol and Drug Abuse Patient Records regulations: The Federal rules restrict any use of the information to criminally investigate or prosecute any alcohol or drug abuse patient.[facility] the event this information is protected by the Federal Confidentiality of Alcohol and Drug Abuse Patient Records regulations: The Federal rules restrict any use of the information to criminally investigate or prosecute any alcohol or drug abuse patient.[facility]on[facility] the event this information is protected by the Federal Confidentiality of Alcohol and Drug Abuse Patient Records regulations: The Federal rules restrict any use of the information to criminally investigate or prosecute any alcohol or drug abuse patient.[facility]onIn the event this information is protected by the Federal Confidentiality of Alcohol and Drug Abuse Patient Records regulations: The Federal rules restrict any use of the information to criminally investigate or prosecute any alcohol or drug abuse patient.[facility]onIn the event this information is protected by the Federal Confidentiality of Alcohol and Drug Abuse Patient Records regulations: The Federal rules restrict any use of the information to criminally investigate or prosecute any alcohol or drug abuse patient.[facility]onIn the event this information is protected by the Federal Confidentiality of Alcohol and Drug Abuse Patient Records regulations: The Federal rules restrict any use of the information to criminally investigate or prosecute any alcohol or drug abuse patient.[facility]onIn the event this information is protected by the Federal Confidentiality of Alcohol and Drug Abuse Patient Records regulations: The Federal rules restrict any use of the information to criminally investigate or prosecute any alcohol or drug abuse patient.[facility]onIn the event this information is protected by the Federal Confidentiality of Alcohol and Drug Abuse Patient Records regulations: The Federal rules restrict any use of the information to criminally investigate or prosecute any alcohol or drug abuse patient.[facility]onIn the event this information is protected by the Federal Confidentiality of Alcohol and Drug Abuse Patient Records regulations: The Federal rules restrict any use of the information to criminally investigate or prosecute any alcohol or drug abuse patient.[facility]onIn the event this information is protected by the Federal Confidentiality of Alcohol and Drug Abuse Patient Records regulations: The Federal rules restrict any use of the information to criminally investigate or prosecute any alcohol or drug abuse patient.[facility]onIn the event this information is protected by the Federal Confidentiality of Alcohol and Drug Abuse Patient Records regulations: The Federal rules restrict any use of the information to criminally investigate or prosecute any alcohol or drug abuse patient.[facility]onIn the event this information is protected by the Federal Confidentiality of Alcohol and Drug Abuse Patient Records regulations: The Federal rules restrict any use of the information to criminally investigate or prosecute any alcohol or drug abuse patient.[facility]onIn the event this information is protected by the Federal Confidentiality of Alcohol and Drug Abuse Patient Records regulations: The Federal rules restrict any use of the information to criminally investigate or prosecute any alcohol or drug abuse patient.[facility]onIn the event this information is protected by the Federal Confidentiality of Alcohol and Drug Abuse Patient Records regulations: The Federal rules restrict any use of the information to criminally investigate or prosecute any alcohol or drug abuse patient.[facility]onIn the event this information is protected by the Federal Confidentiality of Alcohol and Drug Abuse Patient Records regulations: The Federal rules restrict any use of the information to criminally investigate or prosecute any alcohol or drug abuse patient.[facility]onIn the event this information is protected by the Federal Confidentiality of Alcohol and Drug Abuse Patient Records regulations: The Federal rules restrict any use of the information to criminally investigate or prosecute any alcohol or drug abuse patient.[facility]onIn the event this information is protected by the Federal Confidentiality of Alcohol and Drug Abuse Patient Records regulations: The Federal rules restrict any use of the information to criminally investigate or prosecute any alcohol or drug abuse patient.[facility]onIn the event this information is protected by the Federal Confidentiality of Alcohol and Drug Abuse Patient Records regulations: The Federal rules restrict any use of the information to criminally investigate or prosecute any alcohol or drug abuse patient.[facility]onIn the event this information is protected by the Federal Confidentiality of Alcohol and Drug Abuse Patient Records regulations: The Federal rules restrict any use of the information to criminally investigate or prosecute any alcohol or drug abuse patient.[facility]onIn the event this information is protected by the Federal Confidentiality of Alcohol and Drug Abuse Patient Records regulations: The Federal rules restrict any use of the information to criminally investigate or prosecute any alcohol or drug abuse patient.[facility]onIn the event this information is protected by the Federal Confidentiality of Alcohol and Drug Abuse Patient Records regulations: The Federal rules restrict any use of the information to criminally investigate or prosecute any alcohol or drug abuse patient.[facility]onIn the event this information is protected by the Federal Confidentiality of Alcohol and Drug Abuse Patient Records regulations: The Federal rules restrict any use of the information to criminally investigate or prosecute any alcohol or drug abuse patient.[facility]onIn the event this information is protected by the Federal Confidentiality of Alcohol and Drug Abuse Patient Records regulations: The Federal rules restrict any use of the information to criminally investigate or prosecute any alcohol or drug abuse patient.[facility]onIn the event this information is protected by the Federal Confidentiality of Alcohol and Drug Abuse Patient Records regulations: The Federal rules restrict any use of the information to criminally investigate or prosecute any alcohol or drug abuse patient.[facility]onIn the event this information is protected by the Federal Confidentiality of Alcohol and Drug Abuse Patient Records regulations: The Federal rules restrict any use of the information to criminally investigate or prosecute any alcohol or drug abuse patient.[facility]onIn the event this information is protected by the Federal Confidentiality of Alcohol and Drug Abuse Patient Records regulations: The Federal rules restrict any use of the information to criminally investigate or prosecute any alcohol or drug abuse patient.[facility]onIn the event this information is protected by the Federal Confidentiality of Alcohol and Drug Abuse Patient Records regulations: The Federal rules restrict any use of the information to criminally investigate or prosecute any alcohol or drug abuse patient.[facility]onIn the event this information is protected by the Federal Confidentiality of Alcohol and Drug Abuse Patient Records regulations: The Federal rules restrict any use of the information to criminally investigate or prosecute any alcohol or drug abuse patient.[facility]onIn the event this information is protected by the Federal Confidentiality of Alcohol and Drug Abuse Patient Records regulations: The Federal rules restrict any use of the information to criminally investigate or prosecute any alcohol or drug abuse patient.[facility]onIn the event this information is protected by the Federal Confidentiality of Alcohol and Drug Abuse Patient Records regulations: The Federal rules restrict any use of the information to criminally investigate or prosecute any alcohol or drug abuse patient.[facility]onIn the event this information is protected by the Federal Confidentiality of Alcohol and Drug Abuse Patient Records regulations: The Federal rules restrict any use of the information to criminally investigate or prosecute any alcohol or drug abuse patient.[facility] Reason for Visit (unrecogniz ed section and content) Reason Comments Refill Request Reason Comments Radiology MRI Specialty Diagnoses / Procedures Referred By Contac t Referred To Contact MR IMAGING Diagnoses Multiple sclerosis (HCC) Vitamin D deficiency Medication monitoring encounter Chronic bilateral low back pain, unspecified whether sciatica present Left leg weakness Hand weakness Procedures MRI THORACIC SPINE WO/W IVCON MRI, DORSAL SPINE COMBO Sania Nicholas PA-C [address] [place] [address] Mr Imaging Referral ID Status Reason Start Date Expiration Date V isits Requested Visits Authorized [id number] Closed Auto-Generate d Referral 09/17/2021 11/16/2021 1 1 Reason Comments Established Patient Follow-Up Specialty Diagnoses / Procedures Referred By Contac t Referred To Contact Diagnoses MS (multiple sclerosis) (HCC) Procedures INJECTION, OCRELIZUMAB, 1 MG Rolf, Rebecca, DO [address] [place] [address] Neur Treatment [facility] [address] [place] [address] Referral ID Status Reason Start Date Expiration Date V isits Requested Visits Authorized [id number] Authorized 02/16/2020 03/28/2039 99 99 Reason Comments Established Patient Follow-Up Reason Comments Orders PT and Image orders Specialty Diagnoses / Procedures Referred By Contac t Referred To Contact Diagnoses MS (multiple sclerosis) (HCC) Procedures INJECTION, OCRELIZUMAB, 1 MG Rolf, Rebecca, DO [address] [place] [address] [facility] Treat [address] [place] [address] Referral ID Status Reason Start Date Expiration Date V isits Requested Visits Authorized [id number] Authorized 02/16/2020 04/06/2023 99 99 Reason Comments hemolyzed labs Reason Comments Multiple Sclerosis Optic Atrophy Follow Up OD Specialty Diagnoses / Procedures Referred By Contac t Referred To Contact MR IMAGING Diagnoses Multiple sclerosis (HCC) Urinary incontinence, unspecified type Imbalance Abnormality of gait Procedures MRI CERVICAL SPINE WO/W IVCON MRI SPINAL CANAL CERVICAL W/O & W/CONTR MATRL Sania Nicholas PA-C [address] [place] [address] Mr Imaging Referral ID Status Reason Start Date Expiration Date V isits Requested Visits Authorized [id number] Closed Auto-Generate d Referral 09/21/2022 11/20/2022 1 1 Specialty Diagnoses / Procedures Referred By Contac t Referred To Contact MR IMAGING Diagnoses Multiple sclerosis (HCC) Procedures MRI BRAIN WO/W IVCON MRI BRAIN BRAIN STEM W/O W/CONTRAST MATERIAL Sania Nicholas PA-C [address] [place] [address] Mr Imaging Referral ID Status Reason Start Date Expiration Date V isits Requested Visits Authorized [id number] Closed Auto-Generate d Referral 09/21/2022 11/20/2022 1 1 Referral ID Status Reason Start Date Expiration Date V isits Requested Visits Authorized [id number] Authorized 02/16/2020 04/13/2024 9 9 Reason Comments Radiology MRI Specialty Diagnoses / Procedures Referred By Contac t Referred To Contact MR IMAGING Diagnoses Multiple sclerosis (HCC) Procedures MRI BRAIN WO/W IVCON MRI BRAIN BRAIN STEM W/O W/CONTRAST MATERIAL Rebecca Bansal DO [address] [place] [address] Imaging [place] [address] Referral ID Status Reason Start Date Expiration Date V isits Requested Visits Authorized [id number] Closed Auto-Generate d Referral 10/15/2023 11/27/2023 1 1 Reason Onset Date Comments Refill Request 11/09/2023 Reason Comments Established Patient Follow-Up Reason Comments Order PT-Aquatic Therapy-m grupo Reason Comments Eye Itching Both Eyes Tearing Both Eyes Yearly Exam Care Teams (unrecognized sec tion and content) Emission Technician Relationship Specialty Start Date End Date Mila Gomez CNP [address] [place] [address] PCP - General Family Practice 02/20/19 Emission Technician Relationship Specialty Start Date End Date Mila Gomez CNP [address] [place] [address] PCP - General Family Practice 02/20/19 Emission Technician Relationship Specialty Start Date End Date Mila Gomez CNP [address] [place] [address] PCP - General Family Practice 02/20/19 Emission Technician Relationship Specialty Start Date End Date Mila Gomez CNP [address] [place] [address] PCP - General Family Practice 02/20/19 Emission Technician Relationship Specialty Start Date End Date Mila Gomez CNP [address] [place] [address] PCP - General Family Practice 02/20/19 Team Status: Inactive Member Role Status Dates Mila Gomez LAST INSERTER-C Primary Care Provider, Atten ding Provider Active Team Status: Active Member Role Status Dates Mila Gomez , LAST INSERTER-C Primary Care Provider Active Emission Technician Relationship Specialty Start Date End Date Mila Gomez CNP [address] [place] [address] PCP - General Family Medicine 02/20/19 Emission Technician Relationship Specialty Start Date End Date Mlia Gomez CNP [address] [place] [address] PCP - General Family Medicine 02/20/19 Emission Technician Relationship Specialty Start Date End Date Mila Gomez CNP [address] [place] [address] PCP - General Family Medicine 02/20/19 Emission Technician Relationship Specialty Start Date End Date Mila Gomez CNP [address] [place] [address] PCP - General Family Medicine 02/20/19 Emission Technician Relationship Specialty Start Date End Date Mila Gomez CNP [address] [place] [address] PCP - General Family Medicine 02/20/19 Emission Technician Relationship Specialty Start Date End Date PatriciaJesseMila, POLO [address] [place] [address] PCP - General Family Medicine 02/20/19 Emission Technician Relationship Specialty Start Date End Date Patricia MilaPOLO [address] [place] [address] PCP - General Family Medicine 02/20/19 Emission Technician Relationship Specialty Start Date End Date Kel Gomezvirginia POLO [address] [place] [address] PCP - General Family Medicine 02/20/19 Emission Technician Relationship Specialty Start Date End Date Mila Gomez CNP [address] [place] [address] PCP - General Family Medicine 02/20/19 Emission Technician Relationship Specialty Start Date End Date Kel GomeziePOLO [address] [place] [address] PCP - General Family Medicine 02/20/19 Emission Technician Relationship Specialty Start Date End Date Mila Gomez CNP [address] [place] [address] PCP - General Family Medicine 02/20/19 Emission Technician Relationship Specialty Start Date End Date Mila Gomez CNP [address] [place] [address] PCP - General Family Medicine 02/20/19 Emission Technician Relationship Specialty Start Date End Date Mila Gomez CNP [address] [place] [address] PCP - General Family Medicine 02/20/19 Emission Technician Relationship Specialty Start Date End Date PatriciaMila POLO [address] [place] [address] PCP - General Family Medicine 02/20/19 Emission Technician Relationship Specialty Start Date End Date Patricia Mila POLO [address] [place] [address] PCP - General Family Medicine 02/20/19 Emission Technician Relationship Specialty Start Date End Date PatriciaMila POLO [address] [place] [address] PCP - General Family Medicine 02/20/19 Team Status: Active Member Role Status Dates NON STAFF Primary Care Provider Active Team Status: Active Member Role Status Dates SKYLER Ho Primary Care Provider Active Start: June 22, 2023 Jose G Santiago MD Attending Provider Active Start: June 22, 2023 Team Status: Inactive Member Role Status Dates Eva Trujillo APRN Attending Provider Active Start: August 13, 2023 End: August 13, 2023 NON STAFF Primary Care Provider Active Start: August 13, 2023 End: August 13, 2023 Emission Technician Relationship Specialty Start Date End Date PatriciaMila POLO [address] [place] [address] PCP - General Family Medicine 02/20/19 Emission Technician Relationship Specialty Start Date End Date PatriciaMilaPOLO [address] [place] [address] PCP - General Family Medicine 02/20/19 Emission Technician Relationship Specialty Start Date End Date PatriciaMila POLO [address] [place] [address] PCP - General Family Medicine 02/20/19 Emission Technician Relationship Specialty Start Date End Date PatriciaJesseMilaPOLO [address] [place] [address] PCP - General Family Medicine 02/20/19 Emission Technician Relationship Specialty Start Date End Date Kel GomeziePOLO [address] [place] [address] PCP - General Family Medicine 02/20/19 Emission Technician Relationship Specialty Start Date End Date Kel GomeziePOLO [address] [place] [address] PCP - General Family Medicine 02/20/19 Emission Technician Relationship Specialty Start Date End Date Patricia MilaPOLO [address] [place] [address] PCP - General Family Medicine 02/20/19 Emission Technician Relationship Specialty Start Date End Date Patricia MilaPOLO [address] [place] [address] PCP - General Family Medicine 02/20/19 Goals (unrecognized section and content) Goals may be documented in a n alternate section Inactive Administered Medications - up to 3 most recent administrations Administered Medications (un recognized section and content) Medication Order MAR Action Action Date Dose Rate Site acetaminophen 1,000 mg tab(s) (TYLENOL) 1,000 mg, ORAL, ONCE, 1 dose, On Zeny 05/20/23 at 1000, No more than 4000 mg of acetaminophen should be given per day (FROM ALL SOURCES) Given 05/20/2023 9:59 AM EST 1,000 mg diphenhydrAMINE 50 mg (BENADRYL) 50 mg, ORAL, ONCE, 1 dose, On Zeny 05/20/23 at 1000 Given 05/20/2023 9:59 AM EST 50 mg famotidine 20 mg injection (PEPCID) 20 mg, INTRAVENOUS, NEEDED, 1 dose, Starting on Zeny 05/20/23 at 0936, Until Zeny 05/20/23 at 1240, Hypotension, shortness of breath, bronchospasm, or hives, Stop Infusion. Notify Physician. Consult Physician to determine if the medication may be resumed. REFRIGERATE Given 05/20/2023 12:40 PM EST 20 mg methylPREDNISolone sod succinate(PF) 100 mg injection (SOLU-Medrol) 100 mg, INTRAVENOUS, ONCE, 1 dose, On Zeny 05/20/23 at 1000 Given 05/20/2023 9:59 AM EST 100 mg methylPREDNISolone sod succinate(PF) 100 mg injection (SOLU-Medrol) 100 mg, INTRAVENOUS, ONCE, 1 dose, On Zeny 05/20/23 at 1300 Given 05/20/2023 12:40 PM EST 100 mg ocrelizumab 600 mg in NaCl 0.9% 500 mL (OCREVUS) 600 mg, INTRAVENOUS, ONCE, 1 dose, On Zeny 05/20/23 at 1000, APPROX TOTAL VOLUME: 560 mL -Subsequent infusion: Subsequent infusion. Start infusion at 100 mL/hour for 15 minutes, then increase to 200 mL/hour for 15 minutes, then increase to 250 mL/hour for 30 minutes, then increase to 300 mL/hour for remainder of infusion. Maximum rate = 300mL/hour. EXP: 05/21/2023@0945 Administer with 0.2 micron filter. Refrigerate - Protect From Light. Exp: (24 HR) Restarted 05/20/2023 1:20 PM EST 300 mL/hr Rate/Dose Change 05/20/2023 11:33 AM EST 300 mL /hr Rate/Dose Change 05/20/2023 11:03 AM EST 250 mL /hr ondansetron 8 mg tab(s) (ZOFRAN) 8 mg, ORAL, NOW, 1 dose, On Zeny 05/20/23 at 1000 Given 05/20/2023 10:00 AM EST 8 mg potassium chloride ER 20 mEq tab(s) (KLOR-CON) 20 mEq, ORAL, ONCE, 1 dose, On Zeny 05/20/23 at 1000, Swallow whole; DO NOT crush or chew. If patient unable to swallow whole tablet; dissolve whole tablet (do not crush) in 120 mL of water prior to administration (may take up to 2 minutes to dissolve). Given 05/20/2023 9:59 AM EST 20 m Eq FOR RECORDS PERTAINING TO PATIENTS WHO ARE OR HAVE BEEN ENROLLED IN A CHEMICAL DEPENDENCY/SUBSTANCEABUSE PROGRAM, SOME INFORMATION MAY BE OMITTED. This clinical summary was aggregated from multiple sources. Caution should be exercised in using it in the provision of clinical care. This summary normalizes information from multiple sources, and as a consequence, information in this document may materially change the coding, format and clinical context of patient data. In addition, data may be omitted in some cases. CLINICAL DECISIONS SHOULD BE BASED ON THE PRIMARY CLINICAL RECORDS. [employer] [facility]. provides no warranty or guarantee of the accuracy or completeness of information in this document.
[2024-01-11 10:51] LABS: Basophils Percent Auto 0.7 % (0.2-2.0); Eosinophils Absolute Auto 0.2 10^3/uL (0.0-0.7); Eosinophils Percent Auto 2.8 % (0.9-7.0); Hematocrit 40.7 % (36.0-48.0); Hemoglobin 13.5 g/dL (12.0-16.0); Immature Granulocytes Abs Auto 0.04 10^3/uL (0.00-0.03); Immature Granulocytes Pct Auto 0.7 % (0.0-0.5); Lymphocytes Absolute Auto 1.4 10^3/uL (1.2-3.8); Lymphocytes Percent Auto 24.6 % (20.5-60.0); Mean Corpuscular HGB Conc 33.2 g/dL (29.9-35.2); Mean Corpuscular Hemoglobin 29.3 pg (26.7-34.0); Mean Corpuscular Volume 88.5 fL (81.0-99.0); Mean Platelet Volume 10.1 fL (9.5-13.5); Monocytes Absolute Auto 0.5 10^3/uL (0.3-0.8); Neutrophils Absolute Auto 3.5 10^3/uL (1.4-6.5); Neutrophils Percent Auto 62.2 % (43.0-75.0); Platelet Count 154 10^3/uL (150-450); Red Cell Distribution Width 12.3 % (11.0-15.0); White Blood Count 5.7 10^3/uL (4.0-11.0)
[2024-01-11 11:05] LABS: Alanine Aminotransferase 26 U/L (14-59); Albumin Globulin Ratio 0.9; Albumin Level 2.8 g/dL (3.4-5.0); Alkaline Phosphatase 79 U/L (46-116); Aspartate Amino Transferase 24 U/L (15-37); Bilirubin Direct 0.2 mg/dL (0.0-0.2); Bilirubin Total 0.4 mg/dL (0.2-1.0); Globulin 3.1 g/dL; Total Protein 5.9 g/dL (6.4-8.2); Valproic Acid 66.2 ug/mL (50.0-100.0)
== END 2024-01-11 10:16 | disposition home or self-care (01) ==
LOC: LAB 10:16
PROVIDERS: PCP Nurse Practitioner Family; Visit Provider Psychiatry & Neurology Psychiatry
DX: F31.9 Bipolar disorder, unspecified (principal); Z79.899 Other long term (current) drug therapy
CPT/HCPCS: 36415; 80076; 80164; 85025

== ENCOUNTER 2024-03-28 17:02 | Emergency (ER) | payer OTHER, SELFPAY ==
[2024-03-28 17:06] VITALS: BP 136/68; PULSE 77; TEMP 36.6; O2SAT 96; BMI 42.4
--- NOTE | 2024-03-28 17:10 | XR_ITS ---
The [address] [address] Patient Name: RANDALL CONCEPCION MRN: [id number] date: 1975 Sex: F Assigned Patient Location: ER Current Patient Location: ED.MAIN Accession/Order Number: [id number] Exam Date: 03/28/2024 17:15 Report Date: 03/28/2024 17:45 At the request of: CHANDANA ROQUE Procedure: XR foot LT min 3V PROCEDURE: XR foot LT min 3V HISTORY: Hit on cabinet, pain ; left foot pain COMPARISON: None. FINDINGS: BONES:No fracture, acute abnormality, or significant arthropathy. Calcaneal plantar spur. SOFT TISSUES:Dorsal soft tissue swelling. EFFUSION:None visible. OTHER: Negative. XR/XR foot LT min 3V IMPRESSION: 1. No acute bone abnormality. 2. Distal dorsal soft tissue swelling. Electronically authenticated by: JASIEL MONTES Date: 03/28/2024 17:45
--- NOTE | 2024-03-28 17:13 | ED_ITS ---
HPI HPI - Extremity Injury (Lower) General Chief Complaint: Extremity Injury, Lower Stated Complaint: LE PAIN/SWELLING Time Seen by Provider: 03/28/24 17:03 Source: patient Mode of arrival: walk-in Limitations: no limitations History of Present Illness HPI Narrative: 48-year-old female presents for pain of the dorsum of her left foot. Last night she hit it on a cabinet and it has been hurting since. Hurts more when she walks on it. There was no bleeding and no other injury. No pain in the ankle and its moderate pain. Related Data Home Medications ?Medication ?Instructions ?Recorded ?Confirmed albuterol sulfate 90 mcg/actuation 2 puff inhalation Q4H PRN 03/28/24 03/28/24 aerosol inhaler shortness of breath or wheezing amitriptyline 10 mg tablet 20 mg PO BEDTIME 03/28/24 03/28/24 baclofen 10 mg tablet 10 mg PO Q8H 03/28/24 03/28/24 bupropion HCl 300 mg 24 hr tablet, 300 mg PO DAILY 03/28/24 03/28/24 extended release cariprazine 6 mg capsule (Vraylar) 6 mg PO DAILY 03/28/24 03/28/24 cetirizine 10 mg tablet 10 mg PO DAILY 03/28/24 03/28/24 citalopram 20 mg tablet 20 mg PO DAILY 03/28/24 03/28/24 divalproex 250 mg tablet,extended 250 mg PO BEDTIME 03/28/24 03/28/24 release 24 hr gabapentin 300 mg capsule 300 mg PO TID 03/28/24 03/28/24 ocrelizumab 30 mg/mL intravenous 300 mg IV .[id number] 03/28/24 03/28/24 solution (Ocrevus) oxybutynin chloride 5 mg tablet 10 mg PO TID 03/28/24 03/28/24 trazodone 50 mg tablet 50 mg PO BEDTIME PRN sleep 03/28/24 03/28/24 Allergies Allergy/AdvReac Type Severity Reaction Status Date / Time naproxen (From Naprosyn) Allergy Severe Verified 05/07/23 19:24 prednisone Allergy Severe Verified 05/07/23 19:24 Sulfa (Sulfonamide Allergy Severe Verified 05/07/23 19:24 Antibiotics) Opioid HPI Opioid Management Most Recent Pain and Opioid Data: Last Pain Scale 0 05/07/23 19:42 05/07/23 Review of Systems ROS Narrative A ten point review of systems is negative except as noted above. Exam Narrative Exam Narrative: Nurses note and vital signs reviewed and patient is not hypoxic. General: The patient appears well and in no apparent distress. Patient is resting comfortably on cart. Skin: Warm, dry, no pallor noted. There is no rash noted. Head: Normocephalic, atraumatic Eye: Normal conjunctiva, no drainage Ears, Nose, Mouth, and Throat: oral mucosa is moist. Nares patent. Cardiovascular: Regular Rate and Rhythm Respiratory: Patient is in no distress, no accessory muscle use, lungs are clear to auscultation, no wheezing, rales or rhonchi Back: non-tender, no CVA tenderness bilaterally to percussion. GI: Soft and nontender Musculoskeletal: There is some swelling and tenderness on the dorsum of her left foot. Skin intact Neurological: A&O, normal speech Psychiatric: Cooperative Constitutional Vital Signs, click to edit/add: Last Vital Signs Temp 97.9 F 03/28/24 17:06 Pulse 77 03/28/24 17:06 Resp 18 03/28/24 17:06 BP 136/68 03/28/24 17:06 Pulse Ox 96 03/28/24 17:06 O2 Del Method Room Air 03/28/24 17:06 Course Vital Signs Vital signs: Vital Signs Temperature 97.9 F 03/28/24 17:06 Pulse Rate 77 03/28/24 17:06 Respiratory Rate 18 03/28/24 17:06 Blood Pressure 136/68 03/28/24 17:06 Pulse Oximetry 96 03/28/24 17:06 Oxygen Delivery Method Room Air 03/28/24 17:06 Temperature 97.9 F 03/28/24 17:06 Pulse Rate 77 03/28/24 17:06 Respiratory Rate 18 03/28/24 17:06 Blood Pressure 136/68 03/28/24 17:06 Pulse Oximetry 96 03/28/24 17:06 Oxygen Delivery Method Room Air 03/28/24 17:06 MDM - Extremity Injury (Lower) MDM Narrative Medical decision making narrative: X-ray of the foot on my interpretation shows no fractures. She is recommended ice rest and elevation and ibuprofen. Treatment diagnosis and follow-up were d iscussed with the patient. Differential Diagnosis Differential diagnosis: Likely other (Contusion, fracture) Imaging Data Left foot: My impression: No fracture Discharge Plan Discharge Chief Complaint: Extremity Injury, Lower Clinical Impression: Contusion of left foot Patient Disposition: Home, Self-Care Time of Disposition Decision: 17:34 Condition: Good Mode of Transportation: Private Vehicle Prescriptions / Home Meds: No Action albuterol sulfate 90 mcg/actuation HFA aerosol inhaler 2 puff INHALATION Q4H PRN (Reason: shortness of breath or wheezing) amitriptyline 10 mg tablet 20 mg PO BEDTIME baclofen 10 mg tablet 10 mg PO Q8H bupropion HCl 300 mg tablet extended release 24 hr 300 mg PO DAILY Vraylar 6 mg capsule 6 mg PO DAILY cetirizine 10 mg tablet 10 mg PO DAILY citalopram 20 mg tablet 20 mg PO DAILY divalproex 250 mg tablet extended release 24 hr 250 mg PO BEDTIME gabapentin 300 mg capsule 300 mg PO TID oxybutynin chloride 5 mg tablet 10 mg PO TID trazodone 50 mg tablet 50 mg PO BEDTIME PRN (Reason: sleep) Ocrevus 30 mg/mL solution 300 mg IV .[id number] Rx Instructions: Due again in Apr 2024. Print Language: Malaysian Instructions: Foot Contusion (ED) Additional Instructions: Rest, ice, and elevate. Take Motrin for pain. Referrals: CELESTINA MARK [Primary Care Provider] - 1 week
--- OUTSIDE RECORDS SUMMARY | 2024-03-28 17:16 | XMS_ITS | CCD ---
Author Organization [facility] Care Team Providers Care Boss Dyer Name Role Phone NATHALYISIS Unavailable Unavailable JASPER PINZON Unavailable Unavailable HAILEY GIMENEZ Unavailable Unavailable Mila Gomez CNP Primary Care Provider Kait Kwon Unavailable Mila Gomez Unavailable Mila Gomez CNP Primary Care Provider SKYLER Gomez Primary Care Provider SKYLER Gomez Attending Provider Mila Gomez CNP Primary Care Provider Mila Gomez CNP Primary Care Provider MILA GOMEZ Primary Care Unavailable GOGO RASCON Consulting Unavailable GOGO RASCON Attending Unavailable GOGO RASCON Admitting Unavailable GOGO RASCON Admitting Unavailable GOGO RASCON Consulting Unavailable GOGO RASCON Attending Unavailable MILA GOMEZ Primary Care Unavailable SHRADDHA Gomez-Nita Zaragoza Primary Care Provider U MD Jose G Valle Attending Provider Elen PLASCENCIA Primary Care Physician Mila Gomez CNP Primary Care Provider MILA GOEMZ Primary Care Unavailable SANIA NICHOLAS Attending Unavailable REBECCA BANSAL Referring Unavailable MLIA GOMEZ Primary Care Unavailable REBECCA BANSAL Referring Unavailable ROLF, REBECCA Attending Unavailable PATRICIA, MILA Primary Care Unavailable ROLF, REBECCA Referring Unavailable PATRICIA, MILA Primary Care Unavailable ROLF, REBECCA Referring Unavailable PATRICIA, MILA Primary Care Unavailable ROLF, REBECCA Referring Unavailable ROLF, REBECCA Attending Unavailable PATRICIA, MILA Primary Care Unavailable PATRICIA, MILA Attending Unavailable PATRICIA, MILA Admitting Unavailable PATRICIA, MILA Attending Unavailable PATRICIA, MILA Admitting Unavailable Patricia RUBBER DOWN-CUT OFF MAN, Mila Primary Care Provide r KERRIE CASTRO JR Attending Unavailable KERRIE CASTRO JR Referring Unavailable PATRICIA, MILA Primary Care Unavailable KERRIE CASTRO JR Attending Unavailable PATRICIA, MILA Referring Unavailable PATRICIA, MILA Primary Care Unavailable KERRIE CASTRO JR Attending Unavailable PATRICIA, MILA Referring Unavailable PATRICIA, MILA Primary Care Unavailable MILA GOMEZ J Primary Care Physician [phone] MILA GOMEZ Primary Care Unavailable PATRICIA, MILA Attending Unavailable PATRICIA, MILA Admitting Unavailable PATRICIA, MILA Attending Unavailable PATRICIA, MILA Admitting Unavailable Jose G Santiago Attending Unavailab Jose G Mendenhall Admitting Unavailab le Patricia, Mila Primary Care Unavailable Allergies Allergy Classification Reported Allergen(s) Allergy Type Date of Onset Reaction(s) Facility (20 sources) ibuprofen; Translations: [IBUPROFEN] Drug Allergy 05-20-19 10 Other: See Comments [facility] Repository (20 sources) naproxen; Translations: [NAPROXEN] Drug Allergy 01-22-20 05 Vomiting [facility] Repository (20 sources) predniSONE; Translations: [PREDNISONE] Drug Allergy 10-05-19 13 Other: See Comments [facility] Repository (20 sources) Sulfonamides (Antibiotic); Translations: [SULFA (SULFONAMIDE ANTIBIOTICS)] Propensity to adverse reactions to drug (disorder) 01-22-20 05 Vomiting [facility] Repository (12 sources) Sulfacetamide / Sulfur Drug Allergy hives/hair loss/vomiting [facility] Other (1 source) Ibuprofen Drug Allergy 05-13-19 14 [facility] Repository (1 source) Naproxen Drug Allergy 05-13-19 14 [facility] Repository (1 source) Sulfonamides (Antibiotic) Drug allergy (disorder) 05-13-19 14 [facility] Repository (2 sources) Sulfacetamide; Translations: [sulfacetamide] Drug Allergy 08-13-19 hives/hair loss/vomiting [facility] (2 sources) Sulfur; Translations: [sulfur] Drug Allergy 08-13-19 hives/hair loss/vomiting [facility] Medications Current Medications Medication Drug Class(es) Dates Sig (Normalized) Sig (Original) [id number] 200 actuat albuterol 0.09 mg/actuat metered dose inhaler (20 sources) beta2-Adrenergic Agonist Start: 07-08-2021 albuterol HFA (PROVENTIL HFA, VENTOLIN HFA) 90 mcg/actuation inhaler Inhale as instructed q 4 HR. 07/08/2021 Active Start: 07-08-2021 take 2 puff(s) by in halation every four hours as needed VENTOLIN HFA 90 mcg/actuation inhaler Inhale 2 puffs every 4 (four) hours as needed. 07/08/2021 Active Start: 07-08-2021 take 2 puff(s) [...] HR. amitriptyline hydrochloride 10 mg oral tablet (11 sources) Tricyclic Antidepressant Start: 03-01-20 End: 05-31-19 take 2 tablets by mouth once daily at bedtime amitriptyline (ELAVIL) 10 mg tablet Take 2 tablets by mouth daily at bedtime. 60 tablet 2 03/01/2024 05/30/2024 Active Start: 11-19-2023 End: 03-01-2024 take 1 tablet by mouth once daily at bedtime amitriptyline (ELAVIL) 10 mg tablet take one tablet by mouth once daily at bedtime 30 tablet 5 12/29/2023 03/01/2024 Discontinued amoxicillin 875 mg oral tablet (4 sources) Penicillin-class Antibacterial Start: 10-30-2021 take 1 tablet by mouth every eight hours Amoxicillin 875 MG 1 tablet Orally every 8 hrs for 10 day(s) Oct, Active azithromycin 250 mg oral tablet (4 sources) Macrolide Antimicrobial Start: 08-13-2023 End: 02-18-2024 azithromycin (ZITHROMAX) 250 mg tablet Daily 08/13/2023 02/18/2024 Discontinued (Therapy completed) baclofen 10 mg oral tablet (20 sources) gamma-Aminobutyric Acid-ergic Agonist Start: 03-04-2021 End: 12-03-2023 take 1 tablet by mouth three times daily baclofen 10 mg tablet TAKE ONE TABLET BY MOUTH THREE TIMES A DAY DIRECTED 84 tablet 11 12/03/2023 Active take 1 tablet by sharon twice daily at mealtime Baclofen 10 MG 1 tablet with food or mil k Oral twice daily for 90 days Active Comment on above: TAKE ONE TABLET BY OUT 3 TIMES DAILY DIRECTED benoxinate hydrochloride [...] tablet by sharon th every twenty-four hours in the morning buPROPion XL (WELLBUTRIN XL) 300 mg 24 hr tablet Take 1 tablet (300 mg total) by mouth in the morning. 300 mg daily. Active take 1 tablet by mouth once deborah y BUPROPION HCL ORAL Take 1 tablet by mouth daily. Active take 1 tablet by sharon th [...] oral capsule (20 sources) Atypical Antipsychotic Start: take 1 capsule by mouth once daily [...] THE SAME TIME DAILY 0 09/14/2022 Active take 4 capsules by m outh in the morning cariprazine (VRAYLAR) 1.5 mg capsule Take 4 capsules (6 mg total) by mouth in the morning. Active take 1 capsule by mo uth in the morning cariprazine (VRAYLAR) 1.5 mg capsule Take 1 capsule (1.5 mg total) by mouth in the morning. Active Vraylar Active Comment on above: TAKE ONE CAPSULE BY MOUTH AROUND THE SAME TIME DAILY Take 10 mg by mouth once daily. cetirizine hydrochloride 10 mg oral tablet (11 sources) Histamine-1 Receptor Antagonist Start: 09-17-19 take 1 tablet by mouth in the morning cetirizine (ZyrTEC) 10 mg tablet Take 1 tablet (10 mg total) by mouth in the morning. 09/16/2021 Active cholecalciferol 0.125 mg oral capsule (20 sources) Vitamin D Start: 08-13-19 24 take 125 ug by mouth once daily Cholecalciferol (Vitamin D3) Active 125 MCG PO Daily August 13, 2023 12:00am Start: 08-15-2021 End: 06-16-2023 take 1 capsule by mouth once daily Cholecalciferol, Vitamin D3, 125 mcg (5,000 unit) cap take one capsule by mouth once daily 28 capsule 11 06/16/2023 Active Start: 03-13-2021 take 5 capsules by m outh in the morning cholecalciferol, vitamin D3, 25 mcg (1,000 unit) capsule Take 5 capsules (5,000 Units total) by mouth in the morning. 03/13/2021 Active Start: 03-13-2021 End: 08-15-2021 take 5 capsules by mouth once daily Cholecalciferol, Vitamin D3, (VITAMIN D) 25 mcg (1,000 unit) cap Take 5 capsules by mouth once daily. 150 capsule 5 03/13/2021 08/15/2021 Discontinued Comment on above: TAKE ONE CAPSULE BY MOUTH ONCE DAILY Take 5 capsules by m outh once daily. citalopram 20 mg oral tablet (20 sources) Serotonin Reuptake Inhibitor Start: 08-13-2023 take 20 mg by mouth once daily Citalopram Active 20 MG PO Daily August 13, 2023 12:00am Start: 07-23-2021 take 2 tablets by mo sch in the morning citalopram (CeleXA) 10 mg tablet Take 2 tablets (20 mg total) by mouth in the morning. 07/23/2021 Active Start: 01-25-2019 take 1 tablet by sharon once daily CeleXA 10 mg Tab 10 mg = 1 tab(s), Oral, Daily, # 30 tab(s), Refills(s) 0, Pharmacy: [facility]/pharmacy #[id number] Start Date: 01/25/19 Status: Ordered Comment on above: Take 10 mg by mouth once daily. clonazePAM 0.5 mg oral tablet (3 sources) Benzodiazepine clonazePAM (Klon oPIN) 0.5 mg tablet 3 (three) times a day. Active codeine phosphate 2 mg/ml / guaiFENesin 20 [...] July, Active dexamethasone 4 mg oral tablet (8 sources) Corticosteroid Start: 023 take 1 tablet by mouth every twenty-four hours Dexamethasone 4 MG 1 tablet Orally Once a day for 5 day(s) Mar, Active Start: 01-12-2022 take 1 tablet by sharon th every twenty-four hours Dexamethasone 6 MG 1 tablet Orally Once a day for 5 day(s) Dec, Active Start: 07-08-2021 End: 02-18-2024 take 3 tablets by mouth in the morning dexAMETHasone (DECADRON) 2 mg tablet Take 3 tablets (6 mg total) by mouth in the morning. 07/08/2021 02/18/2024 Discontinued (Therapy completed) Start: 07-08-2021 take 1 tablet by sharon th every twenty-four hours Dexamethasone 6 MG 1 tablet Orally Once a day for 5 day(s) Jun, Active dicyclomine hydrochloride 20 mg oral tablet (18 sources) Anticholinergic Start: 07-21-2019 take 1 tablet by mouth three times daily as needed dicyclomine (BENTYL) 20 mg tablet Take 1 tablet (20 mg total) by mouth 3 (three) times a day. As needed 07/14/2021 Active End: 10-06-2021 take 1 capsule by mouth at bedtime dicyclomine (BENTYL) 10 mg capsule Take 10 mg by mouth before meals and at bedtime. 0 10/06/2021 Discontinued (Patient chooses alternative therapy) Comment on above: Take 10 mg by mouth before meals and at bedtime. Docusate (20 sources) Start: 08-13-2023 Docusate Sodium Active MG PO August 13, 2023 12:00am Start: 03-12-2022 take 1 capsule by [facility] once daily as needed docusate sodium (COLACE) 100 mg capsule TAKE ONE CAPSULE BY MOUTH ONCE DAILY NEEDED 06/08/2022 Active Comment on above: TAKE ONE CAPSULE [...] BEDTIME hydrOXYzine pamoate 50 mg oral capsule (2 sources) Antihistamine Start: Vistaril 50 mg Cap See [...] q 24 HR. 07/14/2021 Active Start: 07-14-2021 lactase (LACTA ID) 3,000 unit tablet As needed 07/14/2021 Active Start: 07-14-2021 take 1 tablet by sharon th once daily lactase (LACTAID) 3,000 unit tablet TAKE ONE TABLET BY MOUTH WITH FIRST BITE OF DAIRY CONTAINING FOOD ONCE DAILY 07/14/2021 Active Comment on above: Take by mouth q 24 H R. levocetirizine dihydrochloride 5 mg oral tablet (8 sources) Histamine-1 Receptor Antagonist Start: take 1 tablet by mouth every twenty-four hours Levocetirizine Dihydrochloride 5 MG 1 tablet in the evening Orally Once a day for 30 day(s) Aug, Active lurasidone hydrochloride 20 mg oral tablet (2 sources) Atypical Antipsychotic Start: 019 take 1 tablet by mouth once daily [...] release oral tablet (1 source) Biguanide Start: 024 take 750 mg by mouth once daily [...] 10-06-2021 mupirocin (BACTROBAN) 2 % oi ntment nitrofurantoin, macrocrystals 25 mg / nitrofurantoin, monohydrate 75 mg oral capsule (3 sources) Nitrofuran Antibacterial Start: 07-06-2023 End: 02-18-2024 take 1 capsule by mouth every twelve hours at mealtime nitrofurantoin, macrocrystal-monohydrate, (MACROBID) 100 mg capsule 1 capsule with food Orally every 12 hrs for 5 days 07/06/2023 02/18/2024 Discontinued (Therapy completed) nystatin [id number] unt/ml oral suspension (7 sources) Polyene Antifungal Start: 07-21-2021 take 5 mL by mouth four times daily Nystatin [id number] UNIT/ML 5 ml Mouth/Throat Four times a day for 10 day(s) Jun, Active 10 ml ocrelizumab 30 mg/ml injection (20 sources) ocrelizumab (OCR EVUS) 30 mg/mL soln injection Inject intravenously once every 6 months. Active Comment on above: Inject intravenously once every 6 months. Ocrevus (12 sources) Ocrevus Active oxybutynin chloride 5 mg oral tablet (20 sources) Cholinergic Muscarinic Antagonist Start: 08-13-2023 take 10 mg by mouth three times daily Oxybutynin Chloride Active 10 MG PO Three times daily August 13, 2023 12:00am Start: 12-08-2022 End: 12-04-2024 take 2 tablets by mouth three times daily oxybutynin (DITROPAN) 5 mg tablet Take 2 tablets (10 mg total) by mouth 3 (three) times a day for 360 days. 540 tablet 3 12/10/2023 02/18/2024 Discontinued (Duplicate Listing) Start: 03-04-2021 End: 11-09-2023 take 1 tablet by mouth at bedtime oxybutynin (DITROPAN) 5 mg tablet TAKE ONE TABLET BY MOUTH IN THE MORNING, AFTERNOON, AND AT BEDTIME 90 tablet 5 11/10/2023 Active Ditropan Active Comment on above: TAKE ONE TABLET BY M OUTH IN THE MORNING, AFTERNOON, AND AT BEDTIME phenylephrine hydrochloride 25 mg/ml ophthalmic solution (1 source) alpha-1 Adrenergic Agonist Start: 10-03-19 End: 10-03-19 PHENYLephrine 2.5 % 1 Drop (AK-DILATE, COMFORT-SYNEPHRINE) polyethylene glycol 3350 56025 mg powder for oral solution (1 source) Osmotic Laxative Start: 08-13-19 take 17 g by mouth once daily Polyethylene Glycol 3350 Active 17 GM PO Daily August 13, 2023 12:00am proparacaine hydrochloride 5 mg/ml ophthalmic solution (1 source) Local Anesthetic Start: 10-03-19 End: 10-03-19 proparacaine 0.5 % 1 Drop (ALCAINE) traZODone hydrochloride 50 mg oral tablet (4 sources) Serotonin Reuptake Inhibitor Start: 08-13-19 traZODone (DESYREL) 50 mg tablet As needed 08/13/2023 Active tropicamide 10 mg/ml ophthalmic solution (1 source) Anticholinergic Start: 10-03-19 End: 10-03-19 tropicamide 1 % 1 Drop (MYDRIACYL) TYLENOL ARTHRITIS ORAL (20 sources) Start: 07-28-19 TYLENOL ARTHRITIS ORAL Take 1 Dose by [...] MG PO August 13, 2023 12:00am Start: 02-17-2019 take 4 tablets by mo uth every twenty-four hours in the evening divalproex ER (DEPAKOTE ER) 250 mg 24 hr tablet TAKE FOUR TABLETS BY MOUTH IN THE EVENING 09/16/2021 Active Start: 01-16-[address] 25 0 mg Tab-EC See Instructions, 1 tab daily am and 4 daily hs, # 150 tab(s), Refills(s) 0, Pharmacy: [facility]/pharmacy #[id number] Start Date: 01/16/19 Status: Ordered Start: [...] IN THE EVENING Vitamin D 50 MCG (1999) (12 sources) take 1 capsule by mouth once daily Vitamin D 50 MCG (1999) 1 capsule Orally Once a day Active Completed/Discontinued Medications Medication Drug Class(es) Dates Sig (Normalized) Sig (Original) acetaminophen 500 mg oral tablet (1 source) Start: 11-18-2023 End: 11-18-2023 take 1 dose by mouth once, then take 4000 mg by mouth once daily 1,000 mg, ORAL, ONCE, 1 dose, On Zeny 11/18/23 at 1000, No more than 4000 mg of acetaminophen should be given per day (FROM ALL SOURCES) Start: 11-18-2023 End: 11-18-2023 take 1 dose by mouth once, then take 4000 mg by mouth once daily 1,000 mg, ORAL, ONCE, 1 dose, On Zeny 11/18/23 at 1000, No more than 4000 [...] mg, ORAL, ONCE, 1 dose, On Zeny 11/18/23 at 1000 Start: 11-18-2023 End: 11-18-2023 take 1 dose by mouth once 50 mg, ORAL, ONCE, 1 dose, O n Zeny 11/18/23 at 1000 famotidine 40 mg oral tablet (15 sources) Histamine-2 Receptor Antagonist Start: 01-23-2020 End: 10-06-2021 take 1 tablet by mouth once daily famotidine (PEPCID) 40 mg tablet Take 1 tablet by mouth once daily. 0 01/23/2020 10/06/2021 Discontinued Start: 02-27-2019 take 1 tablet by sharon every twenty-four hours Famotidine 20 MG 1 tablet at bedtime as needed Orally Once a day for 90 days Feb, Active Comment on above: Take 1 tablet by sharon once daily. hydrocortisone 10 mg/ml / neomycin 3.5 mg/ml / polymyxin b 42200 unt/ml otic solution (12 sources) Aminoglycoside Antibacterial, Polymyxin-class Antibacterial, Corticosteroid Start: 10-10-2020 Neomycin-Polymyxin -HC [id number] 4 drops into affected ear Otic Three times a day for 7 days Sep, Not-Taking Ketorolac (11 sources) Nonsteroidal Anti-inflammatory Drug, Cyclooxygenase Inhibitor Start: 11-25-2020 Toradol per 15 mg Oct, 30 mg methylPREDNISolone 125 mg injection (1 source) Corticosteroid Start: 11-18-2023 End: 11-18-2023 100 mg, INTRAVENOUS, ONCE, 1 dose, On Zeny 11/18/23 at 1000 Start: 11-18-2023 End: 11-18-2023 100 mg, INTRAVENOUS, ONCE, 1 dose, On Wed11/18/23 at 1000 ocrelizumab 600 mg in NaCl 0.9% 500 mL (OCREVUS) (1 source) Start: 11-18-2023 End: 11-18-2023 600 mg, INTRAVENOUS, ONCE, 1 dose, On Zeny 11/18/23 at 1000, APPROX TOTAL VOLUME: 560 mL [...] mg, ORAL, NOW, 1 dose, On Zeny 11/18/23 at 1000 Start: 07-11-2019 take 1 tablet by sharon th every eight hours as needed Zofran ODT 4 MG 1 tablet on the tongue and allow to dissolve Orally every 8 hrs as needed for 4 days Jun, Active microencapsulated potassium chloride 20 meq extended release oral tablet (1 source) Start: 11-18-2023 End: 11-18-2023 take 1 tablet by mouth once 20 mEq, ORAL, ONCE, 1 dose, On Zeny 11/18/23 at 1000, Swallow whole; [...] 07-14-2021 Chronic Genitourinary symptoms and ill-defined conditions (7 sources) Urinary incontinence; Translations: [Unspecified urinary incontinence] [...] neoplasm Episodic Other aftercare (5 sources) Other assisted (current) drug therapy; Translations: [OTH 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 CURRENT DRUG THERAPY] Onset: 12-15-2021 Episodic Other [...] Translations: [Abrasion, left knee, initial encounter] Episodic Urinary tract infections (4 sources) Recurrent urinary tract infection; Translations: [Urinary tract infection, site not specified] Onset: 08-08-2021 09-19-2021 Episodic Past or Other Problems Problem Classification Problem Date Documented Da te Episodic/Chronic Calculus of urinary tract (9 sources) History of calculus of kidney; Translations: [Personal history of urinary calculi] Onset: 08-08-2021 08-08-2021 Episodic Chronic obstructive pulmonary disease and bronchiectasis (1 source) Bronchitis, not specified as acute or chronic Onset: 07-08-2021 Resolved: 07-08-2021 Episodic Genitourinary symptoms and ill-defined conditions (8 sources) Difficulty passing urine; Translations: [Other difficulties with micturition] Onset: 08-08-2021 08-08-2021 Episodic Immunizations and screening for infectious disease [...] Test Name Value Interpretation Reference Range Facility XR Shoulder Complete Lefton 02-22-2024 XR Shoulder Complete Left Exam Date/Time: 02/22/2024 09:59 EST Reason for Exam: M25.512 acute pain of left shoulder Report IMPRESSION: NEGATIVE LEFT SHOULDER. CLINICAL HISTORY: M25.512 acute pain of left shoulder COMPARISON: NONE FINDINGS: AP, internal, external rotation, Y and axillary views of the left shoulder demonstrate no evidence of a fracture, dislocation, bone or joint abnormality. Ordering Provider: , FINAL REPORT Dictated: 02/22/2024 4:44 pm Cyril Fraga MD Signed (Electronic Signature): 02/22/2024 4:44 pm Signed by: Cyril Fraga MD Transcribed by: FRANCIS Technologist: DONALD Technical Comments Radiation Dose: Kar in mGy = na DAP = na Normal [facility] CT ABDOMEN AND PELVIS WO CON Ton 01-24-2024 CT ABDOMEN AND PELVIS WO CONT CT ABDOMEN AND PELVIS WO CONT CT ABDOMEN AND PELVIS WO CONT 01/24/2024 9:55 AM INDICATION: Kidney stone on left side, follow-up COMPARISON: CT abdomen and pelvis without contrast 02/23/2022 TECHNIQUE: Computed tomographic imaging of the abdomen and pelvis was performed without intravenous contrast. Multiplanar reformatted images were generated and reviewed. Automated exposure control was utilized. All CT scans at this facility use dose modulation, iterative reconstruction, and/or weight based dosing when appropriate to reduce radiation dose to as low as reasonably achievable. FINDINGS: Evaluation of the solid viscera and vascular structures are compromised without the use of IV contrast. Lines/Tubes/Devices: None. Lower Thorax: No basilar pleural effusion. No pericardial effusion. Left basilar subsegmental atelectasis. Hepatobiliary: Hepatic steatosis. Noncirrhotic liver morphology. No focal hepatic lesion. No pericholecystic fluid or biliary dilation. Spleen: No splenomegaly. Pancreas: No pancreatic ductal dilatation. Adrenal Glands: Benign bilateral myelolipomas. Urinary: No hydroureteronephrosis. Nonobstructing left renal calculi measuring up to 3 mm. No urinary bladder wall thickening. Vascular: Nonaneurysmal abdominal aorta. No significant vascular calcifications. Body Wall: No hernias or hematomas. Lymph Nodes: No abdominopelvic lymphadenopathy. Gastrointestinal Tract: No hiatal hernia. No bowel dilatation or surrounding inflammatory changes. Normal appendix. Moderate colonic stool burden. Peritoneum: No pneumoperitoneum. No free abdominal fluid. Pelvis: No free pelvic fluid. Status post hysterectomy. Skeletal: No aggressive osseous lesions. IMPRESSION: * Nonobstructing left renal calculi measuring up to 3 mm. No collecting system dilatation. * Hepatic steatosis. Approved by Resident: Cachorro Nicole MD on 01/24/2024 11:08 AM I, Bandar Quinn MD have personally reviewed the image(s) and agree with and/or edited the report Finalized by Bandar Quinn MD on 01/24/2024 11:45 AM Normal [facility] OCT OPTIC NERVE CIRRUS OU (B OTH EYES)on 12-23-2023 [facility] Radiology Study observation (narrative) [facility] PACHYMETRY USING OCT DEVICE OU (BOTH EYES)on 12-23-2023 [facility] Radiology Study observation (narrative) [facility] CBC w/ Auto Diffon 4 Basophils/100 WBC (Bld) 0.7 % Normal 0.0-2.0 [facility] Comment on above: Performed By: #### 2 [id number] #### [facility] [address] [place] [address] Basophils/Leukocyt es Auto (Bld) [Pure # fraction] 0.0 E9/L Normal 0.0-0.2 [facility] Comment on above: Performed By: #### 2 [id number] #### [facility] [address] [place] [address] Eosinophils (Bld) [#/Vol] 0.1 E9/L Normal 0.0-0.5 [facility] Comment on above: Performed By: #### 2 [id number] #### [facility] [address] [place] [address] Eosinophils/100 WBC (Bld) 2.3 % Normal 0.0-8.0 [facility] Comment on above: Performed By: #### 2 [id number] #### [facility] [address] [place] [address] Erythrocyte distribution width (RBC) [Ratio] 13.7 % Normal 10.9-14.2 [facility] Comment on above: Performed By: #### 2 [id number] #### [facility] [address] [place] [address] Hematocrit (Bld) [Volume fraction] 40.2 % Normal 34.0-46.0 [facility] Comment on above: Performed By: #### 2 [id number] #### [facility] [address] [place] [address] Hemoglobin (Bld) [Mass/Vol] 13.9 g/dL Normal 12.0-16.0 [facility] Comment on above: Performed By: #### 2 [id number] #### [facility] [address] [place] [address] Lymphocytes (Bld) [#/Vol] 1.4 E9/L Normal 1.0-4.0 [facility] Comment on above: Performed By: #### 2 [id number] #### [facility] [address] [place] [address] Lymphocytes/100 WBC (Bld) 22.8 % Normal 14.0-50.0 [facility] Comment on above: Performed By: #### 2 [id number] #### [facility] [address] [place] [address] MCH (RBC) [Entitic mass] 30.1 pg Normal 27.0-34.0 [facility] Comment on above: Performed By: #### 2 [id number] #### [facility] [address] [place] [id number] MCHC (RBC) [Mass/Vol] 34.5 g/dL Normal 31.4-36.0 [facility] Comment on above: Performed By: #### 2 [id number] #### [facility] [address] [place] [address] MCV (RBC) [Entitic vol] 87.3 fL Normal 80.0-100.0 [facility] Comment on above: Performed By: #### 2 [id number] #### [facility] [address] [place] [address] Monocytes (Bld) [#/Vol] 0.5 E9/L Normal 0.2-1.0 [facility] Comment on above: Performed By: #### 2 [id number] #### [facility] [address] [place] [address] Neutrophils (Bld) [#/Vol] 4.1 E9/L Normal 2.0-7.5 [facility] Comment on above: Performed By: #### 2 [id number] #### [facility] [address] [place] [address] Neutrophils/100 WBC (Bld) 65.5 % Normal 36.0-75.0 [facility] Comment on above: Performed By: #### 2 [id number] #### [facility] [address] [place] [address] Platelet 196.0 E9/L Normal 150.0-500. 0 [facility] Comment on above: Performed By: #### 2 186430 #### [facility] [address] [place] [address] Platelet mean volume (Bld) [Entitic vol] 8.8 fL Normal 6.4-10.8 [facility] Comment on above: Performed By: #### 2 422867 #### [facility] [address] [place] [address] RBC (Bld) [#/Vol] 4.6 E12/L Normal 4.3-5.9 [facility] Comment on above: Performed By: #### 2 817001 #### [facility] [address] [place] [address] WBC corrected for nucl RBC Auto (Bld) [#/Vol] 6.3 E9/L Normal 4.0-11.0 [facility] Comment on above: Result Comment: Shea pheral smear review performed. Performed By: #### 2 848848 #### [facility] [address] [place] [address] CMPon 12-08-2023 Albumin [Mass/Vol] 3.9 g/dL Normal 3.3-5.0 [facility] Comment on above: Performed By: #### 2 228545 #### [facility] [address] [place] [address] Albumin/Globulin (S) [Mass conc ratio] 1.9 Normal 1.1-2.2 [facility] Comment on above: Performed By: #### 2 359059 #### [facility] [address] [place] [address] ALP [Catalytic activity/Vol] 77 Int._Unit/L Normal 21-98 [facility] Comment on above: Performed By: #### 2 459045 #### [facility] [address] [place] [address] ALT No additional P-5'-P [Catalytic activity/Vol] 21 Int._Unit/L Normal 6-46 [facility] Comment on above: Performed By: #### 2 886279 #### [facility] [address] [place] [address] Anion gap [Moles/Vol] 12 mmol/L Normal 6-16 [facility] Comment on above: Performed By: #### 2 140325 #### [facility] [address] [place] [address] AST [Catalytic activity/Vol] 22 Int._Unit/L Normal 5-43 [facility] Comment on above: Performed By: #### 2 329514 #### [facility] [address] [place] [address] Bilirubin [Mass/Vol] 0.7 mg/dL Normal 0.0-1.1 [facility] Comment on above: Performed By: #### 2 015120 #### [facility] [address] [place] [address] Calcium [Mass/Vol] 8.7 mg/dL Low 8.9-11.1 [facility] Comment on above: Performed By: #### 2 713509 #### [facility] [address] [place] [address] Chloride [Moles/Vol] 105 mmol/L Normal 101-111 [facility] Comment on above: Performed By: #### 2 904360 #### [facility] [address] [place] [address] CO2 [Moles/Vol] 27 mmol/L Normal 21-31 [facility] Comment on above: Performed By: #### 2 849934 #### [facility] [address] [place] [address] Creatinine [Mass/Vol] 1.1 mg/dL Normal 0.5-1.3 [facility] Comment on above: Performed By: #### 2 939082 #### [facility] [address] [place] [address] Globulin (S) [Mass/Vol] 2.1 g/dL Normal 1.4-4.0 [facility] Comment on above: Performed By: #### 2 627566 #### [facility] [address] [place] [address] Glucose [Mass/Vol] 106 mg/dL Normal 55-199 [facility] Comment on above: Performed By: #### 2 003233 #### [facility] [address] [place] [address] Potassium [Moles/Vol] 3.7 mmol/L Normal 3.5-5.3 [facility] Comment on above: Performed By: #### 2 143330 #### [facility] [address] [place] [address] Protein [Mass/Vol] 6.0 g/dL Normal 6.0-7.8 [facility] Comment on above: Performed By: #### 2 633587 #### [facility] [address] [place] [address] Sodium [Moles/Vol] 140 mmol/L Normal 135-145 [facility] Comment on above: Performed By: #### 2 607860 #### [facility] [address] [place] [address] Urea nitrogen [Mass/Vol] 10 mg/dL Normal 5-21 [facility] Comment on above: Performed By: #### 2 468353 #### [facility] [address] [place] [address] Urea nitrogen/Creatinin e [Mass ratio] 9 No Units Low 10-20 [facility] Comment on above: Performed By: #### 2 320690 #### [facility] [address] [place] [address] [id number] 12-08-2023 HbA1c (Bld) [Mass fraction] 5.5 % Normal <=5.9 [facility] Comment on above: Performed By: #### 7 [id number] #### [facility] [address] [place] [address] eGFRon 12-08-2023 eGFR 62 mL/min/1.73 m2 Normal >=59 [facility] Comment on above: Order Comment: Order added by Discern Expert. Performed By: #### 1 [id number] #### [facility] [address] [place] [address] CMV IgM Qnon 11-19-2023 CMV IgM, Qual Negative Negative [facility] Comment on above: No serological evide nce of recent exposure to Cytomegalovirus. Interpretation and review of laboratory results Normal [facility] IMMUNOGLOBULIN [place] IgG [Mass/Vol] 745 mg/dL 700 - 1600 mg/dL [facility] IgG [Mass/Vol]on 11-19-2023 Interpretation and review of laboratory results Normal [facility] Immunodeficiency panel FC (B ld)on 11-19-2023 CD3 cells (Bld) [#/Vol] 1775 /uL [facility] CD3 cells/100 cells (Bld) 86 % 60 - 89 % [facility] CD3+CD4+ (T4 helper) cells (Bld) [#/Vol] 1500 [facility] CD3+CD4+ (T4 helper) cells/100 cells (Bld) 73 % High 34 - 61 % [facility] CD3+CD4+ (T4 helper) cells/CD3+CD8+ (T8 suppressor cells) cells (Bld) [# ratio] 5.48 % High 1.10 - 3.25 [facility] CD3+CD8+ (T8 suppressor cells) cells (Bld) [#/Vol] 274 /uL [facility] CD3+CD8+ (T8 suppressor cells) cells/100 cells (Bld) 13 % 10 - 41 % [facility] CD3-CD16+CD56+ (Natural killer) cells (Bld) [#/Vol] 279 [facility] CD3-CD16+CD56+ (Natural killer) cells/100 cells (Bld) 14 % 5 - 25 % [facility] CD3-CD19+ cells (Bld) [#/Vol] 0 Low [facility] CD3-CD19+ cells/100 cells (Bld) 0 % Low 5 - 22 % [facility] Interpretation and review of laboratory results Abnormal [facility] Clinical interpretat ion of lymphocyte subsets must [...] developed and its performance characteristics determined by [facility]'s [facility] [place] ([facility]). It has not been cleared or approved by the FDA. [facility] is regulated under CLIA as qualified to perform high-complexity testing. This test is used for clinical purposes. It should not be regarded as investigational or for research. [facility] CBC W Auto Differential pane l (Bld)on 11-18-2023 Basophils (Bld) [#/Vol] 0.03 10*3/uL [facility] Basophils/100 WBC (Bld) 0.5 % [facility] Differential cell count method Nom (Bld) Auto [facility] Eosinophils (Bld) [#/Vol] 0.11 10*3/uL [facility] Eosinophils/100 WBC (Bld) 1.7 % [facility] Erythrocyte distribution width (RBC) [Ratio] 12.6 % 11.5 - 15.0 % [facility] Hematocrit (Bld) [Volume fraction] 40.2 % 36.0 - 46.0 % [facility] Hemoglobin (Bld) [Mass/Vol] 13.5 g/dL 11.5 - 15.5 g/dL [facility] Immature granulocytes (Bld) [#/Vol] 0.03 10*3/uL [facility] Immature granulocytes/100 WBC (Bld) 0.5 % [facility] Lymphocytes (Bld) [#/Vol] 1.72 10*3/uL [facility] Lymphocytes/100 WBC (Bld) 27.3 % [facility] MCH (RBC) [Entitic mass] 29.3 pg 26.0 - 34.0 pg [facility] MCHC (RBC) [Mass/Vol] 33.6 g/dL 30.5 - 36.0 g/dL [facility] MCV (RBC) [Entitic vol] 87.2 fL 80.0 - 100.0 fL [facility] Monocytes (Bld) [#/Vol] 0.38 10*3/uL [facility] Monocytes/100 WBC (Bld) 6.0 % [facility] Neutrophils (Bld) [#/Vol] 4.02 10*3/uL [facility] Neutrophils/100 WBC (Bld) 64.0 % [facility] Nucleated RBC (Bld) [#/Vol] NINF [facility] Nucleated RBC/100 WBC (Bld) [Ratio] 0.0 % /100 WBC [facility] Platelet mean volume (Bld) [Entitic vol] 10.8 fL 9.0 - 12.7 fL [facility] Platelets (Bld) [#/Vol] 151 10*3/uL [facility] RBC (Bld) [#/Vol] 4.61 10*6/uL 3.90 - 5.20 m/uL [facility] WBC (Bld) [#/Vol] 6.29 10*3/uL [facility] Basophils (Bld) [#/Vol] 0.03 10*3/uL Normal <0.11 [facility] Comment on above: Order Comment: Speci men Type: BLOOD SPECIMENOrdering Facility: [facility] Address: [address] [place] [address] Performed By: #### 5 7021-8 ####[facility] LABCLIA [id number] [place] [address] Basophils/100 WBC (Bld) 0.5 % Normal [facility] Comment on above: Order Comment: Speci men Type: BLOOD SPECIMENOrdering Facility: [facility] Address: [address] [place] [address] Performed By: #### 5 7021-8 ####[facility] LABCLIA [id number] [place] [address] Differential cell count method Nom (Bld) Auto Normal [facility] Comment on above: Order Comment: Speci men Type: BLOOD SPECIMENOrdering Facility: [facility] Address: [address] [place] [address] Performed By: #### 5 7021-8 ####[facility] LABCLIA [id number] [place] [address] Eosinophils (Bld) [#/Vol] 0.11 10*3/uL Normal <0.46 [facility] Comment on above: Order Comment: Speci men Type: BLOOD SPECIMENOrdering Facility: [facility] Address: [address] [place] [address] Performed By: #### 5 7021-8 ####[facility]CLIA [id number] [place] [address] Eosinophils/100 WBC (Bld) 1.7 % Normal [facility] Comment on above: Order Comment: Speci men Type: BLOOD SPECIMENOrdering Facility: [facility] Address: [address] [place] [address] Performed By: #### 5 7021-8 ####[facility] LABCLIA [id number] [place] [address] Erythrocyte distribution width (RBC) [Ratio] 12.6 % Normal 11.5-15.0 [facility] Comment on above: Order Comment: Speci men Type: BLOOD SPECIMENOrdering Facility: [facility] Address: [address] [place] [address] Performed By: #### 5 7021-8 ####[facility] LABCLIA [id number] [place] [address] Hematocrit (Bld) [Volume fraction] 40.2 % Normal 36.0-46.0 [facility] Comment on above: Order Comment: Speci men Type: BLOOD SPECIMENOrdering Facility: [facility] Address: [address] [place] [address] Performed By: #### 5 7021-8 ####[facility] LABCLIA [id number] [place] [address] Hemoglobin (Bld) [Mass/Vol] 13.5 g/dL Normal 11.5-15.5 [facility] Comment on above: Order Comment: Speci men Type: BLOOD SPECIMENOrdering Facility: [facility] Address: [address] [place] [address] Performed By: #### 5 7021-8 ####[facility]CLIA [id number] [place] [address] Immature granulocytes (Bld) [#/Vol] 0.03 10*3/uL Normal <0.10 [facility] Comment on above: Order Comment: Speci men Type: BLOOD SPECIMENOrdering Facility: [facility] Address: [address] [place] [address] Performed By: #### 5 7021-8 ####[facility]CLIA [id number] [place] [address] Immature granulocytes/100 WBC (Bld) 0.5 % Normal [facility] Comment on above: Order Comment: Speci men Type: BLOOD SPECIMENOrdering Facility: [facility] Address: [address] [place] [address] Performed By: #### 5 7021-8 ####[facility] LABCLIA [id number] [place] [address] Lymphocytes (Bld) [#/Vol] 1.72 10*3/uL Normal 1.00-4.00 [facility] Comment on above: Order Comment: Speci men Type: BLOOD SPECIMENOrdering Facility: [facility] Address: [address] [place] [address] Performed By: #### 5 7021-8 ####[facility] LABCLIA [id number] [place] [address] Lymphocytes/100 WBC (Bld) 27.3 % Normal [facility] Comment on above: Order Comment: Speci men Type: BLOOD SPECIMENOrdering Facility: [facility] Address: [address] [place] [address] Performed By: #### 5 7021-8 ####[facility] LABCLIA [id number] [place] [address] MCH (RBC) [Entitic mass] 29.3 pg Normal 26.0-34.0 [facility] Comment on above: Order Comment: Speci men Type: BLOOD SPECIMENOrdering Facility: [facility] Address: [address] [place] [address] Performed By: #### 5 7021-8 ####[facility] LABCLIA [id number] [place] [address] MCHC (RBC) [Mass/Vol] 33.6 g/dL Normal 30.5-36.0 [facility] Comment on above: Order Comment: Speci men Type: BLOOD SPECIMENOrdering Facility: [facility] Address: [address] [place] [address] Performed By: #### 5 7021-8 ####[facility]CLIA [id number] [place] [address] MCV (RBC) [Entitic vol] 87.2 fL Normal 80.0-100.0 [facility] Comment on above: Order Comment: Speci men Type: BLOOD SPECIMENOrdering Facility: [facility] Address: [address] [place] [address] Performed By: #### 5 7021-8 ####[facility]CLIA [id number] [place] [address] Monocytes (Bld) [#/Vol] 0.38 10*3/uL Normal <0.87 [facility] Comment on above: Order Comment: Speci men Type: BLOOD SPECIMENOrdering Facility: [facility] Address: [address] [place] [address] Performed By: #### 5 7021-8 ####[facility] LABCLIA [id number] [place] [address] Monocytes/100 WBC (Bld) 6.0 % Normal [facility] Comment on above: Order Comment: Speci men Type: BLOOD SPECIMENOrdering Facility: [facility] Address: [address] [place] [address] Performed By: #### 5 7021-8 ####[facility] LABCLIA [id number] [place] [address] Neutrophils (Bld) [#/Vol] 4.02 10*3/uL Normal 1.45-7.50 [facility] Comment on above: Order Comment: Speci men Type: BLOOD SPECIMENOrdering Facility: [facility] Address: [address] [place] [address] Performed By: #### 5 7021-8 ####[facility] LABCLIA [id number] [place] [address] Neutrophils/100 WBC (Bld) 64.0 % Normal [facility] Comment on above: Order Comment: Speci men Type: BLOOD SPECIMENOrdering Facility: [facility] Address: [address] [place] [address] Performed By: #### 5 7021-8 ####[facility] LABCLIA [id number] [place] [address] Nucleated RBC (Bld) [#/Vol] 10*3/uL Normal <0.01 [facility] Comment on above: Order Comment: Speci men Type: BLOOD SPECIMENOrdering Facility: [facility] Address: [address] [place] [address] Performed By: #### 5 7021-8 ####[facility]CLIA [id number] [place] [address] Nucleated RBC/100 WBC (Bld) [Ratio] 0.0 /100 WBC Normal [facility] Comment on above: Order Comment: Speci men Type: BLOOD SPECIMENOrdering Facility: [facility] Address: [address] [place] [address] Performed By: #### 5 7021-8 ####[facility] LABCLIA [id number] [place] [address] Platelet mean volume (Bld) [Entitic vol] 10.8 fL Normal 9.0-12.7 [facility] Comment on above: Order Comment: Speci men Type: BLOOD SPECIMENOrdering Facility: [facility] Address: [address] [place] [address] Performed By: #### 5 7021-8 ####[facility] LABCLIA [id number] [place] [address] Platelets (Bld) [#/Vol] 151 10*3/uL Normal 150-400 [facility] Comment on above: Order Comment: Speci men Type: BLOOD SPECIMENOrdering Facility: [facility] Address: [address] [place] [address] Performed By: #### 5 7021-8 ####[facility]CLIA [id number] [place] [address] RBC (Bld) [#/Vol] 4.61 10*6/uL Normal 3.90-5.20 [facility] Comment on above: Order Comment: Speci men Type: BLOOD SPECIMENOrdering Facility: [facility] Address: [address] [place] [address] Performed By: #### 5 7021-8 ####[facility]CLIA [id number] [place] [address] WBC (Bld) [#/Vol] 6.29 10*3/uL Normal 3.70-11.00 [facility] Comment on above: Order Comment: Speci men Type: BLOOD SPECIMENOrdering Facility: [facility] Address: [address] [place] [address] Performed By: #### 5 7021-8 ####[facility] LABCLIA [id number] [place] [address] CMV IgM Qnon 11-18-2023 CMV IGM, QUAL Negative Normal Negative [facility] Comment on above: Order Comment: Speci men Type: BLOOD SPECIMEN [facility] Address: [address] [place] [address] Result Comment: No s erological evidence of recent exposure to Cytomegalovirus. Performed By: #### 7 853-5 #### [facility] CLIA [id number] [address] [place] [address] OF ROBY Comprehensive metabolic 2000 panelOrdered By: Millie Long on 11-18-2023 Albumin [Mass/Vol] 4.0 g/dL 3.9 - 4.9 g/dL [facility] ALP [Catalytic activity/Vol] 87 U/L 34 - 123 U/L [facility] ALT [Catalytic activity/Vol] 26 U/L 7 - 38 U/L [facility] Anion gap [Moles/Vol] 8 mmol/L 8 - 15 mmol/L [facility] AST [Catalytic activity/Vol] 26 U/L 13 - 35 U/L [facility] Bilirubin [Mass/Vol] 0.4 mg/dL 0.2 - 1.3 mg/dL [facility] Calcium [Mass/Vol] 9.0 mg/dL 8.5 - 10. 2 mg/dL [facility] Chloride [Moles/Vol] 105 mmol/L 98 - 107 mmol/L [facility] CO2 [Moles/Vol] 24 mmol/L 22 - 30 mmol/L [facility] Creatinine [Mass/Vol] 1.11 mg/dL High 0.58 - 0.96 mg/dL [facility] GFR/1.73 sq M.predicted among non-blacks MDRD (S/P/Bld) [Vol rate/Area] 62 mL/min/{1.73_m2} - PINF [facility] Comment on above: Estimated Glomerular Filtration Rate [...] 142 mg/dL High 74 - 99 mg/dL [facility] Comment on above: The [place] Di[employer] Association (ADA) provides guidance for [...] Standards of Medical Care in Diabetes 2016, [place] [employer]. Diabetes Care. 2016.39(Suppl 1). Interpretation and review of laboratory results Abnormal [facility] Potassium [Moles/Vol] 4.3 mmol/L 3.7 - 5.1 mmol/L [facility] Protein [Mass/Vol] 5.9 g/dL Low 6.3 - 8.0 g/dL [facility] Sodium [Moles/Vol] 137 mmol/L 136 - 144 mmol/L [facility] Urea nitrogen [Mass/Vol] 12 mg/dL 7 - 21 mg/dL [facility] Comprehensive metabolic 2000 panelon 11-18-2023 Albumin [Mass/Vol] 4.0 g/dL Normal 3.9-4.9 [facility] Comment on above: Order Comment: Speci men Type: BLOOD SPECIMENOrdering Facility: [facility] Address: [address] [place] [address] Performed By: #### 2 4323-8 ####[facility] LABCLIA [id number] [place] [address] ALP [Catalytic activity/Vol] 87 U/L Normal 34-123 [facility] Comment on above: Order Comment: Speci men Type: BLOOD SPECIMENOrdering Facility: [facility] Address: [address] [place] [address] Performed By: #### 2 4323-8 ####[facility] LABCLIA [id number] [place] [address] ALT [Catalytic activity/Vol] 26 U/L Normal 7-38 [facility] Comment on above: Order Comment: Speci men Type: BLOOD SPECIMENOrdering Facility: [facility] Address: [address] [place] [address] Performed By: #### 2 4323-8 ####[facility] LABCLIA [id number] [place] [address] Anion gap [Moles/Vol] 8 mmol/L Normal 8-15 [facility] Comment on above: Order Comment: Speci men Type: BLOOD SPECIMENOrdering Facility: [facility] Address: [address] [place] [address] Performed By: #### 2 4323-8 ####[facility] LABCLIA [id number] [place] [address] AST [Catalytic activity/Vol] 26 U/L Normal 13-35 [facility] Comment on above: Order Comment: Speci men Type: BLOOD SPECIMENOrdering Facility: [facility] Address: [address] [place] [address] Performed By: #### 2 4323-8 ####[facility] LABCLIA [id number] [place] [address] Bilirubin [Mass/Vol] 0.4 mg/dL Normal 0.2-1.3 [facility] Comment on above: Order Comment: Speci men Type: BLOOD SPECIMENOrdering Facility: [facility] Address: [address] [place] [address] Performed By: #### 2 4323-8 ####[facility] LABCLIA [id number] [place] [address] Calcium [Mass/Vol] 9.0 mg/dL Normal 8.5-10.2 [facility] Comment on above: Order Comment: Speci men Type: BLOOD SPECIMENOrdering Facility: [facility] Address: [address] [place] [address] Performed By: #### 2 4323-8 ####[facility] LABCLIA [id number] [place] [address] Chloride [Moles/Vol] 105 mmol/L Normal 98-107 [facility] Comment on above: Order Comment: Speci men Type: BLOOD SPECIMENOrdering Facility: [facility] Address: [address] [place] [address] Performed By: #### 2 4323-8 ####[facility]CLIA [id number] [place] [address] CO2 [Moles/Vol] 24 mmol/L Normal 22-30 [facility] Comment on above: Order Comment: Speci men Type: BLOOD SPECIMENOrdering Facility: [facility] Address: [address] [place] [address] Performed By: #### 2 4323-8 ####[facility] LABCLIA [id number] [place] [address] Creatinine [Mass/Vol] 1.11 mg/dL High 0.58-0.96 [facility] Comment on above: Order Comment: Speci men Type: BLOOD SPECIMENOrdering Facility: [facility] Address: [address] [place] [address] Performed By: #### 2 4323-8 ####[facility] LABCLIA [id number] [place] [address] Creatinine and Glomerular filtration rate.predicted panel (S/P/Bld) 62 mL/min/1.73m??? Normal >=60 [facility] Comment on above: Order Comment: Speci men Type: BLOOD SPECIMENOrdering Facility: [facility] Address: [address] [place] [address] Result Comment: Sommer mated Glomerular Filtration Rate [...] actual GFR. Performed By: #### 2 4323-8 ####[facility] LABCLIA [id number] [place] [address] Glucose [Mass/Vol] 142 mg/dL High 74-99 [facility] Comment on above: Order Comment: Speci men Type: BLOOD SPECIMENOrdering Facility: [facility] Address: [address] [place] [address] Result Comment: The [place] Diabetes [employer] (ADA) provides guidance for cutoff [...] Standards of Medical Care in Diabetes 2016, [place] [employer]. Diabetes Care. 2016.39(Suppl 1). Performed By: #### 2 4323-8 ####[facility] LABCLIA [id number] [place] [address] Potassium [Moles/Vol] 4.3 mmol/L Normal 3.7-5.1 [facility] Comment on above: Order Comment: Speci men Type: BLOOD SPECIMENOrdering Facility: [facility] Address: [address] [place] [address] Performed By: #### 2 4323-8 ####[facility] LABCLIA [id number] [place] [address] Protein [Mass/Vol] 5.9 g/dL Low 6.3-8.0 [facility] Comment on above: Order Comment: Speci men Type: BLOOD SPECIMENOrdering Facility: [facility] Address: [address] [place] [address] Performed By: #### 2 4323-8 ####[facility] LABCLIA [id number] [place] [address] Sodium [Moles/Vol] 137 mmol/L Normal 136-144 [facility] Comment on above: Order Comment: Speci men Type: BLOOD SPECIMENOrdering Facility: [facility] Address: [address] [place] [address] Performed By: #### 2 4323-8 ####[facility] LABCLIA [id number] [place] [address] Urea nitrogen [Mass/Vol] 12 mg/dL Normal 7-21 [facility] Comment on above: Order Comment: Speci men Type: BLOOD SPECIMENOrdering Facility: [facility] Address: [address] [place] [address] Performed By: #### 2 4323-8 ####[facility] LABCLIA [id number] [place] [address] IgG SerPl-mCncon 11-18-2023 IgG [Mass/Vol] 745 mg/dL Normal 700-1600 [facility] Comment on above: Order Comment: Speci men Type: BLOOD SPECIMENOrdering Facility: [facility] Address: [address] [place] [address] Performed By: #### 2 465-3 ####[facility] LABCLIA [id number] [place] [address] [place] Immunodeficiency panel FC (B ld)on 11-18-2023 CD3 cells (Bld) [#/Vol] 1775 cells/uL Normal 958-2388 [facility] Comment on above: Order Comment: Speci men Type: BLOOD SPECIMENOrdering Facility: [facility] Address: [address] [place] [address] Performed By: #### 4 5268-0 ####[facility] LABCLIA [id number] [place] [address] [place] CD3 cells/100 cells (Bld) 86 % Normal 60-89 [facility] Comment on above: Order Comment: Speci men Type: BLOOD SPECIMENOrdering Facility: [facility] Address: [address] [place] [address] Performed By: #### 4 5268-0 ####[facility] LABCLIA [id number] [place] [address] [place] CD3+CD4+ (T4 helper) cells (Bld) [#/Vol] 1500 cells/uL Normal 533-1674 [facility] Comment on above: Order Comment: Speci men Type: BLOOD SPECIMENOrdering Facility: [facility] Address: [address] [place] [address] Performed By: #### 4 5268-0 ####[facility] LABCLIA [id number] [place] [address] [place] CD3+CD4+ (T4 helper) cells/100 cells (Bld) 73 % High 34-61 [facility] Comment on above: Order Comment: Speci men Type: BLOOD SPECIMENOrdering Facility: [facility] Address: [address] [place] [address] Performed By: #### 4 5268-0 ####[facility] LABIA [id number] [place] [address] [place] CD3+CD4+ (T4 helper) cells/CD3+CD8+ (T8 suppressor cells) cells (Bld) [# ratio] 5.48 % High 1.10-3.25 [facility] Comment on above: Order Comment: Speci men Type: BLOOD SPECIMENOrdering Facility: [facility] Address: [address] [place] [address] Performed By: #### 4 5268-0 ####[facility] LABIA [id number] [place] [address] [place] CD3+CD8+ (T8 suppressor cells) cells (Bld) [#/Vol] 274 cells/uL Normal 175-958 [facility] Comment on above: Order Comment: Speci men Type: BLOOD SPECIMENOrdering Facility: [facility] Address: [address] [place] [address] Performed By: #### 4 5268-0 ####[facility] LABIA [id number] [place] [address] [place] CD3+CD8+ (T8 suppressor cells) cells/100 cells (Bld) 13 % Normal 10-41 [facility] Comment on above: Order Comment: Speci men Type: BLOOD SPECIMENOrdering Facility: [facility] Address: [address] [place] [address] Performed By: #### 4 5268-0 ####[facility] LABCLIA [id number] [place] [address] [place] CD3-CD16+CD56+ (Natural killer) cells (Bld) [#/Vol] 279 cells/uL Normal 102-565 [facility] Comment on above: Order Comment: Speci men Type: BLOOD SPECIMENOrdering Facility: [facility] Address: [address] [place] [address] Performed By: #### 4 5268-0 ####[facility] LABCLIA [id number] [place] [address] [place] CD3-CD16+CD56+ (Natural killer) cells/100 cells (Bld) 14 % Normal 5-25 [facility] Comment on above: Order Comment: Speci men Type: BLOOD SPECIMENOrdering Facility: [facility] Address: [address] [place] [address] Performed By: #### 4 5268-0 ####[facility] LABCLIA [id number] [place] [address] [place] CD3-CD19+ cells (Bld) [#/Vol] 0 cells/uL Low 75-660 [facility] Comment on above: Order Comment: Speci men Type: BLOOD SPECIMENOrdering Facility: [facility] Address: [address] [place] [address] Performed By: #### 4 5268-0 ####[facility] LABCLIA [id number] [place] [address] [place] CD3-CD19+ cells/100 cells (Bld) 0 % Low 5-22 [facility] Comment on above: Order Comment: Speci men Type: BLOOD SPECIMENOrdering Facility: [facility] Address: [address] [place] [address] Performed By: #### 4 5268-0 ####[facility] LABCLIA [id number] [facility] [id number] [place] [id number] [facility] Rachael 10-18-2023 CNPN Telephone (OPHTMN) MACKENZIE CONCEPCION ([id number]) 1975 F Date Time Provider Department 10/18/23 [facility] During your visit today, we recorded the following information about you: DellFerdinand Perez 10/18/2023 9:11 AM Signed Called patient and it went to voicedcil. Called to explain that her appointment with Dr. Cartagena is cancelled and per Dr. 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 They will be able to give her [...] on Motrin. Date Reviewed: 10/15/2023 Reviewed by: Adriano Moffett OCCA - Fully Assessed Prescriptions as of [...] Encounter Status:Closed by FERDINAND REDMOND on 10/18/23 Normal [facility] CNOVon 10-15-2023 CNOV Office Visit (NEMSMOly ) MACKENZIE CONCEPCION ([id number]) 1975 F Date Time Provider Department 10/15/23 10:00 AM REBECCA BANSAL During your visit today, we recorded the following information about you: Pulse Blood pressure Weight Height 71/minute 115/77 106.6 kg 1.707 m Rebecca Bansal DO 10/19/2023 8:58 PM [facility] FOLLOWUP/ESTABLISHED PATIENT VISIT PRINCIPAL NEUROLOGIC DIAGNOSIS: [...] on on her arm. Fell when at [place] in July. She has never done PT [...] Flowsheet Row Office Visit from 05/07/2023 in [facility] from 04/02/[address] [facility] Work from 10/30/[address] [facility] Upper Extremity Domain T Score 35 34 [...] Flowsheet Row Office Visit from 05/07/2023 in [facility] from 04/02/[address] [facility] from 10/30/[address] 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 She has no past medical history of Atrial fibrillation ([facility]), Cancer ([facility]), Chronic obstructive pulmonary disease (COPD) ([facility]), Chronic renal insufficiency, Congestive heart failure (HCC), Coronary artery disease, Diabetes (HCC), Epilepsy (HCC), Hypertension, Obstructive sleep apnea, Steroid long-term use, Stroke (HCC), or Substance abuse (HCC). has a current medication list which includes the following prescription(s): cholecalciferol (vitamin d3), gabapentin, baclofen, albuterol hfa, vraylar, docusate sodium, iv contrast, divalproex er, bupropion xl, lactase, oxybutynin, citalopram hydrobromide, ocrelizumab, and acetaminophen. EXAM: BP 115/77 Pulse 71 Ht 170.7 cm (5' 7.2 ) Wt 106.6 kg (235 lb) LMP 08/31/2011 BMI 36.59 kg/m? MSPT Results Flowsheet Row Office Visit from 05/07/[address] [facility] Office Visit from 02/20/[address] [facility] Office Visit from 08/25/[address] [facility] Processing Speed Total Number Correct 29 55 50 Processing Speed Z score -- -- -- Dominant hand -- -- -- MDT Left Hand Time 44.09 24.96 25.78 MDT Right Hand Time 39.13 28.28 25.67 Walking Speed Test (25 feet) 9.57 7.92 6.96 General Appearance: well appe (more content not included)... Normal [facility] MR Brain WO and W contrast I Von 10-15-2023 IMPRESSION: Multiple intracranial white matter lesions compatible with multiple sclerosis. No new T2 lesions and no new enhancing lesions. Moderate parenchymal volume loss. Other Significant Intracranial Findings: None Hematology Specialist: CHRISTIANO Transcribe Date/Time: Oct 15 2023 8:44A Dictated by : MANAS DELUNA MD This examination was interpreted and the report reviewed and electronically signed by: MANAS DELUNA MD on Oct 15 2023 8:49AM [facility] DIVISION OF RADIOLOGY * * *Final Report* * * DATE OF EXAM: Oct 15 2023 8:34AM [facility] 0295 - MRI BRAIN WO/W IVCON / [...] Improvement: None. New Enhancing Lesions: None T2 [place] of Disease: Moderate. Parenchymal Volume Loss: Moderate. Other Significant Findings/Site(s) of New T2 Lesion(s): None. *Note: New T2 Lesions includes both new and enlarging plaques on T2-weighted FLAIR images (new lesions greater than or equal to 5mm3 or an increase in diameter of an existing lesion by greater than or equal to 2mm). DIVISION OF RADIOLOGY Provider, [facility] - 10/15/2023 * * *Final Report* * * DATE OF EXAM: Oct 15 2023 8:34AM [facility] 0295 - MRI BRAIN WO/W IVCON / [...] Improvement: None. New Enhancing Lesions: None T2 [place] of Disease: Moderate. Parenchymal Volume Loss: Moderate. [...] volume loss. Other Significant Intracranial Findings: None Hematology Specialist: CHRISTIANO Transcribe Date/Time: Oct 15 2023 8:44A Dictated by : MANAS DELUNA MD This examination was interpreted and the report reviewed and electronically signed by: MANAS DELUNA MD on Oct 15 2023 8:49AM EST [facility] Radiology Study observation (narrative) [facility] MR Brain WO and W contrast I VOrdered By: Ccf Provider on 10-15-2023 [facility] MRI BRAIN WO/W IVCONon 10-14 MRI BRAIN WO/W IVCON * * *Final Report* * * DATE OF EXAM: Oct 15 2023 8:34AM [facility] 0295 - MRI BRAIN WO/W IVCON / [...] Improvement: None. New Enhancing Lesions: None T2 [place] of Disease: Moderate. Parenchymal Volume Loss: Moderate. [...] volume loss. Other Significant Intracranial Findings: None Hematology Specialist: PSCB Transcribe Date/Time: Oct 15 2023 8:44A Dictated by : MANAS DELUNA MD This examination was interpreted and the report reviewed and electronically signed by: MANAS DELUNA MD on Oct 15 2023 8:49AM EST [id number] Normal [facility] CHEMISTRYOrdered By: SYSTEM SYSTEM on 09-06-2023 25-hydroxyvitamin [...] (Bld) [Mass fraction] 5.0 % Normal <=5.9% [facility] ChemAutoSS HEMATOLOGYOrdered By: SYSTEM SYSTEM on 09-06-2023 [...] Normal 4.0 - 11.0 E9/L Remisol Heme EggP2fvr 09-06-2023 HbA1c (Bld) [Mass fraction] 5.0 % Normal <=5.9 [facility] Comment on above: Performed By: #### 7 [id number] #### [facility] Laboratory [address] [place] [address] CBC W Auto Differential pane l (Bld)on 05-20-2023 Basophils (Bld) [#/Vol] <0.11 k/uL [facility] Basophils/100 WBC (Bld) 0.3 % [facility] Differential cell count method Nom (Bld) Auto [facility] Eosinophils (Bld) [#/Vol] 0.11 10*3/uL <0.46 k/uL [facility] Eosinophils/100 WBC (Bld) 1.4 % [facility] Erythrocyte distribution width (RBC) [Ratio] 12.8 % 11.5 - 15.0 % [facility] Hematocrit (Bld) [Volume fraction] 44.0 % 36.0 - 46.0 % [facility] Hemoglobin (Bld) [Mass/Vol] 14.5 g/dL 11.5 - 15.5 g/dL [facility] Immature granulocytes (Bld) [#/Vol] 0.05 10*3/uL <0.10 k/uL [facility] Immature granulocytes/100 WBC (Bld) 0.6 % [facility] Lymphocytes (Bld) [#/Vol] 1.40 10*3/uL 1.00 - 4.00 k/uL [facility] Lymphocytes/100 WBC (Bld) 17.5 % [facility] MCH (RBC) [Entitic mass] 28.0 pg 26.0 - 34.0 pg [facility] MCHC (RBC) [Mass/Vol] 33.0 g/dL 30.5 - 36.0 g/dL [facility] MCV (RBC) [Entitic vol] 84.9 fL 80.0 - 100.0 fL [facility] Monocytes (Bld) [#/Vol] 0.66 10*3/uL <0.87 k/uL [facility] Monocytes/100 WBC (Bld) 8.3 % [facility] Neutrophils (Bld) [#/Vol] 5.74 10*3/uL 1.45 - 7.50 k/uL [facility] Neutrophils/100 WBC (Bld) 71.9 % [facility] Nucleated RBC (Bld) [#/Vol] <0.01 k/uL [facility] Nucleated RBC/100 WBC (Bld) [Ratio] 0.0 /100 WBC [facility] Platelet mean volume (Bld) [Entitic vol] 10.8 fL 9.0 - 12.7 fL [facility] Platelets (Bld) [#/Vol] 192 10*3/uL 150 - 400 k/uL [facility] RBC (Bld) [#/Vol] 5.18 10*6/uL 3.90 - 5.20 m/uL [facility] WBC (Bld) [#/Vol] 7.98 10*3/uL 3.70 - 11.00 k/uL [facility] Basophils (Bld) [#/Vol] 10*3/uL Normal <0.11 [facility] Comment on above: Order Comment: Speci men Type: BLOOD SPECIMENOrdering Facility: [facility] Address: [address] [employer] [place], [place] [address] Performed By: #### 5 7021-8 ####[facility] LABCLIA [id number] [place] [address] Basophils/100 WBC (Bld) 0.3 % Normal [facility] Comment on above: Order Comment: Speci men Type: BLOOD SPECIMENOrdering Facility: [facility] Address: [address] [place] [address] Performed By: #### 5 7021-8 ####[facility] LABCLIA [id number] [place] [address] Differential cell count method Nom (Bld) Auto Normal [facility] Comment on above: Order Comment: Speci men Type: BLOOD SPECIMENOrdering Facility: [facility] Address: [address] [place] [address] Performed By: #### 5 7021-8 ####[facility] LABCLIA [id number] [place] [address] Eosinophils (Bld) [#/Vol] 0.11 10*3/uL Normal <0.46 [facility] Comment on above: Order Comment: Speci men Type: BLOOD SPECIMENOrdering Facility: [facility] Address: [address] [place] [address] Performed By: #### 5 7021-8 ####[facility] LABCLIA [id number] [place] [address] Eosinophils/100 WBC (Bld) 1.4 % Normal [facility] Comment on above: Order Comment: Speci men Type: BLOOD SPECIMENOrdering Facility: [facility] Address: [address] [place] [address] Performed By: #### 5 7021-8 ####[facility] LABCLIA [id number] [place] [address] Erythrocyte distribution width (RBC) [Ratio] 12.8 % Normal 11.5-15.0 [facility] Comment on above: Order Comment: Speci men Type: BLOOD SPECIMENOrdering Facility: [facility] Address: [address] [place] [address] Performed By: #### 5 7021-8 ####[facility] LABCLIA [id number] [place] [address] Hematocrit (Bld) [Volume fraction] 44.0 % Normal 36.0-46.0 [facility] Comment on above: Order Comment: Speci men Type: BLOOD SPECIMENOrdering Facility: [facility] Address: [address] [place] [address] Performed By: #### 5 7021-8 ####[facility] LABCLIA [id number] [place] [address] Hemoglobin (Bld) [Mass/Vol] 14.5 g/dL Normal 11.5-15.5 [facility] Comment on above: Order Comment: Speci men Type: BLOOD SPECIMENOrdering Facility: [facility] Address: [address] [place] [address] Performed By: #### 5 7021-8 ####[facility] LABCLIA [id number] [place] [address] Immature granulocytes (Bld) [#/Vol] 0.05 10*3/uL Normal <0.10 [facility] Comment on above: Order Comment: Speci men Type: BLOOD SPECIMENOrdering Facility: [facility] Address: [address] [place] [address] Performed By: #### 5 7021-8 ####[facility] LABCLIA [id number] [place] [address] Immature granulocytes/100 WBC (Bld) 0.6 % Normal [facility] Comment on above: Order Comment: Speci men Type: BLOOD SPECIMENOrdering Facility: [facility] Address: [address] [place] [address] Performed By: #### 5 7021-8 ####[facility] LABCLIA [id number] [place] [address] Lymphocytes (Bld) [#/Vol] 1.40 10*3/uL Normal 1.00-4.00 [facility] Comment on above: Order Comment: Speci men Type: BLOOD SPECIMENOrdering Facility: [facility] Address: [address] [place] [address] Performed By: #### 5 7021-8 ####[facility] LABCLIA [id number] [place] [address] Lymphocytes/100 WBC (Bld) 17.5 % Normal [facility] Comment on above: Order Comment: Speci men Type: BLOOD SPECIMENOrdering Facility: [facility] Address: [address] [place] [address] Performed By: #### 5 7021-8 ####[facility] LABCLIA [id number] [place] [address] MCH (RBC) [Entitic mass] 28.0 pg Normal 26.0-34.0 [facility] Comment on above: Order Comment: Speci men Type: BLOOD SPECIMENOrdering Facility: [facility] Address: [address] [place] [address] Performed By: #### 5 7021-8 ####[facility] LABCLIA [id number] [place] [address] MCHC (RBC) [Mass/Vol] 33.0 g/dL Normal 30.5-36.0 [facility] Comment on above: Order Comment: Speci men Type: BLOOD SPECIMENOrdering Facility: [facility] Address: [address] [place] [address] Performed By: #### 5 7021-8 ####[facility] LABCLIA [id number] [place] [address] MCV (RBC) [Entitic vol] 84.9 fL Normal 80.0-100.0 [facility] Comment on above: Order Comment: Speci men Type: BLOOD SPECIMENOrdering Facility: [facility] Address: [address] [place] [address] Performed By: #### 5 7021-8 ####[facility] LABCLIA [id number] [place] [address] Monocytes (Bld) [#/Vol] 0.66 10*3/uL Normal <0.87 [facility] Comment on above: Order Comment: Speci men Type: BLOOD SPECIMENOrdering Facility: [facility] Address: [address] [place] [address] Performed By: #### 5 7021-8 ####[facility] LABCLIA [id number] [place] [address] Monocytes/100 WBC (Bld) 8.3 % Normal [facility] Comment on above: Order Comment: Speci men Type: BLOOD SPECIMENOrdering Facility: [facility] Address: [address] [place] [address] Performed By: #### 5 7021-8 ####[facility] LABCLIA [id number] [place] [address] Neutrophils (Bld) [#/Vol] 5.74 10*3/uL Normal 1.45-7.50 [facility] Comment on above: Order Comment: Speci men Type: BLOOD SPECIMENOrdering Facility: [facility] Address: [address] [place] [address] Performed By: #### 5 7021-8 ####[facility] LABCLIA [id number] [place] [address] Neutrophils/100 WBC (Bld) 71.9 % Normal [facility] Comment on above: Order Comment: Speci men Type: BLOOD SPECIMENOrdering Facility: [facility] Address: [address] [place] [address] Performed By: #### 5 7021-8 ####[facility] LABCLIA [id number] [place] [address] Nucleated RBC (Bld) [#/Vol] 10*3/uL Normal <0.01 [facility] Comment on above: Order Comment: Speci men Type: BLOOD SPECIMENOrdering Facility: [facility] Address: [address] [place] [address] Performed By: #### 5 7021-8 ####[facility] LABCLIA [id number] [place] [address] Nucleated RBC/100 WBC (Bld) [Ratio] 0.0 /100 WBC Normal [facility] Comment on above: Order Comment: Speci men Type: BLOOD SPECIMENOrdering Facility: [facility] Address: [address] [place] [address] Performed By: #### 5 7021-8 ####[facility] LABCLIA [id number] [place] [address] Platelet mean volume (Bld) [Entitic vol] 10.8 fL Normal 9.0-12.7 [facility] Comment on above: Order Comment: Speci men Type: BLOOD SPECIMENOrdering Facility: [facility] Address: [address] [place] [address] Performed By: #### 5 7021-8 ####[facility] LABCLIA [id number] [place] [address] Platelets (Bld) [#/Vol] 192 10*3/uL Normal 150-400 [facility] Comment on above: Order Comment: Speci men Type: BLOOD SPECIMENOrdering Facility: [facility] Address: [address] [place] [address] Performed By: #### 5 7021-8 ####[facility] LABCLIA [id number] [place] [address] RBC (Bld) [#/Vol] 5.18 10*6/uL Normal 3.90-5.20 [facility] Comment on above: Order Comment: Speci men Type: BLOOD SPECIMENOrdering Facility: [facility] Address: [address] [place] [address] Performed By: #### 5 7021-8 ####[facility] LABCLIA [id number] [place] [address] WBC (Bld) [#/Vol] 7.98 10*3/uL Normal 3.70-11.00 [facility] Comment on above: Order Comment: Speci men Type: BLOOD SPECIMENOrdering Facility: [facility] Address: [address] [place], [place] [address] Performed By: #### 5 7021-8 ####[facility] LABCLIA [id number] [place] [address] Comprehensive metabolic 2000 panelon 05-20-2023 Albumin [Mass/Vol] 4.0 g/dL 3.9 - 4.9 g/dL [facility] ALP [Catalytic activity/Vol] 93 U/L 34 - 123 U/L [facility] ALT [Catalytic activity/Vol] 25 U/L 7 - 38 U/L [facility] Anion gap [Moles/Vol] 11 mmol/L 9 - 18 mmol/L [facility] AST [Catalytic activity/Vol] 28 U/L 13 - 35 U/L [facility] Bilirubin [Mass/Vol] 0.9 mg/dL 0.2 - 1.3 mg/dL [facility] Calcium [Mass/Vol] 9.6 mg/dL 8.5 - 10. 2 mg/dL [facility] Chloride [Moles/Vol] 103 mmol/L 97 - 105 mmol/L [facility] CO2 [Moles/Vol] 25 mmol/L 22 - 30 mmol/L [facility] Creatinine [Mass/Vol] 1.18 mg/dL High 0.58 - 0.96 mg/dL [facility] Estimated Glomerular Filtration Rate 58 mL/min/1.73m Low >=60 mL/min/1.7 3m [facility] Glucose [Mass/Vol] 147 mg/dL High 74 - 99 mg/dL [facility] Potassium [Moles/Vol] 3.8 mmol/L 3.7 - 5.1 mmol/L [facility] Protein [Mass/Vol] 6.2 g/dL Low 6.3 - 8.0 g/dL [facility] Sodium [Moles/Vol] 139 mmol/L 136 - 144 mmol/L [facility] Urea nitrogen [Mass/Vol] 11 mg/dL 7 - 21 mg/dL [facility] Albumin [Mass/Vol] 4.0 g/dL Normal 3.9-4.9 [facility] Comment on above: Order Comment: Speci men Type: BLOOD SPECIMENOrdering Facility: [facility] Address: [address] [place] [address] Performed By: #### 2 4323-8 ####[facility] LABCLIA [id number] [place] [address] ALP [Catalytic activity/Vol] 93 U/L Normal 34-123 [facility] Comment on above: Order Comment: Speci men Type: BLOOD SPECIMENOrdering Facility: [facility] Address: [address] [place] [address] Performed By: #### 2 4323-8 ####[facility] LABCLIA [id number] [place] [address] ALT [Catalytic activity/Vol] 25 U/L Normal 7-38 [facility] Comment on above: Order Comment: Speci men Type: BLOOD SPECIMENOrdering Facility: [facility] Address: [address] [place] [address] Performed By: #### 2 4323-8 ####[facility] LABCLIA [id number] [place] [address] Anion gap [Moles/Vol] 11 mmol/L Normal 9-18 [facility] Comment on above: Order Comment: Speci men Type: BLOOD SPECIMENOrdering Facility: [facility] Address: [address] [place] [address] Performed By: #### 2 4323-8 ####[facility] LABCLIA [id number] [place] [address] AST [Catalytic activity/Vol] 28 U/L Normal 13-35 [facility] Comment on above: Order Comment: Speci men Type: BLOOD SPECIMENOrdering Facility: [facility] Address: [address] [place] [address] Performed By: #### 2 4323-8 ####[facility] LABCLIA [id number] [place] [address] Bilirubin [Mass/Vol] 0.9 mg/dL Normal 0.2-1.3 [facility] Comment on above: Order Comment: Speci men Type: BLOOD SPECIMENOrdering Facility: [facility] Address: [address] [place] [address] Performed By: #### 2 4323-8 ####[facility] LABCLIA [id number] [place] [address] Calcium [Mass/Vol] 9.6 mg/dL Normal 8.5-10.2 [facility] Comment on above: Order Comment: Speci men Type: BLOOD SPECIMENOrdering Facility: [facility] Address: [address] [place] [address] Performed By: #### 2 4323-8 ####[facility] LABCLIA [id number] [place] [address] Chloride [Moles/Vol] 103 mmol/L Normal 97-105 [facility] Comment on above: Order Comment: Speci men Type: BLOOD SPECIMENOrdering Facility: [facility] Address: [address] [place] [address] Performed By: #### 2 4323-8 ####[facility] LABCLIA [id number] [place] [address] CO2 [Moles/Vol] 25 mmol/L Normal 22-30 [facility] Comment on above: Order Comment: Speci men Type: BLOOD SPECIMENOrdering Facility: [facility] Address: [address] [place] [address] Performed By: #### 2 4323-8 ####[facility] LABCLIA [id number] [place] [address] Creatinine [Mass/Vol] 1.18 mg/dL High 0.58-0.96 [facility] Comment on above: Order Comment: Speci men Type: BLOOD SPECIMENOrdering Facility: [facility] Address: [address] [place] [address] Performed By: #### 2 4323-8 ####[facility] LABCLIA [id number] [place] [address] Creatinine and Glomerular filtration rate.predicted panel (S/P/Bld) 58 mL/min/1.73m??? Low >=60 [facility] Comment on above: Order Comment: Pieter salomon Type: BLOOD SPECIMENOrdering Facility: [facility] Address: [address] [place] [address] Result Comment: Sommer mated Glomerular Filtration Rate [...] actual GFR. Performed By: #### 2 4323-8 ####[facility] LABCLIA [id number] [place] [address] Glucose [Mass/Vol] 147 mg/dL High 74-99 [facility] Comment on above: Order Comment: Pieter salomon Type: BLOOD SPECIMENOrdering Facility: [facility] Address: [address] [place] [address] Result Comment: The [place] Diabetes Association (ADA) provides guidance for cutoff [...] Standards of Medical Care in Diabetes 2016, [place] [employer]. Diabetes Care. 2016.39(Suppl 1). Performed By: #### 2 4323-8 ####[facility] LABCLIA [id number] [place] [address] Potassium [Moles/Vol] 3.8 mmol/L Normal 3.7-5.1 [facility] Comment on above: Order Comment: Speci men Type: BLOOD SPECIMENOrdering Facility: [facility] Address: [address] [place] [address] Performed By: #### 2 4323-8 ####[facility] LABCLIA [id number] [place] [address] Protein [Mass/Vol] 6.2 g/dL Low 6.3-8.0 [facility] Comment on above: Order Comment: Speci men Type: BLOOD SPECIMENOrdering Facility: [facility] Address: [address] [place] [address] Performed By: #### 2 4323-8 ####[facility] LABCLIA [id number] [place] [address] Sodium [Moles/Vol] 139 mmol/L Normal 136-144 [facility] Comment on above: Order Comment: Speci men Type: BLOOD SPECIMENOrdering Facility: [facility] Address: [address] [place] [address] Performed By: #### 2 4323-8 ####[facility] LABCLIA [id number] [place] [address] Urea nitrogen [Mass/Vol] 11 mg/dL Normal 7-21 [facility] Comment on above: Order Comment: Speci men Type: BLOOD SPECIMENOrdering Facility: [facility] Address: [address] [place] [address] Performed By: #### 2 4323-8 ####[facility] LABCLIA [id number] [place] [address] IGGon 05-20-2023 IgG [Mass/Vol] 695 mg/dL Low 700 - 1,600 mg/dL [facility] IGMon 05-20-2023 IgM [Mass/Vol] 17 mg/dL Low 40 - 230 mg/dL [facility] IMMUNOGLOBULINS GAMon 02-22- 2024 IgA [Mass/Vol] 149 mg/dL 70 - 400 mg/dL [facility] IgG [Mass/Vol] 717 mg/dL 700 - 1,600 mg/dL [facility] IgM [Mass/Vol] 19 mg/dL Low 40 - 230 mg/dL [facility] IgA [Mass/Vol] 149 mg/dL Normal 70-400 [facility] Comment on above: Order Comment: Speci men Type: BLOOD SPECIMENOrdering Facility: [facility] Address: [address] [place] [address] Performed By: #### S ERIMM ####[facility] LABCLIA [id number] [place] [address] [place] IgG [Mass/Vol] 717 mg/dL Normal 700-1600 [facility] Comment on above: Order Comment: Speci men Type: BLOOD SPECIMENOrdering Facility: [facility] Address: [address] [place] [address] Performed By: #### S ERIMM ####[facility] LABCLIA [id number] [place] [address] [place] IgM [Mass/Vol] 19 mg/dL Low 40-230 [facility] Comment on above: Order Comment: Speci men Type: BLOOD SPECIMENOrdering Facility: [facility] Address: [address] [place] [address] Performed By: #### S ERIMM ####[facility] LABCLIA [id number] [place] [address] [place] IgG SerPl-mCncon 05-20-2023 IgG [Mass/Vol] 695 mg/dL Low 700-1600 [facility] Comment on above: Order Comment: Speci men Type: BLOOD SPECIMENOrdering Facility: [facility] Address: [address] [place] [address] Performed By: #### 2 465-3, 2472-9 ####[facility] LABCLIA [id number] [address] [address] [place] IgM SerPl-mCncon 05-20-2023 IgM [Mass/Vol] 17 mg/dL Low 40-230 [facility] Comment on above: Order Comment: Speci men Type: BLOOD SPECIMENOrdering Facility: [facility] Address: [address] [place] [address] Performed By: #### 2 465-3, 2472-9 ####[facility] LABCLIA [id number] AIDEViviana [facility] [place] [address] [place] CNOVon 05-07-2023 CNOV Office Visit (NEMSMN ) MACKENZIE CONCEPCION ([id number]) 1975 F Date Time Provider Department 05/07/23 10:00 AM REBECCA BANSAL During your visit today, we recorded the following information about you: Pulse Blood pressure Weight Height 93/minute 105/53 110.6 kg 1.676 m Rebecca Bansal DO 05/07/2023 12:43 PM [facility] FOLLOWUP/ESTABLISHED PATIENT VISIT PRINCIPAL NEUROLOGIC DIAGNOSIS: [...] In the summer she will go to [place] to walk, but needs to sit frequently. Neuro-QoL Functions (higher=better functioning) Flowsheet Row Office Visit from 05/07/2023 in [facility] from 04/02/[address] [facility] from 10/30/[address] [facility] Upper Extremity Domain T Score 35 34 [...] Flowsheet Row Office Visit from 05/07/2023 in [facility] from 04/02/[address] [facility] from 10/30/[address] 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 She has no past medical history of Atrial fibrillation ([facility]), Cancer ([facility]), Chronic obstructive pulmonary disease (COPD) ([facility]), Chronic renal insufficiency, Congestive heart failure ([facility]), Coronary artery disease, Diabetes ([facility]), Epilepsy ([facility]), Hypertension, Obstructive sleep apnea, Steroid long-term use, Stroke (HCC), or Substance abuse (HCC). has a current medication list which includes [...] Flowsheet Row Office Visit from 05/07/[address] [facility] Office Visit from 02/20/[address] [facility] Processing Speed Total Number Correct 29 55 [...] 5 Biceps 5 5 Triceps 5 5 [employer] 5 5 Dorsal interossei 5 5 Lower extremity: Il (more content not included)... Normal [facility] CBC W Auto Differential pane l (Bld)on 11-11-2022 Basophils (Bld) [#/Vol] 0.04 10*3/uL <0.11 k/uL [facility] Basophils/100 WBC (Bld) 0.6 % [facility] Differential cell count method Nom (Bld) Auto [facility] Eosinophils (Bld) [#/Vol] 0.15 10*3/uL <0.46 k/uL [facility] Eosinophils/100 WBC (Bld) 2.4 % [facility] Erythrocyte distribution width (RBC) [Ratio] 12.2 % 11.5 - 15.0 % [facility] Hematocrit (Bld) [Volume fraction] 41.9 % 36.0 - 46.0 % [facility] Hemoglobin (Bld) [Mass/Vol] 14.1 g/dL 11.5 - 15.5 g/dL [facility] Immature granulocytes (Bld) [#/Vol] 0.04 10*3/uL <0.10 k/uL [facility] Immature granulocytes/100 WBC (Bld) 0.6 % [facility] Lymphocytes (Bld) [#/Vol] 1.62 10*3/uL 1.00 - 4.00 k/uL [facility] Lymphocytes/100 WBC (Bld) 26.2 % [facility] MCH (RBC) [Entitic mass] 29.4 pg 26.0 - 34.0 pg [facility] MCHC (RBC) [Mass/Vol] 33.7 g/dL 30.5 - 36.0 g/dL [facility] MCV (RBC) [Entitic vol] 87.5 fL 80.0 - 100.0 fL [facility] Monocytes (Bld) [#/Vol] 0.47 10*3/uL <0.87 k/uL [facility] Monocytes/100 WBC (Bld) 7.6 % [facility] Neutrophils (Bld) [#/Vol] 3.87 10*3/uL 1.45 - 7.50 k/uL [facility] Neutrophils/100 WBC (Bld) 62.6 % [facility] Nucleated RBC (Bld) [#/Vol] <0.01 k/uL [facility] Nucleated RBC/100 WBC (Bld) [Ratio] 0.0 /100 WBC [facility] Platelet mean volume (Bld) [Entitic vol] 10.2 fL 9.0 - 12.7 fL [facility] Platelets (Bld) [#/Vol] 197 10*3/uL 150 - 400 k/uL [facility] RBC (Bld) [#/Vol] 4.79 10*6/uL 3.90 - 5.20 m/uL [facility] WBC (Bld) [#/Vol] 6.19 10*3/uL 3.70 - 11.00 k/uL [facility] Comprehensive metabolic 2000 panelon 11-11-2022 Albumin [Mass/Vol] 4.1 g/dL 3.9 - 4.9 g/dL [facility] ALP [Catalytic activity/Vol] 86 U/L 34 - 123 U/L [facility] ALT [Catalytic activity/Vol] 32 U/L 7 - 38 U/L [facility] Anion gap [Moles/Vol] 11 mmol/L 9 - 18 mmol/L [facility] AST [Catalytic activity/Vol] 26 U/L 13 - 35 U/L [facility] Bilirubin [Mass/Vol] 0.4 mg/dL 0.2 - 1.3 mg/dL [facility] Calcium [Mass/Vol] 8.9 mg/dL 8.5 - 10. 2 mg/dL [facility] Chloride [Moles/Vol] 105 mmol/L 97 - 105 mmol/L [facility] CO2 [Moles/Vol] 24 mmol/L 22 - 30 mmol/L [facility] Creatinine [Mass/Vol] 1.04 mg/dL High 0.58 - 0.96 mg/dL [facility] Estimated Glomerular Filtration Rate 67 mL/min/1.73m >=60 mL/min/1.7 3m [facility] Glucose [Mass/Vol] 111 mg/dL High 74 - 99 mg/dL [facility] Potassium [Moles/Vol] 3.6 mmol/L Low 3.7 - 5.1 mmol/L [facility] Protein [Mass/Vol] 6.1 g/dL Low 6.3 - 8.0 g/dL [facility] Sodium [Moles/Vol] 140 mmol/L 136 - 144 mmol/L [facility] Urea nitrogen [Mass/Vol] 11 mg/dL 7 - 21 mg/dL [facility] IGGon 11-11-2022 IgG [Mass/Vol] 707 mg/dL 700 - 1,600 mg/dL [facility] IGMon 11-11-2022 IgM [Mass/Vol] 19 mg/dL Low 40 - 230 mg/dL [facility] No Panel Informationon 10-02 [facility] CBC AUTO DIFFon 08-04-2022 BASO # 0.0 103/ul Normal 0.0-0.1 [facility] Comment on above: Performed By: #### C BC #### [facility] [address] [place] [address] Dr. Eduardo Bonilla Basophils/100 WBC (Bld) 0.5 % Normal 0.2-2.0 [facility] Comment on above: Performed By: #### C BC #### [facility] [address] [place] [address] Dr. Eduardo Bonilla EO # 0.1 103/ul Normal 0.0-0.7 [facility] Comment on above: Performed By: #### C BC #### [facility] [address] [place] [address] Dr. Eduardo Bonilla Eosinophils/100 WBC (Bld) 2.0 % Normal 0.9-7.0 [facility] Comment on above: Performed By: #### C BC #### [facility] [address] [place] [address] Dr. Eduardo Bonilla Erythrocyte distribution width (RBC) [Ratio] 11.6 % Normal 11.0-15.0 [facility] Comment on above: Performed By: #### C BC #### [facility] [address] [place] [address] Dr. Eduardo Bonilla Hematocrit (Bld) [Volume fraction] 40.1 % Normal 36.0-48.0 [facility] Comment on above: Performed By: #### C BC #### [facility] [address] [place] [address] Dr. Eduardo Bonilla Hemoglobin (Bld) [Mass/Vol] 13.7 g/dL Normal 12.0-16.0 [facility] Comment on above: Performed By: #### C BC #### [facility] [address] [place] [address] Dr. Eduardo Bonilla IG # 0.03 10e3/ul Normal 0.00-0.03 [facility] Comment on above: Performed By: #### C BC #### [facility] [address] [place] [address] Dr. Eduardo Bonilla IG % 0.5 % Normal 0.0-0.5 [facility] Comment on above: Performed By: #### C BC #### [facility] [address] [place] [address] Dr. Eduardo Bonilla LYMPH # 1.3 103/ul Normal 1.2-3.8 [facility] Comment on above: Performed By: #### C BC #### [facility] [address] [place] [address] Dr. Eduardo Bonilla Lymphocytes/100 WBC (Bld) 20.1 % Critically low 20.5-60.0 [facility] Comment on above: Performed By: #### C BC #### [facility] [address] [place] [address] Dr. Eduardo Bonilla MANUAL DIFF REQ NO Normal [facility] Comment on above: Performed By: #### C BC #### [facility] [address] [place] [address] Dr. Eduardo Bonilla MCH (RBC) [Entitic mass] 30.2 pg Normal 26.7-34.0 [facility] Comment on above: Performed By: #### C BC #### [facility] [address] [place] [address] Dr. Eduardo Bonilla MCHC (RBC) [Mass/Vol] 34.2 g/dL Normal 29.9-35.2 [facility] Comment on above: Performed By: #### C BC #### [facility] [address] [place] [address] Dr. Eduardo Bonilla MCV (RBC) [Entitic vol] 88.5 fL Normal 81.0-99.0 [facility] Comment on above: Performed By: #### C BC #### [facility] [address] [place] [address] Dr. Eduardo Bonilla MONO # 0.6 103/ul Normal 0.3-0.8 [facility] Comment on above: Performed By: #### C BC #### [facility] [address] [place] [address] Dr. Eduardo Bonilla Monocytes/100 WBC (Bld) 8.5 % Normal 1.7-12.0 [facility] Comment on above: Performed By: #### C BC #### [facility] [address] [place] [address] Dr. Eduardo Bonilla NEUT # 4.5 103/ul Normal 1.4-6.5 [facility] Comment on above: Performed By: #### C BC #### [facility] [address] [place] [address] Dr. Eduardo Bonilla Neutrophils/100 WBC (Bld) 68.4 % Normal 43.0-75.0 [facility] Comment on above: Performed By: #### C BC #### [facility] [address] [place] [address] Dr. Eduardo Bonilla Platelet mean volume (Bld) [Entitic vol] 10.3 fL Normal 9.5-13.5 [facility] Comment on above: Performed By: #### C BC #### [facility] [address] [place] [address] Dr. Eduardo Bonilla PLT 165 103/ul Normal 150-450 [facility] Comment on above: Performed By: #### C BC #### [facility] [address] [place] [address] Dr. Eduardo Bonilla RBC 4.53 106/ul Normal 4.20-5.40 [facility] Comment on above: Performed By: #### C BC #### [facility] [address] [place] [address] Dr. Eduardo Bonilla WBC 6.6 103/ul Normal 4.0-11.0 [facility] Comment on above: Performed By: #### C BC #### [facility] [address] [place] [address] Dr. Eduardo Bonilla DEPAKENE/ VALPROIC ACIDon DEPAKENE 78.2 ug/ml Normal 50.0-100.0 [facility] Comment on above: Performed By: #### L IPID, GLUC, VALP, LIVER #### [facility] [address] [place] [address] Dr. Eduardo Bonilla GLUCOSE BLOODon 08-04-2022 Glucose [Mass/Vol] 91 mg/dL Normal 74-106 [facility] Comment on above: Performed By: #### L IPID, GLUC, VALP, LIVER #### [facility] [address] [place] [address] Dr. Eduardo Bonilla LIPID PROFILEon 08-04-2022 CHOL-HDL RATIO NORM SEE BELOW Normal [facility] Comment on above: Result Comment: 3.3 - 4.4 LOW RISK 4.4 - 7.1 AVERAGE RISK 7.1 - 11.0 MODERATE RISK >11.0 HIGH RISK Performed By: #### L IPID, GLUC, VALP, LIVER #### [facility] [address] [address] [address] Eduardo Bonilla Cholesterol [Mass/Vol] 167 mg/dL Normal <=200 [facility] Comment on above: Performed By: #### L IPID, GLUC, VALP, LIVER #### [facility] [address] [address] [address] Eduardo Bonilla Cholesterol in HDL [Mass/Vol] 41 mg/dL Normal 40-60 [facility] Comment on above: Performed By: #### L IPID, GLUC, VALP, LIVER #### [facility] [address] [place] [address] Dr. Eduardo Bonilla Cholesterol in LDL [Mass/Vol] 111.0 mg/dL Normal [facility] Comment on above: Performed By: #### L IPID, GLUC, VALP, LIVER #### [facility] [address] [address] [address] Eduardo Bonilla Cholesterol.total/ Cholesterol in HDL [Mass ratio] 4.1 {ratio} Normal [facility] Comment on above: Performed By: #### L IPID, GLUC, VALP, LIVER #### [facility] [address] [address] [address] Eduardo Bonilla HDL NORMAL > or = 60 mg/dl - LO W CARDIOVASCULAR RISK <40 mg/dl - HIGH CARDIOVASCULAR RISK Normal [facility] Comment on above: Performed By: #### L IPID, GLUC, VALP, LIVER #### [facility] [address] [place] [address] Dr. Eduardo Bonilla LDL CALC NORMAL SEE BELOW Normal [facility] Comment on above: Result Comment: <100 mg/dl OPTIMAL 100 - 129 mg/dl NEAR OR ABOVE OPTIMAL 130 - 159 mg/dl BORDERLINE HIGH 160 - 189 mg/dl HIGH >190 mg/dl VERY HIGH Performed By: #### L IPID, GLUC, VALP, LIVER #### [facility] [address] [address] [address] Eduardo Bonilla Triglyceride [Mass/Vol] 75 mg/dL Normal <=150 [facility] Comment on above: Performed By: #### L IPID, GLUC, VALP, LIVER #### [facility] [address] [address] [address] Eduardo Bonilla VLDL CALC 15.0 mg/dL Normal [facility] Comment on above: Performed By: #### L IPID, GLUC, VALP, LIVER #### [facility] [address] [place] [address] Dr. Eduardo Bonilla LIVER PROFILEon 08-04-2022 Albumin [Mass/Vol] 3.0 g/dL Critically low 3.4-5.0 [facility] Comment on above: Performed By: #### L IPID, GLUC, VALP, LIVER #### [facility] [address] [place] [address] Dr. Eduardo Bonilla Albumin/Globulin [Mass ratio] 1.0 {ratio} Normal [facility] Comment on above: Performed By: #### L IPID, GLUC, VALP, LIVER #### [facility] [address] [place] [address] Dr. Eduardo Bonilla ALP [Catalytic activity/Vol] 78 U/L Normal 46-116 [facility] Comment on above: Performed By: #### L IPID, GLUC, VALP, LIVER #### [facility] [address] [place] [address] Dr. Eduardo Bonilla ALT [Catalytic activity/Vol] 74 U/L Critically high 14-59 [facility] Comment on above: Performed By: #### L IPID, GLUC, VALP, LIVER #### [facility] [address] [place] [address] Dr. Eduardo Bonilla AST [Catalytic activity/Vol] 55 U/L Critically high 15-37 [facility] Comment on above: Performed By: #### L IPID, GLUC, VALP, LIVER #### [facility] [address] [address] [address] Eduardo Bonilla BILI, CONJUGATED 0.2 mg/dL Normal 0.0-0.2 [facility] Comment on above: Performed By: #### L IPID, GLUC, VALP, LIVER #### [facility] [address] [address] [address] Eduardo Bonilla Bilirubin [Mass/Vol] 0.4 mg/dL Normal 0.2-1.0 [facility] Comment on above: Performed By: #### L IPID, GLUC, VALP, LIVER #### [facility] [address] [address] [address] Eduardo Bonilla Globulin (S) [Mass/Vol] 3.1 g/dL Normal [facility] Comment on above: Performed By: #### L IPID, GLUC, VALP, LIVER #### [facility] [address] [address] [address] Eduardo Bonilla Protein [Mass/Vol] 6.1 g/dL Critically low 6.4-8.2 [facility] Comment on above: Performed By: #### L IPID, GLUC, VALP, LIVER #### [facility] [address] [place] [address] Dr. Eduardo Bonilla CBC W Auto Differential pane l (Bld)on 05-13-2022 Basophils (Bld) [#/Vol] <0.11 k/uL [facility] Basophils/100 WBC (Bld) 0.3 % [facility] Differential cell count method Nom (Bld) Auto [facility] Eosinophils (Bld) [#/Vol] 0.14 10*3/uL <0.46 k/uL [facility] Eosinophils/100 WBC (Bld) 2.4 % [facility] Erythrocyte distribution width (RBC) [Ratio] 12.4 % 11.5 - 15.0 % [facility] Hematocrit (Bld) [Volume fraction] 40.9 % 36.0 - 46.0 % [facility] Hemoglobin (Bld) [Mass/Vol] 13.7 g/dL 11.5 - 15.5 g/dL [facility] Immature granulocytes (Bld) [#/Vol] 0.03 10*3/uL <0.10 k/uL [facility] Immature granulocytes/100 WBC (Bld) 0.5 % [facility] Lymphocytes (Bld) [#/Vol] 1.39 10*3/uL 1.00 - 4.00 k/uL [facility] Lymphocytes/100 WBC (Bld) 24.0 % [facility] MCH (RBC) [Entitic mass] 30.1 pg 26.0 - 34.0 pg [facility] MCHC (RBC) [Mass/Vol] 33.5 g/dL 30.5 - 36.0 g/dL [facility] MCV (RBC) [Entitic vol] 89.9 fL 80.0 - 100.0 fL [facility] Monocytes (Bld) [#/Vol] 0.47 10*3/uL <0.87 k/uL [facility] Monocytes/100 WBC (Bld) 8.1 % [facility] Neutrophils (Bld) [#/Vol] 3.74 10*3/uL 1.45 - 7.50 k/uL [facility] Neutrophils/100 WBC (Bld) 64.7 % [facility] Nucleated RBC (Bld) [#/Vol] <0.01 k/uL [facility] Nucleated RBC/100 WBC (Bld) [Ratio] 0.0 /100 WBC [facility] Platelet mean volume (Bld) [Entitic vol] 10.3 fL 9.0 - 12.7 fL [facility] Platelets (Bld) [#/Vol] 160 10*3/uL 150 - 400 k/uL [facility] RBC (Bld) [#/Vol] 4.55 10*6/uL 3.90 - 5.20 m/uL [facility] WBC (Bld) [#/Vol] 5.79 10*3/uL 3.70 - 11.00 k/uL [facility] IGGon 05-13-2022 IgG [Mass/Vol] 634 mg/dL Low 700 - 1,600 mg/dL [facility] IGMon 05-13-2022 IgM [Mass/Vol] 17 mg/dL Low 40 - 230 mg/dL [facility] XR shoulder LT min 2V*on XR shoulder LT min 2V* [facility] [employer] Other XR shoulder LT min 2V* [facility] Main [place] [employer] Other XR shoulder LT min 2V* [address] [facility] [employer] Other XR shoulder LT min 2V* [place] [address] [employer] Other XR shoulder LT min 2V* XRay Report [employer] Other XR shoulder LT min 2V* Signed [employer] Other XR shoulder LT min 2V* Patient: Mackenzie Concepcion MR#: [id number] [employer] Other XR shoulder LT min 2V* 653 [employer] Other XR shoulder LT min 2V* : 1975 Acct:[id number] [employer] Other XR shoulder LT min 2V* Age/Sex: 46 / F ADM Date: 04/24/22 [employer] Other XR shoulder LT min 2V* Loc: XDUCLY Room: Type: [facility] [employer] Other XR shoulder LT min 2V* Attending Dr: Mila [facility] [employer] Other XR shoulder LT min 2V* Copies to: MILA [facility] [employer] Other XR shoulder LT min 2V* Ordering Provider: MILA [facility] [employer] Other XR shoulder LT min 2V* Date of Service: 04/24/22 [employer] Other XR shoulder LT min 2V* XR/XR shoulder LT min 2V*: Injury of left shoulder, initial encounter [employer] Other XR shoulder LT min 2V* LEFT SHOULDER - - 4 views [employer] Other XR shoulder LT min 2V* CLINICAL HISTORY: Left shoulder pain for one week. [employer] Other XR shoulder LT min 2V* COMPARISON: None [employer] Other XR shoulder LT min 2V* FINDINGS: [employer] Other XR shoulder LT min 2V* No acute bony process. No significant degenerative change. [employer] Other XR shoulder LT min 2V* XR/XR shoulder LT min 2V* [employer] Other XR shoulder LT min 2V* IMPRESSION: [employer] Other XR shoulder LT min 2V* No acute bony process. [employer] [facility] [employer] Other XR shoulder LT min 2V* Impression dictated by: Jasper Pina Jr., D.OMarjan04/24/2022 11:55 AM [employer] Other XR shoulder LT min 2V* Dictation Location: [facility] [employer] Other XR shoulder LT min 2V* Transcribed By: ALEX 04/24/22 [facility] [employer] Other XR shoulder LT min 2V* Dictated By: Jasper Pina Jr DO 04/24/22 [facility] [employer] Other XR shoulder LT min 2V* Signed By: [employer] Other XR shoulder LT min 2V* 04/24/22 [facility] [employer] Other XR knee BI 4Von 01-27-2022 XR knee BI 4V [facility] [employer] Other XR knee BI 4V [facility] Main [place] [employer] Other XR knee BI 4V [address] [place] [address] [employer] Other XR [place] 4[place] [address] [place] [employer] Other XR knee BI 4V XRay Report [facility] [employer] Other XR knee BI 4V Signed [employer] Other XR knee BI 4V Patient: Samir Concepcion MR#: [id number] [place] [employer] Other XR knee BI 4V 653 [employer] Other XR knee BI 4V : 1975 Acct:[id number] [employer] Other XR knee BI 4V Age/Sex: 46 / F ADM Date: 01/27/22 [employer] Other XR knee BI 4V Loc: XDUCLY Room: pe: REG CLI [employer] Other XR knee BI 4V Attending Dr: Quan [facility] [employer] Other XR knee BI 4V Copies to: Roc GOME[facility] [employer] Other XR knee BI 4V Ordering Provider: MILA [facility] [employer] Other XR knee BI 4V Date of Service: 01/27/22 [employer] Other XR knee BI 4V [id number]) XR/XR knee BI 4V: Pain in right knee;Pain in left knee [employer] Other XR knee BI 4V BILATERAL KNEES - 4 views each [employer] Other XR knee BI 4V CLINICAL HISTORY: Bi lateral knee pain status post fall 3 days ago. [employer] Other XR knee BI 4V COMPARISON: None [employer] Other XR knee BI 4V FINDINGS: No acute b manool process. No knee joint effusion. Joint spaces of the knees appear [employer] Other XR knee BI 4V maintained. [employer] Other XR knee BI 4V X R/XR knee BI 4V [employer] Other XR knee BI 4V IMPRESSION: [employer] Other XR knee BI 4V NO ACUTE BONY FINDINGS. [employer] Other XR knee BI 4V Impression dictated by: Jasper Pina Jr., DMarjanOMarjan01/27/2022 2:26 PM [employer] Other XR knee BI 4V Dictation Location: [place] [address] [employer] Other XR knee BI 4V Transcribed By: PWS 01/27/22 [facility] [employer] Other XR knee BI 4V Dictated By: Jasper Pina Jr DO 01/27/22 [facility] [employer] Other XR knee BI 4V Signed By: [employer] Other XR knee BI 4V 01/27/22 [facility] [employer] Other CBC AUTO DIFFon 12-15-2021 BASO # 0.0 103/ul Normal 0.0-0.1 [facility] Comment on above: Performed By: #### C BC #### [facility] [address] [place] [address] [address] Eduardo Bonilla Basophils/100 WBC (Bld) 0.7 % Normal 0.2-2.0 [facility] Comment on above: Performed By: #### C BC #### [facility] [address] [address] [address] Eduardo Bonilla EO # 0.1 103/ul Normal 0.0-0.7 [facility] Comment on above: Performed By: #### C BC #### [facility] [address] [address] [address] Eduardo Bonilla Eosinophils/100 WBC (Bld) 2.4 % Normal 0.9-7.0 [facility] Comment on above: Performed By: #### C BC #### [facility] [address] [place] [address] Dr. Eduardo Bonilla Erythrocyte distribution width (RBC) [Ratio] 11.9 % Normal 11.0-15.0 [facility] Comment on above: Performed By: #### C BC #### [facility] [address] [place] [address] Dr. Eduardo Bonilla Hematocrit (Bld) [Volume fraction] 39.2 % Normal 36.0-48.0 [facility] Comment on above: Performed By: #### C BC #### [facility] [address] [place] [address] Dr. Eduardo Bonilla Hemoglobin (Bld) [Mass/Vol] 12.9 g/dL Normal 12.0-16.0 [facility] Comment on above: Performed By: #### C BC #### [facility] [address] [place] [address] Dr. Eduardo Bonilla IG # 0.03 10e3/ul Normal 0.00-0.03 [facility] Comment on above: Performed By: #### C BC #### [facility] [address] [place] [address] Dr. Eduardo Bonilla IG % 0.6 % Critically high 0.0-0.5 [facility] Comment on above: Performed By: #### C BC #### [facility] [address] [place] [address] Dr. Eduardo Bonilla LYMPH # 1.6 103/ul Normal 1.2-3.8 [facility] Comment on above: Performed By: #### C BC #### [facility] [address] [place] [address] Dr. Eduardo Bonilla Lymphocytes/100 WBC (Bld) 29.0 % Normal 20.5-60.0 [facility] Comment on above: Performed By: #### C BC #### [facility] [address] [place] [address] Dr. Eduardo Bonilla MANUAL DIFF REQ NO Normal [facility] Comment on above: Performed By: #### C BC #### [facility] [address] [place] [address] Dr. Eduardo Bonilla MCH (RBC) [Entitic mass] 29.7 pg Normal 26.7-34.0 [facility] Comment on above: Performed By: #### C BC #### [facility] [address] [place] [address] Dr. Eduardo Bonilla MCHC (RBC) [Mass/Vol] 32.9 g/dL Normal 29.9-35.2 [facility] Comment on above: Performed By: #### C BC #### [facility] [address] [place] [address] Dr. Eduardo Bonilla MCV (RBC) [Entitic vol] 90.1 fL Normal 81.0-99.0 [facility] Comment on above: Performed By: #### C BC #### [facility] [address] [place] [address] Dr. Eduardo Bonilla MONO # 0.6 103/ul Normal 0.3-0.8 [facility] Comment on above: Performed By: #### C BC #### [facility] [address] [place] [address] Dr. Eduardo Bonilla Monocytes/100 WBC (Bld) 10.6 % Normal 1.7-12.0 [facility] Comment on above: Performed By: #### C BC #### [facility] [address] [place] [address] Dr. Eduardo Bonilla NEUT # 3.1 103/ul Normal 1.4-6.5 [facility] Comment on above: Performed By: #### C BC #### [facility] [address] [place] [address] Dr. Eduardo Bonilla Neutrophils/100 WBC (Bld) 56.7 % Normal 43.0-75.0 [facility] Comment on above: Performed By: #### C BC #### [facility] [address] [address] [address] Eduardo Bonilla Platelet mean volume (Bld) [Entitic vol] 10.0 fL Normal 9.5-13.5 [facility] Comment on above: Performed By: #### C BC #### [facility] [address] [place] [address] Dr. Eduardo Bonilla PLT 175 103/ul Normal 150-450 [facility] Comment on above: Performed By: #### C BC #### [facility] [address] [place] [address] Dr. Eduardo Bonilla RBC 4.35 106/ul Normal 4.20-5.40 [facility] Comment on above: Performed By: #### C BC #### [facility] [address] [place] [address] Dr. Eduardo Bonilla WBC 5.4 103/ul Normal 4.0-11.0 [facility] Comment on above: Performed By: #### C BC #### [facility] [address] [place] [address] Dr. Eduardo Bonilla DEPAKENE/VALPROICon 12-16-19 DEPAKENE 96.8 ug/ml Normal 50.0-100.0 [facility] Comment on above: Performed By: #### V ALP, LIVER, GLUC, LIPID #### [facility] [address] [place] [address] Dr. Eduardo Bonilla GLUCOSE BLOODon 12-15-2021 Glucose [Mass/Vol] 90 mg/dL Normal 74-106 [facility] Comment on above: Performed By: #### V ALP, LIVER, GLUC, LIPID #### [facility] [address] [place] [address] Dr. Eduardo Bonilla LIPID PROFILEon 12-15-2021 CHOL-HDL RATIO NORM SEE BELOW Normal [facility] Comment on above: Result Comment: 3.3 - 4.4 LOW RISK 4.4 - 7.1 AVERAGE RISK 7.1 - 11.0 MODERATE RISK >11.0 HIGH RISK Performed By: #### V ALP, LIVER, GLUC, LIPID #### [facility] [address] [address] [address] Eduardo Bonilla Cholesterol [Mass/Vol] 182 mg/dL Normal <=200 [facility] Comment on above: Performed By: #### V ALP, LIVER, GLUC, LIPID #### [facility] [address] [address] [address] Eduardo Bonilla Cholesterol in HDL [Mass/Vol] 44 mg/dL Normal 40-60 [facility] Comment on above: Performed By: #### V ALP, LIVER, GLUC, LIPID #### [facility] [address] [address] [address] Eduardo Bonilla Cholesterol in LDL [Mass/Vol] 118.6 mg/dL Normal [facility] Comment on above: Performed By: #### V ALP, LIVER, GLUC, LIPID #### [facility] [address] [address] [address] Eduardo Bonilla Cholesterol.total/ Cholesterol in HDL [Mass ratio] 4.1 {ratio} Normal [facility] Comment on above: Performed By: #### V ALP, LIVER, GLUC, LIPID #### [facility] [address] [address] [address] Eduardo Bonilla HDL NORMAL > or = 60 mg/dl - LO W CARDIOVASCULAR RISK <40 mg/dl - HIGH CARDIOVASCULAR RISK Normal [facility] Comment on above: Performed By: #### V ALP, LIVER, GLUC, LIPID #### [facility] [address] [address] [address] Eduardo Bonilla LDL CALC NORMAL SEE BELOW Normal [facility] Comment on above: Result Comment: <100 mg/dl OPTIMAL 100 - 129 mg/dl NEAR OR ABOVE OPTIMAL 130 - 159 mg/dl BORDERLINE HIGH 160 - 189 mg/dl HIGH >190 mg/dl VERY HIGH Performed By: #### V ALP, LIVER, GLUC, LIPID #### [facility] [address] [address] [address] Eduardo Bonilla Triglyceride [Mass/Vol] 97 mg/dL Normal <=150 [facility] Comment on above: Performed By: #### V ALP, LIVER, GLUC, LIPID #### [facility] [address] [address] [address] Eduardo Bonilla VLDL CALC 19.4 mg/dL Normal [facility] Comment on above: Performed By: #### V ALP, LIVER, GLUC, LIPID #### [facility] [address] [address] [address] Eduardo Bonilla LIVER PROFILEon 12-15-2021 Albumin [Mass/Vol] 3.2 g/dL Critically low 3.4-5.0 Th e [facility] Comment on above: Performed By: #### V ALP, LIVER, GLUC, LIPID #### [facility] [address] [address] [address] Eduardo Bonilla Albumin/Globulin [Mass ratio] 1.1 {ratio} Normal [facility] Comment on above: Performed By: #### V ALP, LIVER, GLUC, LIPID #### [facility] [address] [address] [address] Eduardo Bonilla ALP [Catalytic activity/Vol] 71 U/L Normal 46-116 [facility] Comment on above: Performed By: #### V ALP, LIVER, GLUC, LIPID #### [facility] [address] [address] [address] Eduardo Bonilla ALT [Catalytic activity/Vol] 50 U/L Normal 14-59 [facility] Comment on above: Performed By: #### V ALP, LIVER, GLUC, LIPID #### [facility] [address] [address] [address] Eduardo Bonilla AST [Catalytic activity/Vol] 37 U/L Normal 15-37 [facility] Comment on above: Performed By: #### V ALP, LIVER, GLUC, LIPID #### [facility] [address] [address] [address] Eduardo Bonilla BILI, CONJUGATED 0.2 mg/dL Normal 0.0-0.2 [facility] Comment on above: Performed By: #### V ALP, LIVER, GLUC, LIPID #### [facility] [address] [address] [address] Eduardo Bonilla Bilirubin [Mass/Vol] 0.5 mg/dL Normal 0.2-1.0 [facility] Comment on above: Performed By: #### V ALP, LIVER, GLUC, LIPID #### [facility] [address] [place], [place] [address] Dr. Eduardo Bonilla Globulin (S) [Mass/Vol] 3.0 g/dL Normal [facility] Comment on above: Performed By: #### V ALP, LIVER, GLUC, LIPID #### [facility] [address] [place], [place] [address] Dr. Eduardo Bonilla Protein [Mass/Vol] 6.2 g/dL Critically low 6.4-8.2 [facility] Comment on above: Performed By: #### V ALP, LIVER, GLUC, LIPID #### [facility] [address] [place], [place] [address] Dr. Eduardo Bonilla No Panel Informationon 10-06 Brain Enhancing Lesions None [facility] Brain Interval Improvement None [facility] Brain New T2 Lesions None [facility] Brain Other Significant MRI Findings None. [facility] Brain Parenchymal Volume Loss Moderate [facility] Brain T2 [place] of Disease Moderate [facility] Cervical spine enhancing lesions None [facility] Cervical Spine New T2 Lesions None [facility] Cervical Spine T2 [place] of Disease None [facility] XR chest 2V*on 09-15-2021 XR chest 2V* [facility] [place] Other XR chest 2V* [facility] [place] Other XR chest 2V* [address] [facility] [place] Other XR chest 2V* [address] [place] Other XR chest 2V* XRay Report [facility] [place] Other XR chest 2V* Signed [place] [employer] Other XR chest 2V* Patient: Samir Concepcion yany Radha MR#: [id number] [facility] [place] Other XR chest 2V* 653 [employer] Other XR chest 2V* : 1975 Acct:[id number] [employer] Other XR chest 2V* Age/Sex: 45 / F ADM Date: 09/15/21 [employer] Other XR chest 2V* Loc: XDCLY [facility] [employer] Other XR chest 2V* Attending Dr: Quan [facility] [employer] Other XR chest 2V* Copies to: Roc [facility] [employer] Other XR chest 2V* Ordering Provider: MILA [facility] [employer] Other XR chest 2V* Date of Service: 09/15/21 [employer] Other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 11-11-2022 ambulatory Chair 2 Samir Work Phone: Hematology/Oncology Comment on above: MS (multiple scleros is) (HCC) (Primary Dx) Start: 10-02-2022 End: 10-02-2022 Subsequent hospital visit by physician Mri Skyra (I-Stat/3t) Work Phone: Radiology Comment on above: No Show Start: 10-02-2022 End: 10-02-2022 Patient encounter procedure Sania Nicholas PA-C Work Phone: [facility] Comment on above: Multiple sclerosis ( HCC) [...] Refraction error Start: 08-04-2022 End: 08-05-2022 ambulatory MILAREJI GOMEZ Facility:[facility] Start: 07-16-2022 Refill Sania VEGAC Work Phone: [facility] Comment on above: Refill Request Start: 05-13-2022 Telephone encounter Amy Mohan RN Hematology/Oncology Comment on above: hemolyzed labs Start: 05-13-2022 End: 05-13-2022 ambulatory Chair 2 Samir Work Phone: Hematology/Oncology Comment on above: MS (multiple scleros is) (HCC) (Primary Dx) Start: 04-24-2022 End: 04-24-2022 ambulatory Mila Gomez Other [facility] Other Start: 04-24-2022 Office outpatient vi sit 15 minutes Mila Gomez [facility] Start: 04-03-2022 Chart abstracting Sania ANNE-C Work Phone: [facility] Comment on above: Orders (PT and Image orders) Start: 04-02-2022 End: 04-02-2022 ambulatory Sania ANNE-C Work Phone: [facility] Comment on above: Multiple sclerosis ( HCC) (Primary Dx); Urinary incontinence, unspecified type; Imbalance; Abnormality of gait Start: 04-02-2022 End: 04-02-2022 Telemedicine consultation with patient Sania ANNE-C Work Phone: [facility] Start: 03-05-2022 End: 03-05-2022 ambulatory Milareji Gomez Other [facility] Other Start: 03-05-2022 Office outpatient vi sit 15 minutes Mila Gomez [facility] Start: 01-29-2022 Refill Sania ANNE-C Work Phone: [facility] Comment on above: Refill Request Start: 01-27-2022 Office outpatient vi sit 15 minutes Mila Petersault [facility] Start: 01-27-2022 End: 01-27-2022 ambulatory CUT OFF MAN-C Mila Gomez Work Phone: [facility] Work Phone: Start: 01-27-2022 End: 01-27-2022 Patient encounter procedure CUT OFF MAN-C Mila Gomez Work Phone: [facility] Start: 01-12-2022 End: 01-12-2022 ambulatory Mila Petersault Other [facility] Other Start: 01-12-2022 Office outpatient vi sit 25 minutes Mila Patricia [facility] Start: 01-07-2022 End: 01-07-2022 ambulatory Mila Gomez Other [facility] Other Start: 01-07-2022 Telephone encounter Mila Dylon layla [facility] Start: 12-15-2021 End: 12-16-2021 ambulatory GOGO RASCON Facility: Start: 11-11-2021 End: 11-11-2021 Infusion Center Chair 2 Samir Work Phone: Hematology/Oncology Comment on above: Bipolar 1 disorder, mixed, severe (HCC) (Primary Dx); MS (multiple sclerosis) (HCC) Start: 10-30-2021 Office outpatient vi sit 15 minutes Mila Patricia [facility] Start: 10-30-2021 End: 10-30-2021 ambulatory Ashia Moralez [employer] Other Phone: [facility] Other Comment on above: Multiple sclerosis ( HCC) (Primary Dx) Start: 10-07-2021 End: 10-07-2021 ambulatory Sania Nicholas PA-C Work Phone: [facility] Comment on above: Multiple sclerosis ( HCC) (Primary Dx); Weakness of both hands Start: 10-07-2021 End: 10-07-2021 Telemedicine consultation with patient Sania Nicholas PA-C Work Phone: [facility] Start: 10-06-2021 End: 10-06-2021 Subsequent hospital visit by physician Isamar Will (I-Stat/3t) Work Phone: Radiology Comment on above: Multiple sclerosis ( HCC) [G35] Start: 09-30-2021 End: 09-30-2021 Social Work Ashia Moralez [employer] Other Phone: [facility] Comment on above: Multiple sclerosis ( HCC) (Primary Dx) Start: 09-15-2021 End: 09-15-2021 ambulatory Mila Patricia Other [facility] Other Start: 09-15-2021 Office outpatient vi sit 15 minutes Mila Patricia [facility] Start: 09-15-2021 Telephone encounter Mila Breaul t [facility] Start: 08-22-2021 End: 08-22-2021 ambulatory Mila Patricia Other [facility] Other Start: 08-22-2021 Telephone encounter Mila Breaul t [facility] Start: 08-15-2021 Refill Sania Nicholas PA-C Work Phone: [facility] Comment on above: Refill Request Start: 07-21-2021 Refill Sania Nicholas PA-C Work Phone: [facility] Comment on above: Refill Request Start: 07-14-2021 End: 07-14-2021 ambulatory Mila Patricia Other [facility] Other Start: 07-14-2021 Telephone encounter Mila Breaul t [facility] Start: 07-08-2021 End: 07-08-2021 ambulatory Mila Gomez Other [facility] Other Start: 07-08-2021 Office outpatient vi sit 15 minutes Mila Gomez [facility] Start: 04-11-2021 End: 04-11-2021 ambulatory Kait Ginty Other [facility] Other Start: 04-11-2021 Office outpatient vi sit 15 minutes Kait Ginty [facility] [place] Start: 08-18-2017 End: 08-24-2017 Evaluation and management of inpatient [facility] Procedures Date Procedure Procedure Detail Performing Clinician Start: 12-23-2023 Ophthalmic us dx cor piedad pachymetry uni/bi Sergio Luong OD Work Phone: Start: 12-23-2023 Computerized ophthal caroline imaging optic nerve Sergio Luong OD Work Phone: Start: 12-10-2023 Follow-up visit Follow-up KERRIE CASTRO JR Start: 11-18-2023 Antibody cytomegalov irus cmv igm Rebecca Bansal DO Work Phone: Start: 11-18-2023 Blood count complete auto&auto difrntl wbc Rebecca Bansal DO Work Phone: Start: 10-15-2023 Mri brain brain stem w/o w/contrast material Rebecca Rappley DO Work Phone: Start: 05-20-2023 End: 05-20-2023 Blood count complete auto&auto difrntl wbc Rebecca Rappley DO Work Phone: Start: 11-11-2022 End: 11-11-2022 Blood count complete auto&auto difrntl wbc Sania Nicholas PA-C Work Phone: Start: 10-02-2022 Mri spinal canal cer vical w/o & w/contr matrl Sania Nicholas PA-C Work Phone: Start: 05-13-2022 Blood count complete auto&auto difrntl wbc Sania Nicholas PA-C Work Phone: Start: 01-27-2022 X-ray of both knees CUT OFF MAN -C Mila Gomez Work Phone: Start: 10-29-2021 Adult depression scr eening assessment Chair Samir Work Phone: Start: 10-06-2021 BRAIN & CERVICAL [...] Author Start: 11-17-2026 Diabetes Screening Diabetes Screening [facility] Start: 09-20-2026 Screening for malignant neoplasm of colon [facility] Start: 05-20-2026 Diabetes Screening Diabetes Screening [facility] Start: 02-17-2025 Adult BMI Screening Adult BMI Screening [facility] Start: 02-17-2025 Tobacco Screening Tobacco Screening [facility] Start: 12-09-2024 Adult BMI Screening Adult BMI Screening [facility] Start: 12-09-2024 Tobacco Screening Tobacco Screening [facility] Start: 11-17-2024 End: 11-17-2024 Patient encounter procedure 11/17/2024 8:45 AM EDT Office Visit [facility] [address] [place] [address] [place] [address] Kerrie Castro Jr., MD [address] [place] [address] [facility] Start: 10-13-2024 End: 10-13-2024 Patient encounter procedure 10/13/2024 10:30 AM EDT Office Visit [facility] [address] [address] Sania Nicholas PA-C [address] [place] [address] [facility] Comment on above: MRI follow up Start: 10-13-2024 End: 10-13-2024 Patient encounter procedure 10/13/2024 8:40 AM EDT Appointment Radiology [address] [place] [id number] MRI BRAIN WO/W IVCON Radiology Comment on above: MRI BRAIN WO/W IVCON Start: 05-18-2024 End: 05-18-2024 ambulatory 05/18/2024 9:00 AM EST [facility] Hematology/Oncology [address] [place] [address] [place] [address] [facility] Comment on above: [facility] Start: 04-21-2024 End: 04-21-2024 Follow-up encounter 04/21/2024 3:00 PM EST [address] [address] Rebecca Bansal DO [address] [facility] Comment on above: follow up Start: 04-19-2024 End: 04-19-2024 Patient encounter procedure 04/19/2024 1:30 PM EST Office Visit [facility] [address] [address] Rebecca Bansal DO [address] 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 Start: 01-24-2024 End: 01-24-2024 Patient encounter procedure 01/24/2024 10:00 AM EDT Appointment [facility] [address] [place] [phone] Kerrie Castro Jr., MD [facility] [place] [address] [facility] Start: 01-21-2024 End: 01-21-2024 Patient encounter procedure 01/21/2024 10:15 AM EDT [facility] [address] [place] [address] [place] [id number] Kerrie Castro Jr., MD [address] [place] [address] [facility] Start: 12-23-2023 End: 12-23-2023 Patient encounter procedure 12/23/2023 1:15 PM EDT Office Visit [facility] [address] [place], [place] [id number] Sergio Luong, OD [address] [facility] [facility] [address] [facility] [address] bilateral eye pain Ophthalmology Comment on above: bilateral eye pain Start: 12-23-2023 End: 12-23-2023 Patient encounter procedure 12/23/2023 8:30 AM EDT Office Visit [facility] [address] [place], [place] [id number] Sergio Luong, OD [address] [place], [place] [id number] bilateral eye pain Ophthalmology Comment on above: bilateral eye pain Start: 11-28-2023 Covid-19 Vaccine ( season) Covid-19 Vaccine () [facility] Start: 11-28-2023 Covid-19 Vaccine () Covid-19 Vaccine () [facility] Start: 11-28-2023 Influenza vaccination [facility] Start: 11-18-2023 End: 11-18-2023 ambulatory 11/18/2023 9:00 AM EDT [facility] Hematology/Oncology [address] [place] [address] [place] [address] [facility] Comment on above: [facility] Start: 10-20-2023 End: 10-20-2023 Patient encounter procedure 10/20/2023 10:00 AM EDT Office Visit [facility] [address] [address] Terri Cartagena MD [address] [place], [place] [id number] follow up for MS/ headaches. Patient would like to be contacted if Dr Vo has a cancellation for earlier today (former Dr. Vo Patient) Ophthalmology Comment on above: follow up for MS/ headaches. Patient wou ld like to be contacted if Dr Vo has a cancellation for earlier today (former Dr. Vo Patient) Start: 10-03-2023 Glaucoma screening Dilated Retinal Exam [facility] Start: 10-03-2023 Hepatitis C antibody, confirmatory test DILATED RETINAL EXAM [facility] Start: 05-20-2023 End: 08-19-2023 Immunodeficiency panel - Blood by Flow cytometry (FC) [facility] Work Phone: Comment on above: Expected: 05/20/2023, Expires: Start: 05-07-2023 End: 08-06-2023 CBC W Auto Differential panel - Blood CBC + DIFF Lab Routine Multiple sclerosis (HCC) Expected: 05/07/2023, Expires: 08/06/2023 [facility] Work Phone: Comment on above: Expected: 05/07/2023, Expires: Start: 05-07-2023 End: 08-06-2023 Comprehensive metabolic 2000 panel - Serum or Plasma COMP METABOLIC PANEL Lab Routine Multiple sclerosis ([facility]) Expected: 05/07/2023, Expires: 08/06/2023 [facility] Work Phone: Comment on above: Expected: 05/07/2023, Expires: 4 Start: 05-07-2023 End: 08-06-2023 IMMUNOGLOBULINS UMESH IMMUNOGLOBULINS UMESH Lab Routine Multiple sclerosis ([facility]) Expected: 05/07/2023, Expires: 08/06/2023 [facility] Work Phone: Comment on above: Expected: 05/07/2023, Expires: 4 Start: 03-29-2023 Behavioral Health Screening Behavioral Health Screening [facility] Start: 03-29-2023 Depression Assessment Depression Assessment [facility] Start: 11-27-2022 Covid-19 Vaccine () Covid-19 Vaccine () [facility] Start: 11-27-2022 Influenza vaccination [facility] Start: 11-11-2022 End: 01-11-2023 Immunodeficiency panel - Blood by Flow cytometry (FC) [facility] Work Phone: Comment on above: Expected: 11/11/2022, Expires: 3 Start: 10-29-2022 Adult depression screening assessment DEPRESSION SCREENING [facility] Start: 10-06-2022 Hepatitis C antibody, confirmatory test DILATED RETINAL EXAM [facility] Start: 09-29-2022 Adult depression screening assessment DEPRESSION SCREENING [facility] Start: 05-13-2022 End: 07-13-2022 Immunodeficiency panel - Blood by Flow cytometry (FC) [facility] Work Phone: Comment on above: Expected: 05/13/2022, Expires: 3 Start: 03-29-2022 DEPRESSION ASSESSMENT DEPRESSION ASSESSMENT [facility] Start: 11-27-2021 Influenza vaccination [facility] Start: 11-11-2021 End: 01-11-2022 CBC W Auto Differential panel - Blood CBC + DIFF Lab Routine MS (multiple sclerosis) (HCC) Bipolar 1 disorder, mixed, severe (HCC) Expected: 11/11/2021, Expires: 01/11/2022 [facility] Work Phone: Comment on above: Expected: 11/11/2021, Expires: 2 Start: 11-11-2021 End: 01-11-2022 Fasting glucose [Mass/volume] in Serum or Plasma GLUCOSE FASTING BLD Lab Routine MS (multiple sclerosis) (HCC) Bipolar 1 disorder, mixed, severe (HCC) Expected: 11/11/2021, Expires: 01/11/2022 [facility] Work Phone: Comment on above: Expected: 11/11/2021, Expires: 2 Start: 11-11-2021 End: 01-11-2022 Hepatic function 2000 panel - Serum or Plasma HEPATIC FUNCTION PNL Lab Routine MS (multiple sclerosis) (HCC) Bipolar 1 disorder, mixed, severe (HCC) Expected: 11/11/2021, Expires: 01/11/2022 [facility] Work Phone: Comment on above: Expected: 11/11/2021, Expires: 2 Start: 11-11-2021 End: 01-11-2022 Lipid 1996 panel - Serum or Plasma LIPID PANEL BASIC Lab Routine MS (multiple sclerosis) (HCC) Bipolar 1 disorder, mixed, severe (HCC) Expected: 11/11/2021, Expires: 01/11/2022 [facility] Work Phone: Comment on above: Expected: 11/11/2021, Expires: 2 Start: 11-11-2021 End: 01-11-2022 Valproate [Mass/volume] in Serum or Plasma VALPROIC A/DEPAKENE Lab Routine MS (multiple sclerosis) (HCC) Bipolar 1 disorder, mixed, severe (HCC) Expected: 11/11/2021, Expires: 01/11/2022 [facility] Work Phone: Comment on above: Expected: 11/11/2021, Expires: 2 Start: 2021 COLOGUARD (FIT-DNA) COLOGUARD (FIT-DNA) [facility] Start: 2021 Colonoscopy COLONOSCOPY [facility] Start: 2021 COLORECTAL CANCER SCREENING COLORECTAL CANCER SCREENING [facility] Start: [address] COLONOGRAPHY [facility] Start: 2021 FECAL OCCULT BLOOD FECAL OCCULT BLOOD [facility] Start: 2021 Lipid panel Lipid Screening [facility] Start: 2021 Screening for malignant neoplasm of colon [facility] Start: 2021 SIGMOIDOSCOPY SIGMOIDOSCOPY [facility] Start: 05-13-2021 COVID-19 VACCINE (4 - Booster for Pfizer series) COVID-19 VACCINE (4 - Booster for Pfizer series) [facility] Start: 05-13-2021 COVID-19 VACCINE (4 - Pfizer series) COVID-19 VACCINE (4 - Pfizer series) [facility] Start: 03-29-2021 DEPRESSION ASSESSMENT DEPRESSION ASSESSMENT [facility] Start: 03-01-2021 Hepatitis C antibody, confirmatory test DILATED RETINAL EXAM [facility] Start: 02-21-2020 Adult depression screening assessment DEPRESSION SCREENING [facility] Start: 2018 PAP TESTING PAP TESTING [facility] Start: 2016 Mammography MAMMOGRAM [facility] Start: 2016 Screening for malignant neoplasm of breast Mammogram Screening [facility] Start: 2006 HPV TESTING HPV TESTING [facility] Start: 2006 Screening for malignant neoplasm of cervix HPV Testing [facility] Start: 1997 PAP TESTING PAP TESTING [facility] Start: 1997 Screening for malignant neoplasm of cervix [facility] Start: 11-02-1995 DTaP,Tdap and Td Vaccines (1 - Tdap) DTaP,Tdap and Td Vaccines (1 - Tdap) [facility] Start: 11-02-1995 HEPATITIS B (1 of 3 - Risk 3-dose series) HEPATITIS B (1 of 3 - Risk 3-dose series) [facility] Start: 11-02-1995 Hepatitis B Vaccine (1 of 3 - 19+ 3-dose series) Hepatitis B Vaccine (1 of 3 - 19+ 3-dose series) [facility] Start: 11-02-1995 Urine microalbumin profile [facility] Start: 1994 Adult BMI Follow Up Plan Adult BMI Follow Up Plan [facility] Start: 1994 ANNUAL PCP TEAM CHRONIC DISEASE VISIT ANNUAL PCP TEAM CHRONIC DISEASE VISIT [facility] Start: 1994 Anxiety Screening Anxiety Screening [facility] Start: 1994 Depression Screening Depression Screening [facility] Start: 1994 Hepatitis B surface antibody level LDL CHOLESTEROL [facility] Start: 1994 HIV SCREENING HIV SCREENING [facility] Start: 1994 HIV screening HIV Screening [facility] Start: 1992 ONE PNEUMOVAX PRIOR TO AGE 65 ONE PNEUMOVAX PRIOR TO AGE 65 [facility] Start: 1988 Depression Screening Depression Screening [facility] Start: 1986 3 comp foot exam completed DIABETIC FOOT EXAM [facility] Start: 1986 Diabetic foot examination Diabetic Foot Exam [facility] Start: 1986 Hepatitis B screening URINE ALBUMIN:CREATININE RATIO [facility] Start: 1982 PNEUMOCOCCAL (1 - PCV) PNEUMOCOCCAL (1 - PCV) [facility] Start: 1981 Hemoglobin A1c measurement HbA1C [facility] Start: 1981 Hemoglobin A1c/Hemoglobin.total in Blood HBA1C [facility] Start: 1976 HEPATITIS B (1 of 3 - 3-dose series) HEPATITIS B (1 of 3 - 3-dose series) [facility] Start: 1976 Hepatitis B Vaccine (1 of 3 - 3-dose series) Hepatitis B Vaccine (1 of 3 - 3-dose series) [facility] Immunodeficiency lennon el - Blood by Flow cytometry (FC) IMMUN[facility]ICIENCY [facility] Lab Routine MS (multiple sclerosis) ([facility]) 11/11/2021 1:32 PM EDT [facility] Work Phone: End: 06-05-2024 MR Brain WO and W contrast IV MRI BRAIN WO/W IVCON Radiology Routine Multiple sclerosis (HCC) 1 Occurrences starting 05/07/2023 until 06/05/2024 [facility] Work Phone: Comment on above: 1 Occurrences starting 05/07/2023 until 06/05/2024 End: 05-02-2023 Mri brain brain stem w/o w/contrast material MRI BRAIN WO/W IVCON Radiology Routine Multiple sclerosis ([facility]) 1 Occurrences starting 04/02/2022 until 05/02/2023 [facility] Work Phone: Comment on above: 1 Occurrences starting 04/02/2022 until 05/02/2023 End: 05-02-2023 Mri spinal canal cervical w/o & w/contr matrl MRI CERVICAL SPINE WO/W IVCON Radiology Routine Multiple sclerosis (HCC) Urinary incontinence, unspecified type Imbalance Abnormality of gait 1 Occurrences starting 04/02/2022 until 05/02/2023 [facility] Work Phone: Comment on above: 1 Occurrences starting 04/02/2022 until 05/02/2023 [facility] Immunizations Immunization Date Immunization Notes Care Provider Ciro red 03-18-2021 COVID-19 vaccine, ag e 12+ yr (PFIZER-BIONTECH - PURPLE TOP) Mri (I-Stat/3t) Work Phone: [facility] Work Phone: 08-30-2020 COVID-19 Vaccine Pfi zer - Documentation Purposes Only Kait Ginty Other [facility] Work Phone: 08-10-2020 COVID-19 Vaccine Pfi zer - Documentation Purposes Only Kait Ginty Other [facility] 08-09-2020 COVID-19 vaccine, ag e 12+ yr (PFIZER-BIONTECH - PURPLE TOP) Mri (I-Stat/3t) Work Phone: [facility] Work Phone: Payers Date Payer Category Payer Self-pay [id number] 2022 Medicaid O [facility] [id number] 2016 Medicaid [employer] [facility] [id number] 2016-Present [phone] [address] [place] [address] Medicaid [id number] 2016 Medicaid [id number] 1976 Unknown [id number] 1976 Unknown [id number] 1976 Unknown [id number] 1976 Unknown [id number] 1976 Unknown [id number] 1976 Unknown [id number] 1976 Unknown [id number] 1959 Medicaid [id number] 1959 Unknown [id number] Unknown [id number] Unknown [id number] Social History Date Type Detail Facility Start: 07-10-2011 End: 10-02-2022 Tobacco smoking status NHIS Never smoked tobacco [facility] Start: 09-18-2020 End: 12-23-2023 Alcohol intake Current drinker of alcohol (finding) [facility] Start: 1975 Sex Assigned At Not on file [facility] Start: 10-02-2022 End: 11-18-2023 Sex Assigned At [facility] Start: 09-26-2021 End: 11-11-2021 Exposure to SARS-CoV-2 (event) Not sure [facility] Start: 07-10-2011 End: 10-02-2022 Tobacco use and exposure Smokeless tobacco non-user [facility] Start: 1975 Sex Assigned At [facility] Start: 10-02-2022 End: 11-18-2023 History of Social function [facility] Adult Depression Screening Assessment 5 [facility] Tobacco smoking status No Smokin g Status Entered [facility] Start: 12-10-2023 End: 02-18-2024 Alcoholic beverage intake Ex-drinker (finding) [facility] Start: 09-09-2021 Alcohol Comment social [facility] Start: 2014 Sex Female (finding) [facility] Medical Equipment Procedure Code Equipment Code Equipment Origin al Text Equipment Identifier Dates Lens Iol +17.5 D iop - [id number] Start: 11-06-2010 Stent Uret 7fr 2 6cm Pgtl Crv Tpr Tip Bldr Mrk Lp Lg Inr Lum Rpl [id number] - [id number] - [id number] Start: 09-19-2021 Clinical Notes 10-16-2009 to 03-01-2024 Telephone Encounter - Agatha De La Fuente RN - 03/01/2024 2:44 PM ESTTelephone Encounter - Agatha De La Fuente RN - 03/01/2024 2:44 PM Jane Castro Jr., MD - 02/18/2024 8:30 AM EST Note Date & Type Note Facility 03-01-2024 Telephone encounter Note [facility] Spoke with pharmacist Verified name and date of of patient Reviewed that it should be 20 mg total [facility] needed a verbal, provided verbal [facility] 03-01-2024 Miscellaneous Notes [facility] Spoke with pharmacist Verified name and date of of patient Reviewed that it should be 20 mg total [facility] needed a verbal, provided verbal Per 02/07/24: we can increase the amitriptyline to 20 mg at night but we will need to continue to monitor this. If the headaches are still ongoing after the increased dose, your care team recommends a consult to the headache clinic [place] Call Name of caller : Patricia Relationship to patient: [facility] Return call phone number : [phone] Reason for call : Other : Brief description of concern : Pharmacy calling patient advised last apt increased Elavil to 25 mg however OV note does not support needs new script or clarification. amitriptyline (ELAVIL) 10 mg tablet documented in this encounter [facility] 03-01-2024 Telephone encounter Note Per 02/07/24: we can increase the amitriptyline to 20 mg at night but we will need to continue to monitor this. If the headaches are still ongoing after the increased dose, your care team recommends a consult to the headache clinic [facility] 03-01-2024 Telephone encounter Note Source : call from patient requesting refill. Delivery : e-script Requested Prescriptions Pending Prescriptions Disp Refills amitriptyline (ELAVIL) 10 mg tablet 30 tablet 5 Sig: Take 1 tablet by mouth daily at bedtime. DX : Patient last seen 05/21/23 Next Appointment : 04/21/24 FYI... pt is requesting an increase in the mg to 20 mg Mila Rivera [facility] 03-01-2024 Miscellaneous Notes Source : call from patient requesting refill. Delivery : e-script Requested Prescriptions Pending Prescriptions Disp Refills amitriptyline (ELAVIL) 10 mg tablet 30 tablet 5 Sig: Take 1 tablet by mouth daily at bedtime. DX : Patient last seen 05/21/23 Next Appointment : 04/21/24 FYI... pt is requesting an increase in the mg to 20 mg Mila Rivera documented in this encounter [facility] 03-01-2024 Telephone encounter Note [place] Call Name of caller : Patricia Relationship to patient: [facility] Return call phone number : [phone] Reason for call : Other : Brief description of concern : Pharmacy calling patient advised last apt increased Elavil to 25 mg however OV note does not support needs new script or clarification. amitriptyline (ELAVIL) 10 mg tablet [facility] 02-18-2024 History of Presen t illness Narrative Images from the original note were not included. [address] [place] [address] [address] [facility] [address] [facility] [id number] Patient: Mackenzie Concepcion Date of : 1975 Encounter Date: 02/18/2024 History of Present Illness: Chief Complaint: Chief complaint follow up stones and adrenal lesions and incontinence. See below Urinalysis today: No results for input(s): EXTPOCURCO , EXTPOCURCH , EXTPOCAPP , EXTPOCURBS , EXTPOCURBIL , EXTPOCUKET , EXTPOCUSPG , EXTPOCUHGB , EXTPOCUPRO , EXTPOCUURO , EXTPOCULEU , EXTPOCUNIT , EXTPOCUWBC , EXTPOCUBLD , EXTPOCURBC , EXTPOCUCRY , EXTPOCUBAC , EXTPOCUTREP , EXTPOCUPH , EXTPOCULEE in the last 72 hours. Last BUN and creatinine: Lab Results Component Value Date BUN 20 02/23/2022 Lab Results Component Value Date CREATININE 1.11 (H) 02/23/2022 Last PSA: No results found for: PSA No results found for: PROSTATICSP Past Medical, Family, and Social History Update: The following portions of the patient's history were reviewed and updated as appropriate: allergies, current medications, past family history, past medical history, past social history, past surgical history and problem list. Past Medical History: Diagnosis Date Anxiety Atelectasis Bipolar affective (CMS-HCC) Blood transfusion reaction COVID-19 approx 03/2021 Ground glass opacity present on imaging of lung Hepatic steatosis MS (multiple sclerosis) (CMS-HCC) Nuclear cataract, nonsenile Optic atrophy, postinflammatory 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 Posterior synechiae Seasonal allergies Visual impairment Vitamin D deficiency Past Surgical History: Procedure Laterality Date CATARACT EXTRACTION W/ INTRAOCULAR LENS IMPLANT Right CYSTOSCOPY INSERTION STENT URETER Left 09/19/2021 Performed by Kerrie Castro Jr., MD at [facility] CYSTOSCOPY REMOVAL STENT Left 10/03/2021 Performed by Kerrie Castro Jr., MD at [facility] CYSTOSCOPY RETROGRADE PYELOGRAM WITH FLUOROSCOPY Left 09/19/2021 Performed by Kerrie Castro Jr., MD at [facility] EYE SURGERY HAND SURGERY Right Trigger finger - pinkey HYSTERECTOMY LASER ABLATION LASER HOLMIUM URETEROSCOPY RENAL STONES < OR=1CM BASKET EXTRACTION Left 09/19/2021 Performed by Kerrie Castro Jr., MD at [facility] WISDOM TOOTH EXTRACTION Family History Problem Relation Age of Onset Diabetes Mother Depression Mother No Known Problems Father Current Outpatient Medications Medication Sig Dispense Refill amitriptyline (ELAVIL) 10 mg tablet Take 1 tablet (10 mg total) by mouth nightly. baclofen (LIORESAL) 10 mg tablet TAKE ONE TABLET BY MOUTH 3 TIMES DAILY DIRECTED buPROPion XL (WELLBUTRIN XL) 300 mg 24 hr tablet Take 1 tablet (300 mg total) by mouth in the morning. 300 mg daily. cariprazine (VRAYLAR) 1.5 mg capsule Take 4 capsules (6 mg total) by mouth in the morning. cetirizine (ZyrTEC) 10 mg tablet Take 1 tablet (10 mg total) by mouth in the morning. cholecalciferol, vitamin D3, 25 mcg (1,000 unit) capsule Take 5 capsules (5,000 Units total) by mouth in the morning. citalopram (CeleXA) 10 mg tablet Take 2 tablets (20 mg total) by mouth in the morning. clonazePAM (KlonoPIN) 0.5 mg tablet 3 (three) times a day. dicyclomine (BENTYL) 20 mg tablet Take 1 tablet (20 mg total) by mouth 3 (three) times a day. As needed divalproex (DEPAKOTE ER) 250 mg 24 hr tablet Take 1 tablet (250 mg total) by mouth in the morning. 4 tablets (1,000 mg) daily at HS. docusate sodium (COLACE) 100 mg capsule As needed gabapentin (NEURONTIN) 300 mg capsule TAKE 1 CAPSULE BY MOUTH 3 TIMES A DAY (BREAKFAST, LUNCH, DINNER) AND TAKE 2 CAPSULES AT BEDTIME lactase (LACTAID) 3,000 unit tablet As needed ocrelizumab (OCREVUS) 30 mg/mL injection Infuse into a venous catheter Every 6 months. oxybutynin (DITROPAN) 5 mg tablet Take 2 tablets (10 mg total) by mouth 3 (three) times a day. 540 tablet 3 traZODone (DESYREL) 50 mg tablet As needed VENTOLIN HFA 90 mcg/actuation inhaler Inhale 2 puffs every 4 (four) hours as needed. azithromycin (ZITHROMAX) 250 mg tablet Daily (Patient not taking: Reported on 02/18/2024) dexAMETHasone (DECADRON) 2 mg tablet Take 3 tablets (6 mg total) by mouth in the morning. (Patient not taking: Reported on 02/18/2024) nitrofurantoin, macrocrystal-monohydrate, (MACROBID) 100 mg capsule 1 capsule with food Orally every 12 hrs for 5 days (Patient not taking: Reported on 02/18/2024) oxybutynin (DITROPAN) 5 mg tablet Take 2 tablets (10 mg total) by mouth 3 (three) times a day for 360 days. (Patient not taking: Reported on 02/18/2024) 540 tablet 3 No current facility-administered medications for this visit. (All medications reviewed and updated by provider since last office visit or hospitalization) Allergies: Naproxen, Prednisone, and Sulfa (sulfonamide antibiotics) Tobacco History: Social History Tobacco Use Smoking Status Never Smokeless Tobacco Never (If patient a smoker, smoking cessation counseling offered) Social History: Social History Substance and Sexual Activity Alcohol Use Not Currently Comment: social Review of Systems: General: Negative for chills and fever. Cardiovascular: Negative for chest pain and shortness of breath. Gastrointestinal: Negative for constipation, diarrhea, nausea, and vomitting. -per HPI Physical Exam: Ht 165.1 cm (5' 5 ) Wt 98.4 kg (217 lb) BMI 36.11 kg/m Alert, pleasant, without signs of acute illness, and in no distress. Respirations unlabored . Skin dry on examination now. Assessment and Plan: Mackenzie was seen today for follow-up. Diagnoses and all orders for this visit: Urologic disorders Recurrent urinary tract infection Mixed stress and urge urinary incontinence Kidney stone on left side Problem List Unprioritized Urologic disorders - Primary Overview 1. Multiple sclerosis, anxiety, bipolar disorder, sexually active with with recurrent urinary tract infections since her teens or 20s with dysuria, urgency, left flank pain, and difficulty voiding treated elsewhere with antibiotic oral or azo, culture proven; infections sometimes related to intercourse; boyfriend Damian; sister Jose Carlos 2. Disclosed medical marijuana use 08/08/2021 3. Delay of micturition 4. Family history urolithiasis in patient's mother, brother, and sister 5. Urolithiasis; by history stone passage x2, following radiographic evaluation at [facility], most recently estimated 2011 5-6 mm side not certain; 2 left upper pole nonobstructing renal stones largest [address] 08/22/2021 not clearly visible KUB; 09/19/2021 cystoscopy, left flexible ureteral pyeloscopy holmium laser/basket extraction 3 left renal stones with sub mm lower pole residual fragment imbedded in the mucosa, stent placement, 70% calcium oxalate monohydrate, 20% phosphate, and 10% dihydrate; 10/03/2021 cystoscopic left stent removal; 11/15/2021 ultrasound likely small left renal stone fragments and no hydronephrosis; punctate left renal stone CT 02/24/[address] 01/24/2024 6. Alternating constipation/diarrhea 7. Mixed urge and stress urinary incontinence occasionally using a pad complicated by hysterectomy with unilateral ovariectomy, multiple sclerosis, delay of micturition, constipation/diarrhea, obesity, bipolar disorder, and anxiety; treated by primary care with Ditropan 5 mg 3 times daily 8. Difficulty voiding with intermittent incomplete emptying 9. Nonspecific mid abdominal pain 10. Flow peak and mean 36.8 and 18.8 PVR 43 mL 08/19/2021 11. Hypernaturia 12. Elevated urinary oxalate 13. Low urinary volume 14. Elevated super saturation calcium oxalate and calcium phosphate 15. Bilateral tiny fat containing adrenal lesions stable CT 02/23/2022 possibly myelolipoma is or lipid rich adenomas; stable CT 01/24/2024 16. Absent from requested 6 months follow-up from 03/06/2022 until 12/10/2023 17.KUB August 2021; CT December 2023; ultrasound October 2021; litho hypernaturia link December 2021 Recurrent urinary tract infection Mixed stress and urge urinary incontinence Kidney stone on left side Follow-up: Patient returns, with her boyfriend, with no new urologic complaint follow-up of her incontinence, UTIs, stone, and adrenal lesions. I provided independent interpretation of films and reports of CT demonstrating I agree punctate nonobstructing left renal stone as well as stable tiny bilateral adrenal myelolipomas. Also by report hepatic steatosis and left basilar atelectasis. I advised the patient to pursue the non urologic CT findings with primary care. CT report provided to the patient. Continue Ditropan 5 mg tablets, 10 mg 3 times daily, timed voids every 2 hours while awake and as needed without delay, cranberry, 2.75 L daily urinary output with low oxalate diet and proper wiping. Discussed previously prophylactic antibiotic or estradiol cream. Return 9 months to keep prescription up-to-date. Advised repeat surveillance imaging not until 3 years given stability from findings 2 years ago to minimize radiation exposure. Urology service is the sole provider for the patient's ongoing management of urinary incontinence and stones, which is a chronic condition requiring ongoing follow-up. . KERRIE CASTRO JR, MD This note was created with the assistance of a speech recognition program. While intending to generate a timely document that accurately reflects the content of the visit, no guarantee can be provided that every grammatical or spelling mistake has been or will be identified or corrected. Thank you for your understanding. documented in this encounter [facility] 02-07-2024 Telephone encounter Note Per Matthew Nicholas: Part of the concern was adding another medication like amitriptyline when she is on 2 other antidepressants. She was going to discuss wqith her psychiatrist to make sure it was OK. Is she tolerating OK? No s/s of serotonin syndrome? We can increase amitriptyline to 20mg PO QHS but need to continue to monitor. If AGUILLON ongoing still after this increased dose, I would recommend AGUILLON consult [facility] 02-07-2024 Miscellaneous Notes Per Matthew Nicholas: Part of the concern was adding another medication like amitriptyline when she is on 2 other antidepressants. She was going to discuss wqith her psychiatrist to make sure it was OK. Is she tolerating OK? No s/s of serotonin syndrome? We can increase amitriptyline to 20mg PO QHS but need to continue to monitor. If AGUILLON ongoing still after this increased dose, I would recommend AGUILLON consult documented in this encounter [facility] 01-20-2024 Miscellaneous Notes Patient canceled 01/21/2024 appointment. Get her rescheduled within 3 months documented in this encounter [facility] 01-20-2024 Telephone encounter Note Patient canceled 01/21/2024 appointment. Get her rescheduled within 3 months [facility] 01-13-2024 Miscellaneous Notes Wow. 1. We are just trying to follow-up on an apparent adrenal myelolipoma as well as urinary stones , neither of which have been imaged in a couple years. I see no reason why any of the blood work would impact ordering any of those tests. She should have follow-up on both of those issues. 2. likewise urinalysis would not impact our wanting to follow-up her adrenal lesion. 3. Ultrasound could be ordered but we will be wildly inaccurate in this patient with BMI of 36 to try to monitor adrenal/renal lesions. Please review with them and get back to me. Patient Calls (Newest Message First) View All Conversations on this Encounter Harjinder Jackson CMA routed conversation to You14 minutes ago (3:57 PM) Harjinder Jackson CMA14 minutes ago (3:57 PM) HALIMA Zapien from [employer] is calling stating insurance is requesting nwe lab work ( TSH, B12 CMP CBC) urinalysis, & US before her other testing can be done Please advise documented in this encounter [facility] 01-13-2024 Telephone encounter Note Wow. 1. We are just trying to follow-up on an apparent adrenal myelolipoma as well as urinary stones , neither of which have been imaged in a couple years. I see no reason why any of the blood work would impact ordering any of those tests. She should have follow-up on both of those issues. 2. likewise urinalysis would not impact our wanting to follow-up her adrenal lesion. 3. Ultrasound could be ordered but we will be wildly inaccurate in this patient with BMI of 36 to try to monitor adrenal/renal lesions. Please review with them and get back to me. Patient Calls (Newest Message First) View All Conversations on this Encounter Harjinder Jackson CMA routed conversation to You14 minutes ago (3:57 PM) Harjinder Jackson CMA14 minutes ago (3:57 PM) HALIMA Zapien from [employer] is calling stating insurance is requesting nwe lab work ( TSH, B12 CMP CBC) urinalysis, & US before her other testing can be done Please advise [facility] 12-28-2023 Telephone encounter Note Source : electronic from pharmacy requesting refill. Delivery : e-script Requested Prescriptions Pending Prescriptions Disp Refills amitriptyline (ELAVIL) 10 mg tablet [Pharmacy Med Name: AMITRIPTYLINE HYDROCHLORIDE 10MG TABLET] 30 tablet 5 Sig: take one tablet by mouth once daily at bedtime DX : Patient last seen 11/19/2023 Next Appointment : 04/21/2024 Yissel Whitney [facility] 12-28-2023 Miscellaneous Notes Source : electronic from pharmacy requesting refill. Delivery : e-script Requested Prescriptions Pending Prescriptions Disp Refills amitriptyline (ELAVIL) 10 mg tablet [Pharmacy Med Name: AMITRIPTYLINE HYDROCHLORIDE 10MG TABLET] 30 tablet 5 Sig: take one tablet by mouth once daily at bedtime DX : Patient last seen 11/19/2023 Next Appointment : 04/21/2024 Yissel Whitney documented in this encounter [facility] 12-23-2023 Note Date of Procedure 12/23/2023. 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 Quality Right Eye Good. Left Eye [...] Thickness [phone] Edited by: Sergio Luong, SARAI [facility] 12-23-2023 Instructions Sergio Luong, OD - 12/23/2023 [...] immediate medical attention. documented in this encounter [facility] 12-23-2023 History of Presen t illness Narrative ASSESSMENT/PLAN: (H04.123) Tear film insufficiency, bilateral (primary encounter diagnosis) (H25.042) 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 (H47.093) Optic nerve asymmetry, bilateral (G35) MS (multiple sclerosis) (FORM[facility]) Educated patient on findings. Healthy anterior examination [...] others. I have seen and examined Mackenzie Radha Concepcion. I have discussed the case and the management of this patient's care with the Resident/Fellow, if applicable. I also have reviewed and agree with the assessment and plan as stated above and agree with all of its relevant components. documented in this encounter [facility] 12-07-2023 Note HNO ID: [id number] Author: ?, ?, ? Service: ? Author Type: ? Type: Progress Notes Filed: 12/07/2023 09:29 Note Text: Mailed order to patient; per patient's request MACKENZIE CONCEPCION [address] [facility] [id number] 12/07/2023 [facility] 12-07-2023 History of Presen t illness Narrative Mailed order to patient; per patient's request MACKENZIE CONCEPCION [address] [facility] [id number] 12/07/2023 documented in this encounter [facility] 12-03-2023 Telephone encounter Note Source : electronic from pharmacy requesting refill. Delivery : e-script Requested Prescriptions Pending Prescriptions Disp Refills baclofen 10 mg tablet [Pharmacy Med Name: BACLOFEN 10MG TABLET] 84 tablet 11 Sig: TAKE ONE TABLET BY MOUTH THREE TIMES A DAY DIRECTED DX : Patient last seen 11/19/2023 Next Appointment : 04/21/2024 Yissel Whitney [facility] 12-03-2023 Miscellaneous Notes Source : electronic from pharmacy requesting refill. Delivery : e-script Requested Prescriptions Pending Prescriptions Disp Refills baclofen 10 mg tablet [Pharmacy Med Name: BACLOFEN 10MG TABLET] 84 tablet 11 Sig: TAKE ONE TABLET BY MOUTH THREE TIMES A DAY DIRECTED DX : Patient last seen 11/19/2023 Next Appointment : 04/21/2024 Yissel Whitney documented in this encounter [facility] 11-19-2023 Note HNO ID: [id number] Author: SANIA NICHOLAS PA-C Service: ? Author Type: Physician Carriage Dogger Type: Progress Notes Filed: 11/19/2023 08:38 Note Text: [facility] FOR MULTIPLE SCLEROSIS FOLLOWUP/ESTABLISHED PATIENT VIRTUAL VISIT [...] functioning) Flowsheet Row Appointment from 11/19/[address] [facility] Office Visit from 05/07/[address] [facility] from 04/02/[address] [facility] Upper Extremity Domain T Score 33 35 34 Lower Extremity Domain T Score 38 38 27 Cognitive Function Domain T Score 40 44 36 Positive Affect Well Being T Score -- -- -- Ability To Participate In Social Roles T Score 42 38 38 Satisfaction With Social Roles T Score 42 39 36 Neuro-QoL Symptoms (higher=worse symptoms) Flowsheet Row Appointment from 11/19/[address] [facility] Office Visit from 05/07/[address] [facility] from 04/02/[address] [facility] Sleep Domain T Score 55 65 59 [...] Macular edema 2002 DX: MS (multiple sclerosis) ([facility]) No date: Optic atrophy of right eye [...] but monitor liam (more content not included)... [facility] 11-19-2023 History of Presen t illness Narrative Images from the original note were not included. [facility] MULTIPLE SCLEROSIS FOLLOWUP/ESTABLISHED PATIENT VIRTUAL VISIT [...] functioning) Flowsheet Row Appointment from 11/19/[address] [facility] Office Visit from 05/07/2023 in [facility] from 04/02/[address] [facility] Upper Extremity Domain T Score 33 35 34 Lower Extremity Domain T Score 38 38 27 Cognitive Function Domain T Score 40 44 36 Positive Affect Well Being T Score -- -- -- Ability To Participate In Social Roles T Score 42 38 38 Satisfaction With Social Roles T Score 42 39 36 Neuro-QoL Symptoms (higher=worse symptoms) Flowsheet Row Appointment from 11/19/[address] [facility] Office Visit from 05/07/2023 in [facility] from 04/02/[address] [facility] Sleep Domain T Score 55 65 59 [...] Macular edema 2002 DX: MS (multiple sclerosis) ([facility]) No date: Optic atrophy of right eye [...] which included preparing to see the patient, [id number] patient care, and completing clinical documentation. Today's visit is being completed virtually over Zoom. Patient consented to proceed with virtual visit. I have communicated my name and active licensure. The patient's identity and physical location were verified at the time of this visit. Either the patient or their legal medical detail representative has been informed of the risks and benefits of -- and alternatives to -- treatment through a remote evaluation and consents to proceed with the evaluation remotely. Sania Nicholas PA-C documented in this encounter [facility] 11-18-2023 Note HNO ID: [id number] Author: YODIT ROSADO RN Service: ? Author [...] 100ml/hr for 30 min. NS at [facility]. [facility] 11-18-2023 History of Presen t illness Narrative [...] at [facility]. error documented in this encounter [facility] 11-18-2023 Note HNO ID: [id number] Author: ANGIE GRIJALVA LPN Service: ? Author Type: LICENSED NURSE Type: Progress Notes Filed: 11/19/2023 10:40 Note Text: error [facility] 11-09-2023 Telephone encounter Note Source : mychart from patient requesting refill. Delivery : e-script Requested Prescriptions Pending Prescriptions Disp Refills oxybutynin (DITROPAN) 5 mg tablet 84 tablet 11 Sig: TAKE ONE TABLET BY MOUTH IN THE MORNING, AFTERNOON, AND AT BEDTIME DX : Patient last seen 10/15/2023 Next Appointment : 04/19/2024 Yissel Whitney [facility] 11-09-2023 Miscellaneous Notes Source : mychart from patient requesting refill. Delivery : e-script Requested Prescriptions Pending Prescriptions Disp Refills oxybutynin (DITROPAN) 5 mg tablet 84 tablet 11 Sig: TAKE ONE TABLET BY MOUTH IN THE MORNING, AFTERNOON, AND AT BEDTIME DX : Patient last seen 10/15/2023 Next Appointment : 04/19/2024 Yissel Whitney documented in this encounter [facility] 10-18-2023 Telephone encounter Note Called patient and it went to voicemail. Called to explain that her appointment with Dr. Cartagena is cancelled and per Dr. 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 They will be able to give her routine eye care to manage and follow her ophthalmic eye concerns, which are dislocated lens, cataract in other eye, obtaining prescriptions for glasses from her etc. [facility] 10-18-2023 Miscellaneous Notes Called patient and it went to voicemail. Called to explain that her appointment with Dr. Cartagena is cancelled and per Dr. 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 They will be able to give her routine eye care to manage and follow her ophthalmic eye concerns, which are dislocated lens, cataract in other eye, obtaining prescriptions for glasses from her etc. documented in this encounter [facility] 10-15-2023 History of Presen t illness Narrative Images from the original note were not included. [facility] FOLLOWUP/ESTABLISHED PATIENT VISIT PRINCIPAL NEUROLOGIC DIAGNOSIS: Multiple [...] on on her arm. Fell when at [facility] in July. She has never done PT [...] Flowsheet Row Office Visit from 05/07/2023 in [facility] from 04/02/[address] [facility] from 10/30/[address] [facility] Upper Extremity Domain T Score 35 34 [...] Flowsheet Row Office Visit from 05/07/2023 in [facility] from 04/02/[address] 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 She has no past medical history of Atrial fibrillation ([facility]), Cancer ([facility]), Chronic obstructive pulmonary disease (COPD) ([facility]), Chronic renal insufficiency, Congestive heart failure ([facility]), Coronary artery disease, Diabetes ([facility]), Epilepsy ([facility]), Hypertension, Obstructive sleep apnea, Steroid long-term use, Stroke ([facility]), or Substance abuse ([facility]). has a current medication list which includes the following prescription(s): cholecalciferol (vitamin d3), gabapentin, baclofen, albuterol hfa, vraylar, docusate sodium, iv contrast, divalproex er, bupropion xl, lactase, oxybutynin, citalopram hydrobromide, ocrelizumab, and acetaminophen. EXAM: BP 115/77 Pulse 71 Ht 170.7 cm (5' 7.2 ) Wt 106.6 kg (235 lb) LMP 08/31/2011 BMI 36.59 kg/m MSPT Results Flowsheet Row Office Visit from 05/07/[address] [facility] Office Visit from 02/20/[address] [facility] Office Visit from 08/25/[address] [facility] Processing Speed Total Number Correct 29 55 [...] sister and significant other for recallling events. OS, OD Affect: Normal Extraocular movements: full, without CAMPBELL Facial sensation: Intact bilaterally Facial movements: Intact bilaterally Speech: normal Muscle tone: Right arm spasticity: None Right leg spasticity: None Left arm spasticity: Mild Left leg spasticity: None Muscle strength (#/5): Right Left Upper Extremity: Deltoids 5 4+ Biceps 5 5 Triceps 5 5 Truck Rental Service Attendant 5 5 Dorsal interossei 5 5 Lower [...] and Stretching Follow-up: In 6 months at [facility] I spent a total of 30 minutes on the date of the service which included preparing to see the patient, [id number] patient care, completing clinical documentation, obtaining and/or reviewing separately obtained history, performing a medically appropriate examination, counseling and educating the patient/family/caregiver, ordering medications, tests, or procedures, communicating with other HCPs (not separately reported), independently interpreting results (not separately reported), communicating results to the patient/family/caregiver, and care coordination (not separately reported). Lemuel Nunez MD Adult Neurology PGY-4 10/15/2023 12:54 PM [facility] STAFF PHYSICIAN NOTE OF PERSONAL INVOLVEMENT IN CARE I have reviewed the follow-up note obtained and documented by the neurology resident and I personally participated in the pride components and have answered all the patient's questions. Mackenzie Concepcion is overall stable with several chronic symptoms. MRI stable today. She will try to start aquatic PT locally. We will continue Ocrevus. Rebecca Bansal D.O. [facility] Staff documented in this encounter [facility] 10-15-2023 Note HNO ID: [id number] Author: REBECCA BANSAL, DO Service: ? Author Type: Physician Type: Progress Notes Filed: 10/19/2023 20:58 Note Text: [facility] FOLLOWUP/ESTABLISHED PATIENT VISIT PRINCIPAL NEUROLOGIC DIAGNOSIS: Multiple [...] on on her arm. Fell when at [facility] in July. She has never done PT [...] Flowsheet Row Office Visit from 05/07/2023 in [facility] from 04/02/[address] [facility] from 10/30/[address] [facility] Upper Extremity Domain T Score 35 34 [...] Flowsheet Row Office Visit from 05/07/2023 in [facility] from 04/02/[address] 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 She has no past medical history of Atrial fibrillation ([facility]), Cancer ([facility]), Chronic obstructive pulmonary disease (COPD) ([facility]), Chronic renal insufficiency, Congestive heart failure ([facility]), Coronary artery disease, Diabetes ([facility]), Epilepsy ([facility]), Hypertension, Obstructive sleep apnea, Steroid long-term use, Stroke ([facility]), or Substance abuse ([facility]). has a current medication list which includes the following prescription(s): cholecalciferol (vitamin d3), gabapentin, baclofen, albuterol hfa, vraylar, docusate sodium, iv contrast, divalproex er, bupropion xl, lactase, oxybutynin, citalopram hydrobromide, ocrelizumab, and acetaminophen. EXAM: BP 115/77 Pulse 71 Ht 170.7 cm (5' 7.2 ) Wt 106.6 kg (235 lb) LMP 08/31/2011 BMI 36.59 kg/m? MSPT Results Flowsheet Row Office Visit from 05/07/[address] [facility] Office Visit from 02/20/[address] [facility] Office Visit from 08/25/[address] [facility] Processing Speed Total Number Correct 29 55 [...] sister and significant other for recallling events. OS, 20 OD Affect: Normal Extra (more content not included)... 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 EXAM: MRI - CONTRAST TYPE: GROUP II PERIPHERAL IV DATA: Ambulatory: A peripheral IV was started in the Left antecubital site with a Angio cath: 22 gauge. RADIOLOGY DEPARTMENT: MR; Exam(s) Completed: Head: Multiple Sclerosis SIGNATURE: RT Miki(Tigre) PATIENT NAME: Mackenzie Concepcion DATE: October 15, 2023 TIME: 8:32 AM documented in this encounter [facility] 10-15-2023 Note HNO ID: [id number] Author: BLANCA, ANDERSON, RT(R) Service: ? Author Type: Technologist Type: [...] PATIENT PRESENTS WITH AN IMPLANTABLE OR ATTACHED HOUSE CARPENTER HELPER: No ALLERGIES: Reviewed and unchanged CONTRAST ALLERGY: NO. EXAM: MRI - CONTRAST TYPE: GROUP II PERIPHERAL IV DATA: Ambulatory: A peripheral IV was started in the Left antecubital site with a Angio cath: 22 gauge. RADIOLOGY DEPARTMENT: MR; Exam(s) Completed: Head: Multiple Sclerosis SIGNATURE: RT Miki(R) PATIENT NAME: Mackenzie Concepcion DATE: October 15, 2023 TIME: 8:32 AM [facility] 06-14-2023 Miscellaneous Notes Source : electronic from pharmacy requesting refill. Delivery : e-script Requested Prescriptions Pending Prescriptions Disp Refills Cholecalciferol, Vitamin D3, 125 mcg (5,000 unit) cap [Pharmacy Med Name: VITAMIN D3 5000UNIT CAPSULE] 28 capsule 11 Sig: take one capsule by mouth once daily DX : Patient last seen 05/07/2023 Next Appointment : 10/15/2023 Yissel Whitney documented in this encounter [facility] 05-21-2023 Miscellaneous Notes Source : electronic from [...] 10/15/2023 Yissel Whitney documented in this encounter [facility] 05-20-2023 Note HNO ID: [id number] Author: KWAME HART RN Service: ? Author [...] further evaluation. Verbalizes understanding. Kwame Hart RN [facility] 05-20-2023 History of Presen t illness Narrative [...] Kwame Hart RN documented in this encounter [facility] 05-07-2023 Note HNO ID: [id number] Author: REBECCA BANSAL, DO Service: ? Author Type: Physician Type: Progress Notes Filed: 05/07/2023 12:43 Note Text: [facility] FOLLOWUP/ESTABLISHED PATIENT VISIT PRINCIPAL NEUROLOGIC DIAGNOSIS: Multiple [...] In the summer she will go to [place] to walk, but needs to sit frequently. Neuro-QoL Functions (higher=better functioning) Flowsheet Row Office Visit from 05/07/2023 in [facility] from 04/02/[address] [facility] Social Work from 10/30/[address] [facility] Upper Extremity Domain T Score 35 34 [...] Flowsheet Row Office Visit from 05/07/[address] [facility] Distance Health from 04/02/[address] [facility] Social Work from 10/30/[address] 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 She has no past medical history of Atrial fibrillation ([facility]), Cancer ([facility]), Chronic obstructive pulmonary disease (COPD) ([facility]), Chronic renal insufficiency, Congestive heart failure ([facility]), Coronary artery disease, Diabetes ([facility]), Epilepsy ([facility]), Hypertension, Obstructive sleep apnea, Steroid long-term use, Stroke ([facility]), or Substance abuse ([facility]). has a current medication list which includes [...] Flowsheet Row Office Visit from 05/07/[address] [facility] Office Visit from 02/20/[address] [facility] Processing Speed Total Number Correct 29 55 [...] 5 Biceps 5 5 Triceps 5 5 Truck Rental Service Attendant 5 5 Dorsal interossei 5 5 Lower extremity: Iliopsoas 5 5 Quadriceps 5 5 Hamstrings 5 5 Tibialis anterior 5 5 Gastrocnemius 5 5 Standard gait: wide-based. Assistive device: independent RESULTS: CBC + Diff Component Value Date WBC 6.19 11/11/2022 HB 14.1 11/11/2022 HCT 41.9 11/11/2022 PLT (more content not included)... [facility] 05-07-2023 History of Presen t illness Narrative Images from the original note were not included. [facility] FOLLOWUP/ESTABLISHED PATIENT VISIT PRINCIPAL NEUROLOGIC DIAGNOSIS: Multiple [...] In the summer she will go to [place] to walk, but needs to sit frequently. Neuro-QoL Functions (higher=better functioning) Flowsheet Row Office Visit from 05/07/2023 in [facility] from 04/02/[address] [facility] [employer] Work from 10/30/2021 [facility] Upper Extremity Domain T Score 35 [...] Flowsheet Row Office Visit from 05/07/2023 in [facility] from 04/02/[address] [facility] [employer] Work from 10/30/[address] 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 She has no past medical history of Atrial fibrillation ([facility]), Cancer ([facility]), Chronic obstructive pulmonary disease (COPD) ([facility]), Chronic renal insufficiency, Congestive heart failure ([facility]), Coronary artery disease, Diabetes ([facility]), Epilepsy ([facility]), Hypertension, Obstructive sleep apnea, Steroid long-term use, Stroke ([facility]), or Substance abuse ([facility]). has a current medication list which includes [...] Flowsheet Row Office Visit from 05/07/[address] [facility] Office Visit from 02/20/[address] [facility] Processing Speed Total Number Correct 29 55 [...] 5 Biceps 5 5 Triceps 5 5 Truck Rental Service Attendant 5 5 Dorsal interossei 5 5 Lower [...] and Stretching Follow-up: In 6 months [address] [place] [address] [facility] I spent a total of 30 minutes on the date of the service which included preparing to see the patient, [id number] patient care, completing clinical documentation, obtaining and/or reviewing separately obtained history, performing a medically appropriate examination, counseling and educating the patient/family/caregiver, ordering medications, tests, or procedures, communicating with other HCPs (not separately reported), independently interpreting results (not separately reported), communicating results to the patient/family/caregiver, and care coordination (not separately reported). Rebecca Bansal DO [facility] documented in this encounter [facility] 10-02-2022 History of Presen t illness Narrative Images from the original note were not included. [facility] FOLLOWUP/ESTABLISHED PATIENT VISIT PRINCIPAL NEUROLOGIC DIAGNOSIS: Multiple [...] medication without side effects. Receives infusions at [facility]. No new neurological symptoms. Ambulates [...] Flowsheet Row Distance Health from 04/02/[address] [facility] Social Work from 10/30/[address] [facility] Social Work from 09/30/[address] [facility] Upper Extremity Domain T Score 34 35 [...] Flowsheet Row Distance Health from 04/02/[address] [facility] Social Work from 10/30/[address] [facility] Social Work from 09/30/[address] 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 She has no past medical history of Atrial fibrillation ([facility]), Cancer ([facility]), Chronic obstructive pulmonary disease (COPD) ([facility]), Chronic renal insufficiency, Congestive heart failure ([facility]), Coronary artery disease, Diabetes ([facility]), Epilepsy ([facility]), Hypertension, Obstructive sleep apnea, Steroid long-term use, Stroke ([facility]), or Substance abuse ([facility]). has a current medication list which includes the following prescription(s): albuterol hfa, vraylar, docusate sodium, cholecalciferol (vitamin d3), gabapentin, iv contrast, baclofen, divalproex er, bupropion xl, lactase, oxybutynin, citalopram hydrobromide, ocrelizumab, and acetaminophen, and the following Facility-Administered Medications: tropicamide, phenylephrine, fluorescein-benoxinate, and proparacaine. EXAM: LMP 08/31/2011 Multiple Sclerosis Performance Test Flowsheet Row Office Visit from 02/20/[address] [facility] Office Visit from 08/25/[address] [facility] Processing Speed Total Number Correct 55 50 [...] which included preparing to see the patient, [id number] patient care, completing clinical documentation, counseling and educating the patient/family/caregiver, ordering medications, tests, or procedures, and communicating results to the patient/family/caregiver. Sania Nicholas PA-C [facility] documented in this encounter [facility] 10-02-2022 History of Presen t illness Narrative Reviewed Epic, chart, labs, imaging studies. 1. 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 No evidence of ocular inflammation on exam today Ocrevus (q6 month dosing, infusions in [place]) MRI scheduled later today 2. Dry eye. [...] Waleska Vo MD documented in this encounter [facility] 07-17-2022 Miscellaneous Notes Source : electronic from pharmacy requesting refill. Delivery : e-script Requested Prescriptions Pending Prescriptions Disp Refills Cholecalciferol, Vitamin D3, 125 mcg (5,000 unit) cap [Pharmacy Med Name: VITAMIN D3 5000UNIT CAPSULE] 28 capsule 11 Sig: TAKE ONE CAPSULE BY MOUTH ONCE DAILY Patient last seen : 04/02/2022 Next Appointment : 10/02/2022 Joan Harrison documented in this encounter [facility] 05-13-2022 Miscellaneous Notes FYI Patient labs drawn today from her IV have hemolyzed. She will need redrawn Amy Mohan RN documented in this encounter [facility] 04-24-2022 Evaluation note Encounter Date Diagnosis Assessment [...] therapy plan may need to be made. [employer] Other [id number] History of Present illness Narrative* RA Ware - 04/03/2022 9:17 AM EST Mailed PT and Image orders from 04/02/2022 visit to [facility] [address] [place] [place] [id number] [facility] History of Present illness Narrative* Sania Nicholas PA-C - 04/02/2022 11:26 AM EST Images from the original note were not included. [facility] FOLLOWUP/ESTABLISHED PATIENT VIRTUAL VISIT [...] functioning) Flowsheet Row Appointment from 04/02/[address] [facility] [facility] [facility] Upper Extremity Domain T Score 34 35 31 Lower Extremity Domain T Score 27 32 34 Cognitive Function Domain T Score 36 39 29 Positive Affect Well Being T Score -- -- -- Ability To Participate In Social Roles T Score 38 46 40 Satisfaction With Social Roles T Score 36 41 41 Neuro-QoL Symptoms (higher=worse symptoms) Flowsheet Row Appointment from 04/02/[address] [facility]ment from [facility] 09/[facility]/[address] 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 She has no past medical history of Atrial fibrillation ([facility]), Cancer ([facility]), Chronic obstructive pulmonary disease (COPD) ([facility]), Chronic renal insufficiency, Congestive heart failure ([facility]), Coronary artery disease, Diabetes ([facility]), Epilepsy ([facility]), Hypertension, Obstructive sleep apnea, Steroid long-term use, Stroke ([facility]), or Substance abuse ([facility]). has a current medication list which includes the following prescription(s): baclofen, divalproex er, bupropion xl, lactase, cholecalciferol (vitamin d3), gabapentin, oxybutynin, citalopram hydrobromide, ocrelizumab, and acetaminophen. Current living situation: At home Current vocational status: On disabiltiy EXAM: Multiple Sclerosis Performance Test Flowsheet Row Office Visit from 02/20/[address] [facility] Office Visit from 08/25/[address] [facility] Processing Speed Total Number Correct 55 50 [...] May need to consider 2nd opinion with [facility] urology if needed. Will consult PT for [...] [facility] -Follow up in 6 months at [place] with [facility] I spent a total of 20 minutes on the date of the service which included preparing to see the patient, [id number] patient care, completing clinical documentation, counseling and educating the patient/family/caregiver, and ordering medications, tests, or procedures. Sania Nicholas PA-C [facility]* Encounter Date Diagnosis Assessment Notes Treatment Notes Treatment Clinical Notes Feb, Acute pain of left knee (ICD-10 - M25.562) Patient has continued pain with conservative treatment. Recommend follow up with ortho is recommended due to patient history of MS with presentation and conservative treatment [facility] Other 11-04-2022 Miscellaneous Notes* Telephone Encounter - [...] : 04/02/22 Patricia Cullen [facility]* Encounter Date Diagnosis Assessment Notes [...] left knee, initial encounter (ICD-10 - S80.212A) [facility] Other 10-17-2022 Evaluation note* Encounter Date Diagnosis [...] therapy plan may need to be made. [facility] 08-16-2022 History of Present illness Narrative* Amy Mohan RN - 11/11/2021 1:48 PM EDT Patient had written lab orders from Dr Christine Rascon in [place]. Lab orders were placed in [facility] for future appointment/lab draw as the patient [...] reviewed Amy Mohan RN [facility]* Encounter Date Diagnosis Assessment Notes [...] care provider if no improvement of symptoms. [facility] Other 08-04-2022 History of Present illness Narrative* BLAISE Dillon - 10/30/2021 11:23 AM EDT FOLLOW UP: Mackenzie Concepcion is a 45 year old adult female following up with [employer] for the following reason: community services/resources PERSONS INTERVIEWED: patient & boyfriend, Visit was conducted via [employer] Zoom with limits to confidentiality agreed upon. [...] boyfriend, sister and mother. BASIC NEEDS: Insurance: [facility] Medicaid Source of Income:SSI : $838/mo [...] a ?: No DISCUSSION/SUMMARY: Patient stated the [facility] has reached out to her about purchasing a ramp for her home. She was told to look for contractors in her area who can provide quotes. I assisted patient in finding contractorsin her area to put in a ramp. Access Solutions: [facility] Next Day Access: [employer] Mobility: Patient also inquired about asking the [facility] navigator about modification to her bathroom- a [...] the supervision of Dr. Anju Clement, PhD, TONG. BLAISE Dillon [facility] History of Present illness Narrative* Sania Nicholas PA-C - 10/07/2021 6:53 AM EDT [facility] FOLLOWUP/ESTABLISHED PATIENT VIRTUAL VISIT [...] stones Macular edema MS (multiple sclerosis) (HCC) 2002 DX Optic atrophy of right eye Panuveitis [...] which included preparing to see the patient, [id number] patient care, completing clinical documentation, counseling and educating the patient/family/caregiver, ordering medications, tests, or procedures and communicating results to the patie nt/family/caregiver. Sania Nicholas PA-C [facility] History of Present illness Narrative* RT Polo(R) - 10/06/2021 8:30 AM EDT Radiology Service [...] Spine: Cervical spine and Thoracic spine SIGNATURE: RT Polo(Tigre) PATIENT NAME: Mackenzie Concepicon DATE: October 06, 2021 TIME: 9:16 AM documented [facility] History of Present illness Narrative* BLAISE Dillon - 09/30/2021 9:58 AM EDT REFERRAL: Mackenzie Concepcion is a 45 year old adult female was referred to [employer] [facility] via Sania Nicholas PA-C for the following reason community services/resources and homecare services PERSONS INTERVIEWED: patient & boyfriend, Visit was conducted via [employer] with limits to confidentiality agreed upon. PRINCIPAL [...] boyfriend, sister and mother. BASIC NEEDS: [facility] [place] Source of Income:SSI : $838/mo PATIENT [...] me to put in a referral with [address] [facility] [employer] for home healthcare and transportation resources. She is aware to contact me with further social work needs. IMPRESSION: Pleasant 45 year old patient. Pt requires assistance with ADL's and requires assistance with IADL's. Pt appeared able and motivated to follow up on recommendations as discussed. -Follow up in 2 months Wrist Closer will remain available to address any questions/concerns. Wrist Closer's contact information was provided. I spent a total of 35 minutes with the patient Social work assessment/interventions rendered under the supervision of Dr. Anju Clement, PhD, GREGORIA Moralez [facility] Elementary Substitute Teacher documented in this [facility] Evaluation note* Encounter Date Diagnosis Assessment Notes Treatment Notes Treatment Clinical Notes Aug, Opacity noted on imaging study (ICD-10 - R93.89) Chest Xray came back with no abnormalities. [employer] Other [id number] Miscellaneous Notes* Telephone Encounter - Renée Campoverde - 08/15/2021 2:18 PM EDT Source : electronic from pharmacy requesting refill. Delivery : e-script Pending Prescriptions Disp Refills CHOLECALCIFEROL (VITAMIN D3) 125 MCG (5,000 UNIT) CAPSULE 28 capsule 11 Sig: TAKE ONE CAPSULE BY MOUTH ONCE DAILY PATRICE: Yes DX : Patient last seen: 03/13/2021 Next Appointment : 10/06/2021 Renée Campoverde [facility] Miscellaneous Notes* Telephone Encounter - Jori Plasencia [...] : 10/06/2021 Jori Plasencia documented in this [facility] Evaluation note* Encounter Date Diagnosis Assessment Notes Treatment Notes Treatment Clinical Notes Jun, Gastroesophageal ref lux disease, esophagitis presence not specified (ICD-10 - K21.9) [facility] Other 04-12-2022 Evaluation note* Encounter Date Diagnosis [...] am hoping your feeling a little better. [facility] Other 01-14-2022 Evaluation note* Encounter Date Diagnosis [...] treatment plan. Patient left in stable condition Mar, Other Additional time spent conducting pre-visit phone call, screening for symptoms, instructions on social distancing, application and removal of PPE, and cleaning of examination room, equipment and supplies was preformed. Patient education given for testing methodology and results. Patient care instructions given in writting by [facility] At Home document [employer] Other [phone] History of Past illness Narrative* Problem Noted Date Resolved Date 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 documented as of this encounter (statuses as of 07/22/2021) [facility]-21[facility]2010 History of Past illness Narrative* Problem Noted Date Resolved Date 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 documented as of this encounter (statuses as of 08/15/2021) [place] [id number] History of Past illness Narrative* Problem Noted Date Resolved Date 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 documented as of this encounter (statuses as of 10/07/2021) [facility] History of Past illness Narrative* Problem Noted Date Resolved Date 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 documented as of this encounter (statuses as of 10/07/2021) [address]21-2010 History of Past illness Narrative* Problem Noted Date Resolved Date 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 documented as of this encounter (statuses as of 11/11/2021) [address]21-2010 History of Past illness Narrative* Problem Noted Date Resolved Date 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 documented as of this encounter (statuses as of 01/30/2022) [address]21-2010 History of Past illness Narrative* Problem Noted Date Resolved Date 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 documented as of this encounter (statuses as of 04/03/2022) [address]21-2010 History of Past illness Narrative* Problem Noted Date Resolved Date 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 documented as of this encounter (statuses as of 04/03/2022) [address]21-2010 History of Past illness Narrative* Problem Noted Date Resolved Date 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 documented as of this encounter (statuses as of 04/03/2022) [address]21-2010 History of Past illness Narrative* Problem Noted Date Resolved Date 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 documented as of this encounter (statuses as of 05/05/2022) [address]21-2010 History of Past illness Narrative* Problem Noted Date Resolved Date 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 documented as of this encounter (statuses as of 05/05/2022) [address]21-2010 History of Past illness Narrative* Problem Noted Date Resolved Date 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 documented as of this encounter (statuses as of 05/14/2022) [address]21-2010 History of Past illness Narrative* Problem Noted Date Resolved Date 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 documented as of this encounter (statuses as of 07/17/2022) [address]21-2010 History of Past illness Narrative* Problem Noted Date Resolved Date 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 documented as of this encounter (statuses as of 10/02/2022) [address]21-2010 History of Past illness Narrative* Problem Noted Date Resolved Date 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 documented as of this encounter (statuses as of 10/02/2022) [address]21-2010 History of Past illness Narrative* Problem Noted Date Diagnosed Date Resolved Date 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 documented as of this encounter (statuses as of 10/03/2022) [address]21-2010 History of Past illness Narrative* Problem Noted Date Diagnosed Date Resolved Date 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 documented as of this encounter (statuses as of 10/03/2022) [address]21-2010 History of Past illness Narrative* Problem Noted Date Diagnosed Date Resolved Date 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 documented as of this encounter (statuses as of 10/05/2022) [address]21-2010 History of Past illness Narrative* Problem Noted Date Diagnosed Date Resolved Date 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 documented as of this encounter (statuses as of 11/12/2022) [address]21-2010 History of Past illness Narrative* Problem Noted Date Diagnosed Date Resolved Date 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 documented as of this encounter (statuses as of 05/07/2023) [address]21-2010 History of Past illness Narrative* Problem Noted Date Diagnosed Date Resolved Date 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 documented as of this encounter (statuses as of 05/20/2023) [address]21-2010 History of Past illness Narrative* Problem Noted Date Diagnosed Date Resolved Date 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 Other Evaluation note* Diagnosis Multiple sclerosis (HCC) Multiple sclerosis Vitamin D deficiency Unspecified vitamin D deficiency Medication monitoring encounter Encounter for therapeutic drug monitoring Chronic bilateral low back pain, unspecified whether sciatica present Left leg weakness Other musculoskeletal symptoms referable to limbs Hand weakness Other musculoskeletal symptoms referable to limbs documented in this encounter [facility] note* Diagnosis Multiple sclerosis (HCC)- Primary Multiple sclerosis Weakness of both hands documented in this encounter [facility] note* Diagnosis Bipolar 1 disorder, mixed, severe (HCC)- Primary Bipolar I disorder, most recent episode (or current) mixed, severe, without mention of psychotic behavior MS (multiple sclerosis) (HCC) Multiple sclerosis [facility]: Evaluation note* Diagnosis Multiple sclerosis (HCC)- Primary Multiple sclerosis Urinary incontinence, unspecified type Imbalance Abnormality of gait Abnormality of gait [facility] Multiple sclerosis (HCC)- Primary Multiple sclerosis [facility] Diagnosis Multiple sclerosis (HCC)- Primary Multiple sclerosis [facility] Diagnosis MS (multiple sclerosis) (HCC)- Primary Multiple sclerosis [facility] Diagnosis 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- Primary Posterior subcapsular polar senile cataract Postinflammatory optic atrophy of right eye MS (multiple sclerosis) (HCC) Multiple sclerosis Refraction error Unspecified disorder of refraction and accommodation [facility] Diagnosis Multiple sclerosis (HCC) Multiple sclerosis Urinary incontinence, unspecified type Imbalance Abnormality of gait Abnormality of gait [facility] Diagnosis MS (multiple sclerosis) (HCC)- Primary Multiple sclerosis [facility] Diagnosis Multiple sclerosis (HCC)- Primary Multiple sclerosis [facility] Diagnosis Multiple sclerosis (HCC)- Primary Multiple sclerosis MS (multiple sclerosis) (HCC) Multiple sclerosis [facility] Diagnosis Multiple sclerosis (HCC) Multiple sclerosis [facility] Diagnosis Multiple sclerosis (HCC)- Primary Multiple sclerosis [facility] Diagnosis Multiple sclerosis (HCC)- Primary Multiple sclerosis Tension headache [facility] Diagnosis Multiple sclerosis (HCC)- Primary Multiple sclerosis MS (multiple sclerosis) (HCC) Multiple sclerosis [facility] Diagnosis Tear film insufficiency, bilateral- Primary 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 Posterior subcapsular polar senile cataract Optic nerve asymmetry, bilateral MS (multiple sclerosis) (HCC) Multiple sclerosis [facility] Diagnosis Urologic disorders- Primary Unspecified disorder of urethra and urinary tract Recurrent urinary tract infection Urinary tract infection, site not specified Mixed stress and urge urinary incontinence Mixed incontinence urge and stress (male)(female) Kidney stone on left side [facility] - [facility]* Type Description Date [...] wisdom teeth extract Hospitalization History blood transfusion [facility] Other Hospital Discharge instructions No data available for this section [facility]InstructionsNot on filedocumented in this encounter [facility] SystemInstructionsNot on filedocumented in [facility] No data available for this section [facility] Summary Purpose Family History No Family History Records Found Relationship Condition Age at Onset Recorded Date/T ryan brother Diabetes mellitus Unknown Not Specified Diabetes mellitus Unknown natural son Attention deficit hy peractivity disorder (ADHD) Unknown sister Diabetes mellitus Unknown Advance Directives No Advanced Directives Records FoundDocuments on File Type Date Recorded Patient Cook Mess Expl anation Advance Directive(s) 08/17/2017 2:13 PM Advance Directive(s) 08/17/2017 11:23 PM Documents on File Type Date Recorded Patient Cook Mess Expl anation Advance Directive(s) 08/17/2017 2:13 PM Advance Directive(s) 08/17/2017 11:23 PM Advance Directive Response Recorded Date/ Time Advance Directives No June 17, 2 018 6:48pm Reason for Referral Reason left knee pain with no improvement Diagnosis 1 Acute pain of left k nee (M25.562) Referral Organization [facility] Referring Provider First Name Mila Referring Provider Last Name Patricia Referring Provider Specialty Nurse Pract itioner Referred Organization [facility] Referred Provider Manas Garcia Referred Address ,[place], [place],[address] Referred Provider Specialty Orthopedic S urgery Referral Priority Routine Reason patient is having on going hearing issues Diagnosis 1 Hearing problem of b oth ears (H91.93) Referral Organization [facility] Referring Provider First Name Mila Referring Provider Last Name Patricia Referring Provider Specialty Nurse Pract itioner Referred Organization [facility] Referred Provider Marilu Pitt Referred Address ,[place], [place],[address] Referred Provider Specialty Ear, Nose an d Throat Referral Priority Routine Specialty Diagnoses / Procedures Referred By Shane rich Referred To Contact [facility] Diagnoses Multiple sclerosis (HCC) Weakness of both hands Procedures CONSULT TO FOOD PREPARATION SUPERVISOR OCCUPATIONAL THERAPY EVAL HIGH COMPLEX 60 MINS Sania Nicholas PA-C [address] [place] [address] [facility] [address] [place] [address] Referral ID Status Reason Start Date Expiration Date Visits Requested Visits Authorized [id number] Pending Review Auto-Generat ed Referral 10/07/2021 10/07/2022 1 1 Specialty Diagnoses / Procedures Referred By Shane rich Referred To Contact [facility] Diagnoses Multiple sclerosis (HCC) Vitamin D deficiency Medication monitoring encounter Chronic bilateral low back pain, unspecified whether sciatica present Left leg weakness Hand weakness Procedures MRI THORACIC SPINE WO/W IVCON MRI, DORSAL SPINE COMBO Sania Nicholas PA-C [address] [place] [address] Mr Imaging Referral ID Status Reason Start Date Expiration Date V isits Requested Visits Authorized [id number] Closed Auto-Generate d Referral 09/17/2021 11/16/2021 1 1 Specialty Diagnoses / Procedures Referred By Shane rich Referred To Contact [facility] Diagnoses Multiple sclerosis (HCC) Vitamin D deficiency Medication monitoring encounter Chronic bilateral low back pain, unspecified whether sciatica present Left leg weakness Hand weakness Procedures MRI CERVICAL SPINE WO/W IVCON MRI, CERV SPINE COMBO MRI SPINAL CANAL CERVICAL W/O CONTRAST MATRL Sania Nicholas PA-C [address] [place] [address] Mr Imaging Referral ID Status Reason Start Date Expiration Date V isits Requested Visits Authorized [id number] Closed Auto-Generate d Referral 09/24/2021 11/23/2021 1 1 Specialty Diagnoses / Procedures Referred By Shane rich Referred To Contact [facility] Diagnoses Multiple sclerosis (HCC) Vitamin D deficiency Medication monitoring encounter Chronic bilateral low back pain, unspecified whether sciatica present Left leg weakness Hand weakness Procedures MRI BRAIN WO/W IVCON MRI BRAIN TERRELLO Sania Nicholas PA-C [address] [place] [address] Mr Imaging Referral ID Status Reason Start Date Expiration Date V isits Requested Visits Authorized [id number] Closed Auto-Generate d Referral 03/13/2021 11/23/2021 1 [...] INTRAVENOUS, ONCE, 1 dose, On Wed11/11/21 at 0930 Given 11/11/2021 9:44 AM EDT 100 mg [...] a Fluress shortage, administer 1 drop of Snehal-Fluor into both eyes as directed for applanation [...] section and content) DATE CREATED AUTHOR 09/15/2017 [facility] DATE CREATED AUTHOR AUTHOR'S ORGANIZ ATION 08/10/2022 [facility] DATE CREATED AUTHOR AUTHOR'S ORGANIZ ATION 12/08/2023 [facility] DATE CREATED AUTHOR AUTHOR'S ORGANIZ ATION 12/10/2023 [facility] DATE CREATED AUTHOR AUTHOR'S ORGANIZ ATION 01/26/2024 [facility] DATE CREATED AUTHOR AUTHOR'S ORGANIZ ATION 02/21/2024 [facility] DATE CREATED AUTHOR AUTHOR'S ORGANIZ ATION 02/29/2024 [facility] DATE CREATED AUTHOR AUTHOR'S ORGANIZ ATION 03/28/2024 [facility] Source Comments (unrecognize d section and content) In the event this informatio n is protected by the Federal Confidentiality of Alcohol and Drug Abuse Patient Records regulations: The Federal rules restrict any use of the information to criminally investigate or prosecute any alcohol or drug abuse patient.[facility] the event this information is protected by the Federal Confidentiality of Alcohol and Drug Abuse Patient Records regulations: The Federal rules restrict any use of the information to criminally investigate or prosecute any alcohol or drug abuse patient.[facility] HospitalIn the event this information is protected by the Federal Confidentiality of Alcohol and Drug Abuse Patient Records regulations: The Federal rules restrict any use of the information to criminally investigate or prosecute any alcohol or drug abuse patient.[facility] HospitalIn the event this information is protected by the Federal Confidentiality of Alcohol and Drug Abuse Patient Records regulations: The Federal rules restrict any use of the information to criminally investigate or prosecute any alcohol or drug abuse patient.[facility] HospitalIn the event this information is protected by the Federal Confidentiality of Alcohol and Drug Abuse Patient Records regulations: The Federal rules restrict any use of the information to criminally investigate or prosecute any alcohol or drug abuse patient.[facility] HospitalIn the event this information is protected by the Federal Confidentiality of Alcohol and Drug Abuse Patient Records regulations: The Federal rules restrict any use of the information to criminally investigate or prosecute any alcohol or drug abuse patient.[facility] HospitalIn the event this information is protected by the Federal Confidentiality of Alcohol and Drug Abuse Patient Records regulations: The Federal rules restrict any use of the information to criminally investigate or prosecute any alcohol or drug abuse patient.[facility] HospitalIn the event this information is protected by the Federal Confidentiality of Alcohol and Drug Abuse Patient Records regulations: The Federal rules restrict any use of the information to criminally investigate or prosecute any alcohol or drug abuse patient.[facility] HospitalIn the event this information is protected by the Federal Confidentiality of Alcohol and Drug Abuse Patient Records regulations: The Federal rules restrict any use of the information to criminally investigate or prosecute any alcohol or drug abuse patient.[facility] HospitalIn the event this information is protected by the Federal Confidentiality of Alcohol and Drug Abuse Patient Records regulations: The Federal rules restrict any use of the information to criminally investigate or prosecute any alcohol or drug abuse patient.[facility] HospitalIn the event this information is protected by the Federal Confidentiality of Alcohol and Drug Abuse Patient Records regulations: The Federal rules restrict any use of the information to criminally investigate or prosecute any alcohol or drug abuse patient.[facility] HospitalIn the event this information is protected by the Federal Confidentiality of Alcohol and Drug Abuse Patient Records regulations: The Federal rules restrict any use of the information to criminally investigate or prosecute any alcohol or drug abuse patient.[facility] HospitalIn the event this information is protected by the Federal Confidentiality of Alcohol and Drug Abuse Patient Records regulations: The Federal rules restrict any use of the information to criminally investigate or prosecute any alcohol or drug abuse patient.[facility] HospitalIn the event this information is protected by the Federal Confidentiality of Alcohol and Drug Abuse Patient Records regulations: The Federal rules restrict any use of the information to criminally investigate or prosecute any alcohol or drug abuse patient.[facility] HospitalIn the event this information is protected by the Federal Confidentiality of Alcohol and Drug Abuse Patient Records regulations: The Federal rules restrict any use of the information to criminally investigate or prosecute any alcohol or drug abuse patient.[facility] HospitalIn the event this information is protected by the Federal Confidentiality of Alcohol and Drug Abuse Patient Records regulations: The Federal rules restrict any use of the information to criminally investigate or prosecute any alcohol or drug abuse patient.[facility] HospitalIn the event this information is protected by the Federal Confidentiality of Alcohol and Drug Abuse Patient Records regulations: The Federal rules restrict any use of the information to criminally investigate or prosecute any alcohol or drug abuse patient.[facility] HospitalIn the event this information is protected by the Federal Confidentiality of Alcohol and Drug Abuse Patient Records regulations: The Federal rules restrict any use of the information to criminally investigate or prosecute any alcohol or drug abuse patient.[facility] HospitalIn the event this information is protected by the Federal Confidentiality of Alcohol and Drug Abuse Patient Records regulations: The Federal rules restrict any use of the information to criminally investigate or prosecute any alcohol or drug abuse patient.[facility] HospitalIn the event this information is protected by the Federal Confidentiality of Alcohol and Drug Abuse Patient Records regulations: The Federal rules restrict any use of the information to criminally investigate or prosecute any alcohol or drug abuse patient.[facility] HospitalIn the event this information is protected by the Federal Confidentiality of Alcohol and Drug Abuse Patient Records regulations: The Federal rules restrict any use of the information to criminally investigate or prosecute any alcohol or drug abuse patient.[facility] HospitalIn the event this information is protected by the Federal Confidentiality of Alcohol and Drug Abuse Patient Records regulations: The Federal rules restrict any use of the information to criminally investigate or prosecute any alcohol or drug abuse patient.[facility] HospitalIn the event this information is protected by the Federal Confidentiality of Alcohol and Drug Abuse Patient Records regulations: The Federal rules restrict any use of the information to criminally investigate or prosecute any alcohol or drug abuse patient.[facility] HospitalIn the event this information is protected by the Federal Confidentiality of Alcohol and Drug Abuse Patient Records regulations: The Federal rules restrict any use of the information to criminally investigate or prosecute any alcohol or drug abuse patient.[facility] HospitalIn the event this information is protected by the Federal Confidentiality of Alcohol and Drug Abuse Patient Records regulations: The Federal rules restrict any use of the information to criminally investigate or prosecute any alcohol or drug abuse patient.[facility] HospitalIn the event this information is protected by the Federal Confidentiality of Alcohol and Drug Abuse Patient Records regulations: The Federal rules restrict any use of the information to criminally investigate or prosecute any alcohol or drug abuse patient.[facility] HospitalIn the event this information is protected by the Federal Confidentiality of Alcohol and Drug Abuse Patient Records regulations: The Federal rules restrict any use of the information to criminally investigate or prosecute any alcohol or drug abuse patient.[facility] HospitalIn the event this information is protected by the Federal Confidentiality of Alcohol and Drug Abuse Patient Records regulations: The Federal rules restrict any use of the information to criminally investigate or prosecute any alcohol or drug abuse patient.[facility] HospitalIn the event this information is protected by the Federal Confidentiality of Alcohol and Drug Abuse Patient Records regulations: The Federal rules restrict any use of the information to criminally investigate or prosecute any alcohol or drug abuse patient.[facility] HospitalIn the event this information is protected by the Federal Confidentiality of Alcohol and Drug Abuse Patient Records regulations: The Federal rules restrict any use of the information to criminally investigate or prosecute any alcohol or drug abuse patient.[facility] HospitalIn the event this information is protected by the Federal Confidentiality of Alcohol and Drug Abuse Patient Records regulations: The Federal rules restrict any use of the information to criminally investigate or prosecute any alcohol or drug abuse patient.[facility] HospitalIn the event this information is protected by the Federal Confidentiality of Alcohol and Drug Abuse Patient Records regulations: The Federal rules restrict any use of the information to criminally investigate or prosecute any alcohol or drug abuse patient.[facility] HospitalIn the event this information is protected by the Federal Confidentiality of Alcohol and Drug Abuse Patient Records regulations: The Federal rules restrict any use of the information to criminally investigate or prosecute any alcohol or drug abuse patient.[facility] HospitalIn the event this information is protected by the Federal Confidentiality of Alcohol and Drug Abuse Patient Records regulations: The Federal rules restrict any use of the information to criminally investigate or prosecute any alcohol or drug abuse patient.[facility] HospitalIn the event this information is protected by the Federal Confidentiality of Alcohol and Drug Abuse Patient Records regulations: The Federal rules restrict any use of the information to criminally investigate or prosecute any alcohol or drug abuse patient.[facility] HospitalIn the event this information is protected by the Federal Confidentiality of Alcohol and Drug Abuse Patient Records regulations: The Federal rules restrict any use of the information to criminally investigate or prosecute any alcohol or drug abuse patient.[facility] HospitalIn the event this information is protected by the Federal Confidentiality of Alcohol and Drug Abuse Patient Records regulations: The Federal rules restrict any use of the information to criminally investigate or prosecute any alcohol or drug abuse patient.[facility] Reason for Visit (unrecogniz ed section and content) Reason Comments Refill Request Reason Comments Radiology MRI Specialty Diagnoses / Procedures Referred By Contac t Referred To Contact MR IMAGING Diagnoses Multiple sclerosis (HCC) Vitamin D deficiency Medication monitoring encounter Chronic bilateral low back pain, unspecified whether sciatica present Left leg weakness Hand weakness Procedures MRI THORACIC SPINE WO/W IVCON MRI, DORSAL SPINE Sania Cortez PA-C [address] [place] [address] Mr Imaging Referral ID Status Reason Start Date Expiration Date V isits Requested Visits Authorized [id number] Closed Auto-Generate d Referral 09/17/2021 11/16/2021 1 1 Reason Comments Established Patient Follow-Up Specialty Diagnoses / Procedures Referred By Contac t Referred To Contact Diagnoses MS (multiple sclerosis) (HCC) Procedures INJECTION, OCRELIZUMAB, 1 MG Rolf, Rebecca, DO [address] [place] [address] Neur Treatment [facility] [address] [place] [address] Referral ID Status Reason Start Date Expiration Date V isits Requested Visits Authorized [id number] Authorized 02/16/2020 03/28/2039 99 99 Reason Comments Established Patient Follow-Up Reason Comments Orders PT and Image orders Specialty Diagnoses / Procedures Referred By Contac t Referred To Contact Diagnoses MS (multiple sclerosis) (HCC) Procedures INJECTION, OCRELIZUMAB, 1 MG Rolf, Rebecca, DO [address] [place] [address] Radames Treat Samir [address] [place] [address] Referral ID Status Reason Start Date Expiration Date V isits Requested Visits Authorized [id number] Authorized 02/16/2020 04/06/2023 99 99 Reason Comments hemolyzed labs Reason Comments Multiple Sclerosis Optic Atrophy Follow Up OD Specialty Diagnoses / Procedures Referred By Contac t Referred To Contact MR IMAGING Diagnoses Multiple sclerosis (HCC) Urinary incontinence, unspecified type Imbalance Abnormality of gait Procedures MRI CERVICAL SPINE WO/W IVCON MRI SPINAL CANAL CERVICAL W/O & W/CONTR MATRL Sania Nicholas PA-C [address] [place] [address] Mr Imaging Referral ID Status Reason Start Date Expiration Date V isits Requested Visits Authorized [id number] Closed Auto-Generate d Referral 09/21/2022 11/20/2022 1 1 Specialty Diagnoses / Procedures [facility] To [facility] Diagnoses Multiple sclerosis (HCC) Procedures MRI BRAIN WO/W IVCON MRI BRAIN BRAIN STEM W/O W/CONTRAST MATERIAL Sania Nicholas PA-C [address] [place] [address] Mr Imaging Referral ID Status Reason Start Date Expiration Date V isits Requested Visits Authorized [id number] Closed Auto-Generate d Referral 09/21/2022 11/20/2022 1 1 Referral ID Status Reason Start Date Expiration Date V isits Requested Visits Authorized [id number] Authorized 02/16/2020 04/13/2024 9 9 Reason Comments Radiology MRI Specialty Diagnoses / Procedures [facility] Referred To Contact MR IMAGING Diagnoses Multiple sclerosis (HCC) Procedures MRI BRAIN WO/W IVCON MRI BRAIN BRAIN STEM W/O W/CONTRAST MATERIAL Rebecca Bansal DO [address] [place] [address] Mr Imaging [place] [address] Referral ID Status Reason Start Date Expiration Date V isits Requested Visits Authorized [id number] Closed Auto-Generate d Referral 10/15/2023 11/27/2023 1 1 Reason Onset Date Comments Refill Request 11/09/2023 Reason Comments Established Patient Follow-Up Reason Comments Order PT-Aquatic Therapy-m grupo Reason Comments Eye Itching Both Eyes Tearing Both Eyes Yearly Exam Reason Comments Follow-up Reason Onset Date Comments Refill Request 03/01/2024 Reason Comments Medication Problem Care Teams (unrecognized sec tion and content) Boss Dyer Relationship Specialty Start Date End Date Mila Gomez CNP [address] [place] [address] PCP - General Family Practice 02/20/19 Boss Dyer Relationship Specialty Start Date End Date Mila Gomez CNP [address] [place] [address] PCP - General Family Practice 02/20/19 Boss Dyer Relationship Specialty Start Date End Date Mila Gomez CNP [address] [place] [address] PCP - General Family Practice 02/20/19 Boss Dyer Relationship Specialty Start Date End Date Mila Gomez CNP [address] [place] [address] PCP - General Family Practice 02/20/19 Boss Dyer Relationship Specialty Start Date End Date Mila Gomez CNP [address] [place] [address] PCP - General Family Practice 02/20/19 Team Status: Inactive Member Role Status Dates SHRADDHA Ho-Nita Primary Care Provider, Atten ding Provider Active Team Status: Active Member Role Status Dates SHRADDHA Ho-C Primary Care Provider Active Boss Dyer Relationship Specialty Start Date End Date Mila Gomez CNP [address] [place] [address] PCP - General Family Medicine 02/20/19 Boss Dyer Relationship Specialty Start Date End Date Mila Gomez CNP [address] [place] [address] PCP - General Family Medicine 02/20/19 Boss Dyer Relationship Specialty Start Date End Date Mila Gomez CNP [address] [place] [address] PCP - General Family Medicine 02/20/19 Boss Dyer Relationship Specialty Start Date End Date Mila Gomez CNP [address] [place] [address] PCP - General Family Medicine 02/20/19 Boss Dyer Relationship Specialty Start Date End Date PatriciaMila NOVELTY WORKER [address] [place] [address] PCP - General Family Medicine 02/20/19 Boss Dyer Relationship Specialty Start Date End Date Patricia, Mila, POLO [address] [place] [address] PCP - General Family Medicine 02/20/19 Boss Dyer Relationship Specialty Start Date End Date Kel GomeziePOLO [address] [place] [address] PCP - General Family Medicine 02/20/19 Boss Dyer Relationship Specialty Start Date End Date Mila Gomez CNP [address] [place] [address] PCP - General Family Medicine 02/20/19 Boss Dyer Relationship Specialty Start Date End Date Patricia MilaPOLO [address] [place] [address] PCP - General Family Medicine 02/20/19 Boss Dyer Relationship Specialty Start Date End Date Mila Gomez CNP [address] [place] [address] PCP - General Family Medicine 02/20/19 Boss Dyer Relationship Specialty Start Date End Date Mila Gomez CNP [address] [place] [address] PCP - General Family Medicine 02/20/19 Boss Dyer Relationship Specialty Start Date End Date Mila Gomez CNP [address] [place] [address] PCP - General Family Medicine 02/20/19 Boss Dyer Relationship Specialty Start Date End Date Mila Gomez CNP [address] [place] [address] PCP - General Family Medicine 02/20/19 Boss Dyer Relationship Specialty Start Date End Date PatriciaMila CNP [address] [place] [address] PCP - General Family Medicine 02/20/19 Boss Dyer Relationship Specialty Start Date End Date PatriciaMila NOVELTY WORKER [address] [place] [address] PCP - General Family Medicine 02/20/19 Boss Dyer Relationship Specialty Start Date End Date PatriciaMila POLO [address] [place] [address] PCP - General Family Medicine 02/20/19 Team Status: Active Member Role Status Dates NON STAFF Primary Care Provider Active Team Status: Active Member Role Status Dates SHRADDHA Ho-Nita Primary Care Provider Active Start: June 22, 2023 Jose G Santiago MD Attending Provider Active Start: June 22, 2023 Team Status: Inactive Member Role Status Dates Eva Trujillo APRN Attending Provider Active Start: August 13, 2023 End: August 13, 2023 NON STAFF Primary Care Provider Active Start: August 13, 2023 End: August 13, 2023 Boss Dyer Relationship Specialty Start Date End Date PatriciaMila POLO [address] [place] [address] PCP - General Family Medicine 02/20/19 Boss Dyer Relationship Specialty Start Date End Date PatriciaMila POLO [address] [place] [address] PCP - General Family Medicine 02/20/19 Boss Dyer Relationship Specialty Start Date End Date PatriciaMila POLO [address] [place] [address] PCP - General Family Medicine 02/20/19 Boss Dyer Relationship Specialty Start Date End Date PatriciaMilaPOLO [address] [place] [address] PCP - General Family Medicine 02/20/19 Boss Dyer Relationship Specialty Start Date End Date PatriciaMila POLO [address] [place] [address] PCP - General Family Medicine 02/20/19 Boss Dyer Relationship Specialty Start Date End Date PatriciaMila POLO [address] [place] [address] PCP - General Family Medicine 02/20/19 Boss Dyer Relationship Specialty Start Date End Date PatriciaMilaPOLO [address] [place] [address] PCP - General Family Medicine 02/20/19 Boss Dyer Relationship Specialty Start Date End Date PatriciaMilaPOLO [address] [place] [address] PCP - General Family Medicine 02/20/19 Boss Dyer Relationship Specialty Start Date End Date [facility] [address] [place] [address] PCP - General Family Medicine 09/09/21 Boss Dyer Relationship Specialty Start Date End Date [facility] [address] [place] [address] PCP - [facility] Medicine 09/09/21 Boss Dyer Relationship Specialty Start Date End Date [facility] [address] [place] [address] PCP - General [facility] Medicine 09/09/21 Boss Dyer Relationship Specialty Start Date End Date PatriciaMilaPOLO [address] [place] [address] PCP - General Family Medicine 02/20/19 Goals [...] BE BASED ON THE PRIMARY CLINICAL RECORDS. [facility]. provides no warranty or guarantee of the accuracy or completeness of information in this document.
== END 2024-03-28 17:37 | disposition home or self-care (01) ==
PROVIDERS: Emergency Provider Emergency Medicine; PCP Nurse Practitioner Family
DX: S90.32XA Contusion of left foot, initial encounter (principal); W22.09XA Striking against other stationary object, initial encounter
CPT/HCPCS: 73630; 99283

== ENCOUNTER 2024-04-06 10:01 | Outpatient (RCR) | payer OTHER, SELFPAY | END 2024-05-16 12:54 | disposition home or self-care (01) | LOC: PT 10:01 | PROVIDERS: PCP Nurse Practitioner Family; Visit Provider Nurse Practitioner Family | DX: G35 Multiple sclerosis (principal); M25.512 Pain in left shoulder | CPT/HCPCS: 97110; 97162 ==

== ENCOUNTER 2024-06-26 12:51 | Outpatient (OUT) | payer OTHER, SELFPAY ==
--- NOTE | 2024-06-26 12:59 | XR_ITS ---
[place] [id number] Patient Name: RANDALL CONCEPCION MRN: [id number] date: 1975 Sex: F Assigned Patient Location: [facility] Current Patient Location: [facility] Accession/Order Number: [id number] Exam Date: 06/26/2024 14:44 Report Date: 06/26/2024 14:45 At the request of: CELESTINA MARK Procedure: XR knee RT 4V 4 views right knee plain film COMPARISON: None HISTORY: Anterior right knee injury. Fell. ACUTE FINDINGS: No acute findings DEGENERATIVE CHANGE: Unremarkable SOFT TISSUE FINDINGS: Diffuse soft tissue prominence JOINT EFFUSION: Moderate joint effusion POSTOP CHANGES: None BONE MINERALIZATION: Adequate XR/XR knee RT 4V IMPRESSION: No acute displaced fracture. Moderate joint effusion. Soft tissue swelling. Impression dictated by: Mikey Osorio M.D.06/26/2024 2:45 PM Dictation Location: [place] [address] Electronically authenticated by: [id number] Y Date: 06/26/2024 14:45
== END 2024-06-26 12:52 | disposition home or self-care (01) ==
LOC: RAD 12:52
PROVIDERS: PCP Nurse Practitioner Family; Visit Provider Nurse Practitioner Family
DX: S89.91XA Unspecified injury of right lower leg, initial encounter (principal); M25.461 Effusion, right knee
CPT/HCPCS: 73564

== ENCOUNTER 2024-09-12 10:18 | Outpatient (OUT) | payer OTHER, SELFPAY ==
--- OUTSIDE RECORDS SUMMARY | 2020-11-04 05:15 | XMS_ITS | Continuity of Care Document ---
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 Name Role Phone Brandon Jaime DDS Unavailable Unavailable Allergies, Adverse Reactions, Alerts Substance Reaction Status Criticality Sulfa (Sulfonamide Antibiotics) Urticaria Active No Information naproxen Upset stomach Active No Information Medications Medication Instructions Dosage Effective Dates (start - stop) Status Comments amoxicillin 500 mg capsule take 1 capsule by oral route every 8 hours 500 MG - Active Ocrevus 30 mg/mL intravenous solution infuse (600MG) by intravenous route every 6 months over at least (maximum infusion rate 200 mL/hr) 600 MG - Active baclofen 10 mg tablet take 1 tablet by o ral route 3 times every day 10 MG - Active Ditropan XL 10 mg tablet,extended release take 1 tablet by oral route every day - Active Celexa 10 mg tablet take 1 tablet by ora l route every day 10 MG - Active Depakote 500 mg tablet,delayed release take 1 tablet by oral route 2 times every day 500 MG - Active gabapentin 100 mg capsule take 1 capsule by oral route 3 times every day 100 MG - Active Procedures Procedure Date [facility] [place] [facility] Oct Oral Hygiene Instruction Post Op Visit Dental Post Op Visit Dental Intraoral-periapical 1st Film Oral Hygiene Instruction Extract; Erupted Th/exposted Rt 021 Periodic Oral Eval Estab Patient 2020 [employer] Films Prophylaxis Adult Oral Hygiene Instruction Oral Hygiene Instruction Resin Three Surfaces Anterior 0 Resin Three Surfaces Anterior 0 Oral Hygiene Instruction Resin 4+ W/incis Angle Anterior 019 Extract; Erupted Th/exposted Rt 019 Prophylaxis Adult [facility] [place] [facility] Jan Oral Hygiene Instruction Intraoral-complete Series (bw) Comp Oral Eval New/estab Patient 2018 [facility] [place] [facility] Jan Oral Hygiene Instruction Advance Directives Directive Yes / No Effective Date File Name No Information Encounters Encounter Description Practice Location Reason(s) For Visit Diagnoses Date Provider Providers Copied on Encounter [facility], [address] [place] [address], [id number], tel:[phone] Dental Clinic Fillings (chief complaint)F illings (chief complaint) Encounter for screening for dental disorders Addison Taylor. [address] [place] [address], [id number], [place]. tel:[phone] [address] [place] [address], [address] [place] [address], [id number], tel:[phone] Dental Clinic dental limited (chief complaint) Encounter for screening for dental disorders Addison Taylor. [address] [place] [address], [id number], [place]. tel:[phone] [facility], [address] [place] [address], [id number], [place] tel:[phone] Dental Clinic Fill (chief complaint) Encounter for screening for dental disorders Addison Taylor. [address] [place], [address], [place]. tel:[phone] [facility], [address] [place] [address], [id number], [place] tel:[phone] Dental Clinic prophy (chief complaint) Encounter for screening for dental disorders Rosie Diana. [address], [place], [id number], [place]. tel:[phone] [facility], [address], [place], [id number], [place] tel:[phone] Dental Clinic Filling Appt. (chief complaint) [facility] [address], [place], [id number], [place]. tel:[phone] [facility], [address], [place], [id number], [place] tel:[phone] Dental Clinic filling (chief complaint) [facility] [address], [place], [id number], [place]. tel:[phone] [facility], [address], [place], [id number], [place] tel:[phone] Dental Clinic [facility] [address], [place], [id number], [place]. tel:[phone] [facility], [address], [place], [id number], [place] tel:[phone] Dental Clinic Encounter for screening for dental disorders Reginaldo PHILIPS Miller. [address], [place], [id number], [place]. tel:[phone] [facility], [address], [place], [id number], [place] tel:[phone] Dental Clinic Prophy (chief complaint) Encounter for screening for dental disorders Luis Medina. [address], [place], [id number], [place]. tel:[phone] [facility], [address], [place], [id number], [place] tel:[phone] Dental Clinic Dental New (chief complaint) Encounter for screening for dental disorders Luis Medina. [address] [place] [address], [id number], [place]. tel:[phone] Family History Family Member Type Diagnosis Age At Onset Brother Problem (finding) Diabetes mellitus Sister Problem (finding) Alive and well Father Problem (finding) stroke Mother Problem (finding) Diabetes mellitus Brother Problem (finding) Alive and well Mother Problem (finding) Alive and well Mother Problem (finding) hypertension Payers Payer name Insurance type Covered republican ID Authoriza tion(s) No Information Social History Type Description Quantity Date Captured Comments Alcohol Use Details Unknown Caffeine Use Details Unknown Tobacco Use Status Current non-smoker Smoking Status Never smoker Sex Female Sexual Orientation Straight or heterosexual Gender Identity Female Vital Signs Date / Time: Height Weight BMI Pulse Rate Blood Pressure Temperature Respiratory Rate Body Surface Area Head Circumference Head Circ. Percentile Wt./Fritz. Percentile BMI percentile Pulse Ox Inhaled Ox 9:41 AM 76 /min 118/85 mm[Hg] 98.70 F Chief Complaint And Reason For Visit From encounter dated '11/04/2020 09:15'. Fillings (chief complaint). Description: Fillings Fillings (chief complaint) Reason For Referral Reason For Referral No Information History Of Present Illness Encounter Date Complaint History Of Prese nt Illness Fillings Fillings Fillings dental limited dental limited, pain level 5-6 lower right Fill prophy prophy Filling Appt. filling filling Prophy Prophy Dental New Dental New Functional Status Date Functional Assessmen t No Information Instructions Date Instruction Additional Infor mation No Information Assessments Type Assessment Date No Information Patient Care Teams Name Effective Dates (start - stop) Status Members No Information
--- OUTSIDE RECORDS SUMMARY | 2024-09-12 10:22 | XMS_ITS | Encounter Summary ---
Author Organization [employer] Address [facility] [place]-[id number] [address] [place] [address] Care Team Providers Care Ditcher Operator Name Role Phone Mila Gomez VERIFICATION CLERK-INSOLE REINFORCER Primary Care Provide r Encounter Details Date Type Department Care Team (Late st Contact Info) Description 05/26/2021 Telephone [facility] [address] [place] [phone] Feliz Mitchell CNA Social History Tobacco Use Types Packs/Day Years Used Date Smoking Tobacco: Never Assessed Childcare Answer Date Recorded Childcare Unknown 09/07/2018 Employment Answer Date Recorded Employment Unknown 09/07/2018 Purpose - Life Answer Date Recorded Purpose and direction in life Unknown Comments Unknown Sex and Gender Information Value Date Recorded Sex Assigned at Not on file Legal Sex Female 12:10 PM EDT Gender Identity Not on file Sexual Orientation Not on file documented as of this encounter Miscellaneous Notes * Telephone Encounter - Feliz Mitchell CNA - 05/26/2021 1:01 PM EST PT R/S LETTER SENT TO PCP AND PT documented in this encounter Plan of Treatment Upcoming Encounters Date Type Department Care Team (Late st Contact Info) Description 12/08/2024 8:45 AM EDT Office Visit [facility] [address] [place] [phone] Baldev Marsh Jr., MD [address] [place] [address] documented as of this encounter Visit Diagnoses Not on filedocumented in this encounter Care Teams Ditcher Operator Relationship Specialty Start Date End Date Mila Gomez APRN-FNP [address] [place] [address] PCP - General Family Medicine 09/09/21 documented as of this encounter
--- OUTSIDE RECORDS SUMMARY | 2024-09-12 10:22 | XMS_ITS | Encounter Summary ---
Author Organization [employer] Address [id number] [address] [place] [address] Care Team Providers Care Wincher Name Role Phone Mila Gomez TECHNICAL ADJUSTER-GENERATOR MECHANIC Primary Care Provide r Encounter Details Date Type Department Care Team (Late st Contact Info) Description 06/04/2021 Telephone [facility] [address] [place] [phone] Feliz Mitchell CNA Social History Tobacco Use [...] Telephone Encounter - Feliz Mitchell CNA - 06/04/2021 2:43 PM EST certified mail recieved documented in this encounter Plan of Treatment Upcoming Encounters Date Type Department Care Team (Late st Contact Info) Description 12/08/2024 8:45 AM EDT Office Visit [facility] [address] [place] [address] [place] [address] Baldev Marsh Jr., MD [address] [place] [address] documented as of this encounter Visit Diagnoses Not on filedocumented in this encounter Care Teams Wincher Relationship Specialty Start Date End Date Mila Gomez APRN-[facility] [address] [place] [address] PCP - General Family Medicine 09/09/21 documented as of this encounter
--- OUTSIDE RECORDS SUMMARY | 2024-09-12 10:22 | XMS_ITS | Clinical Summary ---
Author Organization [employer] tem Address [facility]-[id number] [address] [place] [address] Care Team Providers Care Metal Precision Machine Assembler Name Role Phone PatriciaJesseMilareji MARIE-PLUG MACHINE OPERATOR Primary Care Provide r Allergies Active Allergy Reactions Criticality Noted Date Comments Naproxen Medium 01/21/2005 Other reaction(s): Vomiting Prednisone Medium 10/04/2012 Other reaction(s): Other: See Comments Became bradycardic with shortness of breath Sulfa (Sulfonamide Antibiotics) Medium 01/21/2005 Other reaction(s): Vomiting hair loss Medications buPROPion XL (WELLBUTRIN XL) 300 mg 24 hr tablet Take 1 tablet (300 mg total) by mouth in the morning. 300 mg daily. Active VENTOLIN HFA 90 mcg/actuation inhaler Inhale 2 puffs every 4 (four) hours as needed. 07/08/2021 Active baclofen (LIORESAL) 10 mg tablet TAKE ONE TABLET BY MOUTH 3 TIMES DAILY DIRECTED 07/23/2021 Active cholecalciferol , vitamin D3, 25 mcg (1,000 unit) capsule Take 5 capsules (5,000 Units total) by mouth in the morning. 03/13/2021 Active citalopram (CeleXA) 10 mg tablet Take 2 tablets (20 mg total) by mouth in the morning. 07/23/2021 Active dicyclomine (BENTYL) 20 mg tablet Take 1 tablet (20 mg total) by mouth 3 (three) times a day. As needed 07/14/2021 Active lactase (LACTAID) 3,000 unit tablet As needed 07/14/2021 Active ocrelizumab (OCREVUS) 30 mg/mL injection Infuse into a venous catheter Every 6 months. Active cetirizine (ZyrTEC) 10 mg tablet Take 1 tablet (10 mg total) by mouth in the morning. 09/16/2021 Active cariprazine (VRAYLAR) 1.5 mg capsule Take 4 capsules (6 mg total) by mouth in the morning. Active oxybutynin (DITROPAN) 5 mg tablet Take 2 tablets (10 mg total) by mouth 3 (three) times a day. 540 tablet 3 12/08/2022 Active clonazePAM (KlonoPIN) 0.5 mg tablet 3 (three) times a day. Active docusate sodium (COLACE) 100 mg capsule As needed Active gabapentin (NEURONTIN) 300 mg capsule TAKE 1 CAPSULE BY MOUTH 3 TIMES A DAY (BREAKFAST, LUNCH, DINNER) AND TAKE 2 CAPSULES AT BEDTIME Active traZODone (DESYREL) 50 mg tablet As needed 08/13/2023 Active amitriptyline (ELAVIL) 10 mg tablet Take 1 tablet (10 mg total) by mouth nightly. Active divalproex (DEPAKOTE ER) 250 mg 24 hr tablet Take 1 tablet (250 mg total) by mouth in the morning. 4 tablets (1,000 mg) daily at HS. 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 08/15/2010 Posterior synechiae 08/15/2010 Urgency-frequency syndrome 02/14/2010 MS (multiple sclerosis) 10/16/2009 Family History Medical History Relation Name Comments No Known Problems Father Depression Mother Diabetes Mother Relation Name Status Comments Father Alive Mother Alive Social History Tobacco Use Types Packs/Day Years Used Date Smoking Tobacco: Never Smokeless Tobacco: Never Tobacco Cessation:Counseling Given: Not Answered Alcohol Use Standard Drinks/Week Comments Not Currently 0 (1 standard drink = 0.6 oz pur e alcohol) social Childcare Answer Date Recorded Childcare Unknown 09/07/2018 Employment Answer Date Recorded Employment Unknown 09/07/2018 Hunger Screening Answer Date Recorded Within the past 12 months we worried whether our food would run out before we got money to buy more. Never True 02/18/2024 Within the past 12 months th e food we bought just didn't last and we didn't have money to get more. Never True 02/18/2024 Purpose - Life Answer Date Recorded Purpose and direction in life Unknown Comments No Sex and Gender Information Value Date Recorded Sex Assigned at Not on file Legal Sex Female 12:10 PM EDT Gender Identity Not on file Sexual Orientation Not on file Last Filed Vital Signs Vital Sign Reading Time Taken Comments Blood Pressure 125/87 12/10/2023 12:07 PM EDT Pulse 74 12/10/2023 12:07 PM EDT Temperature 35.9 C (96.7 F) 10/03/2021 3:05 PM EDT Respiratory Rate 18 11/28/2021 10:07 AM EDT Oxygen Saturation 99% 10/03/2021 3:35 PM EDT Inhaled Oxygen Concentration - - Weight 98.4 kg (217 lb) 02/18/2024 8:48 AM EST Height 165.1 cm (5' 5 ) 02/18/2024 8:48 AM EST Body Mass Index 36.11 02/18/2024 8:48 AM EST Plan of Treatment Upcoming Encounters Date Type Department Care Team (Late st Contact Info) Description 12/08/2024 8:45 AM EDT Office Visit [facility] [address] [place] [address] [address] [facility] [place] [address] Baldev Marsh Jr., MD [address] [place], [place] [id number] Health Maintenance Due Date Last Done Comments Depression Screening 1988 Adult BMI Follow Up Plan 1994 DTaP,Tdap and Td Vaccines (1 - Tdap) 11/02/1995 COVID-19 Vaccine (2023-2 5 season) 2023 03/18/2021, 08/30/2020, 08/09/2020 Influenza Vaccine 11/27/2024 Adult BMI Screening 02/17/2025 02/18/2024 Tobacco Screening 02/17/2025 02/18/2024 Medical Devices Implanted Type Area Visitor Service Assistant Device Identifier Shelf Expiration Date Model / Serial / Lot Stent Uret 7fr 26cm Pgtl Crv Tpr Tip Bldr Mrk Lp Lg Inr Lum Rpl [id number] - [id number] - [id number] Implanted:Qty: 1 on 09/19/2021 by Baldev Marsh Jr., MD at [facility] Stent Left: Ureter [employer] 02/19/2022 [id number] / [id number] / [id number] Insurance [employer] Care Teams Metal Precision Machine Assembler Relationship Specialty Start Date End Date Mila Gomez APRN-FNP [address] [place] [address] PCP - General Family Medicine 09/09/21
--- OUTSIDE RECORDS SUMMARY | 2024-09-12 10:22 | XMS_ITS | Encounter Summary ---
Author Organization [facility] [employer] Address [id number] [address] [place] [address] Care Team Providers Care Airline Pilot/First Officer Name Role Phone PatriciaJesseMila BEAD WIRE INSULATOR-TURBINE ROOM ATTENDANT Primary Care Provide r Encounter Details Date Type Department Care Team (Late st Contact Info) Description 02/09/[address] [facility] [address] [place] [address] [place] [address] [place] [address] Chiara Lester CMA Social History Tobacco Use Types Packs/Day Years Used Date Smoking Tobacco: Never Smokeless Tobacco: Never Alcohol Use Standard Drinks/Week Comments Not Currently [...] on file Sexual Orientation Not on file COVID-19 Exposure Response Date Recorded In the last month, have you been in contact with someone who was confirmed or suspected to have Coronavirus / COVID-19? No / Unsure 02/06/2022 10:20 AM EST documented as of this encounter Miscellaneous Notes * Telephone Encounter - Chiara Lester CMA - 02/09/2022 9:33 AM EST Please advise on positive urine culture. * Telephone Encounter - OMID Finnegan - 02/09/2022 9:33 AM EST Please notify pt I sent in Cefadroxil to her pharmacy documented in this encounter Plan of Treatment Upcoming Encounters Date Type Department Care Team (Late st Contact Info) Description 12/08/2024 8:45 AM EDT Office Visit [facility] [address] [place] [address] [place] [address] Baldev Marsh Jr., MD [address] [place] [address] documented as of this encounter Visit Diagnoses Not on filedocumented in this encounter Care Teams Airline Pilot/First Officer Relationship Specialty Start Date End Date Mila Gomez APRN-SHRADDHA [facility] [place] [address] PCP - General Family Medicine 09/09/21 documented as of this encounter
--- OUTSIDE RECORDS SUMMARY | 2024-09-12 10:22 | XMS_ITS | Encounter Summary ---
Author Organization [employer] Address [id number] [address] [place] [address] Care Team Providers Care Partner Marketing Intern Name Role Phone Mila Gomez CERAMICS INSTRUCTOR-DIRECTOR OF ACCOUNTS RECEIVABLE Primary Care Provide r Encounter Details Date Type Department Care Team (Late st Contact Info) Description 01/13/2022 Orders Only [facility] [address] [place] [phone] Waleska Ramos Kidney stone on left side Social History Tobacco Use Types Packs/Day Years [...] on file documented as of this encounter Plan of Treatment Upcoming Encounters Date Type Department Care Team (Late st Contact Info) Description 12/08/2024 8:45 AM EDT Office Visit [facility] [address] [place] [address] [address] [facility] [place] [address] Baldev Marsh Jr., MD [address] [place], [place] [phone] documented as of this encounter Procedures Procedure Name Priority Date/Time Associated Diagnosis Comments LITHOLINK 48 HOUR Routine 01/01/2022 Kidney stone on left side documented in this encounter Results * Litholink 48 Hour ([facility]) (01/01/2022) 01/01/2022 us Baldev Marsh Jr., MD URINE ORDERABLES Final R esult MANUALLY TRANSCRIBED RESULTS documented in this encounter Visit Diagnoses Diagnosis Kidney stone on left side documented in this encounter Care Teams Partner Marketing Intern Relationship Specialty Start Date End Date Mial Gomez APRN-FNP [address] [place] [address] PCP - General Family Medicine 09/09/21 documented as of this encounter
--- OUTSIDE RECORDS SUMMARY | 2024-09-12 10:22 | XMS_ITS | Encounter Summary ---
[facility] Organization [facility] Address [id number] [address] [place] [address] Care Team Providers Care Grant Manager Name Role Phone Mila Gomez CIVIL ENGINEER'S AIDE-MEDICARE SALES EXECUTIVE Primary Care Provide r Encounter Details Date Type Department Care Team (Late st Contact Info) Description 01/13/2024 [facility]phone [facility] [address] [place] [phone] Harjinder Jackson CMA Social History Tobacco Use Types Packs/Day [...] got money to buy more. Never True 12/10/2023 Within the past 12 months th e food we bought just didn't last and we didn't have money to get more. Never True 12/10/2023 Purpose - Life Answer Date Recorded Purpose and direction in life Unknown Comments No Sex and Gender Information Value Date Recorded Sex Assigned at Not on file Legal Sex Female 12:10 PM EDT Gender Identity Not on file Sexual Orientation Not on file documented as of this encounter Miscellaneous Notes * Telephone Encounter - Harjinder Jackson CMA - 01/13/2024 3:54 PM EDT Melva Zapien from pre cert is calling stating insurance is requesting nwe lab work ( TSH, B12 CMP CBC) urinalysis, & US before her other testing can be done Please advise documented in this encounter Plan of Treatment Upcoming Encounters Date Type Department Care Team (Late st Contact Info) Description 12/08/2024 8:45 AM EDT Office Visit [facility] [address] [place] [address] [place] [phone] Baldev Marsh Jr., MD [address] [place] [phone] documented as of this encounter Visit Diagnoses Not on filedocumented in this encounter Care Teams Grant Manager Relationship Specialty Start Date End Date Mila Gomez APRN-FNP [address] [place] [address] PCP - General Family Medicine 09/09/21 documented as of this encounter
--- OUTSIDE RECORDS SUMMARY | 2024-09-12 10:22 | XMS_ITS | Encounter Summary ---
Author Organization [facility] Address [address] [place] [address] Care Team Providers Care Implementation Architect Name Role Phone Unallocated, Noms Provider Primary Care Provi jian Encounter Details Date Type Department Care Team (Late Contact Info) Description 07/18/2024 Orders Only [facility] [address] [place] [address] Mila Gomez NP [address] [place] [address] Social History Tobacco Use Types Packs/Day Years Used Date Smoking Tobacco: Never Smokeless Tobacco: Never Alcohol Use Standard Drinks/Week Comments Not Currently 0 (1 standard drink = 0.6 oz pure alcohol) caffeine intake: 1-2 cups per day Comments Unknown Sex and Gender Information Value Date Recorded Sex Assigned at Not on file Legal Sex Female 6:50 PM EDT Gender Identity Not on file Sexual Orientation Not on file documented as of this encounter Plan of Treatment Upcoming Encounters Date Type Department Care Team (Late st Contact Info) Description 10/09/2024 10:15 AM EDT Office Visit [facility] [address] [place] [address] Roland Cotton NP [address] [place], [place] [phone] documented as of this encounter Procedures Procedure Name Priority Date/Time Associated Diagnosis Comments XR KNEE 4+ VIEWS RIGHT Routine 06/26/2024 4:21 PM EDT documented in this encounter Results * XR knee 4+ views right (06/26/2024 4:21 PM EDT) Anatomical Region Laterality Modality Lower Extremities, Knee Right Radiogra phic Imaging us Mila Gomez ALARM MECHANIC IMG XR PROCEDURES Final Res ult documented in this encounter Visit Diagnoses Not on filedocumented in this encounter Care Teams Implementation Architect Relationship Specialty Start Date End Date Unallocated, Noms MD Terese [address] [place] [address] PCP - General 10/19/22 documented as of this encounter
--- OUTSIDE RECORDS SUMMARY | 2024-09-12 10:22 | XMS_ITS | Encounter Summary ---
Author Organization [facility] Address [facility][id number] [address] [place] [address] Care Team Providers Care Brick Picker Name Role Phone Mila Gomez LEATHER GOODS II ASSEMBLER-MUSIC COPYIST Primary Care Provide r Reason for Visit * Reason Comments Med Refill Encounter Details Date Type Department Care Team (Late st Contact Info) Description 12/07/2022 Refill [facility] [address] [place] [phone] Baldev Marsh Jr., MD [address] [place] [address] [phone] Social History Tobacco Use Types Packs/Day Years [...] got money to buy more. Never True 03/06/2022 Within the past 12 months th e food we bought just didn't last and we didn't have money to get more. Never True 03/06/2022 Purpose - Life Answer Date Recorded Purpose and direction in life Unknown Comments No Sex and Gender Information Value Date Recorded Sex Assigned at Not on file Legal Sex Female 12:10 PM EDT Gender Identity Not on file Sexual Orientation Not on file documented as of this encounter Miscellaneous Notes * Telephone Encounter - Baldev Marsh Jr., MD - 12/07/2022 2:53 PM EDT Already done documented in this encounter Plan of Treatment Upcoming Encounters Date Type Department Care Team (Late st Contact Info) Description 12/08/2024 8:45 AM EDT Office Visit [facility] [address] [place] [address] [place] [phone] Baldev Marsh Jr., MD [facility] [place] [address] documented as of this encounter Visit Diagnoses Not on filedocumented in this encounter Care Teams Brick Picker Relationship Specialty Start Date End Date Mila Gomez APRN-SHRADDHA [address] [place] [address] PCP - General Family Medicine 09/09/21 documented as of this encounter
--- OUTSIDE RECORDS SUMMARY | 2024-09-12 10:22 | XMS_ITS | Clinical Summary ---
Author Organization [facility] Address [address] [place] [address] Care Team Providers Care Pipe Fitter Supervisor Maintenance Name Role Phone Unallocated, Noms Provider Primary Care Provi jian Allergies Active Allergy Reactions Criticality Noted Date Comments Naproxen GI intolerance 10/16/2022 Prednisone 10/16/2022 Other Reaction(s): bradycardia, arrythmia Sulfa Antibiotics 10/16/2022 Other Reaction(s): hives, vomiting Sulfamethoxazole-Trimeth oprim 08/06/2022 Other Reaction(s): anaphylaxis Medications buPROPion XL (Wellbutrin XL) 300 MG 24 hr tablet Take 300 mg by mouth Daily Active baclofen (Lioresal) 10 MG tablet every 8 (eight) hours 2 Active cholecalciferol (Vitamin D-3) 25 MCG (1000 UT) capsule Active Vraylar 1.5 MG capsule Take 1 capsule by mouth Daily 2 Active Cariprazine HCl (Vraylar) 6 MG capsule 3 Active cetirizine (ZyrTEC) 10 MG tablet Take 1 tablet by mouth Daily Active cholecalciferol (Vitamin D-3) 125 MCG (5000 UT) capsule Take 125 mcg by mouth Daily 3 Active citalopram (CeleXA) 10 MG tablet Take 10 mg by mouth Daily 3 Active divalproex (Depakote ER) 250 MG 24 hr tablet 3 Active docusate sodium (Colace) 100 MG capsule 1 (one) time each day at the same time 3 Active gabapentin (Neurontin) 300 MG capsule 3 Active lactase (Lactaid) 3000 units tablet 1 (one) time each day at the same time Active ocrelizumab (Ocrevus) 300 MG/10ML solution Active oxybutynin (Ditropan) 5 MG tablet 3 Active methylPREDNISol one (Medrol Dospak) 4 MG tabletsIndicati ons:Knee strain, right, initial encounter Follow schedule on package instructions 21 tablet 5 Active Additional Information Patient not taking.Reported on 08/14/2024 brimonidine (AlphaGAN P) 0.2 % ophthalmic solution Administer 1 drop into affected eye(s) in the morning and 1 drop in the evening. 5 Active Hospital, Clinic, or Other Facility Administered Medication Ordered Dose Route Frequency Start Date End Date Status methylPREDNISolone acetate (DEPO-Medrol) injection 40 mgIndications:Strain of right knee and leg, subsequent encounter 40 mg IX Once PRN Procedure 08/15/2024 08/15/2024 Ended Active Problems Problem Noted Date Diagnosed Date Generalized anxiety disorder 10/19/2022 Moderate episode of recurrent major depressive d isorder 10/19/2022 Gallbladder sludge 10/19/2022 Bilateral tinnitus 10/16/2022 Primary osteoarthritis 10/16/2022 Sensorineural hearing loss, bilateral 10/16/2022 Kidney stone on left side 08/22/2021 Difficulty voiding 08/08/2021 History of kidney stones 08/08/2021 Mixed stress and urge urinary incontinence 08/08 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 Multiple sclerosis, anxiety, bipolar disorder, sexually [...] stone passage x2, following radiographic evaluation at [facility], most recently estimated 2011 5-6 mm side [...] hydronephrosis; punctate left renal stone CT 02/24/2022 6. Alternating constipation/diarrhea 7. Mixed urge and [...] 02/23/2022 possibly myelolipoma is or lipid rich adenomas 16. KUB August 2021; CT July 2021; ultrasound October 2021; litho hypernaturia link December 2021 Bipolar affective 08/18/2017 Malnutrition of moderate degree (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 08/15/2010 Posterior synechiae 08/15/2010 Urgency-frequency syndrome 02/14/2010 Multiple sclerosis 10/16/2009 Encounters Date Type Department Care Team Description 08/28/2024 1:30 PM EDT [facility] Visit [facility] [address] [place] [address] Cotton, Roland T, COMPARATOR OPERATOR Strain of quadriceps tendon, right, subsequent encounter (Primary Dx); Chronic pain of right knee 08/28/2024 Bamboo flowsheet [facility] [address] [place] [address] Roland Cotton, COMPARATOR OPERATOR 08/28/2024 Travel 08/14/2024 10:45 AM EDT Office Visit [facility] [address] [place] [address] Roland Cotton, COMPARATOR OPERATOR Strain of right knee and leg, subsequent encounter (Primary Dx); Chronic pain of right knee 08/14/2024 Bamboo flowsheet [facility] [address] [place] [address] Roland Cotton, RODRI 08/14/2024 Travel 07/24/2024 2:45 PM EDT Office Visit [facility] [address] [place] [phone] Roland Cotton, COMPARATOR OPERATOR Knee strain, right, initial encounter (Primary Dx); Chronic pain of right knee 07/24/2024 Bamboo flowsheet [facility] [address] [place] [address] Roland Cotton, RODRI 07/24/2024 Travel 07/18/2024 Orders Only [facility] [address] [place] [phone] Mila Gomez NP from Last 3 Months Immunizations Immunization Administration Dates Next Due Pfizer Purple Cap SARS-CoV-2 Vaccination 021,08/30/2020,08/09/2020 Pneumococcal Conjugate PCV 20 01/12/2022 Family History Medical History Relation Name Comments Diabetes Mother Diabetes Sibling Relation Name Status Comments Father Other Mother Alive Sibling Social History Tobacco Use Types Packs/Day Years [...] Sign Reading Time Taken Comments Blood Pressure 114/75 12/24/2021 12:00 PM EDT Pulse - - Temperature - - Respiratory Rate - - Oxygen Saturation - - Inhaled Oxygen Concentration - - Weight 107 kg (236 lb) 03/24/2022 12:00 PM EST Height 166.4 cm (5' 5.5 ) 03/24/2022 12:00 PM ES T Body Mass Index 38.68 03/24/2022 12:00 PM EST Plan of Treatment Upcoming Encounters Date Type Department Care Team (Late st Contact Info) Description 10/09/2024 10:15 AM EDT Office Visit [facility] [address] [place] [address] Roland Cotton NP [address] [place] [address] Health Maintenance Due Date Last Done Comments CT Colonography 1976 Colonoscopy 1976 FIT 1976 FOBT 1976 Sigmoidoscopy 1976 Pap Smear 1997 Cervical Cancer Screening 2006 HPV/Cotest 2006 Mammogram 2016 Influenza Vaccine (Season Ended) 2024 Colorectal Cancer Screening 09/20/2026 FIT-DNA 09/20/2026 09/21/2023 Procedures Procedure Name Priority Date/Time Associated Diagnosis Comments PA ARTHROCENTESIS ASPIR&/INJ MAJOR JT/BURSA W/O US Routine 08/15/2024 3:34 PM EDT Strain of right knee and leg, subsequent encounter XR KNEE 4+ VIEWS RIGHT Routine 4:21 PM EDT from Last 3 Months Results * PA ARTHROCENTESIS ASPIR&/INJ MAJOR JT/BURSA W/O US (08/15/2024 3:34 PM EDT) Narrative Roland Cotton NP - 08/15/2024 3:34 PM EDT Roland Cotton NP 08/15/2024 3:36 PM L Inj/Asp: R knee on 08/15/2024 3:34 PM Indications: pain Details: 21 G needle, anterolateral approach Medications: 40 mg methylPREDNISolone acetate 40 MG/ML Outcome: tolerated well, no immediate complications Site cleaned with isopropyl alcohol Procedure, treatment alternatives, risks and benefits explained, specific risks discussed. Consent was given by the patient. Roland Cotton NP IN CLINIC/BEDSIDE ORDERABLES Fi nal Result * XR knee 4+ views right (06/26/2024 4:21 PM EDT) Anatomical Region Laterality Modality Lower Extremities, Knee Right Radiogra phic Imaging Mila Gomez NP IMG XR PROCEDURES Final Res ult from Last 3 Months Insurance [employer] Care Teams Pipe Fitter Supervisor Maintenance Relationship Specialty Start Date End Date Unallocated, Noms Provider, [address] [place], [place] [phone] PCP - General 10/19/22
--- OUTSIDE RECORDS SUMMARY | 2024-09-12 10:22 | XMS_ITS | Encounter Summary ---
Author Organization [facility] [email or web address] [facility] Address [facility] [place]-[id number] [address] [place] [address] Care Team Providers Care Strategic Marketing Leader Name Role Phone Mila Gomez WOOD SCRAP HANDLER-CANDY BUTCHER Primary Care Provide r Reason for Visit * Reason Comments Med Refill Encounter Details Date Type Department Care Team (Late st Contact Info) Description 10/13/2021 Refill [facility] [address] [place] [phone] Baldev Marsh Jr., MD [address] [place] [phone] Social History Tobacco Use Types Packs/Day Years [...] have Coronavirus / COVID-19? No / Unsure 10/03/2021 12:58 PM EDT documented as of this encounter Miscellaneous Notes * Telephone Encounter - Baldev Marsh Jr., MD - 10/13/2021 2:59 PM EDT Refill not appropriate documented in this encounter Plan of Treatment Upcoming Encounters Date Type Department Care Team (Late st Contact Info) Description 12/08/2024 8:45 AM EDT Office Visit [facility] [address] [place] [address] A [facility] [place] [phone] Baldev Marsh Jr., MD [address] [place] [address] documented as of this encounter Visit Diagnoses Not on filedocumented in this encounter Care Teams Strategic Marketing Leader Relationship Specialty Start Date End Date Mila Gomez APRN-FNP [address] [place] [address] PCP - General Family Medicine 09/09/21 documented as of this encounter
--- OUTSIDE RECORDS SUMMARY | 2024-09-12 10:22 | XMS_ITS | Encounter Summary ---
Author Organization [facility] Address [facility] [place]-[id number] [address] [place] [address] Care Team Providers Care Water Resources Program Director Name Role Phone Mila Gomez RIDE ASSEMBLY SUPERVISOR-TRANSPORTATION OFFICER Primary Care Provide r Reason for Visit * Reason Comments Med Refill Encounter Details Date Type Department Care Team (Late st Contact Info) Description 11/05/2023 Refill [facility] [address] [place] [phone] Baldev Marsh Jr., MD [address] [place] [address] [phone] Social History Tobacco Use Types Packs/Day Years [...] Encounter - Baldev Marsh Jr., MD - 11/05/2023 4:42 PM EDT Definitely needs to make and office appointment before any prescription. documented in this encounter Plan of Treatment Upcoming Encounters Date Type Department Care Team (Late st Contact Info) Description 12/08/2024 8:45 AM EDT Office Visit [facility] [address] [place] [address] [place] [address] Baldev Marsh Jr., MD [address] [place] [address] documented as of this encounter Visit Diagnoses Not on filedocumented in this encounter Care Teams Water Resources Program Director Relationship Specialty Start Date End Date Mila Gomez APRN-SHRADDHA [facility] [place] [address] PCP - General Family Medicine 09/09/21 documented as of this encounter
--- OUTSIDE RECORDS SUMMARY | 2024-09-12 10:22 | XMS_ITS | Encounter Summary ---
Author Organization [facility] [employer] Sys tem Address [facility]-[id number] [address] [place] [address] Care Team Providers Care Hide Stretcher Hand Name Role Phone PatriciaJesseMila RADIO JOURNALIST-BUSINESS EDUCATION TEACHER Primary Care Provide r Encounter Details Date Type Department Care Team (Late st Contact Info) Description 08/08/2021 [facility] [address] [place] [address] [place] [address] Marialuisa Escoto Social History Tobacco Use Types Packs/Day Years Used Date Smoking Tobacco: Never Smokeless Tobacco: Never Alcohol Use Standard Drinks/Week Comments Never 0 (1 standard drink = 0.6 oz pur e alcohol) Childcare Answer Date Recorded Childcare Unknown 09/07/2018 [...] Exposure Response Date Recorded In the last 10 days, have yo u been in contact with someone who was confirmed or suspected to have Coronavirus/COVID-19? No / Unsure 08/08/2021 10:59 AM EDT documented as of this encounter Miscellaneous Notes * Telephone Encounter - Marialuisa Escoto - 08/08/2021 12:14 PM EDT SheilaDr. Marsh has ordered a CT on this patient. Thank you. Marialuisa documented in this encounter Plan of Treatment Upcoming Encounters Date Type Department Care Team (Late st Contact Info) Description 12/08/2024 8:45 AM EDT Office Visit [facility] [address] [place] [address] [place] [phone] Baldev Marsh Jr., MD [address] [place] [address] [phone] documented as of this encounter Visit Diagnoses Not on filedocumented in this encounter Care Teams Hide Stretcher Hand Relationship Specialty Start Date End Date Mila Gomez APRN-SHRADDHA [address] [place] [address] PCP - General Family Medicine 09/09/21 documented as of this encounter
[2024-09-12 10:45] LABS: Basophils Percent Auto 0.6 % (0.2-2.0); Eosinophils Absolute Auto 0.2 10^3/uL (0.0-0.7); Eosinophils Percent Auto 2.4 % (0.9-7.0); Hematocrit 40.9 % (36.0-48.0); Hemoglobin 13.9 g/dL (12.0-16.0); Immature Granulocytes Abs Auto 0.04 10^3/uL (0.00-0.03); Immature Granulocytes Pct Auto 0.6 % (0.0-0.5); Lymphocytes Absolute Auto 1.7 10^3/uL (1.2-3.8); Lymphocytes Percent Auto 23.3 % (20.5-60.0); Mean Corpuscular Hemoglobin 30.2 pg (26.7-34.0); Mean Corpuscular Volume 88.7 fL (81.0-99.0); Mean Platelet Volume 9.8 fL (9.5-13.5); Monocytes Absolute Auto 0.5 10^3/uL (0.3-0.8); Monocytes Percent Auto 7.4 % (1.7-12.0); Neutrophils Absolute Auto 4.7 10^3/uL (1.4-6.5); Neutrophils Percent Auto 65.7 % (43.0-75.0); Platelet Count 183 10^3/uL (150-450); Red Blood Count 4.61 10^6/uL (4.20-5.40); Red Cell Distribution Width 12.7 % (11.0-15.0); White Blood Count 7.1 10^3/uL (4.0-11.0)
[2024-09-12 11:14] LABS: Alanine Aminotransferase 26 U/L (14-59); Albumin Level 3.2 g/dL (3.4-5.0); Alkaline Phosphatase 88 U/L (46-116); Aspartate Amino Transferase 19 U/L (15-37); Bilirubin Direct 0.2 mg/dL (0.0-0.2); Bilirubin Total 0.5 mg/dL (0.2-1.0); Chol HDL Ratio 3.3; Cholesterol 191 mg/dL (<=200); Globulin 3.3 g/dL; Glucose 112 mg/dL (74-106); HDL Cholesterol 58 mg/dL (40-60); LDL Cholesterol Calculated 108.4 mg/dL; Total Protein 6.5 g/dL (6.4-8.2); Triglycerides 123 mg/dL (<=150); VLDL CHOLESTEROL 24.6 mg/dL; Valproic Acid 62.6 ug/mL (50.0-100.0)
[2024-09-12 11:34] LABS: Estimated Average Glucose 120 mg/dL; Glycohemoglobin A1C 5.8 % (4.5-6.2)
== END 2024-09-12 10:19 | disposition home or self-care (01) ==
LOC: LAB 10:20
PROVIDERS: PCP Nurse Practitioner Family; Visit Provider Psychiatry & Neurology Psychiatry
DX: F31.9 Bipolar disorder, unspecified (principal); Z79.899 Other long term (current) drug therapy
CPT/HCPCS: 36415; 80061; 80076; 80164; 82947; 83036; 85025